=== PATIENT | female | born 1955 | race Caucasian/White ===

== ENCOUNTER → 2017-01-03 | Emergency (ER) | payer MEDICARE, MEDICAID ==
[~2017-01-03] VITALS: Ht 144.8 cm; Wt 52.2 kg
[~2017-01-03] MED LIST: ACET-868 PO; ALBU2.5V13 IH; BISA10SU8 RC; DEXT15DR EACHEYE; DEXT1CAP3 GT; DIATR MEGLU/DIATRIZOATE SODIUM 30 ML BOTTLE (GASTROGRAPHIN) ONE; DOCU50LI GT; ENOX30DI SQ; ESCI10TA GT; HYDR-3326 GT; LEVE500T9 GT; LEVO25TA7 GT; LORA1TAB GT; MAGN400O4 GT; NA P133E RC; NUTR250L48 GT; PANT40SU2 GT
[2017-01-03 18:25] VITALS: BP 102/70
== END | disposition home or self-care (01) ==
LOC: ER 18:24
DX: Z43.1 Encounter for attention to gastrostomy (principal); D64.9 Anemia, unspecified; E11.9 Type 2 diabetes mellitus without complications; I10 Essential (primary) hypertension
CPT/HCPCS: 43760; 74000; 99284; A4606; Q9963; Z7610

== ENCOUNTER 2017-10-13 13:24 | Inpatient (IN) | payer MEDICARE, OTHER ==
[~2017-10-13] VITALS: Ht 152.4 cm; Wt 47.7 kg
[~2017-10-13 13:24] MED LIST changes: -DIATR MEGLU/DIATRIZOATE SODIUM 30 ML BOTTLE (GASTROGRAPHIN) ONE; -HYDR-3326 GT; +HYDR-3974 GT; +MAGN400O21 GT; -MAGN400O4 GT
[2017-10-13] MEDS ORDERED: ACETAMINOPHEN 650 MG/SUPP.RECT RC ONE ×2 (13:30→13:40)
[2017-10-13] MEDS ORDERED: PANTOPRAZOLE 40 MG VIAL IV ONE (13:30)
[2017-10-13] MEDS ORDERED: PIPERACILLIN /TAZOBACTAM 3.375 G in IV D5W 50 ML IV ONE (13:30)
[2017-10-13] MEDS ORDERED: VANCOMYCIN 1 GM in IV D5W 250 ML IV ONE (13:30)
[2017-10-13] MEDS ORDERED: ONDANSETRON HCL/PF - ER 4 MG/2 ML VIAL IV ONE (13:30)
[2017-10-13] MEDS ORDERED: ONDANSETRON HCL/PF 4 MG/2 ML VIAL ONE (13:40)
[2017-10-13] MEDS ORDERED: PANTOPRAZOLE 40 MG VIAL ONE (13:40)
[2017-10-13] MEDS ORDERED: METRONIDAZOLE 500MG/ NS 100ML 100 ML IV ONE ×2 (13:42→21:22)
--- NOTE | 2017-10-13 13:45 | NUR ---
BIBRA C/O COFFEE GROUND EMESIS AND THEN PATIENT DESAT TO 80S. TACHYPNEIC AND FEBRILE WITH RECTAL TEMP OF 100.6. CONTINUE BAGGING AT BS. SKIN IS WARM AND DRY. PLACED ON THE MONITOR AND ASSISTED TO HOSPITAL GOWN. DR MAY AT BS FOR EVAL.
[2017-10-13] MEDS: METRONIDAZOLE 500MG/ NS 100ML 500 MG in PREMIX 1 EA IV SCH ×2 (13:55→21:26)
[2017-10-13 13:58] VITALS: BP 109/84
--- NOTE | 2017-10-13 13:58 | NUR ---
RT PT WAS BROUGHT INTO ER BY PARAMEDICS, PARAMEDICS STATED PT HAD POOR RESPIRATORY EFFORT AND POSSIBLE ASPIRATION. PT APPEARED TO HAVE SHALLOW BREATHING AND BREATHE SOUNDS RHONCHI BILATERAL. PT CAME IN WITH A CUFFLESS PORTEX 7 TRACH AND WAS CHANGED TO PORTEX 7 CUFFED. EQUAL BILATERAL BREATHE SOUNDS AND CHEST RISE NOTED. PT WAS THEN PLACED ON THE VENT NOTED SETTINGS. PT APPEARED TO BE MORE COMFORTABLE ON VENT. VENT ALARMS ARE SET AND AUDIBLE WITH BVM BY BEDSIDE. GOURMET COFFEE ATTENDANT CUFF PRESSURE NOTED. VENT WAS PLUGGED INTO RED OUTLET. NO RESPIRATORY DISTRESS NOTED AT THIS TIME, WILL CONTINUE TO MONITOR. Addendum: 10/13/17 at 1709 by LES MICHEL RT Amended: Links added.
[2017-10-13] MEDS ORDERED: LEVETIRACETAM (500MG) 1,000 MG in IV NS 0.9% 100 ML IV SCH (14:00)
[2017-10-13] MEDS ORDERED: IV NS 0.9% 1,000 ML BAG IV ONE ×2 (14:00)
[2017-10-13 14:02] LABS: BASOPHILS # (AUTO) 0.2 /CMM (0.0-0.2); BASOPHILS % (AUTO) 1.2 % (0.0-2.0); HEMATOCRIT 27 % (33-45); LYMPHOCYTES % (AUTO) 6.8 % (20.0-44.0); MEAN CORPUSCULAR HGB CONC 33 g/dl (31.0-36.0); MEAN CORPUSCULAR VOLUME 83 fL (82-100); MONOCYTES # (AUTO) 0.1 /CMM (0.1-1.30); MONOCYTES % (AUTO) 0.9 % (2.0-12.0); NEUTROPHILS # (AUTO) 12.8 /CMM (1.8-8.9); NEUTROPHILS % (AUTO) 91.1 % (43.0-81.0); PLATELET COUNT (AUTO) 654 /CMM (150-450); RDW COEFFICIENT OF VARIATION 15.5 (11.5-15.0); RED BLOOD CELL COUNT(AUTO) 3.26 MIL/uL (4.0-5.2); WHITE BLOOD COUNT (AUTO) 14.1 K/uL (4.3-11.0)
--- NOTE | 2017-10-13 14:02 | NUR ---
PATIENT IS ON VENT WITH THE FOLLOWING SETTINGS: PORTEX # 7, AC=14, NE=281, SPO2=40% PEEP=5.
[2017-10-13 14:04] LABS: APPEARANCE,URINE Slightly Cloudy (CLEAR); BILIRUBIN,URINE Negative (NEGATIVE); BLOOD, URINE Trace-intact Ery/uL (NEGATIVE); COLOR,URINE Dark (YELLOW); KETONES,URINE Negative (NEGATIVE); LEUKOCYTE ESTERASE ,URINE Small (NEGATIVE); NITRITE, URINE Negative (NEGATIVE); PH,URINE 8.5 (5.0-8.0); PROTEIN,URINE 30 mg/dl (NEGATIVE); UGLUCOSE Negative (NEGATIVE); UROBILINOGEN,URINE 0.2 EU/dL (0.2)
[2017-10-13] MEDS ORDERED: ACETAMINOPHEN 650 MG/20.3 ML UDC ONE (14:12)
[2017-10-13 14:13] LABS: CALCIUM, SERUM 9.5 mg/dL (8.5-10.1); CHLORIDE 88 mmol/L (98-107); CREATININE 0.8 mg/dL (0.6-1.3); GLUCOSE 127 mg/dL (74-106); POTASSIUM 3.7 mmol/L (3.5-5.1); SODIUM SERUM 129 mmol/L (136-145); UREA NITROGEN, BLOOD 13 mg/dL (7-18)
[2017-10-13 14:16] LABS: INR 0.98 (0.85-1.15)
[2017-10-13 14:17] LABS: CARBON DIOXIDE 40 mmol/L (21-32)
[2017-10-13 14:18] LABS: ALANINE AMINOTRANSFERASE 34 U/L (12-78); ALBUMIN 2.2 g/dL (3.4-5.0); ALKALINE PHOSPHATASE 113 U/L (46-116); ASPARTATE AMINOTRANSFERASE 26 U/L (15-37); BILIRUBIN,TOTAL 0.2 mg/dL (0.2-1.0); TOTAL PROTEIN, SERUM 7.3 g/dL (6.4-8.2)
[2017-10-13 14:20] LABS: TROPONIN I < 0.017 ng/mL (0.00-0.056)
[2017-10-13 14:29] LABS: BACTERIA,URINE Moderate /HPF (None Seen); SQUAMOUS EPITHELIAL CELL,UR Few /HPF (None Seen)
[2017-10-13 14:30] LABS: RBC,URINE 0-3 /HPF (0-2); URINE AMORPHOUS URATE Moderate /HPF (None Seen)
[2017-10-13] MEDS ORDERED: ACETAMINOPHEN 325 MG TABLET MC ONE (14:30)
[2017-10-13 14:41] LABS: THYROID STIMULATING HORMONE 5.803 uIU/mL (0.358-3.74)
[2017-10-13] MEDS ORDERED: POTA20LI4 GT (15:04)
[2017-10-13] MEDS ORDERED: OMEP20CA10 GT (15:04)
[2017-10-13] MEDS ORDERED: LEVO137T2 GT (15:04)
[2017-10-13] MEDS ORDERED: TRAM50TA GT (15:04)
[2017-10-13] MEDS ORDERED: FURO20TA4 GT (15:04)
[2017-10-13] MEDS ORDERED: LACT-96 GT (15:04)
[2017-10-13] MEDS ORDERED: METO-295 GT (15:04)
[2017-10-13] MEDS ORDERED: CHLO473M3 MM (15:04)
[2017-10-13] MEDS ORDERED: ALBU2.5V38 IH (15:04)
[2017-10-13] MEDS ORDERED: GLYC1TAB5 GT (15:04)
[2017-10-13] MEDS ORDERED: IPRA0.2S9 IH ×2 (15:04)
[2017-10-13] MEDS ORDERED: POLY17PO4 GT (15:04)
[2017-10-13] MEDS ORDERED: ACET160L33 GT (15:04)
[2017-10-13] MEDS ORDERED: DEXT15DR6 EACHEYE (15:04)
[2017-10-13] MEDS ORDERED: LEVE500S9 GT (15:04)
--- NOTE | 2017-10-13 15:59 | NUR ---
REPORT GIVEN TO ANA PEREZ FOR ANG TELE 114-2
[2017-10-13] MEDS ORDERED: MAG HYDROX/AL HYDROX/SIMETH 30 ML UDC PO PRN (16:00)
[2017-10-13] MEDS ORDERED: MAGNESIUM HYDROXIDE 30 ML UDC PO PRN (16:00)
[2017-10-13] MEDS ORDERED: ALBUTEROL FS 2.5 MG/0.5 ML VIAL.NEB IH PRN (16:00)
[2017-10-13] MEDS ORDERED: BISACODYL SUPP (10 MG) 10 MG/SUPP.RECT SUPP.RECT RC PRN (16:00)
[2017-10-13] MEDS ORDERED: ONDANSETRON HCL/PF 4 MG/2 ML VIAL IVP PRN (16:00)
[2017-10-13] MEDS ORDERED: ZOLPIDEM TARTRATE 5 MG TABLET PO PRN (16:00)
[2017-10-13] MEDS ORDERED: IPRATROPIUM NEB FS 0.5 MG/2.5 ML AMPUL.NEB IH PRN (16:00)
[2017-10-13] MEDS ORDERED: MAGNESIUM HYDROXIDE 30 ML UDC GT PRN (16:00)
[2017-10-13] MEDS ORDERED: VANCOMYCIN 0.75 GM in IV NS 0.9% 250 ML IV SCH (16:00)
[2017-10-13 16:30] VITALS: BP 104/63
--- NOTE | 2017-10-13 16:30 | NUR ---
RN ADMITTING NOTES: Rec'd report from [facility] TELESALES PROFESSIONAL. Pt admitted at rm 116/2, TELE status via [employer] accompanied by RN, RT and ROLLER STAKER. Routine assessment done. Pt is obtunded, opens eyes spontaneously, not in any distress. Has new trach changed at ER Portex 7, patent & intact, placed on MV c/o RT. Suctioned pink tinged secretions. Placed on telemonitor, SR. Has GT, clamped, flushing well. Has 2 IV line access: R wrist G22 and L hand G20, SL, both flushing well, no s/sx of infection/infiltration noted. Has FC draining to BSB, yellowish output. Skin is intact. No belongings noted. Provided comfort & safety measures. Bed kept low & in locked pos. Call light placed w/in reach. Will continue to monitor & attend pt needs. Addendum: 10/13/17 at 1856 by ANA STAFFORD RN Addendum: No acute changes noted w/in shift. Will endorse to PM RN for ANG.
[2017-10-13] MEDS ORDERED: FEE PK DOSING 1 MIN EA MC ONE (16:31)
[2017-10-13] MEDS: IV NS 0.9% 1,000 ML IV PRN (16:59)
[2017-10-13] MEDS: POLYVINYL ALCOHOL 15 ML BOTTLE EACHEYE SCH ×2 (17:00→18:10)
[2017-10-13] MEDS: GLYCOPYRROLATE 1 MG TABLET GT SCH ×2 (17:24→23:33)
[2017-10-13 17:30] LABS: ABG BASE EXCESS 4.5 mmol/L; ABG OXYGEN SATURATION 97.6 % (92.0-98.5); ABG PCO2 43.1 mmHg (35.0-45.0); ABG PH 7.446 (7.350-7.450); ABG PO2 118.7 mmHg (75.0-100.0); AaDO2 116.9 mmHg; COHb 1.6 % (0.5-1.5); MetHb 0.3 % (0.0-1.5); O2Hb 95.7 % (94.0-97.0); PEEP,BG 5 cm H2O; SITE, ABG Right Brachial; VT, ABG 450 mL
[2017-10-13] MEDS ORDERED: IPRATROPIUM NEB FS 0.5 MG/2.5 ML AMPUL.NEB IH SCH (18:00)
[2017-10-13] MEDS: PIPERACILLIN /TAZOBACTAM 3.375 G in IV D5W 50 ML IV SCH ×2 (18:10→23:33)
[2017-10-13] MEDS: ALBUTEROL FS 2.5 MG/3 ML VIAL.NEB IH SCH (19:30)
[2017-10-13] MEDS: IPRATROPIUM NEB FS 0.5 MG/2.5 ML AMPUL.NEB IH SCH (19:30)
--- NOTE | 2017-10-13 19:57 | NUR ---
HOSPITAL NURSING ASSISTANT NOTE RECEIVED PT IN BED OBTUNDED. ON VENT/TRACH, PORTEX 7 AC 14 TV 450, FIO2 30% PEEP 5. TOLERATING THE SETTINGS WELL. NO DISTRESS OR DISCOMFORT NOTED. NO S/S OF PAIN NOTED. ON TELE MONITOR SR HR 83. F/C INTACT AND PATENT DRAINING YELLOWISH COLOR URINE. GT INTACT AND PATENT CLAMPED. PT IS NPO. RT WRIST #22 S/L INTACT AND PATENT ALSO LT HAND #20 G WITH NS @ 75 ML/HR, NO S/S OF INFILTRATION NOTED. REPOSITION HER FOR COMFORT AND SKIN MANAGEMENT. KEPT HER DRY AND CLEAN. ALL NEEDS ATTENDED. SIDE RAILS UP X 3 AND CALL LIGHT WITHIN REACH. VSS. CONTINUE TO MONITOR HER.
[2017-10-13 20:00] VITALS: BP_SYST 162; BP_SYST 97; BP_DIAS 50; BP_DIAS 69
[2017-10-13] MEDS ORDERED: PIPERACILLIN /TAZOBACTAM 3.375 G in IV D5W 100 ML IV SCH (21:00)
[2017-10-13] MEDS: TRAMADOL HCL 50 MG TABLET GT SCH (21:21)
[2017-10-13] MEDS: LEVETIRACETAM SOL (5 ML) 100 MG/ML UDC GT SCH (21:21)
[2017-10-14] VITALS (15 sets, daily range): BP systolic 82–162; BP diastolic 40–74
[2017-10-14] MEDS: IPRATROPIUM NEB FS 0.5 MG/2.5 ML AMPUL.NEB IH SCH ×4 (01:30→19:27)
[2017-10-14] MEDS: ALBUTEROL FS 2.5 MG/3 ML VIAL.NEB IH SCH ×4 (01:30→19:27)
[2017-10-14] MEDS: VANCOMYCIN 1 GM in IV D5W 250 ML IV SCH ×2 (02:00→15:09)
[2017-10-14] MEDS ORDERED: METRONIDAZOLE 500MG/ NS 100ML 100 ML IV ONE (04:29)
[2017-10-14] MEDS: METRONIDAZOLE 500MG/ NS 100ML 500 MG in PREMIX 1 EA IV SCH (05:26)
[2017-10-14] MEDS: PIPERACILLIN /TAZOBACTAM 3.375 G in IV D5W 50 ML IV SCH ×4 (05:33→23:49)
[2017-10-14] MEDS: GLYCOPYRROLATE 1 MG TABLET GT SCH ×4 (05:33→23:49)
--- NOTE | 2017-10-14 06:44 | NUR ---
VENEER STACKER NOTE PT IN OBTUNDED, NO CHANGE IN CONDITION. NO DISTRESS OR DISCOMFORT NOTED. F/C INTACT AND PATENT DRAINING YELLOWISH COLOR URINE. .GT INTACT AND PATENT CLAMPED. REPOSITION HER Q2H, KEPT HER DRY AND CLEAN. SIDE RAILS UP X 3 AND CALL LIGHT WITHIN REACH. WILL ENDORSE TO DAY SHIFT NURSE FOR CONTINUE TO CARE.
[2017-10-14 07:10] LABS: CALCIUM, SERUM 7.3 mg/dL (8.5-10.1); CREATININE 0.6 mg/dL (0.6-1.3); MAGNESIUM 1.5 mg/dL (1.8-2.4); PHOSPHORUS 2.1 mg/dL (2.5-4.9); POTASSIUM 3.3 mmol/L (3.5-5.1)
[2017-10-14 07:46] LABS: BASOPHILS % (AUTO) 0.3 % (0.0-2.0); EOSINOPHILS % (AUTO) 1.4 % (0.0-6.0); LYMPHOCYTES # (AUTO) 1.2 /CMM (0.8-4.8); LYMPHOCYTES % (AUTO) 20.4 % (20.0-44.0); MEAN CORPUSCULAR HGB CONC 32 g/dl (31.0-36.0); MEAN CORPUSCULAR VOLUME 84 fL (82-100); MONOCYTES # (AUTO) 0.2 /CMM (0.1-1.30); NEUTROPHILS # (AUTO) 4.2 /CMM (1.8-8.9); NEUTROPHILS % (AUTO) 73.9 % (43.0-81.0); PLATELET COUNT (AUTO) 407 /CMM (150-450); RED BLOOD CELL COUNT(AUTO) 2.24 MIL/uL (4.0-5.2); WHITE BLOOD COUNT (AUTO) 5.7 K/uL (4.3-11.0)
[2017-10-14 07:50] LABS: HEMATOCRIT 19 % (33-45); HEMOGLOBIN 6.1 g/dL (11.5-14.8)
--- NOTE | 2017-10-14 08:05 | NUR ---
RN NOTE PT HGB 6.1, DR BUSTOS NOTIFIED.
[2017-10-14 08:18] LABS: BAND % (MANUAL) 2 % (0.0-5.0); EOSINOPHILS % (MANUAL) 3 % (0-4); LYMPHOCYTES % (MANUAL) 22 % (16-48); MONOCYTES % (MANUAL) 3 % (0-11.0); NEUTROPHILS % (MANUAL) 70 (42-76)
[2017-10-14] MEDS: PANTOPRAZOLE 40 MG/PACK PACK GT SCH (08:45)
[2017-10-14] MEDS: TRAMADOL HCL 50 MG TABLET GT SCH ×2 (08:46→20:57)
[2017-10-14] MEDS: LEVOTHYROXINE SODIUM 137 MCG TABLET GT SCH (08:47)
[2017-10-14] MEDS: DOCUSATE SODIUM LIQ 100 MG/10 ML UDC GT SCH (08:47)
[2017-10-14] MEDS: LEVETIRACETAM SOL (5 ML) 100 MG/ML UDC GT SCH ×2 (08:47→20:56)
[2017-10-14] MEDS: FUROSEMIDE 20 MG TABLET GT SCH (08:47)
[2017-10-14] MEDS: POLYVINYL ALCOHOL 15 ML BOTTLE EACHEYE SCH ×2 (08:48→18:13)
--- NOTE | 2017-10-14 11:00 | NUR ---
RN NOTE ATTEMPTED TO CALL FAMILY TO GET BLOOD TRANSFUSION CONSENT, BUT THE NOONE COULD BE REACHED. THERE IS A GARMENT ALTERATION EXAMINER JONATHAN CIFUENTES [phone], BUT SHE CANNOT GIVE CONSENTS FOR PROCEDURES SHE CAN REACH DOCTORS TO SIGN CONSENTS. BUT IN THIS CASE TWO MDS HAD TO SIGN CONSENT SINCE IT TOOK TOO LONG TO OBTAIN CONSENT FROM GARMENT ALTERATION EXAMINER JONATHAN CIFUENTES. WILL
--- NOTE | 2017-10-14 11:02 | NUR ---
RT NOTE RT UNAWARE OF SCHEDULED TX. NO RESP DISTRESS OR SOB NOTED. WILL CONTINUE WITH NEXT SCHEDULED TX.
[2017-10-14] MEDS: Magnesium 1GM/D5W 100ML PREMIX 100 ML IV SCH ×3 (13:19→16:40)
--- NOTE | 2017-10-14 14:43 | NUR ---
Patient is trach/vent dependent.Resides at [facility] sub-acute [phone]. Patient is bedfast,totally dependent with adl's. Plan is to dc back to [facility] once discharge. Addendum: 10/14/17 at 1444 by SHEBA US RN Amended: Links added.
[2017-10-14] MEDS ORDERED: FAMOTIDINE/PF INJ 20 MG/2 ML VIAL IV ONE (15:00)
[2017-10-14] MEDS ORDERED: methylPREDNISolone SOD SUCC 125 MG/2ML VIAL IV ONE (15:00)
[2017-10-14] MEDS ORDERED: diphenhydrAMINE HCL 50 MG/ML VIAL IV ONE (15:00)
--- NOTE | 2017-10-14 15:00 | NUR ---
RN NOTE PT HAD REACTION TO BLOOD TRANSFUSION WHILE TRANSFUSING 1 UNIT PRBCS EARLIER, BLOOD STOPPED AND REACTION WORKUP DONE, DR BUSTOS NOTIFIED AND GOT NEW ORDERS TO GIVE MEDS AND RETYPE AND SCREEN AND ORDERED NEW 1 UNIT OF PRBCS. VS REMAINED STABLE, NO SOB, ONLY REACTION WAS NOTED AT IV SITE R HAND SKIN REDNESS AROUND IV SITE. WILL FOLLOW UP WITH BLOOD BANK AND CARRY OUT NEW ORDERS. WILL MONITOR PT FOR FURTHER REACTION.
--- NOTE | 2017-10-14 16:06 | NUR ---
PT MARKUS'D ON MECHANICAL VENT. TX GIVEN AND NO ADVERSE REACTION NOTED. SX DONE T/O SHIFT. PT MARKUS PATENT AND SECURE. AMBUBAG AT BEDSIDE. VENT PLUGGED INTO RED OUTLET. ALARMS ARE ON AND AUDIBLE. Addendum: 10/14/17 at 1610 by CHICHI LI RT Amended: Links added.
[2017-10-14] MEDS: Potassium Phosphate meq 11 MEQ in IV D5W 100 ML IV SCH ×2 (16:34→19:36)
[2017-10-14] MEDS: IV NS 0.9% 1,000 ML IV PRN (16:35)
--- NOTE | 2017-10-14 17:15 | NUR ---
RN NOTE BLOOD BANK CALLED REGARDING THE NEW UNIT OF PRBCS, STATING THAT THEY ARE WAITING FOR PATHOLOGY REPORT FOR REACTION WORK UP EARLIER. WHEN THE REPORT IS READY THE BLOOD BANK WILL RELEASE 1 UNIT OF BLOOD FOR PT. WILL ENDORSE TO DIRECTOR OF MARKETING OPERATIONS.
--- NOTE | 2017-10-14 19:00 | NUR ---
RN NOTE PT REMAINED STABLE, NO NEW REACTION NOTED, PT HAD MIDLINE INSERTED, SAFETY MAINTAINED AT ALL TIMES, WILL ENDORSE TO TABLE HAND .
--- NOTE | 2017-10-14 20:00 | NUR ---
DIRECTOR OF GRANTS NOTE RECEIVED PT IN BED OBTUNDED. MOVING HER RT ARM TO HER FACE AT TIME. S/P MID LINE RT UPPER ARM # 20 G INFUSING NS @ 75 ML/HR, NO S/S OF INFILTRATION NOTED. ON VENT/TRACH TOLERATING THE SETTINGS WELL. SUCTIONED HER NEEDED, SMALL AMOUNT OF THICK YELLOWISH SECRETIONS NOTED. KEPT HOB ELEVATED. ON TELE SR WITH PVC AND S ARRYTHEMIA HR 71. F/C INTACT AND PATENT DRAINING YELLOWISH COLOR URINE. GT INTACT AND PATENT REMAIN CLAMPED. FLUSHED GT WITH NS ORDERED. ALSO CALLED BLOOD BANK BUT BLOOD IS NOT READY YET. WILL FOLLOW UP. REPOSITION HER FOR SKIN AND COMFORT MEASURE. SIDE RAILS UP X 3 AND CALL LIGHT WITHIN REACH. VSS. CONTINUE TO MONITOR HER.
--- NOTE | 2017-10-14 21:52 | NUR ---
LUSTER REPAIRER NOTE 1 UNIT OF PRBC STARTED AT 60 ML/HR, NO S/S OF A/R NOTED IN FIRST 15 MINUTES. VSS. CONTINUE TO MONITOR HER.
--- NOTE | 2017-10-14 22:43 | NUR ---
JR. JAVA DEVELOPER NOTE URINE SPECIMEN COLLECTED AND SENT IT TO LAB.
[2017-10-14 23:10] LABS: APPEARANCE,URINE CLEAR (CLEAR); BILIRUBIN,URINE NEGATIVE (NEGATIVE); BLOOD, URINE 1+ Ery/uL (NEGATIVE); COLOR,URINE YELLOW (YELLOW); KETONES,URINE NEGATIVE (NEGATIVE); LEUKOCYTE ESTERASE ,URINE TRACE (NEGATIVE); NITRITE, URINE NEGATIVE (NEGATIVE); PH,URINE 6.5 (5.0-8.0); PROTEIN,URINE NEGATIVE (NEGATIVE); UGLUCOSE NEGATIVE (NEGATIVE); UROBILINOGEN,URINE 0.2 EU/dL (0.2)
[2017-10-14 23:16] LABS: BACTERIA,URINE Few /HPF (None Seen)
[2017-10-14 23:17] LABS: SQUAMOUS EPITHELIAL CELL,UR Few /HPF (None Seen)
[2017-10-14 23:33] LABS: OSMOLALITY,URINE 102 mOS/kg (340-1090)
[2017-10-14 23:58] LABS: URINE SODIUM, RANDOM 11 mmol/l (40-220)
[2017-10-15] VITALS (7 sets, daily range): BP systolic 92–132; BP diastolic 52–100
--- NOTE | 2017-10-15 00:12 | NUR ---
EPIC CUPID SPECIALISTS NOTE PRBC 1 UNIT FINISHED. NO A/R NOTED. VSS. CONTINUE TO MONITOR HER.
[2017-10-15] MEDS: IPRATROPIUM NEB FS 0.5 MG/2.5 ML AMPUL.NEB IH SCH ×4 (01:00→19:31)
[2017-10-15] MEDS: ALBUTEROL FS 2.5 MG/3 ML VIAL.NEB IH SCH ×4 (01:00→19:31)
[2017-10-15] MEDS: VANCOMYCIN 1 GM in IV D5W 250 ML IV SCH ×2 (01:55→15:12)
[2017-10-15] MEDS: GLYCOPYRROLATE 1 MG TABLET GT SCH ×3 (05:56→17:40)
[2017-10-15] MEDS: PIPERACILLIN /TAZOBACTAM 3.375 G in IV D5W 50 ML IV SCH ×3 (05:56→18:50)
--- NOTE | 2017-10-15 06:25 | NUR ---
RESTAURANT OPERATIONS MANAGER NOTE PT IN BED OBTUNDED. NO CHANGE IN CONDITION. ON TELE SB WITH PVC HR IN 50s. SIDE RAILS UP X 3 AND CALL LIGHT WITHIN REACH. REPOSITION HER Q2H, KEPT HER DRY AND CLEAN. ALL NEEDS ATTENDED. WILL ENDORSE TO DAY SHIFT NURSE FOR CONTINUE TO CARE.
[2017-10-15 06:43] LABS: CALCIUM, SERUM 7.8 mg/dL (8.5-10.1); CREATININE 0.7 mg/dL (0.6-1.3); MAGNESIUM 2.4 mg/dL (1.8-2.4); POTASSIUM 2.9 mmol/L (3.5-5.1)
[2017-10-15 07:03] LABS: THYROID STIMULATING HORMONE 1.463 uIU/mL (0.358-3.74); URIC ACID 1.9 mg/dL (2.6-7.2)
--- NOTE | 2017-10-15 07:33 | NUR ---
RN NOTES RECEIVED PT FROM SENIOR SQL SERVER DEVELOPER, VENT/TRACH DEPENDENT, OBTUNDED. TOLERATING VENT SETTINGS NO SOB OR DISTRESS NOTED. SR ON THE TELE VLADIMIR HR 60. CASPER DRAINING TO GRAVITY, YELLOW IN COLOR. TRISHA MIDLINE, L HAND 20G IV SITE INTACT WITH IVF AT 75ML/HR. BED LOCKED AND IN LOWEST POSITION, CALL LIGHT WITHIN REACH, SIDE RAILS UPX3, WILL CONT TO VLADIMIR.
[2017-10-15 08:36] LABS: BASOPHILS % (AUTO) 0.4 % (0.0-2.0); HEMATOCRIT 27 % (33-45); LYMPHOCYTES # (AUTO) 0.6 /CMM (0.8-4.8); LYMPHOCYTES % (AUTO) 20.8 % (20.0-44.0); MEAN CORPUSCULAR HGB CONC 33 g/dl (31.0-36.0); MEAN CORPUSCULAR VOLUME 84 fL (82-100); MONOCYTES # (AUTO) 0.1 /CMM (0.1-1.30); MONOCYTES % (AUTO) 2.1 % (2.0-12.0); NEUTROPHILS # (AUTO) 2.3 /CMM (1.8-8.9); NEUTROPHILS % (AUTO) 76.7 % (43.0-81.0); PLATELET COUNT (AUTO) 482 /CMM (150-450); RDW COEFFICIENT OF VARIATION 15.2 (11.5-15.0); RED BLOOD CELL COUNT(AUTO) 3.19 MIL/uL (4.0-5.2)
[2017-10-15] MEDS: LEVETIRACETAM SOL (5 ML) 100 MG/ML UDC GT SCH ×2 (08:40→20:35)
[2017-10-15] MEDS: DOCUSATE SODIUM LIQ 100 MG/10 ML UDC GT SCH (08:40)
[2017-10-15] MEDS: PANTOPRAZOLE 40 MG/PACK PACK GT SCH (08:41)
[2017-10-15] MEDS: POLYVINYL ALCOHOL 15 ML BOTTLE EACHEYE SCH ×2 (08:41→17:41)
[2017-10-15] MEDS: TRAMADOL HCL 50 MG TABLET GT SCH (08:41)
[2017-10-15] MEDS: LEVOTHYROXINE SODIUM 137 MCG TABLET GT SCH (08:41)
[2017-10-15] MEDS: FUROSEMIDE 20 MG TABLET GT SCH (08:41)
[2017-10-15] MEDS: IV NS 0.9% 1,000 ML IV PRN (11:15)
[2017-10-15] MEDS: POTASSIUM CL. PREMIX PERIPHER. 50 ML IV SCH ×6 (12:12→17:41)
--- NOTE | 2017-10-15 14:53 | NUR ---
RN NOTES ATTEMPTED TO GET CONSENT FOR EEG. ONLY PHONE NUMBER ON PTS FACESHEET IS A NONWORKING NUMBER. PATI ERNANDEZ MADE AWARE.
--- NOTE | 2017-10-15 15:23 | NUR ---
PT RECEIVED ON MECHANICAL VENT. TX GIVEN AND NO ADVERSE REACTION NOTED. SX DONE T/O SHIFT. PT'S TRACH PATENT AND SECURE. AMBU BAG AT BEDSIDE. VENT IS PLUGGED INTO RED OUTLET. ALARMS ARE ON AND AUDIBLE. WILL CONT TO MONITOR PT.
[2017-10-15 17:07] LABS: ALBUMIN 1.9 g/dL (3.4-5.0); BILIRUBIN,DIRECT 0.1 mg/dL (0.0-0.2); BILIRUBIN,TOTAL 0.3 mg/dL (0.2-1.0); TOTAL PROTEIN, SERUM 6.3 g/dL (6.4-8.2)
[2017-10-15] MEDS: PANTOPRAZOLE 40 MG VIAL IV SCH (17:41)
[2017-10-15 18:08] LABS: OCCULT BLOOD STOOL NEGATIVE (NEGATIVE)
[2017-10-15] MEDS: LINEZOLID RTU BAG 600 MG in PREMIX 1 EA IV SCH (20:35)
[2017-10-16] VITALS (10 sets, daily range): BP systolic 94–172; BP diastolic 54–93
[2017-10-16] MEDS: GLYCOPYRROLATE 1 MG TABLET GT SCH ×4 (00:29→17:33)
[2017-10-16] MEDS: PIPERACILLIN /TAZOBACTAM 3.375 G in IV D5W 50 ML IV SCH ×4 (00:30→17:15)
[2017-10-16] MEDS: IPRATROPIUM NEB FS 0.5 MG/2.5 ML AMPUL.NEB IH SCH ×4 (02:24→19:23)
[2017-10-16] MEDS: ALBUTEROL FS 2.5 MG/3 ML VIAL.NEB IH SCH ×4 (02:24→19:24)
[2017-10-16 06:40] LABS: CALCIUM, SERUM 7.9 mg/dL (8.5-10.1); CREATININE 0.8 mg/dL (0.6-1.3); POTASSIUM 3.1 mmol/L (3.5-5.1)
--- NOTE | 2017-10-16 07:30 | NUR ---
RN OPENING NOTES RECEIVED PATIENT IN BED, OBTUNDED. PATIENT WITH TRACH AND VENT DEPENDENT. NO ACUTE DISTRESS, NO SOB NOTED. NO S/S OF PAIN OR DISCOMFORT AT THE MOMENT. IV SITE INTACT AND PATENT. CASPER IN PLACE. KEPT PATIENT SAFE AND COMFORTABLE. BED IN LOW/LOCKED POSITION, HOB ELEVATED, SIDERAILS UPX2, CALL LIGHT IN REACH, WILL CONTINUE TO MONITOR ACCORDINGLY
--- NOTE | 2017-10-16 09:00 | NUR ---
RN NOTES EDG DONE ON BEDSIDE. PATIENT IN STABLE CONDITION. CONSENT FORM SIGNED BY DR IRVIN AND DR BUSTOS. PER NIGHT RN, UNABLE TO CONTACT FAMILY FOR CONSENT
[2017-10-16] MEDS: DOCUSATE SODIUM LIQ 100 MG/10 ML UDC GT SCH (09:38)
[2017-10-16] MEDS: FUROSEMIDE 20 MG TABLET GT SCH (09:39)
[2017-10-16] MEDS: LEVETIRACETAM SOL (5 ML) 100 MG/ML UDC GT SCH ×2 (09:47→20:00)
[2017-10-16] MEDS: PANTOPRAZOLE 40 MG VIAL IV SCH ×2 (09:52→16:22)
[2017-10-16] MEDS: LEVOTHYROXINE SODIUM 137 MCG TABLET GT SCH (09:59)
[2017-10-16] MEDS: LINEZOLID RTU BAG 600 MG in PREMIX 1 EA IV SCH ×2 (10:00→20:00)
[2017-10-16] MEDS: POLYVINYL ALCOHOL 15 ML BOTTLE EACHEYE SCH ×2 (10:03→17:34)
--- NOTE | 2017-10-16 12:00 | NUR ---
RN NOTES RESUME FEEDING PER DR. FLORES. Addendum: 10/16/17 at 1630 by TODD BOYD PER DR. FLORES, IF FEEDING NOT TOLERATED, CONSULT SURGERY.
[2017-10-16 14:38] LABS: OSMOLALITY,URINE 302 mOS/kg (340-1090)
[2017-10-16] MEDS: POTASSIUM CL. PREMIX PERIPHER. 50 ML IV SCH ×4 (14:58→19:19)
--- NOTE | 2017-10-16 15:15 | NUR ---
RN NOTES PER DR BUSTOS, RESUME TUBE FEEDING, START SLOW AND ADVANCE DIET TOLERATED.
[2017-10-16] MEDS ORDERED: JEVITY 1.2 CAL 1,000 ML BOTTLE GT PRN (15:30)
[2017-10-16 15:36] LABS: URINE SODIUM, RANDOM 131 mmol/l (40-220)
--- NOTE | 2017-10-16 19:25 | NUR ---
RN CLOSING NOTES PATIENT IN BED RESTING. NO ACUTE DISTRESS, NO SOB NOTED. ALL NEEDS ATTENDED AND PROVIDED. KEPT PATIENT SAFE AND COMFORTABLE. TURNED AND REPOSITION PATIENT EVERY 2 HOURS NEEDED. KEPT PATIENT CLEAN. BED IN LOW/LOCKED POSITION, SIDERAILS UP, CALL LIGHT IN REACH. ENDORSED TO NIGHT RN FOR ANG.
[2017-10-16] MEDS: IV NS 0.9% 1,000 ML IV PRN (19:55)
[2017-10-16] MEDS: JEVITY 1.2 CAL 1,000 ML BOTTLE GT PRN (19:56)
[2017-10-17] VITALS: BP 137/86
[2017-10-17] MEDS: ALBUTEROL FS 2.5 MG/3 ML VIAL.NEB IH SCH ×4 (00:34→20:35)
[2017-10-17] MEDS: IPRATROPIUM NEB FS 0.5 MG/2.5 ML AMPUL.NEB IH SCH ×4 (00:34→20:35)
[2017-10-17] MEDS: PIPERACILLIN /TAZOBACTAM 3.375 G in IV D5W 50 ML IV SCH ×4 (00:36→17:05)
[2017-10-17] MEDS: GLYCOPYRROLATE 1 MG TABLET GT SCH ×4 (00:36→17:05)
--- NOTE | 2017-10-17 03:55 | NUR ---
PT MARKUS'D ON MECHANICAL VENT. TXS GIVEN AND NO ADVERSE REACTION NOTED. SX DONE T/O SHIFT. PT TRACH PATENT AND SECURE. AMBUBAG AT BEDSIDE. VENT PLUGGED INTO RED OUTLET. ALARMS ARE ON AND AUDIBLE. WILL CONTINUE TO MONITOR. Addendum: 10/17/17 at 0358 by CHICHI LI RT Amended: Links added.
[2017-10-17 04:00] VITALS: BP 141/80
--- NOTE | 2017-10-17 05:05 | NUR ---
RN NOTE PATIENT IS AWAKE, CONFUSED, NO DISTRESS NOTED, PATIENT IS KICKING, REMOVING TUBING, TRYING TO GET OUT FROM THE BED, ALL TUBINGS WERE HIDDEN, PT'S ROOM IS CLOSED TO STATION STILL REMOVING ALL THE TUBINGS, GETTING OUT OF THE BED, COMBATIVE, CALLED NEGRETTE OFFICE SERVICES COORDINATOR, NEW ORDER FOR BILATERAL RESTRAINTS GIVEN AND CARRIED OUT
[2017-10-17 07:09] LABS: BASOPHILS % (AUTO) 0.3 % (0.0-2.0); EOSINOPHILS % (AUTO) 1.6 % (0.0-6.0); HEMATOCRIT 25 % (33-45); HEMOGLOBIN 8.4 g/dL (11.5-14.8); LYMPHOCYTES # (AUTO) 1.1 /CMM (0.8-4.8); LYMPHOCYTES % (AUTO) 21.4 % (20.0-44.0); MEAN CORPUSCULAR HGB CONC 34 g/dl (31.0-36.0); MEAN CORPUSCULAR VOLUME 84 fL (82-100); MONOCYTES # (AUTO) 0.3 /CMM (0.1-1.30); MONOCYTES % (AUTO) 6.1 % (2.0-12.0); NEUTROPHILS # (AUTO) 3.7 /CMM (1.8-8.9); NEUTROPHILS % (AUTO) 70.6 % (43.0-81.0); PLATELET COUNT (AUTO) 451 /CMM (150-450); RDW COEFFICIENT OF VARIATION 15.4 (11.5-15.0); RED BLOOD CELL COUNT(AUTO) 2.97 MIL/uL (4.0-5.2); WHITE BLOOD COUNT (AUTO) 5.2 K/uL (4.3-11.0)
--- NOTE | 2017-10-17 07:30 | NUR ---
RN NOTE RECEIVED PATIENT IN BED WITH HOB ELEVATED, OBTUNDED, BUT IS OPEN EYES WITH TACTILE STIMULI. PATIENT WITH TRACH/VENT DEPENDENT AT APPROPRIATE SETTINGS. NO DISTRESS OR DISCOMFORT NOTED. LEFT FA IV SITE INTACT AND PATENT. GT SITE INTACT AND PATENT WITH ONGOING FEEDINGS. F/C INTACT AND PATENT WITH ADEQUATE FLOW OF URINE. BED LOCK AND LOW POSITION, PLACED CALL LIGHT WITHIN REACH. WILL CONTINUE TO MONITOR
[2017-10-17 07:35] LABS: CALCIUM, SERUM 7.2 mg/dL (8.5-10.1); CREATININE 0.6 mg/dL (0.6-1.3); MAGNESIUM 1.5 mg/dL (1.8-2.4); PHOSPHORUS 2.2 mg/dL (2.5-4.9)
[2017-10-17 07:54] LABS: POTASSIUM 2.8 mmol/L (3.5-5.1)
[2017-10-17 08:00] VITALS: BP 119/72
[2017-10-17] MEDS: DOCUSATE SODIUM LIQ 100 MG/10 ML UDC GT SCH (08:28)
[2017-10-17] MEDS: LEVOTHYROXINE SODIUM 137 MCG TABLET GT SCH (08:28)
[2017-10-17] MEDS: FUROSEMIDE 20 MG TABLET GT SCH (08:28)
[2017-10-17] MEDS: LEVETIRACETAM SOL (5 ML) 100 MG/ML UDC GT SCH ×2 (08:28→21:35)
[2017-10-17] MEDS: PANTOPRAZOLE 40 MG VIAL IV SCH ×2 (08:28→17:05)
[2017-10-17] MEDS: LINEZOLID RTU BAG 600 MG in PREMIX 1 EA IV SCH (08:30)
--- NOTE | 2017-10-17 08:50 | NUR ---
RN NOTE BEST SECOND JOBS PRAKASH CALLED REPORTING CRITICAL LAB OF POTASSIUM 2.8, CALLED EXCHANGE TO REPORT CRITICAL LAB TO DR NGUYEN AWAITING A CALL BACK FOR FURTHER ORDERS
[2017-10-17] MEDS: POLYVINYL ALCOHOL 15 ML BOTTLE EACHEYE SCH ×2 (09:00→16:29)
[2017-10-17] MEDS: Magnesium 1GM/D5W 100ML PREMIX 100 ML IV SCH ×4 (10:42→15:00)
--- NOTE | 2017-10-17 10:45 | NUR ---
RN NOTE POTASSIUM REPLACEMENT GIVEN 60MEQ VIA GT.
[2017-10-17] MEDS ORDERED: POTASSIUM CHLORIDE 20 MEQ POWDER PACKET GT SCH (11:00)
[2017-10-17] MEDS ORDERED: NEUTRA PHOS 1 POWD.PACKET GT ONE (11:00)
[2017-10-17 12:00] VITALS: BP 116/64
[2017-10-17] MEDS ORDERED: POTASSIUM PHOSPHATE MM 15 MMOL in IV NS 0.9% 250 ML IV SCH (13:30)
[2017-10-17] MEDS ORDERED: POTASSIUM CHLORIDE 20 MEQ POWDER PACKET GT ONE (14:00)
[2017-10-17] MEDS: POTASSIUM PHOSPHATE MM 7.5 MMOL in IV D5W 100 ML IV SCH ×2 (15:23→18:22)
[2017-10-17 16:00] VITALS: BP 118/73
--- NOTE | 2017-10-17 19:09 | NUR ---
RN NOTE PATIENT REMAINED STABLE THROUGHOUT SHIFT. NO DISTRESS OR DISCOMFORT NOTED. WILL ENDORSE TO NEXT SHIFT TO CONTINUE CONTINUITY OF CARE.
[2017-10-17 20:00] VITALS: BP 135/72
[2017-10-17] MEDS: LINEZOLID 600 MG TABLET GT SCH (21:35)
[2017-10-18] VITALS: BP 136/99
[2017-10-18] MEDS: GLYCOPYRROLATE 1 MG TABLET GT SCH ×4 (00:39→17:17)
[2017-10-18] MEDS: PIPERACILLIN /TAZOBACTAM 3.375 G in IV D5W 50 ML IV SCH ×4 (00:40→18:01)
[2017-10-18] MEDS: IPRATROPIUM NEB FS 0.5 MG/2.5 ML AMPUL.NEB IH SCH ×4 (01:05→19:08)
[2017-10-18] MEDS: ALBUTEROL FS 2.5 MG/3 ML VIAL.NEB IH SCH ×4 (01:05→19:08)
[2017-10-18 04:00] VITALS: BP 127/62
[2017-10-18] MEDS: JEVITY 1.2 CAL 1,000 ML BOTTLE GT PRN (06:22)
--- NOTE | 2017-10-18 06:34 | NUR ---
RN CLOSING NOTES PATIENT WITH NO ACUTE DISTRESS AND CHANGE IN CONDITION OBSERVED OVERNIGHT. PATIENT TOLERATING VENT SETTINGS WELL, AIRWAY SUCTIONED NEEDED. GTF TO GOAL, MINIMAL GASTRIC RESIDUAL NOTED, TOTAL OF 20CC RESIDUAL NOTED FOR THE SHIFT. HOB REMAINS ELEVATED. SR ON TELE WITH HR IN THE 60s. PATIENT TURNED AND REPOSITIONED. SAFETY AND COMFORT ENSURED. NEEDS ANTICIPATED AND MET. WILL ENDORSE ACCORDINGLY.
[2017-10-18 06:52] LABS: CALCIUM, SERUM 7.5 mg/dL (8.5-10.1); CREATININE 0.7 mg/dL (0.6-1.3); MAGNESIUM 2.2 mg/dL (1.8-2.4); PHOSPHORUS 2.9 mg/dL (2.5-4.9); POTASSIUM 4.5 mmol/L (3.5-5.1)
--- NOTE | 2017-10-18 07:12 | NUR ---
RN INITIAL NOTES: Rec'd pt on bed, awake, not in any distress. On MV via trach, sating at 98%. On telemonitor, SR. Has GT on cont TF of Jevity x 40 cc/hr infusing well, no residual upon checking. Has FC patent & intact draining to yellowish urine output. Has LFA G24, SL, patent & intact w/ no s/sx of infection/infiltration noted. Provided comfort & safety measures. Bed kept low & in locked pos. Call light placed w/in reach. Will continue to monitor & attend pt needs.
[2017-10-18 08:00] VITALS: BP 113/68
[2017-10-18] MEDS: PANTOPRAZOLE 40 MG VIAL IV SCH ×2 (08:53→16:31)
[2017-10-18] MEDS: LEVETIRACETAM SOL (5 ML) 100 MG/ML UDC GT SCH ×2 (08:53→20:20)
[2017-10-18] MEDS: DOCUSATE SODIUM LIQ 100 MG/10 ML UDC GT SCH (08:53)
[2017-10-18] MEDS: LINEZOLID 600 MG TABLET GT SCH ×2 (08:54→20:20)
[2017-10-18] MEDS: LEVOTHYROXINE SODIUM 137 MCG TABLET GT SCH (08:58)
[2017-10-18] MEDS: POLYVINYL ALCOHOL 15 ML BOTTLE EACHEYE SCH ×2 (08:59→16:32)
[2017-10-18] MEDS: Z GUARD REMEDY 2 OZ OINT TP PRN (09:01)
[2017-10-18 12:00] VITALS: BP 125/82
[2017-10-18] MEDS ORDERED: PANT40TA2 GT (13:54)
[2017-10-18] MEDS ORDERED: LINE600T GT (13:54)
[2017-10-18] MEDS ORDERED: LEVO750T21 PO (13:54)
--- NOTE | 2017-10-18 15:18 | NUR ---
FRONT END ARCHITECT KATELYNN NOTIFIED ABOUT DC ORDER AWAITS BED
[2017-10-18 16:00] VITALS: BP 137/87
[2017-10-18] MEDS: HYDROCODONE/APAP 5/325MG 1 EACH TABLET PO PRN (16:32)
--- NOTE | 2017-10-18 18:42 | NUR ---
RN CLOSING NOTES: No acute changes noted w/in shift. Pt tolerated MV via trach, no SOB. Secretions suctioned. On telemonitor, still SR. Pt tolerated GTF of Jevity x 40 cc/hr, no high residual w/in shift. FC kept patent & intact draining to adequate yellowish urine output. LFA G24, SL, kept patent & intact w/ no s/sx of infection/infiltration noted. Pt seen & examined by PATI Padron w/ DC orders, however, no bed available at this time per CM. Kept well rested. Needs attended. Bed kept low & in locked pos. Call light placed w/in reach. Will endorse to PM RN for ANG.
[2017-10-18 20:00] VITALS: BP 104/58
[2017-10-19] VITALS (8 sets, daily range): BP systolic 75–147; BP diastolic 34–72
[2017-10-19] MEDS: PIPERACILLIN /TAZOBACTAM 3.375 G in IV D5W 50 ML IV SCH ×5 (00:15→23:05)
[2017-10-19] MEDS: GLYCOPYRROLATE 1 MG TABLET GT SCH ×5 (00:15→23:04)
[2017-10-19] MEDS: IPRATROPIUM NEB FS 0.5 MG/2.5 ML AMPUL.NEB IH SCH ×4 (01:22→20:20)
[2017-10-19] MEDS: ALBUTEROL FS 2.5 MG/3 ML VIAL.NEB IH SCH ×4 (01:22→20:20)
[2017-10-19] MEDS: JEVITY 1.2 CAL 1,000 ML BOTTLE GT PRN (05:04)
[2017-10-19] MEDS ORDERED: PIPERACILLIN /TAZOBACTAM 3.375 G VIAL IV ONE (05:15)
--- NOTE | 2017-10-19 07:30 | NUR ---
ANESTHESIOLOGIST AND CRITICAL CARE NOTE: RECEIVED PATIENT IN BED, ASLEEP AND AROUSABLE W/ TOUCH. VENT-TRACH DEPENDENT SATURATING 100%. NO FACIAL GRIMACING NOTED. HOB ELEVATED. ON GT FEEDING OF JEVITY 1.2 @ 40CC/HR NO RESIDUAL WAS NOTED. ON PARALEGAL SPECIALIST, SR HR= 69. (L)FA IV LINE INTACT AND PATENT COVERED W/ KERLIX. BED ALARM AND LOCKED AT ALL TIMES. LOW BED POSITION. ON SEIZURE PRECAUTION. CALL LIGHT WITHIN REACH. AND NEEDS ANTICIPATED.
[2017-10-19] MEDS: LEVOTHYROXINE SODIUM 137 MCG TABLET GT SCH (09:30)
[2017-10-19] MEDS: LEVETIRACETAM SOL (5 ML) 100 MG/ML UDC GT SCH ×2 (09:30→20:37)
[2017-10-19] MEDS: DOCUSATE SODIUM LIQ 100 MG/10 ML UDC GT SCH (09:30)
[2017-10-19] MEDS: PANTOPRAZOLE 40 MG VIAL IV SCH ×2 (09:30→17:03)
[2017-10-19] MEDS: POLYVINYL ALCOHOL 15 ML BOTTLE EACHEYE SCH ×2 (09:31→17:04)
[2017-10-19] MEDS: Z GUARD REMEDY 2 OZ OINT TP PRN (09:31)
[2017-10-19] MEDS: LINEZOLID 600 MG TABLET GT SCH ×2 (09:47→20:37)
[2017-10-19] MEDS ORDERED: IV NS 0.9% 500 ML IV ONE (12:00)
--- NOTE | 2017-10-19 12:06 | NUR ---
WOUND CARE CONSULT: PT PRESENTS WITH PEELING SKIN TO FACE AND DISCOLORATION TO RT HAND AND WRIST. NO DRAINAGE NOTED FROM FACE OR RT HAND AND WRIST. DEFER TO MD FOR FACIAL SKIN PEELING AND RT UPPER EXTREMITY. ALL SKIN PROTECTION MEASURES IN PLACE AND DISCUSSED WITH NURSING STAFF. WILL SEE PRN. SLOAN IN AGREEMENT WITH PLAN OF CARE. Addendum: 10/19/17 at 1208 by RADHA CATHERINE WNDNU Amended: Links added.
--- NOTE | 2017-10-19 12:18 | NUR ---
SPECIAL EDUCATION PARA PROFESSIONAL NOTE: RECHECKED THE PATIENT'S BP AND IT WAS 97/64 HR 74. PATI WHEATLEY WAS MADE AWARE WITH ORDERS. SHE WAS ALSO INFORMED THAT THE PATIENT WAS SEEN BY RADHA WOUND CARE NURSE AND NOTED THAT THE PATIENT'S FACIAL REDNESS AND (R) HAND NEEDS TO BE DOUBLE CHECKED WITH THE MD. PATI WHEATLEY WAS MADE AWARE.
--- NOTE | 2017-10-19 12:45 | NUR ---
CASH VAN SALESPERSON NOTE: INFORMED PATI WHEATLEY ABOUT THE PATIENT'S FACIAL REDNESS AND THE (R) HAND REDNESS WHICH WAS SEEN ADN EVALUATED BY THE WOUND CARE NURSERADHA. NO NEW ORDER GIVEN AT THIS TIME. PATIENT IS POSSIBLE DISCHARGE TODAY. PER RADHA WOUND CARE NURSE, IF PATIENT WILL BE NOT GET DISCHARGE TODAY, CHANGE THE MATTRESS TO LOW AIR LOSS MATTRESS.
[2017-10-19 14:48] LABS: BASOPHILS % (AUTO) 0.9 % (0.0-2.0); EOSINOPHILS % (AUTO) 5.4 % (0.0-6.0); HEMATOCRIT 27 % (33-45); HEMOGLOBIN 8.7 g/dL (11.5-14.8); LYMPHOCYTES # (AUTO) 1.1 /CMM (0.8-4.8); LYMPHOCYTES % (AUTO) 34.7 % (20.0-44.0); MEAN CORPUSCULAR HGB CONC 33 g/dl (31.0-36.0); MEAN CORPUSCULAR VOLUME 85 fL (82-100); MONOCYTES # (AUTO) 0.2 /CMM (0.1-1.30); MONOCYTES % (AUTO) 6.2 % (2.0-12.0); NEUTROPHILS # (AUTO) 1.7 /CMM (1.8-8.9); NEUTROPHILS % (AUTO) 52.8 % (43.0-81.0); PLATELET COUNT (AUTO) 510 /CMM (150-450); RDW COEFFICIENT OF VARIATION 15.9 (11.5-15.0); RED BLOOD CELL COUNT(AUTO) 3.14 MIL/uL (4.0-5.2); WHITE BLOOD COUNT (AUTO) 3.3 K/uL (4.3-11.0)
--- NOTE | 2017-10-19 14:59 | NUR ---
BLENDER/BRAZE APPLICATOR NOTE: RECHECKED THE PATIENT'S VITAL SIGN AFTER THE NS 500ML IV BOLUS. BP= 121/70, T= 98.1F, HR= 75, RR= 17, SPO2= 100%. PATI WHEATLEY WAS MADE AWARE.
[2017-10-19 15:01] LABS: CREATININE 0.7 mg/dL (0.6-1.3); POTASSIUM 4.5 mmol/L (3.5-5.1)
--- NOTE | 2017-10-19 19:00 | NUR ---
STITCH WELDER NOTE: PATIENT IN BED, ASLEEP AND AROUSABLE W/ TOUCH. VENT-TRACH DEPENDENT SATURATING 100%. NO FACIAL GRIMACING NOTED. HOB ELEVATED. ON GT FEEDING OF JEVITY 1.2 @ 40CC/HR NO RESIDUAL WAS NOTED. ON MANAGER CONVENTION, SR HR= 65. (L)FA IV LINE INTACT AND PATENT COVERED W/ KERLIX. BED ALARM AND LOCKED AT ALL TIMES. LOW BED POSITION. ON SEIZURE PRECAUTION. NO SEIZURE EPISODE NOTED. CALL LIGHT WITHIN REACH. REPORT GIVEN TO PM SHIFT NURSE FOR CONTINUITY OF CARE.
[2017-10-20] VITALS (7 sets, daily range): BP systolic 116–128; BP diastolic 47–69
[2017-10-20] MEDS: IPRATROPIUM NEB FS 0.5 MG/2.5 ML AMPUL.NEB IH SCH ×4 (01:30→19:30)
[2017-10-20] MEDS: ALBUTEROL FS 2.5 MG/3 ML VIAL.NEB IH SCH ×4 (01:30→19:30)
[2017-10-20] MEDS: GLYCOPYRROLATE 1 MG TABLET GT SCH ×4 (05:36→23:43)
[2017-10-20] MEDS: PIPERACILLIN /TAZOBACTAM 3.375 G in IV D5W 50 ML IV SCH ×4 (05:36→23:43)
--- NOTE | 2017-10-20 07:30 | NUR ---
EVENT EXECUTIVE NOTE: RECEIVED PATIENT IN BED, ASLEEP AND AROUSABLE TO TOUCH. NON VERBAL, WITH PORTEX 7, VENT-TRACH DEPENDENT SATURATING 100%. SR HR 66 ON MONITOR. LFA g24 WTIH NS TKO, SITE CLEAR. NO FACIAL GRIMACING NOTED.ON GT FEEDING OF JEVITY 1.2 @ 40CC/HR 0 RESIDUAL. SEE NURSING FLOWSHEET FOR SKIN ISSUES. CASPER CATH IN PLACE WITH CLEAR YELLOW URINE OUTPUT, ADEQUATE AMOUNT. BED ALARM AND LOCKED AT ALL TIMES. LOW BED POSITION. ON SEIZURE AND ISOLATION PRECAUTION OBSERVED. CALL LIGHT WITHIN REACH. WILL CONTINUE TO MONITOR.
[2017-10-20] MEDS: HYDROCODONE/APAP 5/325MG 1 EACH TABLET PO PRN (08:37)
[2017-10-20] MEDS: DOCUSATE SODIUM LIQ 100 MG/10 ML UDC GT SCH (08:37)
[2017-10-20] MEDS: LEVETIRACETAM SOL (5 ML) 100 MG/ML UDC GT SCH ×2 (08:37→21:32)
[2017-10-20] MEDS: PANTOPRAZOLE 40 MG VIAL IV SCH ×2 (08:37→17:19)
[2017-10-20] MEDS: LEVOTHYROXINE SODIUM 137 MCG TABLET GT SCH (08:37)
[2017-10-20] MEDS: LINEZOLID 600 MG TABLET GT SCH ×2 (08:37→21:32)
[2017-10-20] MEDS: POLYVINYL ALCOHOL 15 ML BOTTLE EACHEYE SCH ×2 (08:42→17:23)
--- NOTE | 2017-10-20 09:30 | NUR ---
ODD JOBS DAY WORKER NOTES DUE MEDS GIVEN. PLACED ON MITTENS DUE TO PT PULLING MARKUS AND JR.
--- NOTE | 2017-10-20 10:15 | NUR ---
TEACHER RESOURCE NOTES PATIENT SEEN BY DR. AUSTIN. DISCHARGE ORDER CANCELLED FOR NOW.
--- NOTE | 2017-10-20 11:49 | NUR ---
ADAPTIVE PHYSICAL EDUCATOR NOTES ZOSYN IV STARTED.
--- NOTE | 2017-10-20 16:03 | NUR ---
PT MARKUS'D ON MECHANICAL VENT. TXS GIVEN AND NO ADVERSE REACTION NOTED. SX DONE T/O SHIFT. PT MARKUS PATENT AND SECURE. AMBU BAG AT BEDSIDE. VENT PLUGGED INTO RED OUTLET. ALARMS ARE ON AND AUDIBLE. Addendum: 10/20/17 at 1605 by CHICHI LI RT Amended: Links added.
--- NOTE | 2017-10-20 17:19 | NUR ---
EMERGENCY DETAIL DRIVER NOTES ZOSYN IV STARTED.
--- NOTE | 2017-10-20 18:45 | NUR ---
YOUTH CAREER SPECIALIST CLOSING NOTE: PATIENT IN BED COMFORTABLY. NON VERBAL, WITH PORTEX 7, VENT-TRACH DEPENDENT SATURATING 100%. SR HR 68 ON MONITOR. LFA g24 WTIH NS TKO, SITE CLEAR. NO FACIAL GRIMACING NOTED.ON GT FEEDING OF JEVITY 1.2 @ 40CC/HR [address] CASPER CATH IN PLACE WITH CLEAR YELLOW URINE OUTPUT, ADEQUATE AMOUNT, 400 ML OUTPUT. BED ALARM AND LOCKED AT ALL TIMES. LOW BED POSITION. ON SEIZURE AND ISOLATION PRECAUTION OBSERVED. CALL LIGHT WITHIN REACH. PM CARE DONE. TURNED AND REPOSITIONED Q 2HOURS. BILATERAL MITTENS IN PLACE, RELEASED AND CHECKED FOR CIRCULATION Q 2HOURS. ALL NEEDS MET. NO OTHER SIGNIFICANT CHANGE IN CONDITION. WILL ENDORSE TO NEXT SHIFT FOR ANG.
[2017-10-21] VITALS: BP 128/55
[2017-10-21] MEDS: IPRATROPIUM NEB FS 0.5 MG/2.5 ML AMPUL.NEB IH SCH ×4 (00:43→20:41)
[2017-10-21] MEDS: ALBUTEROL FS 2.5 MG/3 ML VIAL.NEB IH SCH ×4 (00:43→20:41)
[2017-10-21 04:00] VITALS: BP 116/51
[2017-10-21] MEDS: PIPERACILLIN /TAZOBACTAM 3.375 G in IV D5W 50 ML IV SCH ×2 (05:05→11:03)
[2017-10-21] MEDS: GLYCOPYRROLATE 1 MG TABLET GT SCH ×4 (05:05→23:07)
[2017-10-21 08:00] VITALS: BP 95/73
[2017-10-21] MEDS: LEVOTHYROXINE SODIUM 137 MCG TABLET GT SCH (08:15)
[2017-10-21] MEDS: LEVETIRACETAM SOL (5 ML) 100 MG/ML UDC GT SCH ×2 (08:15→20:04)
[2017-10-21] MEDS: DOCUSATE SODIUM LIQ 100 MG/10 ML UDC GT SCH (08:15)
[2017-10-21] MEDS: PANTOPRAZOLE 40 MG VIAL IV SCH ×2 (08:15→16:06)
[2017-10-21] MEDS: LINEZOLID 600 MG TABLET GT SCH ×2 (08:15→20:04)
[2017-10-21] MEDS: POLYVINYL ALCOHOL 15 ML BOTTLE EACHEYE SCH ×2 (08:16→16:08)
[2017-10-21 12:00] VITALS: BP_SYST 89; BP_SYST 95; BP_DIAS 52
[2017-10-21 16:00] VITALS: BP 118/71
[2017-10-21] MEDS: PIPERACILLIN /TAZOBACTAM 3.375 G in IV NS 0.9% 100 ML IV SCH ×2 (17:05→23:07)
--- NOTE | 2017-10-21 17:35 | NUR ---
RN NOTE PATIENT NOTED WITH FACIAL PEELING OF HER SKIN. PATIENT KEEPS SCRATCHING HER FACE WITH THE MITTENS. DR AUSTIN NOTIFIED AND PICTURE TAKEN AND DOCUMENTED IN THE CHART.
[2017-10-21] MEDS ORDERED: LORAZEPAM INJ 2 MG/ML VIAL IV PRN (18:00)
--- NOTE | 2017-10-21 18:01 | NUR ---
DR. AUSTIN NOTIFIED REGARDING PATIENT NEW RASHES ON FACE,C/O TWITCHING AND REVIEWED MEDS AND LABS WITH ORDERS FOR PRN ATIVAN AND BENADRYL.WILL CONTINUE TO MONITOR.
[2017-10-21] MEDS: diphenhydrAMINE HCL 50 MG/ML VIAL IV PRN (18:11)
[2017-10-21 20:00] VITALS: BP 110/74
--- NOTE | 2017-10-21 20:00 | NUR ---
RECEIVED PATIENT IN BED, PATIENT IS VENT/TRACH, UNABLE TO FOLLOW ANY COMMANDS, OBTUNDENT PATIENT HAS A FEVER 102F AT THIS TIME- COOLING MEASURES STARTED, ICE BATH, AND TYLENOL GIVEN. CONTINUE TO MONITOR
[2017-10-21] MEDS: ACETAMINOPHEN 325 MG TABLET PO PRN (20:04)
[2017-10-22] VITALS (7 sets, daily range): BP systolic 87–120; BP diastolic 52–99
[2017-10-22] MEDS: IPRATROPIUM NEB FS 0.5 MG/2.5 ML AMPUL.NEB IH SCH ×4 (02:08→20:03)
[2017-10-22] MEDS: ALBUTEROL FS 2.5 MG/3 ML VIAL.NEB IH SCH ×4 (02:08→20:03)
[2017-10-22] MEDS: PIPERACILLIN /TAZOBACTAM 3.375 G in IV NS 0.9% 100 ML IV SCH ×3 (05:14→17:38)
[2017-10-22] MEDS: GLYCOPYRROLATE 1 MG TABLET GT SCH ×3 (05:14→17:39)
[2017-10-22] MEDS: JEVITY 1.2 CAL 1,000 ML BOTTLE GT PRN (05:14)
[2017-10-22] MEDS: LINEZOLID 600 MG TABLET GT SCH ×2 (08:22→21:05)
[2017-10-22] MEDS: LEVETIRACETAM SOL (5 ML) 100 MG/ML UDC GT SCH ×2 (08:22→21:04)
[2017-10-22] MEDS: LEVOTHYROXINE SODIUM 137 MCG TABLET GT SCH (08:22)
[2017-10-22] MEDS: POLYVINYL ALCOHOL 15 ML BOTTLE EACHEYE SCH ×2 (08:22→16:50)
[2017-10-22] MEDS: PANTOPRAZOLE 40 MG VIAL IV SCH ×2 (08:22→16:47)
[2017-10-22] MEDS: DOCUSATE SODIUM LIQ 100 MG/10 ML UDC GT SCH (08:22)
[2017-10-22] MEDS: diphenhydrAMINE HCL 50 MG/ML VIAL IV PRN (08:23)
[2017-10-22] MEDS: ACETAMINOPHEN 325 MG TABLET PO PRN (12:08)
[2017-10-22] MEDS: HYDROCODONE/APAP 5/325MG 1 EACH TABLET PO PRN (21:05)
[2017-10-23] VITALS (7 sets, daily range): BP systolic 88–131; BP diastolic 41–95
[2017-10-23] MEDS: GLYCOPYRROLATE 1 MG TABLET GT SCH ×5 (00:14→23:45)
[2017-10-23] MEDS: PIPERACILLIN /TAZOBACTAM 3.375 G in IV NS 0.9% 100 ML IV SCH ×5 (00:23→23:45)
[2017-10-23] MEDS: IPRATROPIUM NEB FS 0.5 MG/2.5 ML AMPUL.NEB IH SCH ×4 (01:48→20:11)
[2017-10-23] MEDS: ALBUTEROL FS 2.5 MG/3 ML VIAL.NEB IH SCH ×4 (01:48→20:11)
[2017-10-23] MEDS ORDERED: PIPERACILLIN /TAZOBACTAM 3.375 G VIAL IV ONE (04:42)
[2017-10-23] MEDS: JEVITY 1.2 CAL 1,000 ML BOTTLE GT PRN (05:25)
[2017-10-23 07:09] LABS: BASOPHILS % (AUTO) 0.4 % (0.0-2.0); HEMATOCRIT 24 % (33-45); HEMOGLOBIN 8.1 g/dL (11.5-14.8); LYMPHOCYTES # (AUTO) 0.5 /CMM (0.8-4.8); LYMPHOCYTES % (AUTO) 11.2 % (20.0-44.0); MEAN CORPUSCULAR HGB CONC 34 g/dl (31.0-36.0); MEAN CORPUSCULAR VOLUME 84 fL (82-100); MONOCYTES # (AUTO) 0.1 /CMM (0.1-1.30); MONOCYTES % (AUTO) 1.9 % (2.0-12.0); NEUTROPHILS # (AUTO) 3.7 /CMM (1.8-8.9); NEUTROPHILS % (AUTO) 86.5 % (43.0-81.0); PLATELET COUNT (AUTO) 332 /CMM (150-450); RDW COEFFICIENT OF VARIATION 16.1 (11.5-15.0); RED BLOOD CELL COUNT(AUTO) 2.88 MIL/uL (4.0-5.2); WHITE BLOOD COUNT (AUTO) 4.2 K/uL (4.3-11.0)
[2017-10-23 07:24] LABS: ALBUMIN 1.8 g/dL (3.4-5.0); BILIRUBIN,TOTAL 0.1 mg/dL (0.2-1.0); CALCIUM, SERUM 8.1 mg/dL (8.5-10.1); CREATININE 0.9 mg/dL (0.6-1.3); MAGNESIUM 1.8 mg/dL (1.8-2.4); PHOSPHORUS 2.5 mg/dL (2.5-4.9); POTASSIUM 3.2 mmol/L (3.5-5.1); TOTAL PROTEIN, SERUM 6.2 g/dL (6.4-8.2)
--- NOTE | 2017-10-23 08:00 | NUR ---
DIRECT MAIL CLERK AM NOTE RECEIVED PATIENT IN BED WITH HOB ELEVATED, OBTUNDED, BUT IS OPEN EYES WITH TACTILE STIMULI. PATIENT WITH TRACH/VENT DEPENDENT AT APPROPRIATE SETTINGS. NO DISTRESS OR DISCOMFORT NOTED. LEFT FA IV SITE INTACT AND PATENT. GT SITE INTACT AND PATENT WITH ONGOING FEEDINGS. F/C INTACT AND PATENT WITH ADEQUATE FLOW OF URINE. ON SOFT WRIST RESTRAINTS TO PREVENT PATIENT SCRATCHING HER FACE. WILL REMOVE EVERY 2 HOURS AND ASSESS CIRCULATION. BED LOCK AND LOW POSITION, PLACED CALL LIGHT WITHIN REACH. WILL CONTINUE TO MONITOR
[2017-10-23] MEDS: LEVETIRACETAM SOL (5 ML) 100 MG/ML UDC GT SCH ×2 (08:17→20:40)
[2017-10-23] MEDS: PANTOPRAZOLE 40 MG VIAL IV SCH ×2 (08:17→16:49)
[2017-10-23] MEDS: LINEZOLID 600 MG TABLET GT SCH ×2 (08:17→20:40)
[2017-10-23] MEDS: DOCUSATE SODIUM LIQ 100 MG/10 ML UDC GT SCH (08:17)
[2017-10-23] MEDS: LEVOTHYROXINE SODIUM 137 MCG TABLET GT SCH (08:17)
[2017-10-23] MEDS: POLYVINYL ALCOHOL 15 ML BOTTLE EACHEYE SCH ×2 (08:18→16:49)
[2017-10-23] MEDS ORDERED: POTASSIUM CHLORIDE 20 MEQ POWDER PACKET GT ONE (11:00)
--- NOTE | 2017-10-23 18:11 | NUR ---
PT RESTING IN BED WITH BRIANA SOFT WRIST RESTRAINTS.WITH ONGOING GT FEEDING OF JEVITY AT 45 ML/HR TOLERATING WELL.WITH HOB ELEVATED.NO RESIDUALS NOTED.MADE MODERATE SOFT BROWN BM.GOOD PERICARE DONE.SUCTIONED SECRETIONS PRN.TRACH CARE DONE.CONTINUE TO BE ON VRE URINE CONTACT ISOLATION PRECAUTIONS.
[2017-10-23] MEDS: HYDROCODONE/APAP 5/325MG 1 EACH TABLET PO PRN (20:40)
--- NOTE | 2017-10-23 23:15 | NUR ---
RN NOTES RECEIVED REPORT FROM KIERSTEN. OBTUNDED PT RESTING IN BED. NO S/S OF PAIN, DISTRESS OR SOB AT THIS TIME. PT IS TELE MONITORED AT SINUS RHYTHM. PT VENT/ TRACH DEPENDENT. PT HAS BILATERAL SOFT WRIST RESTRAINTS. CASPER CATHETER, INTACT AND DRAINING WELL. PT HAS GT FEEDING RUNNING JEVITY @45ML/HR. PT HAS A LEFT FA IV #22 INTACT AND PATENT. SAFETY PRECAUTIONS IN PLACE BED IN LOWEST LOCKED POSITION, X3 SIDE RAILS UP. WILL CONTINUE TO MONITOR.
--- NOTE | 2017-10-23 23:16 | NUR ---
TELE-1/COORDINATOR OF LIBRARY SERVICES REPORT TO MORGAN PEREZ FOR CONT OF CARE.
[2017-10-24] VITALS: BP 85/47
[2017-10-24] MEDS: IPRATROPIUM NEB FS 0.5 MG/2.5 ML AMPUL.NEB IH SCH ×4 (02:17→19:56)
[2017-10-24] MEDS: ALBUTEROL FS 2.5 MG/3 ML VIAL.NEB IH SCH ×4 (02:17→19:56)
[2017-10-24 04:00] VITALS: BP 91/48
[2017-10-24] MEDS: JEVITY 1.2 CAL 1,000 ML BOTTLE GT PRN (04:00)
[2017-10-24] MEDS: PIPERACILLIN /TAZOBACTAM 3.375 G in IV NS 0.9% 100 ML IV SCH ×4 (05:04→23:50)
[2017-10-24] MEDS: GLYCOPYRROLATE 1 MG TABLET GT SCH ×3 (05:04→18:08)
[2017-10-24 06:33] LABS: BASOPHILS % (AUTO) 0.4 % (0.0-2.0); EOSINOPHILS % (AUTO) 2.5 % (0.0-6.0); HEMATOCRIT 25 % (33-45); HEMOGLOBIN 8.3 g/dL (11.5-14.8); LYMPHOCYTES # (AUTO) 0.7 /CMM (0.8-4.8); LYMPHOCYTES % (AUTO) 16.7 % (20.0-44.0); MEAN CORPUSCULAR HGB CONC 33 g/dl (31.0-36.0); MEAN CORPUSCULAR VOLUME 85 fL (82-100); MONOCYTES # (AUTO) 0.1 /CMM (0.1-1.30); MONOCYTES % (AUTO) 1.9 % (2.0-12.0); NEUTROPHILS # (AUTO) 3.1 /CMM (1.8-8.9); NEUTROPHILS % (AUTO) 78.5 % (43.0-81.0); PLATELET COUNT (AUTO) 304 /CMM (150-450); RDW COEFFICIENT OF VARIATION 16.6 (11.5-15.0); RED BLOOD CELL COUNT(AUTO) 2.92 MIL/uL (4.0-5.2)
--- NOTE | 2017-10-24 06:48 | NUR ---
RN CLOSING NOTES OBTUNDED PT RESTING IN BED. NO S/S OF PAIN, DISTRESS OR SOB OVERNIGHT. PT IS TELE MONITORED AT SINUS RHYTHM RATE OF 80. PT VENT/ TRACH DEPENDENT SATING WELL. PT HAS BILATERAL SOFT WRIST RESTRAINTS DUE TO PULL TUBES. CASPER CATHETER, INTACT AND DRAINING WELL OUTPUT OVERNIGHT 400ML. PT HAS GT FEEDING RUNNING JEVITY @45ML/HR. PT TOLERATING FEEDING WELL. PT HAS A LEFT FA IV #22 INTACT AND PATENT. SAFETY PRECAUTIONS IN PLACE BED IN LOWEST LOCKED POSITION, X3 SIDE RAILS UP. ALL PT NEEDS MET OVER NIGHT. WILL ENDORSE TO DAY SHIFT FOR CONTINUITY OF CARE.
--- NOTE | 2017-10-24 07:28 | NUR ---
SALES EXECUTIVE OPENING NOTE RECEIVED PATIENT IN BED WITH HOB ELEVATED, OBTUNDED,EYES ARE OPEN. TRACH VENT DEPENDENT TOLERATING SETTING ORDERED. LEFT FA IV #22, SITE INTACT AND PATENT. GT FEEDINGS JEVITY 45ML/HR. F/C DRAINING CLEAR YELLOW URINE. ON SOFT WRIST RESTRAINTS TO PREVENT PATIENT SCRATCHING HER FACE. AND REMOVING TUBES .WILL REMOVE EVERY 2 HOURS AND ASSESS CIRCULATION. BED LOCK AND LOW POSITION, SRX3.CALL LIGHT IN REACH .CONTINUE TO MONITOR
[2017-10-24 07:41] LABS: CALCIUM, SERUM 8.3 mg/dL (8.5-10.1); CREATININE 0.7 mg/dL (0.6-1.3); MAGNESIUM 1.8 mg/dL (1.8-2.4); PHOSPHORUS 2.5 mg/dL (2.5-4.9)
[2017-10-24 08:00] VITALS: BP_SYST 103; BP_DIAS 26; BP_DIAS 46
[2017-10-24] MEDS: PANTOPRAZOLE 40 MG VIAL IV SCH ×2 (08:06→18:08)
[2017-10-24] MEDS: DOCUSATE SODIUM LIQ 100 MG/10 ML UDC GT SCH (08:06)
[2017-10-24] MEDS: ACETAMINOPHEN 325 MG TABLET PO PRN (08:06)
[2017-10-24] MEDS: LEVETIRACETAM SOL (5 ML) 100 MG/ML UDC GT SCH ×2 (08:06→21:36)
[2017-10-24] MEDS: LINEZOLID 600 MG TABLET GT SCH ×2 (08:06→21:36)
[2017-10-24] MEDS: LEVOTHYROXINE SODIUM 137 MCG TABLET GT SCH (08:07)
[2017-10-24] MEDS: POLYVINYL ALCOHOL 15 ML BOTTLE EACHEYE SCH ×2 (08:10→18:08)
[2017-10-24 12:00] VITALS: BP 114/51
--- NOTE | 2017-10-24 13:00 | NUR ---
CANOE BUILDER NOTES GOT DISCHARGE ORDER,CASE MANAGEMENT AWARE.HOLDING DISCHARGE BECAUSE OF THE NON-AVAILABILITY OF ISOLATION ROOM AT THE REHAB.
[2017-10-24 16:00] VITALS: BP_SYST 121; BP_SYST 91; BP_DIAS 44; BP_DIAS 62
--- NOTE | 2017-10-24 19:00 | NUR ---
SHIPPING SPECIALIST OPENING NOTE PATIENT IN BED WITH HOB ELEVATED, OBTUNDED,EYES ARE OPEN. TRACH VENT DEPENDENT TOLERATING SETTING ORDERED.NO SOB NOTED DURING CARE. LEFT FA IV #22, SITE INTACT AND PATENT. GT FEEDINGS JEVITY 45ML/HR. NO RESIDUAL NOTED.F/C DRAINING CLEAR YELLOW URINE. ON SOFT WRIST RESTRAINTS TO PREVENT PATIENT SCRATCHING HER FACE. AND REMOVING TUBES .WILL REMOVE EVERY 2 HOURS AND ASSESS CIRCULATION. BED LOCK AND LOW POSITION, SRX3.CALL LIGHT IN REACH .WILL ENDORSE TO PM NURSE FOR ANG.
[2017-10-24 20:00] VITALS: BP 113/43
--- NOTE | 2017-10-24 20:00 | NUR ---
TELE DOORKEEPER INITIAL NOTES RECEIVED REPORT FROM AM NURSE AND CHECKING PT , SHE'S LYING IN BED ON MECHANICAL VENTILATOR SET UP BY RT ORDERED. AC 14, TV 450, FIO2 30%. NO SIGNS OF ANY ACUTE DISTRESS NOTED. SHE ALSO ON G-TUBE FEEDING JEITY AT 45 ML /HR NO RESIDUAL NOTED AT THIS TIME. TELE SR PER MONITOR. ON ISOLATION PRECAUTION VRE URINE. KEPT HER WARM AND COMFORTABLE AT ALL TIMES. WILL CONTINUE TO MONITOR.
[2017-10-25] VITALS: BP 100/63
[2017-10-25] MEDS: GLYCOPYRROLATE 1 MG TABLET GT SCH ×3 (00:13→14:56)
[2017-10-25] MEDS: ALBUTEROL FS 2.5 MG/3 ML VIAL.NEB IH SCH ×3 (01:37→14:00)
[2017-10-25] MEDS: IPRATROPIUM NEB FS 0.5 MG/2.5 ML AMPUL.NEB IH SCH ×3 (01:37→14:00)
[2017-10-25 04:24] VITALS: BP 120/56
[2017-10-25] MEDS: JEVITY 1.2 CAL 1,000 ML BOTTLE GT PRN (05:46)
[2017-10-25] MEDS: PIPERACILLIN /TAZOBACTAM 3.375 G in IV NS 0.9% 100 ML IV SCH ×2 (05:59→13:37)
--- NOTE | 2017-10-25 07:29 | NUR ---
TELE VETERINARIAN EPIDEMIOLOGIST CLOSING NOTES PT BACK TO REST AFTER BED BATH DONE. STABLE RUDY THE NIGHT AND ALL DUE MEDS GIVEN . VITAL SIGNS STABLE RUDY THE NIGHT. CASPER TO GRAVITY AND DRAINING WELL. G-TUBE FEEDING TOLERATED WELL TOO, NO ASPIRATION NOTED. TELE SR PER MONITOR. KEPT HER WARM AND COMFORTABLE AT ALL TIMES,. WILL ENDORSE TO AM NURSE FOR CONTINUITY OF CARE.
[2017-10-25 08:00] VITALS: BP 101/44
[2017-10-25] MEDS: LINEZOLID 600 MG TABLET GT SCH (09:00)
[2017-10-25] MEDS: DOCUSATE SODIUM LIQ 100 MG/10 ML UDC GT SCH (09:00)
[2017-10-25] MEDS: LEVETIRACETAM SOL (5 ML) 100 MG/ML UDC GT SCH (10:06)
[2017-10-25] MEDS: LEVOTHYROXINE SODIUM 137 MCG TABLET GT SCH (10:06)
[2017-10-25] MEDS: PANTOPRAZOLE 40 MG VIAL IV SCH (10:08)
[2017-10-25] MEDS: POLYVINYL ALCOHOL 15 ML BOTTLE EACHEYE SCH (10:50)
[2017-10-25 12:00] VITALS: BP 103/54
[2017-10-25 16:00] VITALS: BP 118/35
== END 2017-10-25 17:52 | DRG 870 ==
LOC: ER 13:27 → TELE1 15:52 → UNDODISIN 10-25 16:24
PROVIDERS: ADMIT Internal Medicine; ATTEND Internal Medicine
PROC: 5A1955Z Respiratory Ventilation, Greater than 96 Consecutive Hours (ICD-10-PCS; principal; 2017-10-13)
PROC: 30233N1 Transfusion of Nonautologous Red Blood Cells into Peripheral Vein, Percutaneous Approach (ICD-10-PCS; 2017-10-14)
PROC: 05H533Z Insertion of Infusion Device into Right Subclavian Vein, Percutaneous Approach (ICD-10-PCS; 2017-10-14)
PROC: B546ZZA Ultrasonography of Right Subclavian Vein, Guidance (ICD-10-PCS; 2017-10-14)
PROC: 0DB68ZX Excision of Stomach, Via Natural or Artificial Opening Endoscopic, Diagnostic (ICD-10-PCS; 2017-10-16)
DX: A41.9 Sepsis, unspecified organism (principal); J96.21 Acute and chronic respiratory failure with hypoxia; J69.0 Pneumonitis due to inhalation of food and vomit; G93.41 Metabolic encephalopathy; Z99.11 Dependence on respirator [ventilator] status; E43 Unspecified severe protein-calorie malnutrition; E22.2 Syndrome of inappropriate secretion of antidiuretic hormone; R53.2 Functional quadriplegia; J45.901 Unspecified asthma with (acute) exacerbation; K22.10 Ulcer of esophagus without bleeding; N39.0 Urinary tract infection, site not specified; Z93.0 Tracheostomy status; Z93.1 Gastrostomy status; E11.9 Type 2 diabetes mellitus without complications; I10 Essential (primary) hypertension; Z87.01 Personal history of pneumonia (recurrent); R13.10 Dysphagia, unspecified; E11.22 Type 2 diabetes mellitus with diabetic chronic kidney disease; D63.8 Anemia in other chronic diseases classified elsewhere; Z79.899 Other long term (current) drug therapy; F09 Unspecified mental disorder due to known physiological condition; F79 Unspecified intellectual disabilities; G40.909 Epilepsy, unspecified, not intractable, without status epilepticus; E03.9 Hypothyroidism, unspecified; K44.9 Diaphragmatic hernia without obstruction or gangrene; K29.70 Gastritis, unspecified, without bleeding; B95.2 Enterococcus as the cause of diseases classified elsewhere; E87.6 Hypokalemia; E66.01 Morbid (severe) obesity due to excess calories; Z68.20 Body mass index [BMI] 20.0-20.9, adult; K59.00 Constipation, unspecified; Z83.3 Family history of diabetes mellitus; Y95 Nosocomial condition
CPT/HCPCS: 31720; 36415; 36569; 36600; 71045-TC; 80048-TC; 80053-TC; 80061-TC; 80076-TC; 81000-TC; 82272-TC; 82542; 82803-TC; 83540-TC; 83605-TC; 83735-TC; 83935-TC; 84100-TC; 84300-TC; 84443-TC; 84484-TC; 84550-TC; 85025-TC; 85730-TC; 86850-TC; 86921-TC; 87040-TC; 87081-TC; 87086-TC; 87186-TC; 88305-TC; 88313-TC; 88342; 94002-TC; 94003-TC; 94760-TC; 94762-TC; A4216; A4606; C9113; J1200; J1953; J2020; J2060; J2405; J2543; J2704; J2930; J3370; J3475; J3480; J3490; J7030; J7040; J7050; J7060; P9016-BL; Z7610

== ENCOUNTER 2018-11-18 07:54 | Emergency (ER) | payer MEDICARE, MEDICAID ==
[~2018-11-18] VITALS: Ht 162.6 cm; Wt 65.8 kg
[~2018-11-18 07:54] MED LIST changes: -ACET-868 PO; +ACET160L33 GT; +ALBU2.5V38 IH; +CHLO473M3 MM; +DEXT15DR6 EACHEYE; -DEXT1CAP3 GT; -ENOX30DI SQ; -ESCI10TA GT; +FURO20TA4 GT; +GLYC1TAB5 GT; -HYDR-3974 GT; +IPRA0.2S9 IH; +LACT-96 GT; +LEVE500S9 GT; -LEVE500T9 GT; +LEVO137T2 GT; -LEVO25TA7 GT; +LEVO750T21 PO; +LINE600T GT; -LORA1TAB GT; +METO-295 GT; -NUTR250L48 GT; +OMEP20CA10 GT; -PANT40SU2 GT; +PANT40TA2 GT; +POLY17PO4 GT; +POTA20LI4 GT; +TRAM50TA GT
[2018-11-18 08:02] VITALS: BP 96/62
[2018-11-18] MEDS ORDERED: DIATR MEGLU/DIATRIZOATE SODIUM 30 ML BOTTLE (GASTROGRAPHIN) ONE (08:13)
== END 2018-11-18 08:40 ==
LOC: ER 07:56
DX: Z93.1 Gastrostomy status (principal); I10 Essential (primary) hypertension; E11.9 Type 2 diabetes mellitus without complications; Z93.0 Tracheostomy status; Z98.890 Other specified postprocedural states
CPT/HCPCS: 74150; 99285; Q9963

== ENCOUNTER 2022-08-05 16:12 | Inpatient (IN) | payer MEDICARE, OTHER ==
[~2022-08-05] VITALS: Ht 142.2 cm; Wt 61.8 kg
[~2022-08-05 16:12] MED LIST changes: -ACET160L33 GT; +ACET160L44 GT; -LINE600T GT; +LINE600T12 GT; -OMEP20CA10 GT; +OMEP20CA15 GT; -POTA20LI4 GT; +POTA20LI5 GT
[2022-08-05 17:15] LABS: BASOPHILS # (AUTO) 0.1 K/uL (0.0-0.2); BASOPHILS % (AUTO) 2.1 % (0.0-2.0); EOSINOPHILS % (AUTO) 3.5 % (0.0-6.0); HEMATOCRIT 31 % (33-45); HEMOGLOBIN 9.7 g/dL (11.5-14.8); LYMPHOCYTES # (AUTO) 2.1 K/uL (0.8-4.8); LYMPHOCYTES % (AUTO) 44.3 % (20.0-44.0); MEAN CORPUSCULAR HGB CONC 32 g/dl (31.0-36.0); MEAN CORPUSCULAR VOLUME 88 fL (82-100); MONOCYTES # (AUTO) 0.3 K/uL (0.1-1.30); MONOCYTES % (AUTO) 6.3 % (2.0-12.0); NEUTROPHILS # (AUTO) 2.1 K/uL (1.8-8.9); NEUTROPHILS % (AUTO) 43.8 % (43.0-81.0); PLATELET COUNT (AUTO) 363 K/uL (150-450); RED BLOOD CELL COUNT(AUTO) 3.48 MIL/uL (4.0-5.2); WHITE BLOOD COUNT (AUTO) 4.8 K/uL (4.3-11.0)
--- NOTE | 2022-08-05 17:15 | NUR ---
COVID SWAB OBTAINED
[2022-08-05] MEDS ORDERED: POLY15DR40 EACHEYE (17:16)
[2022-08-05] MEDS ORDERED: CRAN425C6 GT (17:16)
[2022-08-05] MEDS ORDERED: SODI1TAB66 GT (17:16)
[2022-08-05] MEDS ORDERED: ACET650S26 GT (17:16)
[2022-08-05] MEDS ORDERED: ALBU8.5H8 IH ×2 (17:16)
[2022-08-05] MEDS ORDERED: PANT40SU2 GT (17:16)
[2022-08-05] MEDS ORDERED: AMIN30LI2 GT (17:16)
[2022-08-05] MEDS ORDERED: NUTR150016 GT (17:16)
[2022-08-05 17:22] LABS: CALCIUM, SERUM 9.4 mg/dL (8.5-10.1); CREATININE 1.1 mg/dL (0.6-1.3); POTASSIUM 3.7 mmol/L (3.5-5.1)
--- NOTE | 2022-08-05 17:53 | NUR ---
BED ASSIGNED 323.1, ADMITTING AWARE
--- NOTE | 2022-08-05 18:07 | NUR ---
REPORT GIVEN TO ABDI PEREZ
--- NOTE | 2022-08-05 18:32 | NUR ---
PATIENT TRANSFERRED TO [facility], ALL CARE ENDORSED TO RN ABDI
--- NOTE | 2022-08-05 18:32 | NUR ---
MOVED TO INPATIENT ROOM SAFELY PER ACLS PROTOCOL
--- NOTE | 2022-08-05 19:30 | NUR ---
MS RN ADMITTING NOTE RECEIVED REPORT FROM MORNING NURSE ABDI. PT IS ADMITTED IN ROOM 323-1 FOR MALFUNCTIONING G-TUBE. PATIENT IS AWAKE, NON-VERBAL, A/OXO, PATIENT'S BREATHING EVEN AND UNLABORED, ON TRACH WITH O2 AEROSOL 8L/M AT 40%. NO S/S OF PAIN NOTED AT THIS TIME. PATIENT HAS IV ACCESS TO LEFT HAND G#20 SALINE LOCK, PATENT AND FLUSHING WELL. SKIN ASSESSMENT COMPLETED. PT HAS LEFT LE SCAB, G-TUBE STOMA REDNESS, AND ABDOMINAL AREA REDNESS, LEFT ELBOW SCAB, SACRAL REDNESS, AND SCABS, BLE CONTRACTED. PICTURES TAKEN, AND PLACED IN CHART. BELONGINGS CHECKED, AND BELONGING LIST COMPLETED. SAFETY MEASURES IN PLACE; BED LOCKED IN LOWEST POSITION, SIDE RAIL UP X2, CALL LIGHT AND SIDE TABLE WITHIN REACH. WILL CONTINUE TO MONITOR PT.
[2022-08-05 20:00] VITALS: BP 146/60
[2022-08-05] MEDS ORDERED: ACETAMINOPHEN 325 MG TABLET PO PRN (20:00)
[2022-08-05] MEDS ORDERED: MAG HYDROX/AL HYDROX/SIMETH 30 ML UDC PO PRN (20:00)
[2022-08-05] MEDS ORDERED: FUROSEMIDE 20 MG/2 ML VIAL IV SCH (20:00)
[2022-08-05] MEDS ORDERED: Z GUARD REMEDY 4 OZ OINT TP PRN (20:00)
[2022-08-05] MEDS ORDERED: MAGNESIUM HYDROXIDE 30 ML UDC PO PRN (20:00)
--- NOTE | 2022-08-05 22:30 | NUR ---
MS RN NOTE MD RED CALLED. PT IS SCHEDULED FOR OLD STOMA CLOSURE, AND NEW PEG TUBE PLACEMENT IN AM. ATTEMPTS TO CALL PT'S NEPHEW SRINATH SEVERAL TIMES TO GET CONSENT FOR SURGERY. BUT IT SAYS THAT THE PHONE NUMBER IS NOT A WORKING NUMBER. THE NEPHEW'S FIRST NUMBER IS A WRONG NUMBER. ALSO CALL THE PT'S SISTER RADHA, BUT THERE NO ANSWER. [facility]ISON WHERE PT CAME FROM, IS CONTACTED. THEY STATES THAT THEY DO NOT HAVE OTHER CONTACT INFORMATION FOR PT. THE ONLY FAMILY MEMBERS NUMBERS THEY HAVE ARE THE SAME ONE WE HAVE IN PT'S CHART. CHARGE NURSE MADE AWARE OF SITUATION.
[2022-08-06] MEDS ORDERED: ALBUTEROL FS 2.5 MG/3 ML VIAL.NEB NEB PRN (00:30)
[2022-08-06] MEDS ORDERED: BISACODYL SUPP (10 MG) 10 MG/SUPP.RECT SUPP.RECT RC PRN (00:30)
[2022-08-06] MEDS ORDERED: MAGNESIUM HYDROXIDE 30 ML UDC GT PRN (00:30)
[2022-08-06] MEDS ORDERED: ACETAMINOPHEN 650 MG/20.3 ML UDC GT PRN (00:30)
[2022-08-06] MEDS ORDERED: Medication Not On Formulary EA (Acetaminophen 20 ML) GT PRN (00:30)
[2022-08-06] MEDS ORDERED: DOSE PER PHARMACY (MD SPECIFY MEDICATION) 1 EA GT PRN (00:30)
[2022-08-06 06:00] LABS: BASOPHILS # (AUTO) 0.1 K/uL (0.0-0.2); BASOPHILS % (AUTO) 2.5 % (0.0-2.0); EOSINOPHILS % (AUTO) 3.3 % (0.0-6.0); HEMATOCRIT 31 % (33-45); HEMOGLOBIN 9.9 g/dL (11.5-14.8); LYMPHOCYTES # (AUTO) 1.6 K/uL (0.8-4.8); LYMPHOCYTES % (AUTO) 32.1 % (20.0-44.0); MEAN CORPUSCULAR HGB CONC 32 g/dl (31.0-36.0); MEAN CORPUSCULAR VOLUME 88 fL (82-100); MONOCYTES # (AUTO) 0.4 K/uL (0.1-1.30); MONOCYTES % (AUTO) 7.3 % (2.0-12.0); NEUTROPHILS # (AUTO) 2.7 K/uL (1.8-8.9); NEUTROPHILS % (AUTO) 54.8 % (43.0-81.0); PLATELET COUNT (AUTO) 348 K/uL (150-450); WHITE BLOOD COUNT (AUTO) 4.9 K/uL (4.3-11.0)
[2022-08-06 06:23] LABS: CALCIUM, SERUM 9.3 mg/dL (8.5-10.1); MAGNESIUM 2.2 mg/dL (1.8-2.4); PHOSPHORUS 3.5 mg/dL (2.5-4.9); POTASSIUM 3.8 mmol/L (3.5-5.1)
--- NOTE | 2022-08-06 06:30 | NUR ---
MS RN CLOSING NOTE LEFT PT SLEEPING IN BED. NO S/S OF PAIN OR DISCOMFORT OBSERVED. NO SOB, OR RESPIRATORY DISTRESS NOTED. AERONAUTICAL INSPECTOR MORENA CALLED, AND MESSAGE LEFT IN ORDER TO OBTAIN CONSENT FOR PEG TUBE PLACEMENT. DR RED CALLED, AND MADE AWARE THAT THERE IS NO CONSENT. PRE-OP LIST COMPLETED. [facility] CALLED, BUT UNABLE TO REACH STAFF. SAFETY MEASURES MAINTAINED. WILL ENDORSE PT TO MORNING SHIFT NURSE FOR ANG.
[2022-08-06 06:35] LABS: THYROID STIMULATING HORMONE 2.402 uIU/mL (0.358-3.74)
[2022-08-06] MEDS: LEVOTHYROXINE SODIUM 75 MCG TABLET GT SCH (07:00)
[2022-08-06] MEDS ORDERED: PANTOPRAZOLE 40 MG/PACK PACK GT SCH (07:00)
--- NOTE | 2022-08-06 07:16 | NUR ---
MS PUBLIC BATH ATTENDANT CLOSING NOTE PATIENT SLEEPING IN BED. NO S/S OF PAIN OR DISCOMFORT OBSERVED. NO SOB, OR RESPIRATORY DISTRESS NOTED. BED RAILS AND SAFETY MEASURE IN PLACE. PENDING CONSENT FORM TO BE SIGNED FOR SURGERY. AT THIS TIME UNABLE TO GET A HOLD OF FAMILY MULTIPLE CALLS MADE. MADE CONTACT WITH RARDEN OLIVER FILTER OPERATORANA WHITE AND THEY ARE TRYING TO GET A HOLD OF FAMILY WELL. RARDEN PROVIDED GOGGLES ASSEMBLERGIS SOFTWARE DEVELOPER INFO WHICH IS LISTED BELOW, TO SEE IF THEY COULD TRY AND GET A HOLD OF PATIENTS FAMILY WELL. WILL CONTINUE TO TRY AND MAKE CONTACT WITH FAMILY. RARDEN GOGGLES ASSEMBLER MORENA BENITEZ [phone] EMAIL: [email or web address] RADHA SPRAGUE, LY: [phone] Addendum: 08/06/22 at 1830 by PRETTY LOYD RN MS PUBLIC BATH ATTENDANT OPENING NOTE
[2022-08-06 08:00] VITALS: BP 101/66
[2022-08-06] MEDS ORDERED: Medication Not On Formulary EA (Cranberry Extract (Cranberry) 850 MG) GT SCH (09:00)
[2022-08-06] MEDS: POTASSIUM CHLORIDE 20 MEQ POWDER PACKET GT SCH (09:00)
[2022-08-06] MEDS: PROSOURCE / PROSTAT (PYXIS) 30 ML UDC GT SCH (09:00)
[2022-08-06] MEDS: POLYVINYL ALCOHOL 15 ML BOTTLE EACHEYE SCH ×2 (09:00→17:00)
[2022-08-06] MEDS ORDERED: FUROSEMIDE 20 MG/2 ML VIAL IV SCH (09:00)
[2022-08-06] MEDS: DOCUSATE SODIUM LIQ 100 MG/10 ML UDC GT SCH ×2 (09:00→17:00)
[2022-08-06] MEDS: PANTOPRAZOLE 40 MG VIAL IV SCH (09:00)
[2022-08-06] MEDS: CHLORHEXIDINE GLUCONATE 15 ML UDC MM SCH ×2 (09:00→20:37)
[2022-08-06] MEDS: METOCLOPRAMIDE HCL 10 MG TABLET GT SCH ×3 (09:00→17:00)
[2022-08-06] MEDS: SODIUM CHLORIDE 1000 MG TABLET GT SCH ×2 (09:00→17:00)
[2022-08-06] MEDS: LEVETIRACETAM SOL (5 ML) 100 MG/ML UDC GT SCH ×2 (09:00→20:38)
[2022-08-06] MEDS: GLYCOPYRROLATE 1 MG TABLET GT SCH ×2 (09:00→20:38)
[2022-08-06] MEDS: ENOXAPARIN SODIUM 40 MG/0.4 ML DISP.SYRIN SQ SCH (10:30)
--- NOTE | 2022-08-06 10:30 | NUR ---
AUTOMOBILE BRAKE BONDER MED NOTE 1030 Meds, Lovenox not administered medication still unverified.
[2022-08-06 16:00] VITALS: BP 134/80
[2022-08-06] MEDS: POLYETHYLENE GLYCOL 3350 17 GM POWD.PACK GT SCH (18:00)
--- NOTE | 2022-08-06 18:31 | NUR ---
MS BRAILLE AND TALKING BOOKS CLERK CLOSING NOTE PATIENT SLEEPING IN BED. NO S/S OF PAIN OR DISCOMFORT OBSERVED. NO SOB, OR RESPIRATORY DISTRESS NOTED. BED RAILS AND SAFETY MEASURE IN PLACE. PENDING CONSENT FORM TO BE SIGNED FOR SURGERY. STILL UNABLE TO GET A HOLD OF FAMILY AFTER MULTIPLE CALLS. PATIENT IS CURRENTLY NPO.
--- NOTE | 2022-08-06 19:30 | NUR ---
BINDERY LEADPERSON OPENING NOTE RECEIVED PATIENT IN BED, WITH HOB ELEVATED, EYES OPENED, NON VERBAL.AFEBRILE AND NOT IN ANY FORM OF ACUTE DISTRESS. ON TRACH WITH O2 AEROSOL AT 8LPM. ON TELE MONITORING. WITH IV ACCESS ON L HAND 20G-SL. NOTED WITH G-TUBE BUT REPORTED TO BE MALFUNCTIONED AND KEPT ON NPO ORDERED. SAFETY MEASURES IN PLACE. KEPT BED IN LOCKED AND IN LOW POSITION. SIDE RAILS UP X2. CALL LIGHT WITHIN EASY REACH.
[2022-08-06 20:00] VITALS: BP 135/62
--- NOTE | 2022-08-06 20:23 | NUR ---
PROCESS TREATER NOTE TRIED TO CALL [facility] IN THE NUMBERS PROVIDED IN THE CHART TO GIVE UPDATE AND FOR POSSIBLE PHONE CONSENT FOR PROPOSED PROCEDURE BUT NO ANSWER. LEFT VOICEMAIL TO CALL US BACK.
--- NOTE | 2022-08-06 20:39 | NUR ---
ORAL MEDICATIONS HELD SINCE PATIENT IS KEPT ON NPO AND G-TUBE IS NOT WORKING.
--- NOTE | 2022-08-06 22:43 | NUR ---
AUTOMOTIVE GLASS INSTALLER NOTE SPOKE WITH REGARDING POSSIBLE SURGERY FOR PATIENT. PER MD'S DOCUMENTATION FROM DR. IRVIN, DR. LOTT AND PATI JACKSON, MAY PROCEED TO PROPOSED PROCEDURE SINCE HER SITUATION IS EMERGENT IN NATURE AND PEG PLACEMENT NEEDS TO BE DONE. AT THE START OF THE SHIFT, THIS FITNESS COACH TRIED TO CALL INVESTIGATIVE REPORTER SRINATH WITH THE NUMBERS PROVIDED IN THE CHART BUT WAS UNABLE TO GET HOLD. LEFT A MESSAGE TO CALL THE HOSPITAL BACK. UPDATED DR. RED AND CONFIRMED THAT PATIENT IS SCHEDULED FOR SURGERY TOMORROW AT 0800. PATIENT MAINTAINED ON NPO.
[2022-08-07] VITALS (11 sets, daily range): BP systolic 101–172; BP diastolic 43–105
[2022-08-07 05:47] LABS: BASOPHILS # (AUTO) 0.1 K/uL (0.0-0.2); BASOPHILS % (AUTO) 1.3 % (0.0-2.0); EOSINOPHILS % (AUTO) 1.4 % (0.0-6.0); HEMATOCRIT 29 % (33-45); HEMOGLOBIN 9.1 g/dL (11.5-14.8); LYMPHOCYTES # (AUTO) 1.7 K/uL (0.8-4.8); LYMPHOCYTES % (AUTO) 28.4 % (20.0-44.0); MEAN CORPUSCULAR HGB CONC 32 g/dl (31.0-36.0); MEAN CORPUSCULAR VOLUME 89 fL (82-100); MONOCYTES # (AUTO) 0.4 K/uL (0.1-1.30); NEUTROPHILS # (AUTO) 3.9 K/uL (1.8-8.9); NEUTROPHILS % (AUTO) 62.9 % (43.0-81.0); PLATELET COUNT (AUTO) 334 K/uL (150-450); RED BLOOD CELL COUNT(AUTO) 3.19 MIL/uL (4.0-5.2); WHITE BLOOD COUNT (AUTO) 6.1 K/uL (4.3-11.0)
[2022-08-07 06:11] LABS: ALBUMIN 2.6 g/dL (3.4-5.0); BILIRUBIN,TOTAL 0.4 mg/dL (0.2-1.0); MAGNESIUM 2.2 mg/dL (1.8-2.4); POTASSIUM 3.8 mmol/L (3.5-5.1); TOTAL PROTEIN, SERUM 7.2 g/dL (6.4-8.2)
[2022-08-07] MEDS: LEVOTHYROXINE SODIUM 75 MCG TABLET GT SCH (06:18)
--- NOTE | 2022-08-07 06:25 | NUR ---
CODING EDUCATOR CLOSING NOTE PATIENT IN BED, WITH HOB ELEVATED, ASLEEP, NON VERBAL BUT RESPONDS TO TACTILE STIMULI. AFEBRILE AND NOT IN ANY FORM OF ACUTE DISTRESS. ON TRACH WITH O2 AEROSOL AT 10LPM. ON TELE MONITORING WITH CURRENT READING OF SR 81 WITH PAC. WITH IV ACCESS ON L HAND 20G-SL. NOTED WITH G-TUBE BUT REPORTED TO BE MALFUNCTIONED AND KEPT ON NPO ORDERED FOR SCHEDULED PROCEDURE THIS MORNING AT [address] RED. PATIENT WAS ALREADY CLEARED BY DR. IRVIN, DR. LOTT AND SECRETARY TO BOARD OF [employer] [facility] FOR PROPOSED SURGERY. SAFETY MEASURES IN PLACE. KEPT BED IN LOCKED AND IN LOW POSITION. SIDE RAILS UP X2. CALL LIGHT WITHIN EASY REACH. ALL NURSING NEEDS ATTENDED. ENDORSED TO INCOMING SHIFT FOR CONTINUITY OF CARE.
--- NOTE | 2022-08-07 07:15 | NUR ---
CONTROL SYSTEM MANAGER CLOSING NOTE RECEIVED PATIENT IN BED, WITH HOB ELEVATED, EYES CLOSED, NON VERBAL BUT RESPONDS TO TACTILE AND PAIN STIMULI. NOT IN ANY FORM OF ACUTE DISTRESS. ON TRACH WITH O2 AEROSOL AT 10LPM. TELE MONITORING IS SHOWING SR 81 WITH PACS. IV ACCESS ON L HAND 20G-SL. SAFETY MEASURES IN PLACE. KEPT BED IN LOCKED AND IN LOWEST POSITION. SIDE RAILS UP X2. CALL LIGHT AND TRAY TABLE WITHIN EASY REACH. FOR G-TUBE INSERTION TODAY UNDER DR RED. PATIENT HAS BEEN NPO SINCE LAST NIGHT WELL. WILL CONTINUE TO MONITOR. Addendum: 08/07/22 at 1010 by VANGIE CEJA RN -CONTROL SYSTEM MANAGER OPENING NOTES-
--- NOTE | 2022-08-07 07:20 | NUR ---
RN NOTES - ANA JENKINS ATTEMPTED TO CALL [facility] TO GET CONSENTS, LEFT A MESSAGE AGAIN BUT TO NO AVAIL. CHECKED DR IRVIN, DR LOTT AND PATI JACKSON'S NOTES CONFIRMING THAT IT IS OKAY TO DO EMERGENCY G-TUBE PROCEDURE LIFE EXTENDING MEASURE. WITNESSED AND SIGNED CONSENT WITH THE NIGHT NURSE. CHARGE NURSES ARE ALSO AWARE.
--- NOTE | 2022-08-07 07:22 | NUR ---
PRECISION STRUCTURAL METAL FITTER NOTE TRIED TO CALL [facility] AGAIN USING THE NUMBERS PROVIDED IN THE CHART BUT STILL UNABLE TO GET HOLD. LEFT VOICE MESSAGE TO CALL US BACK. ENDORSED TO INCOMING SHIFT.
--- NOTE | 2022-08-07 07:35 | NUR ---
RN NOTES - RECEIVED A CALL FROM OR NURSE ESPITIA CONFIRMING G-TUBE INSERTION PROCEDURE.
[2022-08-07] MEDS ORDERED: ANESTHESIA TRAY IN PYXIS 1 EA TRAY MC ONE (07:44)
[2022-08-07] MEDS ORDERED: LIDOCAINE 1% INJ 50 ML MDV IJ ONE (07:44)
[2022-08-07] MEDS ORDERED: BUPIVACAINE MPF 0.5% W/EPI INJ 30 ML VIAL ONE (07:44)
--- NOTE | 2022-08-07 07:45 | NUR ---
RN NOTES - 2 OR STAFF ARE HERE TO PICK PATIENT UP - CALLED RT FOR ASSISTANCE WITH THE TRACH WELL.
[2022-08-07] MEDS ORDERED: FENTANYL PF 100MCG/2ML AMPUL ONE (08:09)
[2022-08-07] MEDS ORDERED: POLYMYXIN B SULFATE 0 UNITS ONE (08:33)
[2022-08-07] MEDS: CHLORHEXIDINE GLUCONATE 15 ML UDC MM SCH ×2 (09:00→20:16)
[2022-08-07] MEDS: SODIUM CHLORIDE 1000 MG TABLET GT SCH ×2 (09:00→16:26)
[2022-08-07] MEDS: GLYCOPYRROLATE 1 MG TABLET GT SCH ×2 (09:00→20:16)
[2022-08-07] MEDS: METOCLOPRAMIDE HCL 10 MG TABLET GT SCH ×3 (09:00→17:00)
[2022-08-07] MEDS: PANTOPRAZOLE 40 MG VIAL IV SCH (09:00)
[2022-08-07] MEDS: ENOXAPARIN SODIUM 40 MG/0.4 ML DISP.SYRIN SQ SCH (09:00)
[2022-08-07] MEDS: DOCUSATE SODIUM LIQ 100 MG/10 ML UDC GT SCH ×2 (09:00→16:26)
[2022-08-07] MEDS: POLYVINYL ALCOHOL 15 ML BOTTLE EACHEYE SCH ×2 (09:00→16:56)
[2022-08-07] MEDS: POTASSIUM CHLORIDE 20 MEQ POWDER PACKET GT SCH (09:00)
[2022-08-07] MEDS: LEVETIRACETAM SOL (5 ML) 100 MG/ML UDC GT SCH (09:00)
[2022-08-07] MEDS: PROSOURCE / PROSTAT (PYXIS) 30 ML UDC GT SCH (09:00)
[2022-08-07] MEDS ORDERED: MIDAZOLAM HCL 2 MG/2ML VIAL ONE (10:14)
[2022-08-07] MEDS ORDERED: DIATR MEGLU/DIATRIZOATE SODIUM 30 ML BOTTLE (GASTROGRAPHIN) ONE ×2 (10:35→14:07)
--- NOTE | 2022-08-07 11:02 | NUR ---
RN NOTES - RECEIVED PATIENT S/P CLOSURE OF GASTRIC FISTULA AND PEG TUBE PLACEMENT VIA HER BED IN STABLE CONDITION. OPERATIVE SITE IS COVERED WITH GAUZE WITH NO BLEEDING NOTED. PATIENT IS ON TRACH WITH 10L AEROSOL SATURATING AT 96% WITHOUT ANY SHORTNESS OF BLEED. VS TAKEN AND RECORDED, STABLE. WILL MONITOR CLOSELY. OR NURSE SAID OKAY TO USE THE G-TUBE, WILL CHECK WITH MD FIRST. PATIENT IS RECEIVING NS @75 ML/HR VIA L HAND G#20 WITH ABOUT 300 ML REMAINING, PATENT AND FLUSHING WELL. PLACED THE SCD ON BOTH LEGS BACK. WILL MONITOR FOR SIGNS OF BLEEDING AND SEIZURE PRECAUTIONS.
--- NOTE | 2022-08-07 11:40 | NUR ---
RN NOTES - RECEIVED A CALL FROM RADIOLOGY THAT PATIENT NEEDS CT SCAN OF THE ABDOMEN TO CONFIRM PLACEMENT, MD IS AWARE. ORDERED CT ABDOMEN WITH CONTRAST. CARRIED OUT.
--- NOTE | 2022-08-07 15:30 | NUR ---
RN NOTES - PATIENT IS BACK FROM CT SCAN OF THE ABDOMEN WITH GASTROGRAFIN.
[2022-08-07] MEDS ORDERED: LEVETIRACETAM (500MG) 250 MG in IV NS 0.9% 100 ML IV SCH (17:00)
[2022-08-07] MEDS: POLYETHYLENE GLYCOL 3350 17 GM POWD.PACK GT SCH (17:05)
--- NOTE | 2022-08-07 19:15 | NUR ---
SPECIAL EDUCATION PROFESSIONAL OPENING NOTE RECEIVED PT IN BED, WITH HOB ELEVATED, NPO, S/P GASTRIC FISTULA CLOSURE/PEG TUBE INSERTION, DRESSING INTACT NO BLEEDING NOTED. ENDORSED BY DAY SHIFT NURSE NOT TO USE NEW G-TUBE UNTIL FURTHER NOTICE. OPENS EYES, NON VERBAL, TACTILE AND PAIN STIMULI. NOT IN ANY FORM OF ACUTE DISTRESS. ON TRACH WITH O2 AEROSOL AT 10LPM. TELE MONITORING IS SHOWING SR 70 BPM. IV ACCESS ON L HAND 20G-SL, FLUSHING WELL, PATENT AND INTACT. SAFETY MEASURES IN PLACE: BED LOCKED AND IN LOWEST POSITION, SIDE RAILS UP X2, CALL LIGHT AND TRAY TABLE WITHIN EASY REACH. WILL CONTINUE TO MONITOR AND ASSIST.
--- NOTE | 2022-08-07 19:25 | NUR ---
AUTOMATIC PATTERN EDGER CLOSING NOTE PATIENT IN BED, WITH HOB ELEVATED, S/P GASTRIC FISTULA CLOSUE/ PEG TUBE INSERTION, DRESSING INTACT NO BLEEDING NOTED. OPENS EYES, NON VERBAL, TACTILE AND PAIN STIMULI. NOT IN ANY FORM OF ACUTE DISTRESS. STILL ON TRACH WITH O2 AEROSOL AT 10LPM. TELE MONITORING IS SHOWING SR 70 BPM. IV ACCESS ON L HAND 20G-SL. ALL DUE MEDS GIVEN, ALL NEEDS MET. SAFETY MEASURES MAINTAINED. KEPT BED IN LOCKED AND IN LOWEST POSITION. SIDE RAILS UP X2. CALL LIGHT AND TRAY TABLE WITHIN EASY REACH. ENDORSED TO THE VETERINARY NURSE NURSE TO NOT USE THE G-TUBE UNTIL FURTHER NOTICE. AWAITING FOR THE LEVETIRACETAM IV, PHARMACY HAS BEEN CONTACTED.
[2022-08-07] MEDS: LEVETIRACETAM (500MG) 250 MG in IV NS 0.9% 100 ML IV SCH (19:49)
--- NOTE | 2022-08-07 20:18 | NUR ---
RN NOTE GLYCOPYROLAT SCHEDULED @ 2100 NON-ADMIN DUE TO NEW PEG TUBE REPORTED TO HAVE LEAKAGE AND UNABLE TO BE USED UNTIL FURTHER NOTICE.
--- NOTE | 2022-08-07 21:10 | NUR ---
RN NOTE RECEIVED PHONE CALL FROM DR ELAL ABOUT PROCEDURE TOMORROW AT 1000 TO REPOSITION MALFUNCTIONING G-TUBE. ORDERED TO KEEP PT ON NPO.
[2022-08-08] VITALS (7 sets, daily range): BP systolic 99–121; BP diastolic 39–85
[2022-08-08] MEDS: LEVETIRACETAM (500MG) 250 MG in IV NS 0.9% 100 ML IV SCH ×2 (05:08→19:50)
--- NOTE | 2022-08-08 06:23 | NUR ---
RN NOTE TRIED REACHING PT'S FAMILY MEMBERS (SRINATH SANTOYO [NEPHEW] / RADHA SPRAGUE [SISTER]; [phone] / [phone]) THROUGH PHONE SEVERAL TIMES TO OBTAIN PROCEDURE CONSENT FOR G-TUBE REPOSITIONING SCHEDULED FOR TODAY, NO RESPONSE OR CALL BACK. WILL ENDORSE TO INCOMING NURSE.
[2022-08-08] MEDS: LEVOTHYROXINE SODIUM 75 MCG TABLET GT SCH (06:36)
--- NOTE | 2022-08-08 06:50 | NUR ---
FRESCO ARTIST CLOSING NOTE PT IN BED, WITH HOB ELEVATED, NPO, S/P GASTRIC FISTULA CLOSURE/PEG TUBE INSERTION ON 08/07/22. DRESSING INTACT, NO BLEEDING NOTED. OPENS EYES, NON VERBAL, TACTILE AND PAIN STIMULI. NOT IN ANY FORM OF ACUTE DISTRESS. STABLE ON TRACH WITH O2 AEROSOL AT 10LPM. ON TELE MONITOR SHOWING SR WITH PAC, 74 BPM. IV ACCESS ON L HAND 20G-SL, FLUSHING WELL, PATENT AND INTACT. TURNED AND REPOSITIONED SEVERAL TIMES THROUGHOUT SHIFT. ALL CARE PROVIDED AND MEDS TOLERATED WELL. SAFETY MEASURES MAINTAINED: BED LOCKED AND IN LOWEST POSITION, SIDE RAILS UP X2, CALL LIGHT AND TRAY TABLE WITHIN EASY REACH. WILL ENDORSE ANG TO DAY SHIFT NURSE.
--- NOTE | 2022-08-08 07:15 | NUR ---
BARREL DRILLER OPENING NOTE RECEIVED PATIENT IN BED, WITH HOB ELEVATED, EYES CLOSED, NON VERBAL BUT RESPONDS TO TACTILE AND PAIN STIMULI. NOT IN ANY FORM OF ACUTE DISTRESS. ON TRACH WITH O2 AEROSOL AT 10LPM. TELE MONITORING IS SHOWING SR 71 HR. IV ACCESS ON L HAND 20G-SL. SAFETY MEASURES IN PLACE. KEPT BED IN LOCKED AND IN LOWEST POSITION. SIDE RAILS UP X2. CALL LIGHT AND TRAY TABLE WITHIN EASY REACH. FOR G-TUBE REPOSITIONING TODAY UNDER DR RED. PATIENT HAS BEEN NPO SINCE LAST NIGHT WELL. WILL CONTINUE TO MONITOR.
[2022-08-08 07:44] LABS: CALCIUM, SERUM 8.9 mg/dL (8.5-10.1); MAGNESIUM 2.2 mg/dL (1.8-2.4); PHOSPHORUS 2.5 mg/dL (2.5-4.9); POTASSIUM 3.3 mmol/L (3.5-5.1)
[2022-08-08 08:47] LABS: BASOPHILS # (AUTO) 0.1 K/uL (0.0-0.2); BASOPHILS % (AUTO) 1.1 % (0.0-2.0); EOSINOPHILS % (AUTO) 0.6 % (0.0-6.0); HEMATOCRIT 27 % (33-45); HEMOGLOBIN 8.7 g/dL (11.5-14.8); LYMPHOCYTES # (AUTO) 1.8 K/uL (0.8-4.8); LYMPHOCYTES % (AUTO) 29.7 % (20.0-44.0); MEAN CORPUSCULAR HGB CONC 32 g/dl (31.0-36.0); MEAN CORPUSCULAR VOLUME 88 fL (82-100); MONOCYTES # (AUTO) 0.4 K/uL (0.1-1.30); MONOCYTES % (AUTO) 7.3 % (2.0-12.0); NEUTROPHILS # (AUTO) 3.6 K/uL (1.8-8.9); NEUTROPHILS % (AUTO) 61.3 % (43.0-81.0); PLATELET COUNT (AUTO) 299 K/uL (150-450); RED BLOOD CELL COUNT(AUTO) 3.04 MIL/uL (4.0-5.2); WHITE BLOOD COUNT (AUTO) 5.9 K/uL (4.3-11.0)
[2022-08-08] MEDS: ENOXAPARIN SODIUM 40 MG/0.4 ML DISP.SYRIN SQ SCH (09:00)
[2022-08-08] MEDS: POTASSIUM CHLORIDE 20 MEQ POWDER PACKET GT SCH (09:00)
[2022-08-08] MEDS: DOCUSATE SODIUM LIQ 100 MG/10 ML UDC GT SCH ×2 (09:00→17:00)
[2022-08-08] MEDS: METOCLOPRAMIDE HCL 10 MG TABLET GT SCH ×3 (09:00→17:00)
[2022-08-08] MEDS: GLYCOPYRROLATE 1 MG TABLET GT SCH ×2 (09:00→20:09)
[2022-08-08] MEDS: PROSOURCE / PROSTAT (PYXIS) 30 ML UDC GT SCH (09:00)
[2022-08-08] MEDS: SODIUM CHLORIDE 1000 MG TABLET GT SCH ×2 (09:00→17:00)
[2022-08-08] MEDS: POLYVINYL ALCOHOL 15 ML BOTTLE EACHEYE SCH ×2 (09:13→17:24)
[2022-08-08] MEDS: CHLORHEXIDINE GLUCONATE 15 ML UDC MM SCH ×2 (09:14→20:08)
[2022-08-08] MEDS: PANTOPRAZOLE 40 MG VIAL IV SCH (09:14)
[2022-08-08] MEDS ORDERED: LIDOCAINE 1% INJ 50 ML MDV IJ ONE (09:37)
[2022-08-08] MEDS ORDERED: BUPIVACAINE MPF 0.5% W/EPI INJ 30 ML VIAL ONE (09:37)
[2022-08-08] MEDS ORDERED: ROCURONIUM BROMIDE 50 MG/5 ML ONE (10:40)
[2022-08-08] MEDS ORDERED: BACITRACIN ZINC OINT PACKET 1 EA PACKET TP ONE (10:57)
--- NOTE | 2022-08-08 12:25 | NUR ---
RN NOTES - RECEIVED PATIENT S/P GT REPOSITIONING VIA HER BED IN STABLE CONDITION. OPERATIVE SITE IS COVERED WITH GAUZE WITH NO BLEEDING NOTED. PATIENT IS ON TRACH WITH 10L AEROSOL SATURATING AT 97% WITHOUT ANY SHORTNESS OF BLEED. VS TAKEN AND RECORDED, STABLE. WILL MONITOR CLOSELY. MD ORDERED TO START FEEDING AT 20 ML PER HOUR THIS PM AND TO ADVANCE TOMORROW TOLERATED UNTIL GOAL OF 55 ML/HOUR X 20 HOURS IS REACHED. PATIENT IS RECEIVING NS @75 ML/HR VIA L HAND G#20 WITH ABOUT 500 ML REMAINING, PATENT AND FLUSHING WELL. PLACED THE SCD ON BOTH LEGS BACK. WILL MONITOR FOR SIGNS OF BLEEDING AND SEIZURE PRECAUTIONS.
[2022-08-08] MEDS: IV LR 1000 ML 1,000 ML IV PRN (14:31)
--- NOTE | 2022-08-08 15:00 | NUR ---
RN NOTES - CALLED DIETARY TO PROVIDE JEVITY 1.2
[2022-08-08] MEDS: JEVITY 1.2 CAL 1,000 ML BOTTLE NG PRN (17:24)
[2022-08-08] MEDS: POLYETHYLENE GLYCOL 3350 17 GM POWD.PACK GT SCH (17:24)
--- NOTE | 2022-08-08 18:56 | NUR ---
MS RN CLOSING NOTE PATIENT IN BED, WITH HOB ELEVATED, S/P PEG TUBE REPOSITIONG DRESSING INTACT NO BLEEDING NOTED. OPENS EYES, NON VERBAL, TACTILE AND PAIN STIMULI. NOT IN ANY FORM OF ACUTE DISTRESS. STILL ON TRACH WITH O2 AEROSOL AT 10LPM. IV ACCESS ON L HAND 20G WIT LR RUNNING AT 50 ML/HR. GTF IS RUNNING JEVITY 1.2 20 ML/HR, NO RESIDUE NOTED OF THE MOMENT. TITRATION TO REACH GOAL OF 55 ML/HR FOR 20 HOURS RELAYED TO NIGHT NURSE. ALL DUE IV MEDS GIVEN, ALL NEEDS MET. SAFETY MEASURES MAINTAINED. KEPT BED IN LOCKED AND IN LOWEST POSITION. SIDE RAILS UP X2. CALL LIGHT AND TRAY TABLE WITHIN EASY REACH. ENDORSED TO SAFETY RISK LEAD NURSE.
--- NOTE | 2022-08-08 19:30 | NUR ---
MS RN OPENING NOTE RECEIVED PATIENT IN BED WITH SEMI CLOSED EYES. NON VERBAL . RESPONDS TO TACTILE STIMULI. STIMULI. EVEN AND UNLABORED BREATHS. NO SOB NO DISTRESS NOTED. ON TRACH WITH O2 AEROSOL AT 10LPM. IV ACCESS ON L HAND 20G WITH INFUSING LR AT 50 ML/HR. ALL SAFETY MEASURES IN PLACE. KEPT BED IN LOCKED AND IN LOWEST POSITION. SIDE RAILS UP X2. CALL LIGHT AND TRAY TABLE WITHIN EASY REACH. S/P G-TUBE REPOSITIONING TODAY UNDER DR RED. DRESSING INTACT NO ACTIVE BLEEDING NOTED. ON GTUBE FEEDING OF JEVITY AT 20 ML/HR. TOLERATING WELL. HOB ELEVATED FOR ASPIRATION PRECAUTION. WILL CONTINUE TO MONITOR CLOSELY.
[2022-08-09] MEDS: LEVOTHYROXINE SODIUM 75 MCG TABLET GT SCH (06:01)
--- NOTE | 2022-08-09 06:45 | NUR ---
MS RN CLOSING NOTE PATIENT IN BED WITH SEMI CLOSED EYES. NON VERBAL . RESPONDS TO TACTILE STIMULI. EVEN AND UNLABORED BREATHS. NO SOB NO DISTRESS NOTED. ON TRACH WITH O2 AEROSOL AT 10LPM. IV ACCESS ON L HAND 20G WITH INFUSING LR AT 50 ML/HR. ALL SAFETY MEASURES IN PLACE. KEPT BED IN LOCKED AND IN LOWEST POSITION. SIDE RAILS UP X2. CALL LIGHT AND TRAY TABLE WITHIN EASY REACH. S/P G-TUBE REPOSITIONING UNDER DR RED. DRESSING INTACT NO ACTIVE BLEEDING NOTED. SEROSANGUINOUS DRAINAGE NOTED ON THE DRESSING. WITH THE SUPERVISION OF THE CHARGE NURSE CHANGED THE TOP PORTION OF THE DRESSING WHICH WAS SOILED , COVERED WITH STERILE AND DRY DRESSING. ON GTUBE FEEDING OF JEVITY AT 20 ML/HR. TOLERATING WELL. HOB ELEVATED FOR ASPIRATION PRECAUTION. WILL ENDORSE INCOMING SHIFT FOR ANG.
[2022-08-09 07:11] LABS: BASOPHILS % (AUTO) 0.6 % (0.0-2.0); EOSINOPHILS % (AUTO) 0.4 % (0.0-6.0); HEMATOCRIT 26 % (33-45); HEMOGLOBIN 8.1 g/dL (11.5-14.8); LYMPHOCYTES # (AUTO) 1.4 K/uL (0.8-4.8); MEAN CORPUSCULAR HGB CONC 32 g/dl (31.0-36.0); MEAN CORPUSCULAR VOLUME 90 fL (82-100); MONOCYTES # (AUTO) 0.6 K/uL (0.1-1.30); MONOCYTES % (AUTO) 8.4 % (2.0-12.0); NEUTROPHILS % (AUTO) 70.6 % (43.0-81.0); PLATELET COUNT (AUTO) 312 K/uL (150-450); RED BLOOD CELL COUNT(AUTO) 2.85 MIL/uL (4.0-5.2)
[2022-08-09 07:22] LABS: CALCIUM, SERUM 8.6 mg/dL (8.5-10.1); CREATININE 0.9 mg/dL (0.6-1.3); MAGNESIUM 1.9 mg/dL (1.8-2.4); PHOSPHORUS 1.7 mg/dL (2.5-4.9); POTASSIUM 3.3 mmol/L (3.5-5.1)
--- NOTE | 2022-08-09 07:29 | NUR ---
MS RN OPENING NOTE RECEIVED PT IN BED WITH EYES OPENED, NON VERBAL. RESPONDS TO TACTILE STIMULI. ON TRACH WITH O2 AEROSOL AT 10LPM. NO SIGN OF ACUTE RESPIRATORY DISTRESS NOTED. IV ACCESS ON L HAND 20G WITH ONGOING IVF LR AT 50 ML/HR. WITH G-TUBE IN PLACE WITH FEEDING OF JEVITY AT 20 ML/HR, TOLERATING WELL, DRESSING C/D/I, NO ACTIVE BLEEDING NOTED. SAFETY MEASURES IN PLACE: KEPT BED IN LOCKED AND IN LOWEST POSITION, SIDE RAILS UP X3, CALL LIGHT AND TRAY TABLE WITHIN EASY REACH, HOB ELEVATED FOR ASPIRATION PRECAUTION. WILL CONTINUE TO MONITOR.
[2022-08-09] MEDS: CHLORHEXIDINE GLUCONATE 15 ML UDC MM SCH ×2 (08:32→20:51)
[2022-08-09] MEDS: DOCUSATE SODIUM LIQ 100 MG/10 ML UDC GT SCH ×2 (08:32→16:27)
[2022-08-09] MEDS: PANTOPRAZOLE 40 MG VIAL IV SCH (08:32)
[2022-08-09] MEDS: POTASSIUM CHLORIDE 20 MEQ POWDER PACKET GT SCH (08:32)
[2022-08-09] MEDS: GLYCOPYRROLATE 1 MG TABLET GT SCH ×2 (08:32→20:51)
[2022-08-09] MEDS: METOCLOPRAMIDE HCL 10 MG TABLET GT SCH ×3 (08:33→16:26)
[2022-08-09] MEDS: SODIUM CHLORIDE 1000 MG TABLET GT SCH ×2 (08:33→16:26)
[2022-08-09] MEDS: ENOXAPARIN SODIUM 40 MG/0.4 ML DISP.SYRIN SQ SCH (08:35)
[2022-08-09] MEDS: LEVETIRACETAM (500MG) 250 MG in IV NS 0.9% 100 ML IV SCH (08:41)
[2022-08-09] MEDS: POLYVINYL ALCOHOL 15 ML BOTTLE EACHEYE SCH ×2 (08:41→16:28)
[2022-08-09] MEDS ORDERED: LEVETIRACETAM SOL (5 ML) 100 MG/ML UDC GT SCH (09:00)
[2022-08-09] MEDS: PROSOURCE / PROSTAT (PYXIS) 30 ML UDC GT SCH (09:00)
[2022-08-09] MEDS ORDERED: POTASSIUM CHLORIDE 20 MEQ POWDER PACKET GT SCH (11:00)
[2022-08-09 15:10] VITALS: BP 120/60
[2022-08-09 16:00] VITALS: BP 126/70
[2022-08-09] MEDS ORDERED: NEUTRA PHOS 1 POWD.PACKET GT ONE (16:00)
[2022-08-09] MEDS: IV LR 1000 ML 1,000 ML IV PRN (16:26)
[2022-08-09] MEDS: POLYETHYLENE GLYCOL 3350 17 GM POWD.PACK GT SCH (17:40)
--- NOTE | 2022-08-09 18:47 | NUR ---
MS RN CLOSING NOTE PT IN BED WITH EYES OPENED, NON VERBAL. RESPONDS TO TACTILE STIMULI. ON TRACH WITH O2 AEROSOL AT 10LPM. NO SIGN OF ACUTE RESPIRATORY DISTRESS NOTED. IV ACCESS ON RIGHT ARM #22G WITH ONGOING IVF LR AT 50 ML/HR. WITH G-TUBE IN PLACE WITH FEEDING OF JEVITY AT 20 ML/HR, TOLERATING WELL, DRESSING C/D/I, NO ACTIVE BLEEDING NOTED. TURNED AND REPOSITIONED. SUCTIONED NEEDED. SAFETY MEASURES IN PLACE: BED IN LOCKED AND IN LOWEST POSITION, SIDE RAILS UP X3, CALL LIGHT AND TRAY TABLE WITHIN EASY REACH, HOB ELEVATED FOR ASPIRATION PRECAUTION. WILL ENDORSE ANG TO DRAW FURNACE TENDER.
--- NOTE | 2022-08-09 19:30 | NUR ---
MS RN OPENING NOTE RECEIVED PATIENT IN BED WITH SEMI CLOSED EYES. NON VERBAL . RESPONDS TO TACTILE STIMULI. EVEN AND UNLABORED BREATHS. NO SOB NO DISTRESS NOTED. ON TRACH WITH O2 AEROSOL AT 10LPM. IV ACCESS ON RIGHT FOREARM G # 22 INTACT RUNNING LR AT 50 ML/HR. ALL SAFETY MEASURES IN PLACE. KEPT BED IN LOCKED AND IN LOWEST POSITION. SIDE RAILS UP X2. CALL LIGHT AND TRAY TABLE WITHIN EASY REACH. S/P G-TUBE REPOSITIONING UNDER DR RED. DRESSING INTACT NO ACTIVE BLEEDING NOTED. ON GTUBE FEEDING OF JEVITY 1.2 AT 20 ML/HR. TOLERATING WELL. HOB ELEVATED FOR ASPIRATION PRECAUTION. WILL CONTINUE TO MONITOR CLOSELY.
[2022-08-09] MEDS: LEVETIRACETAM SOL (5 ML) 100 MG/ML UDC GT SCH (20:51)
[2022-08-10] VITALS (7 sets, daily range): BP systolic 115–130; BP diastolic 63–93
[2022-08-10 06:23] LABS: CALCIUM, SERUM 8.2 mg/dL (8.5-10.1); CREATININE 0.9 mg/dL (0.6-1.3); MAGNESIUM 1.9 mg/dL (1.8-2.4); PHOSPHORUS 1.8 mg/dL (2.5-4.9)
--- NOTE | 2022-08-10 06:39 | NUR ---
MS RN CLOSING NOTE PATIENT IN BED WITH SEMI CLOSED EYES. NON VERBAL . RESPONDS TO TACTILE STIMULI. EVEN AND UNLABORED BREATHS. NO SOB NO DISTRESS NOTED. ON TRACH WITH O2 AEROSOL AT 10LPM. IV ACCESS ON RFA 22 G WITH INFUSING LR AT 50 ML/HR. ALL SAFETY MEASURES IN PLACE. KEPT BED IN LOCKED AND IN LOWEST POSITION. SIDE RAILS UP X2. CALL LIGHT AND TRAY TABLE WITHIN EASY REACH. S/P G-TUBE REPOSITIONING UNDER DR RED. DRESSING INTACT NO ACTIVE BLEEDING NOTED. SEROSANGUINOUS DRAINAGE NOTED ON THE DRESSING. CHANGED THE TOP PORTION OF THE DRESSING WHICH WAS SOILED , NOT THE PACKED DRESSING. COVERED WITH STERILE AND DRY DRESSING. ON GTUBE FEEDING OF JEVITY AT 55 ML/HR. TOLERATING WELL. HOB ELEVATED FOR ASPIRATION PRECAUTION. ALL DUE MEDS GIVEN ORDERED.WILL ENDORSE INCOMING SHIFT FOR ANG.
--- NOTE | 2022-08-10 07:28 | NUR ---
MS RN OPENING NOTE RECEIVED PT IN BED, NON VERBAL. RESPONDS TO TACTILE STIMULI. ON TRACH WITH O2 AEROSOL AT 10LPM. NO SIGN OF ACUTE RESPIRATORY DISTRESS NOTED. IV ACCESS ON RIGHT ARM #22G WITH ONGOING IVF LR AT 50 ML/HR. WITH G-TUBE IN PLACE WITH FEEDING OF JEVITY AT 55ML/HR, TOLERATING WELL, DRESSING C/D/I, NO ACTIVE BLEEDING NOTED. SAFETY MEASURES IN PLACE: KEPT BED IN LOCKED AND IN LOWEST POSITION, SIDE RAILS UP X3, CALL LIGHT AND TRAY TABLE WITHIN EASY REACH, HOB ELEVATED FOR ASPIRATION PRECAUTION. WILL CONTINUE TO MONITOR.
[2022-08-10] MEDS: LEVOTHYROXINE SODIUM 75 MCG TABLET GT SCH (07:33)
[2022-08-10] MEDS: CHLORHEXIDINE GLUCONATE 15 ML UDC MM SCH ×2 (08:35→21:22)
[2022-08-10] MEDS: LEVETIRACETAM SOL (5 ML) 100 MG/ML UDC GT SCH ×2 (08:35→21:22)
[2022-08-10] MEDS: METOCLOPRAMIDE HCL 10 MG TABLET GT SCH ×3 (08:36→16:33)
[2022-08-10] MEDS: DOCUSATE SODIUM LIQ 100 MG/10 ML UDC GT SCH ×2 (08:36→16:33)
[2022-08-10] MEDS: POTASSIUM CHLORIDE 20 MEQ POWDER PACKET GT SCH (08:36)
[2022-08-10] MEDS: PANTOPRAZOLE 40 MG/PACK PACK GT SCH (08:36)
[2022-08-10] MEDS: SODIUM CHLORIDE 1000 MG TABLET GT SCH ×2 (08:37→16:33)
[2022-08-10] MEDS: POLYVINYL ALCOHOL 15 ML BOTTLE EACHEYE SCH ×2 (08:37→16:34)
[2022-08-10] MEDS: GLYCOPYRROLATE 1 MG TABLET GT SCH ×2 (08:37→21:22)
[2022-08-10] MEDS: PROSOURCE / PROSTAT (PYXIS) 30 ML UDC GT SCH (08:42)
[2022-08-10] MEDS: ENOXAPARIN SODIUM 40 MG/0.4 ML DISP.SYRIN SQ SCH (09:00)
[2022-08-10 09:43] LABS: BASOPHILS # (AUTO) 0.1 K/uL (0.0-0.2); BASOPHILS % (AUTO) 0.6 % (0.0-2.0); EOSINOPHILS % (AUTO) 0.5 % (0.0-6.0); HEMATOCRIT 21 % (33-45); LYMPHOCYTES % (AUTO) 10.5 % (20.0-44.0); MEAN CORPUSCULAR HGB CONC 32 g/dl (31.0-36.0); MEAN CORPUSCULAR VOLUME 91 fL (82-100); MONOCYTES # (AUTO) 0.5 K/uL (0.1-1.30); MONOCYTES % (AUTO) 5.3 % (2.0-12.0); NEUTROPHILS # (AUTO) 7.5 K/uL (1.8-8.9); NEUTROPHILS % (AUTO) 83.1 % (43.0-81.0); PLATELET COUNT (AUTO) 177 K/uL (150-450); RED BLOOD CELL COUNT(AUTO) 2.35 MIL/uL (4.0-5.2)
[2022-08-10 09:50] LABS: HEMOGLOBIN 6.8 g/dL (11.5-14.8)
--- NOTE | 2022-08-10 09:50 | NUR ---
RN NOTES LOVENOX 40MG SQ DAILY DUE AT 0900 NOT GIVEN. PT'S HGB LEVEL 6.8. WILL CONTINUE TO MONITOR.
[2022-08-10] MEDS: LORAZEPAM INJ 2 MG/ML VIAL IV PRN (10:00)
--- NOTE | 2022-08-10 10:00 | NUR ---
RN NOTES DR. JACKSON IN THE UNIT, INFORMED HGB 6.8.
--- NOTE | 2022-08-10 10:02 | NUR ---
RN NOTES DR. JACKSON IN THE UNIT, ORDERED TO GIVE THE ATIVAN 2MG/ML IV PRN. CARRIED OUT. WILL CONTINUE TO MONITOR.
[2022-08-10 10:21] LABS: LYMPHOCYTES % (MANUAL) 10 % (16-48); MONOCYTES % (MANUAL) 4 % (0-11.0); NEUTROPHILS % (MANUAL) 86 (42-76)
[2022-08-10 11:34] LABS: HEMOGLOBIN 6.5 g/dL (11.5-14.8)
[2022-08-10] MEDS ORDERED: Sodium Phosphate 15 MMOL in IV NS 0.9% 245 ML IV SCH (15:30)
[2022-08-10] MEDS: POLYETHYLENE GLYCOL 3350 17 GM POWD.PACK GT SCH (17:01)
--- NOTE | 2022-08-10 18:01 | NUR ---
RN NOTES INITIATED BLOOD TRANSFUSION OF PRBC X 1 UNIT AT 1759 VIA IV ACCESS ON RIGHT ARM #20G. V/S CHECKED. STABLE AND RECORDED. WILL MONITOR FOR ANY ADVERSE/ALLERGIC REACTIONS.
--- NOTE | 2022-08-10 18:16 | NUR ---
RN NOTES NO ADVERSE/ALLERGIC REACTIONS SUCH FEVER, RASH, SOB, ETC AFTER 15 MINUTES OF STARTING BLOOD TRANSFUSION. V/S CHECKED AND RECORDED. WILL CONTINUE TO MONITOR.
--- NOTE | 2022-08-10 18:51 | NUR ---
MS RN CLOSING NOTE PT RESTING IN BED, NON VERBAL. RESPONDS TO TACTILE STIMULI. ON TRACH WITH O2 AEROSOL AT 10LPM. NO SIGN OF ACUTE RESPIRATORY DISTRESS NOTED. IV ACCESS ON RIGHT HAND #22G WITH ONGOING PRBC 1 UNIT AT 100ML/HR, INFUSING WELL. NO SIGNS OF ADVERSE/ALLERGIC REACTIONS NOTED. VITAL SIGNS MONITORED. WITH G-TUBE IN PLACE WITH FEEDING OF JEVITY AT 55ML/HR, TOLERATING WELL, DRESSING C/D/I, NO ACTIVE BLEEDING NOTED. NEEDS ATTENDED. SAFETY MEASURES IN PLACE: KEPT BED IN LOCKED AND IN LOWEST POSITION, SIDE RAILS UP X3, CALL LIGHT AND TRAY TABLE WITHIN EASY REACH, HOB ELEVATED FOR ASPIRATION PRECAUTION. WILL ENDORSE ANG TO NURSE CARE MANAGER.
--- NOTE | 2022-08-10 19:30 | NUR ---
MS RN OPENING NOTE RECEIVED PT IN BED AWAKE, NON VERBAL. RESPONDS TO TACTILE STIMULI. ON TRACH WITH O2 AEROSOL AT 10LPM. NO SIGN OF ACUTE RESPIRATORY DISTRESS NOTED. IV ACCESS ON RIGHT HAND #22G INTACT, RUNNING BLOOD TRANSFUSION AT THIS TIME. PATIENT TOLERATING WELL. VITAL SIGNS IN NORMAL RANGES. NO ADVERSE REACTION NOTED AT THIS TIME.WITH G-TUBE IN PLACE WITH FEEDING OF JEVITY AT 55ML/HR, TOLERATING WELL, DRESSING C/D/I, NO ACTIVE BLEEDING NOTED. ALL SAFETY MEASURES IN PLACE: KEPT BED IN LOCKED AND IN LOWEST POSITION, SIDE RAILS UP X3, CALL LIGHT AND TRAY TABLE WITHIN EASY REACH, HOB ELEVATED FOR ASPIRATION PRECAUTION. WILL CONTINUE TO MONITOR CLOSELY.
--- NOTE | 2022-08-10 21:03 | NUR ---
RN END OF TRANSFUSION NOTES THE BLOOD TRANSFUSION ENDED AT 3. VITAL SIGNS NOTED SC=716/82, P=76, RR=18, T=97.8, 37=903%. PATIENT TOLERATED THE BLOOD TRANSFUSION WELL. NO ADVERSE REACTION NOTED. DOCUMENTED THE END OF TRANSFUSION VITAL SIGNS ON THE TRANSFUSION SPREAD SHEET, BUT IT WAS NOT SHOWING ANY SPOT TO CLICK ON THE END OF TRANSFUSION. INFORMED CHARGE NURSE RICARDA , SHE CONTACTED LAB. CHARGE NURSE AWARE OF THAT.
[2022-08-11] VITALS (8 sets, daily range): BP systolic 72–119; BP diastolic 46–74
[2022-08-11] MEDS: JEVITY 1.2 CAL 1,000 ML BOTTLE NG PRN (02:05)
[2022-08-11] MEDS: IV LR 1000 ML 1,000 ML IV PRN (03:45)
[2022-08-11 05:59] LABS: BASOPHILS % (AUTO) 0.4 % (0.0-2.0); EOSINOPHILS % (AUTO) 2.1 % (0.0-6.0); HEMATOCRIT 27 % (33-45); HEMOGLOBIN 8.6 g/dL (11.5-14.8); LYMPHOCYTES # (AUTO) 1.2 K/uL (0.8-4.8); LYMPHOCYTES % (AUTO) 16.6 % (20.0-44.0); MEAN CORPUSCULAR HGB CONC 32 g/dl (31.0-36.0); MEAN CORPUSCULAR VOLUME 88 fL (82-100); MONOCYTES # (AUTO) 0.5 K/uL (0.1-1.30); MONOCYTES % (AUTO) 6.8 % (2.0-12.0); NEUTROPHILS # (AUTO) 5.4 K/uL (1.8-8.9); NEUTROPHILS % (AUTO) 74.1 % (43.0-81.0); PLATELET COUNT (AUTO) 282 K/uL (150-450); RED BLOOD CELL COUNT(AUTO) 3.04 MIL/uL (4.0-5.2); WHITE BLOOD COUNT (AUTO) 7.3 K/uL (4.3-11.0)
[2022-08-11] MEDS: LEVOTHYROXINE SODIUM 75 MCG TABLET GT SCH (06:10)
--- NOTE | 2022-08-11 06:44 | NUR ---
MS RN CLOSING NOTE PATIENT IN BED WITH SEMI CLOSED EYES. NON VERBAL . RESPONDS TO TACTILE STIMULI. EVEN AND UNLABORED BREATHS. NO SOB NO DISTRESS NOTED. ON TRACH WITH O2 AEROSOL AT 10LPM. IV ACCESS ON RIGHT HAND 22 G WITH INFUSING LR AT 50 ML/HR. ALL DUE MEDS GIVEN ORDERED.ALL SAFETY MEASURES IN PLACE. KEPT BED IN LOCKED AND IN LOWEST POSITION. SIDE RAILS UP X2. CALL LIGHT AND TRAY TABLE WITHIN EASY REACH. S/P OF 1 PACK RBS TRANSFUSION. NO ADVERSE REACTION NOTED. DRESSING OF THE OLD AND NEW G TUBE SITES INTACT, NO ACTIVE BLEEDING NOTED. SEROSANGUINOUS DRAINAGE NOTED ON THE DRESSING. CHANGED THE DRESSING WHICH WAS SOILED , NOT THE PACKED DRESSING. COVERED WITH STERILE AND DRY DRESSING. ON GTUBE FEEDING OF JEVITY AT 55 ML/HR. TOLERATING WELL. HOB ELEVATED FOR ASPIRATION PRECAUTION. SUCTION PRN NEEDED. REPOSITIONED FOR SKIN AND COMFORT MANAGEMENT.ALL DUE MEDS GIVEN ORDERED.WILL ENDORSE INCOMING SHIFT FOR ANG.
[2022-08-11 07:04] LABS: CALCIUM, SERUM 7.9 mg/dL (8.5-10.1); CREATININE 0.8 mg/dL (0.6-1.3); MAGNESIUM 1.7 mg/dL (1.8-2.4); PHOSPHORUS 2.3 mg/dL (2.5-4.9); POTASSIUM 4.1 mmol/L (3.5-5.1)
--- NOTE | 2022-08-11 08:00 | NUR ---
MS RN OPENING NOTE RECEIVED PT IN BED, NON VERBAL. RESPONDS TO TACTILE STIMULI. ON TRACH WITH O2 AEROSOL AT 8 LPM. NO SIGN OF ACUTE RESPIRATORY DISTRESS NOTED. IV ACCESS ON RIGHT WRIST #22G WITH ONGOING IVF LR AT 50 ML/HR. WITH G-TUBE IN PLACE WITH FEEDING OF JEVITY AT 55ML/HR, TOLERATING WELL, RESIDUAL 50 MLS, DRESSING C/D/I, NO ACTIVE BLEEDING NOTED. SAFETY MEASURES IN PLACE: KEPT BED IN LOCKED AND IN LOWEST POSITION, SIDE RAILS UP X3, CALL LIGHT AND TRAY TABLE WITHIN EASY REACH, HOB ELEVATED FOR ASPIRATION PRECAUTION. PT HAD COPIOUS AMOUNT OF WHITE, THICK SPUTUM/SECRETIONS FROM TRACHEOSTOMY REQUIRING SUCTIONING X 2 WITH TAMIA SUCTIONING OF HER MOUTH WELL. WILL CONTINUE TO MONITOR AND CARE FOR PATIENT PER HOSPITALIST POC.
--- NOTE | 2022-08-11 09:11 | NUR ---
WOUND CARE CONSULT: PT PRESENTS WITH SURGICAL WOUND TO ABDOMEN WHICH IS PACKED WITH IODOFORM PACKING. DEFER TO SURGEON FOR SURGICAL WOUND. PT ALSO NOTED TO HAVE SACRAL SCARRING WITH INTACT DEEP TISSUE INJURY, NOTED TO BE PRESENT IN ADMISSION PHOTO. RECOMMENDATIONS MADE FOR SKIN PROTECTION. DISCUSSED WITH NURSING STAFF. MD IN AGREEMENT WITH PLAN OF CARE.
[2022-08-11] MEDS: POLYVINYL ALCOHOL 15 ML BOTTLE EACHEYE SCH ×2 (10:08→18:52)
[2022-08-11] MEDS: GLYCOPYRROLATE 1 MG TABLET GT SCH ×2 (10:12→21:14)
[2022-08-11] MEDS: LEVETIRACETAM SOL (5 ML) 100 MG/ML UDC GT SCH ×2 (10:12→21:15)
[2022-08-11] MEDS: DOCUSATE SODIUM LIQ 100 MG/10 ML UDC GT SCH ×2 (10:12→18:52)
[2022-08-11] MEDS: SODIUM CHLORIDE 1000 MG TABLET GT SCH ×2 (10:13→18:53)
[2022-08-11] MEDS: PANTOPRAZOLE 40 MG/PACK PACK GT SCH (10:13)
[2022-08-11] MEDS: POTASSIUM CHLORIDE 20 MEQ POWDER PACKET GT SCH (10:13)
[2022-08-11] MEDS: PROSOURCE / PROSTAT (PYXIS) 30 ML UDC GT SCH (10:13)
[2022-08-11] MEDS: CHLORHEXIDINE GLUCONATE 15 ML UDC MM SCH ×2 (10:13→21:14)
[2022-08-11] MEDS: METOCLOPRAMIDE HCL 10 MG TABLET GT SCH ×3 (10:13→18:52)
[2022-08-11] MEDS: Magnesium 1GM/D5W 100ML PREMIX 100 ML IV SCH ×2 (10:14→11:13)
--- NOTE | 2022-08-11 11:02 | NUR ---
SPECIMEN COLLECTION Patient still not having any BM despite colace and miralax. Unable to collect stool specimen. Patient recently incontinent of urine large amount and unable to get straight cather urine specimen for urinalysis. Will attempt straight catheter later.
--- NOTE | 2022-08-11 12:30 | NUR ---
TURNED OFF TUBE FEED FOR SMALL BOWEL X-RAY TUBE FEED STOPPED FOR DIAGNOSTIC BEDSIDE PROCEDURE.
[2022-08-11] MEDS ORDERED: DIATR MEGLU/DIATRIZOATE SODIUM 120 ML BOTTLE (GASTROGRAPHIN) ONE (13:37)
[2022-08-11] MEDS: POLYETHYLENE GLYCOL 3350 17 GM POWD.PACK GT SCH (18:53)
--- NOTE | 2022-08-11 19:10 | NUR ---
MS RN CLOSING NOTE Patient required frequent suctioning of tracheostomy throughout shift roughly every 30 to 45 minutes, secretions/sputum becoming darker in color as time passed. Tube feed residual = 220 mLs even after being off for 6 hours. Patietn has become tachypnic with respiratory rate 26 to 30 bpm, even after suctioning. Notified DNP Post of patient's condition. Stat CXR ordered. Aspiration precautions maintained keeping HOB up 45 degrees. Safety precautions maintained with bed side rails up x 3, bed brakes locked, bed in lowest position, bed alarm on. Tube feeding turned off and hospitalist made aware. Will endorsed to production supervisor off shift RN for ANG.
--- NOTE | 2022-08-11 19:30 | NUR ---
MS RN NOTE CHANGE SHIFT REPORT WAS GIVEN BY ANA CAMARA. PT IS AWAKE, AO X 0. SHE IS ON 8 LPM OXYGEN, WITH AEROSOL MIST AND T PIECE AT HER TRACH. PT'S BREATH SOUND IS GARGLING, SUCTIONED THE PATIENT, AND RECEIVED MEDIUM AMOUNT OF BROWN COLOR, THICK LIQUID. PATIENT'S O2 SAT IS 90%. INCREASED THE O2 TO 10 LPM, AND O2 SAT IS 98%. IV ACCESS IS AT HER RIGHT HAND, #22g, SL. FLUSHED WELL. IV SITE IS PATENT AND INTACT. PATIENT HAS A DIC DRESSING AT HER OLD STOMACH G TUBE STOMA; THE NEW G-TUBE IS BELOW THE OLD ONE, PATENT AND INTACT; BUT THE SURROUNDING IS RED TO PINKISH COLOR AND SLIGHTLY SWOLLEN. CHECKED THE PLACEMENT OF THE G TUBE, PATENT AND INTACT; THE G TUBE IS IN PLACE. CHECKED THE RESIDUAL, RECEIVED 120 ML OF RESIDUAL IN LIGHT GREEN COLOR. FEEDING IS HOLD. ACCORDING TO THE CHANGE SHIFT NURSE, HOA, PATIENT HAS 220 ML OF STOMACH RESIDUAL AT 1600. HE TEXT DR[address] MARLINE GOLDSMITH THE RESIDUAL, NO REPLY YET. SAFETY MEASURES ARE IN PLACE: BED IN LOWEST AND LOCKED POSITION; SIDE RAILS UP X 3; ELEVATED THE HEAD OF BED AT 45 DEGREE. , WILL MONITOR THE PT CLOSELY AND PROVIDE THE CARE PATIENT NEEDS.
--- NOTE | 2022-08-11 20:00 | NUR ---
MS RN NOTE PATIENT'S VITAL SIGNS ARE THE FOLLOWING: BP IS 114/74; HR IS 113; RR IS 26, TEMPERATURE IS 99.8, O2 SAT IS 90% WITH 8 LPM OXYGEN. REMOVED THE BLANKET ON THE PATIENT.
[2022-08-11] MEDS ORDERED: K PHOS NEUTRAL 250 MG TABLET PO ONE (20:30)
--- NOTE | 2022-08-11 20:30 | NUR ---
MS RN NOTE PT IS UNDER RESPIRATORY DISTRESS WITH LABORED AND RAPID BREATHING, 26 PER MIN. SUCTIONED THE PATIENT THROUGH HER TRACH, MEDIUM AMOUNT BROWNISH COLOR, THICK, LIQUID CAME OUT. SHE IS ON O2 8 LPM VIA C-PIPE. HER O2 SAT IS 90%. NOTIFIED CHARGE NURSE, ALLYSSA. CALLED RT.
--- NOTE | 2022-08-11 21:05 | NUR ---
MS RN NOTE RT SUGGEST TO GET AN ORDER FOR STAT ABG FOR THE PATIENT. TEXTED SAVE ALL OPERATOR GABRIEL SOLANO. ORDER RECEIVED
--- NOTE | 2022-08-11 21:10 | NUR ---
RT NOTE LATE ENTRY RT CALLED TO BEDSIDE. PT rec'd on cool aerosol 40% fio2 10LPM. Pt fio2 increased to 98% due to pt desaturating to 87%. pt sx'd for small amt of pale yellow secretions. trach is patent and secured Stat ABG taken per DESIGN CHIEF orders and critical results reported to DESIGN CHIEF. Addendum: 08/11/22 at 2235 by CYRUS WINTER RT Amended: Links added.
[2022-08-11 21:11] LABS: ABG BASE EXCESS 3.1 mmol/L; ABG OXYGEN SATURATION 92.6 % (92.0-98.5); ABG PCO2 34.4 mmHg (35.0-45.0); ABG PH 7.496 (7.350-7.450); ABG PO2 60.9 mmHg (75.0-100.0); AaDO2 617.7 mmHg; COHb 1.3 % (0.5-1.5); O2Hb 91.4 % (94.0-97.0); SITE, ABG Right Radial
--- NOTE | 2022-08-11 21:40 | NUR ---
MS RN NOTE PT'S BP IS 82/48. HER TEMP IS 99.8, AXILLARY. NOTIFIED CHARGE NURSE, ALLYSSA. TEXT BACTERIOLOGIST SOIL GABRIEL SOLANO AND SUGGESTED TO TRANSFER THE PT TO [facility] OR ICU. WAITING FOR ORDER.
--- NOTE | 2022-08-11 21:45 | NUR ---
MS RN NOTE PT WAS PUT ON THE [facility] VENTILATOR BY RT.
--- NOTE | 2022-08-11 21:45 | NUR ---
RT NOTE Late Entry [facility] noted settings per MEDICAL DIRECTOR OF HOSPICE request. Pt sx'd for thick small amt of pale yellow secretions. trach is patent and secured. Alarms are set and audible. ambu bag and emergency spare trach at bedside. Vent plugged into red outlet. Addendum: 08/11/22 at 2240 by CYRUS WINTER RT Amended: Links added.
--- NOTE | 2022-08-11 21:46 | NUR ---
MS RN NOTE SPOKE WITH INSPECTION MANAGER GABRIEL SOLANO OVER 4E PHONE, RECEIVED THE ORDER FOR BOLUS NS 500 ML FOR ONCE.
[2022-08-11] MEDS ORDERED: IV NS 0.9% 500 ML IV ONE (22:00)
--- NOTE | 2022-08-11 22:00 | NUR ---
MS RN NOTE PT'S BP IS 81/45. LICENSED REAL ESTATE BROKER GABRIEL SOLANO AND CHARGE NURSE, ALLYSSA AT THE BEDSIDE.
[2022-08-11] MEDS: LORAZEPAM INJ 2 MG/ML VIAL IV PRN ×2 (22:19→23:49)
--- NOTE | 2022-08-11 22:50 | NUR ---
MS RN NOTE CHARGE NURSE WAS IN THE PT'S ROOM AND FOUND THE PATIENT IS NOT RESPONDING. RAPID RESPONSE IS CALLED.
[2022-08-11] MEDS ORDERED: NOREPINEPHRINE 4 MG/4 ML AMPUL IV ONE (23:21)
--- NOTE | 2022-08-11 23:30 | NUR ---
MS RN NOTE MANAGER PAYMENT GABRIEL SOLANO ASKED TO HOLD HER ORDER OF GIVING PRN MEDICATION ATIVAN DUE TO THE PATIENT'S BP IS LOW AT 61/31. MEDICATION WAS WASTED BECAUSE THE MEDICATION WAS DRAWN FROM THE BOTTLE ALREADY. CHARGE NURSE, ANA SPIVEY, AWARE.
[2022-08-11] MEDS: NOREPINEPHRINE 8 MG in IV NS 0.9% 242 ML IV PRN (23:35)
[2022-08-11] MEDS: ACETAMINOPHEN 650 MG/20.3 ML UDC GT PRN (23:49)
--- NOTE | 2022-08-11 23:58 | NUR ---
MS RN NOTE WASTED ATIVAN 2 MG IN THE MEDICATION ROOM. ANA FRIEND WITNESSED.
[2022-08-12] VITALS (96 sets, daily range): BP systolic 62–165; BP diastolic 25–99
[2022-08-12] MEDS ORDERED: MEROPENEM 500 MG in IV NS 0.9% 50 ML IV SCH ×2
[2022-08-12] MEDS ORDERED: LEVETIRACETAM (500MG) 1,000 MG in IV NS 0.9% 100 ML IV ONE ×2
--- NOTE | 2022-08-12 | NUR ---
BENCH PRECISION ASSEMBLER OPENING NOTE PT TRANSFERRED TO ICU FROM [facility]. PT OBTUNDED, NON-VERBAL, A/O X0. PT ON SHILEY SIZE #6, AC 16, TV 400, FIO2 100%, PEEP 5 WITH CURRENT O2SAT OF 100%; NO S/S OF RESP DISTRESS, NO SOB OR COUGH, NON-LABORED AND EQUAL BREATHING. PT ATTACHED TO BEDSIDE MONITOR, SR WITH HR 66. GT CLAMPED, FEEDING ON HOLD PER GABRIEL SOLANO. IV ACCESS ON RIGHT HAND 22G AND RIGHT SHOULDER 20G, INTACT AND PATENT WITH NS TKO AND LEVO STARTED AT THIS TIME. BED IN LOWEST POSITION, CALL LIGHT WITHIN REACH, SIDE RAILS UP X3. WILL CONTINUE TO MONITOR THROUGHOUT THE NIGHT.
--- NOTE | 2022-08-12 | NUR ---
MS RN NOTE PT IS BEING TRANSFERRED TO THE ICU WITH RT WITH AMBU BAG AND DEFIBRILLATOR CONNECTING WITH THE PT. REPORT GIVEN TO THE ICU NURSE AT THE BEDSIDE.
[2022-08-12] MEDS ORDERED: VANCOMYCIN 1 GM in IV D5W 250ml IV ONE (00:30)
[2022-08-12 00:36] LABS: ABG BASE EXCESS 1.9 mmol/L; ABG OXYGEN SATURATION 98.8 % (92.0-98.5); ABG PCO2 33.3 mmHg (35.0-45.0); ABG PH 7.492 (7.350-7.450); ABG PO2 156.9 mmHg (75.0-100.0); AaDO2 522.8 mmHg; COHb 0.3 % (0.5-1.5); MetHb 0.3 % (0.0-1.5); O2Hb 98.2 % (94.0-97.0); SITE, ABG Left Brachial; VENT MODE, BG AC 16 400 100% +5
[2022-08-12] MEDS ORDERED: VANCOMYCIN 1 GM VIAL ONE (00:53)
[2022-08-12] MEDS ORDERED: LEVETIRACETAM (500MG) 500 MG/5 ML VIAL IV ONE (00:59)
[2022-08-12] MEDS ORDERED: MEROPENEM 500 MG VIAL IV ONE (01:00)
[2022-08-12 04:48] LABS: CALCIUM, SERUM 8.2 mg/dL (8.5-10.1); CREATININE 1.7 mg/dL (0.6-1.3); MAGNESIUM 2.4 mg/dL (1.8-2.4); PHOSPHORUS 2.3 mg/dL (2.5-4.9); POTASSIUM 3.9 mmol/L (3.5-5.1)
[2022-08-12 05:15] LABS: BASOPHILS # (AUTO) 0.1 K/uL (0.0-0.2); BASOPHILS % (AUTO) 0.2 % (0.0-2.0); HEMATOCRIT 30 % (33-45); HEMOGLOBIN 9.4 g/dL (11.5-14.8); LYMPHOCYTES # (AUTO) 1.8 K/uL (0.8-4.8); LYMPHOCYTES % (AUTO) 5.4 % (20.0-44.0); MEAN CORPUSCULAR HGB CONC 32 g/dl (31.0-36.0); MEAN CORPUSCULAR VOLUME 88 fL (82-100); MONOCYTES # (AUTO) 0.8 K/uL (0.1-1.30); MONOCYTES % (AUTO) 2.5 % (2.0-12.0); NEUTROPHILS % (AUTO) 91.9 % (43.0-81.0); PLATELET COUNT (AUTO) 382 K/uL (150-450); RED BLOOD CELL COUNT(AUTO) 3.37 MIL/uL (4.0-5.2)
[2022-08-12 05:20] LABS: WHITE BLOOD COUNT (AUTO) 32.6 K/uL (4.3-11.0)
[2022-08-12 06:30] LABS: ABG BASE EXCESS 1.2 mmol/L; ABG OXYGEN SATURATION 98.6 % (92.0-98.5); ABG PH 7.505 (7.350-7.450); ABG PO2 136.1 mmHg (75.0-100.0); AaDO2 545.9 mmHg; COHb 0.3 % (0.5-1.5); MetHb 0.3 % (0.0-1.5); SITE, ABG Left Brachial; VENT MODE, BG AC 16 400 100% +5; VT, ABG 400 mL
[2022-08-12] MEDS: LEVOTHYROXINE SODIUM 75 MCG TABLET GT SCH (07:00)
--- NOTE | 2022-08-12 07:30 | NUR ---
WOUND CARE: PT SEEN WITH ICU NURSING STAFF FOR SOILED ABDOMINAL SURGICAL DRESSING. ABDOMINAL WOUND MEASURES 3CM X 6CM X 4CM AND IS BROWN/MORALES WITH SOME PINK, PURULENT DRAINAGE WITH MILD ODOR. WOUND WAS PACKED WITH SALINE MOISTENED GAUZE BY NURSING STAFF. AWAITING ORDERS FROM SURGEON. SURGICAL FOLLOW UP IS NEEDED. DISCUSSED WITH TRUCK CHAUFFEUR. ALL SKIN PROTECTION MEASURES IN PLACE. MD IN AGREEMENT WITH PLAN OF CARE.
--- NOTE | 2022-08-12 07:35 | NUR ---
PIPE FITTER SUPERVISOR CLOSING NOTE PT REMAINS IN BED, OBTUNDED, NON-VERBAL, OPENS EYES. CONTINUES TO BE ON SAME VENT SETTINGS, TOLERATING WELL WITH O2SAT RANGING FROM 99%-100%; NO S/S OF RESP DISTRESS, NO SOB OR COUGH, NON-LABORED AND EQUAL BREATHING. ATTACHED TO BEDSIDE MONITOR, SB-SR, WITH HR NOTED TO BE LOW 43. GT CLAMPED. ALL DUE MEDS ADMINISTERED DURING THE NIGHT. BED IN LOWEST POSITION, CALL LIGHT WITHIN REACH, SIDE RAILS UP X3. WILL ENDORSE TO DAYSHIFT NURSE TO CONTINUE CARE.
[2022-08-12] MEDS: GLYCOPYRROLATE 1 MG TABLET GT SCH ×2 (07:51→20:16)
[2022-08-12] MEDS: DOCUSATE SODIUM LIQ 100 MG/10 ML UDC GT SCH ×2 (07:51→16:41)
[2022-08-12] MEDS: PANTOPRAZOLE 40 MG/PACK PACK GT SCH (07:52)
[2022-08-12] MEDS: METOCLOPRAMIDE HCL 10 MG TABLET GT SCH ×3 (07:52→16:41)
[2022-08-12] MEDS: PROSOURCE / PROSTAT (PYXIS) 30 ML UDC GT SCH (07:52)
[2022-08-12] MEDS: SODIUM CHLORIDE 1000 MG TABLET GT SCH ×2 (07:52→16:41)
[2022-08-12] MEDS: POTASSIUM CHLORIDE 20 MEQ POWDER PACKET GT SCH (07:52)
--- NOTE | 2022-08-12 07:53 | NUR ---
Abdominal Wound Assessed Abdominal wound cavity oozing noted. Drainage appears to be tube feeding mixed with purulent Abdl drainage. Pt kept NPO as ordered. Awaiting for Surgeon to reassess wound and obatain abdl wound management orders
[2022-08-12] MEDS ORDERED: MEROPENEM IV SCH (08:00)
[2022-08-12] MEDS ORDERED: NS 0.9% IV SCH (08:00)
[2022-08-12] MEDS ORDERED: LEVETIRACETAM (500MG) 500 MG in IV NS 0.9% 100 ML IV SCH ×3 (09:00)
[2022-08-12] MEDS: POLYVINYL ALCOHOL 15 ML BOTTLE EACHEYE SCH ×2 (09:22→16:40)
[2022-08-12] MEDS: CHLORHEXIDINE GLUCONATE 15 ML UDC MM SCH ×2 (09:23→20:16)
[2022-08-12] MEDS: LEVETIRACETAM (500MG) 500 MG in IV NS 0.9% 100 ML IV SCH ×2 (09:23→20:06)
[2022-08-12] MEDS: MEROPENEM 500 MG in IV NS 0.9% 100 ML IV SCH ×2 (09:23→20:06)
[2022-08-12] MEDS ORDERED: DEXTROSE 50%-WATER 50 ML DISP.SYRIN IV PRN (11:00)
[2022-08-12] MEDS ORDERED: TPN/PPN PER PHARMACY IV PRN (11:00)
[2022-08-12] MEDS: NOREPINEPHRINE 8 MG in IV NS 0.9% 242 ML IV PRN (11:01)
[2022-08-12 11:50] LABS: BAND % (MANUAL) 23 % (0.0-5.0); LYMPHOCYTES % (MANUAL) 5 % (16-48); MONOCYTES % (MANUAL) 2 % (0-11.0); NEUTROPHILS % (MANUAL) 70 (42-76)
[2022-08-12] MEDS: BLOOD SUGAR DIAGNOSTIC 1 EACH STRIP IN SCH ×3 (13:49→23:54)
[2022-08-12] MEDS ORDERED: TPN BAG #1 IV SCH ×4 (14:00)
[2022-08-12] MEDS ORDERED: Sodium Phosphate 15 MMOL in IV NS 0.9% 245 ML IV SCH (16:00)
[2022-08-12] MEDS: POLYETHYLENE GLYCOL 3350 17 GM POWD.PACK GT SCH (16:42)
[2022-08-12 16:51] LABS: BILIRUBIN,URINE 1+ (NEGATIVE); COLOR,URINE YELLOW (YELLOW); CREATININE, URINE 166.6 MG/DL (30.0-125.0); LEUKOCYTE ESTERASE ,URINE 1+ (NEGATIVE); NITRITE, URINE NEGATIVE (NEGATIVE); PROTEIN,URINE TRACE mg/dl (NEGATIVE); UGLUCOSE TRACE mg/dL (NEGATIVE)
--- NOTE | 2022-08-12 17:20 | NUR ---
RN Closing note PT REMAINS ON LEVOPHED DRIP TO MAINTAIN SBP>90 CON'T BEDREST, EYES OPEN REMAINS OBTUNDED, NON-VERBAL, ABG CON'T MANAGEMENT OF TRACH TO VENT VENT SETTINGS ADJUSTED, FIO2 50. TOLERATING WELL WITH O2SAT RANGING FROM 99%-100%; NO S/S OF RESP DISTRESS NOTED. CONT TO MONITOR IN ICU. ATTACHED TO BEDSIDE MONITOR, SB-SR, WITH HR NOTED TO BE LOW 43. GT CLAMPED. ALL DUE MEDS ADMINISTERED DURING THE NIGHT. BED IN LOWEST POSITION, CALL LIGHT WITHIN REACH, SIDE RAILS UP X2. WILL ENDORSE TO DAYSHIFT NURSE TO CONTINUE CARE.
[2022-08-12 18:11] LABS: BACTERIA,URINE Moderate /HPF (None Seen); SQUAMOUS EPITHELIAL CELL,UR Moderate /HPF (None Seen)
--- NOTE | 2022-08-12 20:34 | NUR ---
RN NOTE RT ISSA TITRATED FIO2 FROM 50% TO 40%. WILL CONTINUE TO MONITOR.
--- NOTE | 2022-08-12 21:39 | NUR ---
WORKFORCE MANAGER OPENING NOTE PT RECEIVED IN BED, OBTUNDED.PT WITH SHILEY #6, AC 16, TV 400, FIO2 40%, PEEP 5 WITH CURRENT O2SAT OF 98%; NO S/S OF RESP DISTRESS, NO SOB OR COUGH, NON-LABORED AND EQUAL BREATHING. PT ATTACHED TO BEDSIDE MONITOR, SR WITH HR OF 87. GT IN PLACE, CLAMPED. IV ACCESS ON TRISHA MIDLINE 20G AND RIGHT SHOULDER 20G INTACT AND PATENT, FLUSHES EASILY WITH NO RESISTANCE; LEVO CURRENTLY AT 0.08 MCG/KG/MIN. CASPER INTACT AND PATENT, DRAINING CLOUDY AND YELLOW URINE. BED IN LOWEST POSITION, CALL LIGHT WITHIN REACH, SIDE RAILS UP X3. WILL CONTINUE TO MONITOR THROUGHOUT THE NIGHT.
[2022-08-12] MEDS ORDERED: VANCOMYCIN 0.75 GM in IV D5W 250 ML IV SCH (23:00)
[2022-08-12] MEDS: INSULIN REGULAR, HUMAN 100 UNIT/ML 3 ML VIAL SQ PRN (23:58)
[2022-08-13] VITALS (80 sets, daily range): BP systolic 78–143; BP diastolic 19–83
[2022-08-13 05:17] LABS: CREATININE 1.1 mg/dL (0.6-1.3); PHOSPHORUS 3.4 mg/dL (2.5-4.9); POTASSIUM 3.1 mmol/L (3.5-5.1)
[2022-08-13 05:34] LABS: BASOPHILS # (AUTO) 0.1 K/uL (0.0-0.2); BASOPHILS % (AUTO) 0.4 % (0.0-2.0); EOSINOPHILS % (AUTO) 0.1 % (0.0-6.0); HEMATOCRIT 26 % (33-45); HEMOGLOBIN 8.2 g/dL (11.5-14.8); LYMPHOCYTES # (AUTO) 1.6 K/uL (0.8-4.8); LYMPHOCYTES % (AUTO) 7.3 % (20.0-44.0); MEAN CORPUSCULAR HGB CONC 32 g/dl (31.0-36.0); MEAN CORPUSCULAR VOLUME 89 fL (82-100); MONOCYTES # (AUTO) 0.4 K/uL (0.1-1.30); NEUTROPHILS # (AUTO) 19.8 K/uL (1.8-8.9); NEUTROPHILS % (AUTO) 90.2 % (43.0-81.0); PLATELET COUNT (AUTO) 231 K/uL (150-450); WHITE BLOOD COUNT (AUTO) 21.9 K/uL (4.3-11.0)
[2022-08-13] MEDS: BLOOD SUGAR DIAGNOSTIC 1 EACH STRIP IN SCH ×3 (06:36→17:47)
[2022-08-13] MEDS: LEVOTHYROXINE SODIUM 75 MCG TABLET GT SCH (07:00)
[2022-08-13] MEDS: GLYCOPYRROLATE 1 MG TABLET GT SCH ×2 (08:07→21:00)
[2022-08-13] MEDS: POTASSIUM CHLORIDE 20 MEQ POWDER PACKET GT SCH (08:07)
[2022-08-13] MEDS: PROSOURCE / PROSTAT (PYXIS) 30 ML UDC GT SCH (08:07)
[2022-08-13] MEDS: DOCUSATE SODIUM LIQ 100 MG/10 ML UDC GT SCH ×2 (08:07→17:00)
[2022-08-13] MEDS: METOCLOPRAMIDE HCL 10 MG TABLET GT SCH ×3 (08:08→17:00)
[2022-08-13] MEDS: PANTOPRAZOLE 40 MG/PACK PACK GT SCH (08:08)
[2022-08-13] MEDS: SODIUM CHLORIDE 1000 MG TABLET GT SCH ×2 (08:08→17:00)
[2022-08-13] MEDS: POLYVINYL ALCOHOL 15 ML BOTTLE EACHEYE SCH ×2 (08:09→17:49)
[2022-08-13] MEDS: LEVETIRACETAM (500MG) 500 MG in IV NS 0.9% 100 ML IV SCH ×2 (08:11→21:01)
[2022-08-13] MEDS: MEROPENEM 500 MG in IV NS 0.9% 100 ML IV SCH ×2 (08:11→21:00)
[2022-08-13] MEDS: POTASSIUM CL. PREMIX PERIPHER. 50 ML IV SCH ×4 (08:58→12:01)
[2022-08-13] MEDS: CHLORHEXIDINE GLUCONATE 15 ML UDC MM SCH ×2 (09:09→21:01)
[2022-08-13] MEDS ORDERED: PPN BAG #1 IV SCH ×2 (14:00)
[2022-08-13] MEDS: POLYETHYLENE GLYCOL 3350 17 GM POWD.PACK GT SCH (17:47)
--- NOTE | 2022-08-13 19:30 | NUR ---
RN NOTE RECEIVED PT IN BED, OBTUNDED, RESPONSIVE TO PAIN STIMULI ONLY. PT ON VENT, CURRENT SETTINGS WELL TOLERATED, NO SOB, NO ACUTE RESP DISTRESS NOTED. ATTACHED TO KRAFT DIGESTER OPERATOR READING SR. PT CURRENTLY RECEIVING PPN INFUSING AT 60ML/HR ON TRISHA. LEVO DRIP OFF AT THIS TIME. GT IN PLACED, CLAMPED, NO S/SX OF INFX AT SITE. OLD GT STOMA COVERED WITH DD, CLEAN AND INTACT. FC IN PLACED, PATENT AND SECURED DRAINING DARK YELLOW URINE BY GRAVITY. HOB ELEVATED. WILL CONT POC.
--- NOTE | 2022-08-13 20:45 | NUR ---
RN NOTE LEVO DRIP RE-STARTED AT 0.01MCG/KG/MIN FOR LOW BP 84/50, WILL TITRATE PER PROTOCOL ORDERED NEEDED
[2022-08-13] MEDS ORDERED: VANCOMYCIN 1 GM in IV D5W 250 ML IV SCH (23:00)
[2022-08-14] VITALS (67 sets, daily range): BP systolic 86–155; BP diastolic 20–92
[2022-08-14] MEDS: BLOOD SUGAR DIAGNOSTIC 1 EACH STRIP IN SCH ×4 (00:25→17:58)
[2022-08-14] MEDS: INSULIN REGULAR, HUMAN 100 UNIT/ML 3 ML VIAL SQ PRN ×2 (00:26→06:23)
[2022-08-14 05:25] LABS: BASOPHILS % (AUTO) 0.3 % (0.0-2.0); EOSINOPHILS % (AUTO) 0.7 % (0.0-6.0); HEMATOCRIT 22 % (33-45); LYMPHOCYTES # (AUTO) 1.5 K/uL (0.8-4.8); LYMPHOCYTES % (AUTO) 10.1 % (20.0-44.0); MEAN CORPUSCULAR HGB CONC 32 g/dl (31.0-36.0); MEAN CORPUSCULAR VOLUME 88 fL (82-100); MONOCYTES # (AUTO) 0.4 K/uL (0.1-1.30); MONOCYTES % (AUTO) 2.9 % (2.0-12.0); NEUTROPHILS # (AUTO) 12.9 K/uL (1.8-8.9); PLATELET COUNT (AUTO) 277 K/uL (150-450); RED BLOOD CELL COUNT(AUTO) 2.45 MIL/uL (4.0-5.2)
[2022-08-14 05:43] LABS: CALCIUM, SERUM 7.4 mg/dL (8.5-10.1); CREATININE 0.8 mg/dL (0.6-1.3); MAGNESIUM 1.8 mg/dL (1.8-2.4); PHOSPHORUS 1.6 mg/dL (2.5-4.9); POTASSIUM 3.3 mmol/L (3.5-5.1)
[2022-08-14 05:53] LABS: HEMOGLOBIN 6.8 g/dL (11.5-14.8)
--- NOTE | 2022-08-14 06:00 | NUR ---
RN NOTE RECEIVED CRITICAL LAB VALUE FROM LAB HGB 6.8, NOTIFIED MD STEEL. AWAITING FOR RESPONSE. PT IN STABLE CONDITION, NO S/SX OF BLEEDING NOTED.
--- NOTE | 2022-08-14 06:30 | NUR ---
RN NOTE RECEIVED ORDER FROM MD STEEL TO TRANSFUSE 1UPRBC. NOTED AND CARRIED OUT.
--- NOTE | 2022-08-14 06:55 | NUR ---
RN NOTE PT IN BED, EYES CLOSED, EASILY AROUSABLE BY PAIN STIMULI. REMAINS ON CURRENT VENT SETTINGS, WELL TOLERATED. LEVO DRIP INFUSING AT 0.09MCG/KG/MIN, PPN AT 60ML/HR ON TRISHA. NOTED PT WITH 400ML URINE OUTPUT THROUGHOUT THE SHIFT, DARK YELLOW IN COLOR. X1BM, SOFT BROWN IN COLOR, NO N/V NOTED. KEPT PT CLEAN AND DRY AT ALL TIMES. WILL ENDORSE TO AM SHIFT
[2022-08-14] MEDS: LEVOTHYROXINE SODIUM 75 MCG TABLET GT SCH (07:00)
--- NOTE | 2022-08-14 07:05 | NUR ---
RN NOTE LEVO DRIP INCREASED TO 0.1MCG/KG/MIN
--- NOTE | 2022-08-14 08:00 | NUR ---
RN NOTES RECEIVED PATIENT DOWN SYNDROME TRACHEA /VENT SETTING TOLERATING SETTING WELL. LARGE AMOUNT OF MOUTH SECRETION, SUCTION, MOUTH CARE DONE, KEEP HOB ELEVATED. PATIENT FULL CODE, GT INTACT NPO EXCEPT MEDS. PATIENT HAS INFUSING TPN @60ML/HR ON TRISHA MIDLINE INTACT, LEVOPHED 8 0.1 MCG/KG/MIN BP WAS - 113/20, P-80. PATIENT HAS OPEN WOUND PERVIOUS GT AREA INTACT,PICTURE TAKEN, DRESSING CHANGED. PATIENT ABDOMEN DISTENDED, HYPOACTIVE BOWEL SOUNDS EVERY FOUR QUADRANT OF ABDOMEN. CASPER CATHETER DRAINING VIA GRAVITY, ASSIST TURN AND REPOSTION Q 2 HR. WILL FOLLOW UP.
[2022-08-14] MEDS: LEVETIRACETAM (500MG) 500 MG in IV NS 0.9% 100 ML IV SCH ×2 (08:17→20:36)
--- NOTE | 2022-08-14 08:30 | NUR ---
WOUND CARE CONSULT: PT SEEN FOR FOLLOW UP OF ABDOMINAL SURGICAL WOUND WHICH MEASURES 3CM X 6CM X 3CM AND HAS SILVER/MORALES OBJECT IN BASE OF WOUND. MSG LEFT FOR DR RED REGARDING WOUND ASSESSMENT AND WOUND CARE ORDERS REQUESTED FROM SURGEON. DISCUSSED WITH NURSING STAFF. ALL SKIN PROTECTION MEASURES IN PLACE. IN AGREEMENT WITH PLAN OF CARE. Addendum: 08/14/22 at 0855 by RADHA CATHERINE WNDNU ABOVE ASSESSMENT WAS DISCUSSED WITH DR RED. ORDERS RECEIVED FOR WOUND TREATMENT AND DISCUSSED WITH NURSING STAFF
--- NOTE | 2022-08-14 09:45 | NUR ---
SURGEON INFORMED OF WOUND CONDITION WITH SILVER/MORALES OBJECT IN BASE OF WOUND. PER DR RED, OBJECT IS A BALLOON AND THERE IS NO DANGER. DRESSING CHANGES ORDERED BY SURGEON. RECOMMEND SURGICAL FOLLOW UP. WILL CONTINUE TO MONITOR.
[2022-08-14] MEDS: CHLORHEXIDINE GLUCONATE 15 ML UDC MM SCH ×2 (09:55→21:03)
[2022-08-14] MEDS: POTASSIUM CHLORIDE 20 MEQ POWDER PACKET GT SCH (09:55)
[2022-08-14] MEDS: DOCUSATE SODIUM LIQ 100 MG/10 ML UDC GT SCH ×2 (09:55→17:00)
[2022-08-14] MEDS: POLYVINYL ALCOHOL 15 ML BOTTLE EACHEYE SCH ×2 (09:56→17:57)
[2022-08-14] MEDS: GLYCOPYRROLATE 1 MG TABLET GT SCH ×2 (09:56→21:00)
[2022-08-14] MEDS: METOCLOPRAMIDE HCL 10 MG TABLET GT SCH ×3 (09:56→17:00)
[2022-08-14] MEDS: SODIUM CHLORIDE 1000 MG TABLET GT SCH ×2 (09:56→17:00)
[2022-08-14] MEDS: PANTOPRAZOLE 40 MG/PACK PACK GT SCH (09:56)
[2022-08-14] MEDS: MEROPENEM 500 MG in IV NS 0.9% 100 ML IV SCH ×2 (09:57→21:01)
[2022-08-14] MEDS: PROSOURCE / PROSTAT (PYXIS) 30 ML UDC GT SCH (09:57)
[2022-08-14] MEDS: NOREPINEPHRINE 8 MG in IV NS 0.9% 242 ML IV PRN (10:20)
[2022-08-14] MEDS: POTASSIUM CL. PREMIX PERIPHER. 50 ML IV SCH ×2 (10:47→11:40)
[2022-08-14] MEDS ORDERED: Sodium Phosphate 15 MMOL in IV NS 0.9% 245 ML IV ONE (13:00)
[2022-08-14 13:22] LABS: BAND % (MANUAL) 19 % (0.0-5.0); BASOPHILS % (MANUAL) 0 % (0.0-2.0); EOSINOPHILS % (MANUAL) 0 % (0-4); LYMPHOCYTES % (MANUAL) 6 % (16-48); MONOCYTES % (MANUAL) 6 % (0-11.0); NEUTROPHILS % (MANUAL) 69 (42-76)
[2022-08-14] MEDS ORDERED: PPN BAG #2 IV SCH ×2 (14:00)
--- NOTE | 2022-08-14 14:52 | NUR ---
RN NOTES STARTED ONE UNITS OF RED BLOOD TRANSFUSION AT THIS TIME, T-98.9F. P-62, R-20, BP 98/67, O2-98%. PATIENT TRACHEA / VENT DEPENDENT. INFUSING FROM PERIPHERAL LINE ON TRISHA INTACT 60ML/HR WITHIN 15 MINS. PATIENT HAS NO ACUTE RESPIRATORY DISTRESS. WILL FOLLOW UP.
--- NOTE | 2022-08-14 15:10 | NUR ---
RN NOTES INCREASED BLOOD INFUSION 120ML/HR, PATIENT STABLE BP 111/68, P-65, T-99.1, NO ANY DISTRESS NOTES. WILL FOLLOW UP.
--- NOTE | 2022-08-14 15:40 | NUR ---
RN NOTES INFUSING 120 ML/HR, BP 108/ 60, P-62,T099.1F, PATIENT STABLE, NO ACUTE RESPIRATORY DISTRESS NOTES. WILL FOLLOW UP.
--- NOTE | 2022-08-14 17:54 | NUR ---
rn notes finish blood transfusion at this time, t-98.6, p-62, bp 111/43, o2-100%. no acute respiratory distress,. bs-123 mg/dl.
[2022-08-14] MEDS: POLYETHYLENE GLYCOL 3350 17 GM POWD.PACK GT SCH (17:58)
--- NOTE | 2022-08-14 18:30 | NUR ---
RN NOTES PM CARE DONE, SUCTION, [id number] HAS LARGE AMOUNT OF ORAL SECRETION, INFUSING LEVOPHED 0.04 MCG/KG/MIN, TPN @80ML/HR, AND TKO. PATIENT TOLERATING WELL, URINE OUTPUT WAS 400ML. ENDORSED ONCOMING NURSE ANG.
--- NOTE | 2022-08-14 19:30 | NUR ---
RN NOTE RECEIVED PT IN BED, OBTUNDED. CURRENT VENT SETTINGS WELL TOLERATED, NO ACUTE RESP DISTRESS NOTED. ATTACHED TO BEDSIDE TANK TENDER READING SB 55HR AT THIS TIME. PT CURRENTLY RECEIVING PPN AT 80ML/HR, LEVO DRIP AT 0.04MCG. GT IN PLACED, SUTURES VISIBLE, REMAINS CLAMPED. FC IN PLACED, SECURED, DRAINING CLEAR YELLOW URINE. WILL CONT POC.
[2022-08-14] MEDS ORDERED: Magnesium 1GM/D5W 100ML PREMIX 100 ML IV SCH (22:00)
[2022-08-15] VITALS (68 sets, daily range): BP systolic 69–153; BP diastolic 18–108
[2022-08-15] MEDS: BLOOD SUGAR DIAGNOSTIC 1 EACH STRIP IN SCH ×4 (00:43→17:26)
[2022-08-15] MEDS: INSULIN REGULAR, HUMAN 100 UNIT/ML 3 ML VIAL SQ PRN ×2 (00:46→06:23)
[2022-08-15 05:01] LABS: BASOPHILS % (AUTO) 0.5 % (0.0-2.0); EOSINOPHILS % (AUTO) 2.4 % (0.0-6.0); HEMATOCRIT 30 % (33-45); HEMOGLOBIN 9.8 g/dL (11.5-14.8); LYMPHOCYTES # (AUTO) 1.8 K/uL (0.8-4.8); LYMPHOCYTES % (AUTO) 21.3 % (20.0-44.0); MEAN CORPUSCULAR HGB CONC 33 g/dl (31.0-36.0); MEAN CORPUSCULAR VOLUME 87 fL (82-100); MONOCYTES # (AUTO) 0.7 K/uL (0.1-1.30); NEUTROPHILS # (AUTO) 5.7 K/uL (1.8-8.9); NEUTROPHILS % (AUTO) 67.8 % (43.0-81.0); PLATELET COUNT (AUTO) 267 K/uL (150-450); RED BLOOD CELL COUNT(AUTO) 3.44 MIL/uL (4.0-5.2); WHITE BLOOD COUNT (AUTO) 8.4 K/uL (4.3-11.0)
[2022-08-15 05:19] LABS: CALCIUM, SERUM 7.4 mg/dL (8.5-10.1); CREATININE 0.8 mg/dL (0.6-1.3); MAGNESIUM 1.9 mg/dL (1.8-2.4); PHOSPHORUS 2.1 mg/dL (2.5-4.9); POTASSIUM 3.7 mmol/L (3.5-5.1)
[2022-08-15] MEDS: LEVOTHYROXINE SODIUM 75 MCG TABLET GT SCH (06:24)
--- NOTE | 2022-08-15 07:18 | NUR ---
RN NOTE NO SIGNIFICANT CHANGES NOTED. PT IN STABLE CONDITION. REPORT GIVEN TO AM SHIFT NURSE.
--- NOTE | 2022-08-15 07:30 | NUR ---
OPENING NOTE: REPORT RECEIVED FROM JANIE PEREZ. ORDERS AND LABS REVIEWED DURING REPORT. PT IS CHRONIC TRACH VENT PATIENT. PER REPORT PT IS OBTUNDED. LEVOPHED GTT INFUSING AT 0.08 MCG/KG/MIN PER MD ORDERS, WILL CONTINUE TO MONITOR. PEG TUBE CLAMPED, STRICT NPO, NO MEDS PER PEG. PEG TUBE BALLOON APPEARS TO BE IN THE MIDDLE OF THE UPPER ABDOMINAL SURICAL WOUND. PT CHECKED ON HOURLY AND PRN BY NURSING STAFF.
[2022-08-15] MEDS: PROSOURCE / PROSTAT (PYXIS) 30 ML UDC GT SCH (09:00)
[2022-08-15] MEDS: DOCUSATE SODIUM LIQ 100 MG/10 ML UDC GT SCH ×2 (09:00→17:00)
[2022-08-15] MEDS: SODIUM CHLORIDE 1000 MG TABLET GT SCH ×2 (09:00→17:00)
[2022-08-15] MEDS: PANTOPRAZOLE 40 MG/PACK PACK GT SCH (09:00)
[2022-08-15] MEDS: POTASSIUM CHLORIDE 20 MEQ POWDER PACKET GT SCH (09:00)
[2022-08-15] MEDS: GLYCOPYRROLATE 1 MG TABLET GT SCH ×2 (09:00→20:07)
[2022-08-15] MEDS: METOCLOPRAMIDE HCL 10 MG TABLET GT SCH ×3 (09:00→17:00)
--- NOTE | 2022-08-15 10:22 | NUR ---
WOUND CARE: ABDOMINAL SURGICAL WOUND WITH BALLOON PRESENT IN BASE WAS DISCUSSED WITH HOSPITALIST. DEFER TO SURGEON CURRENTLY ON CASE. DRESSING CHANGES WERE PREVIOUSLY ORDERED BY SURGEON. IN AGREEMENT WITH PLAN OF CARE.
[2022-08-15] MEDS: CHLORHEXIDINE GLUCONATE 15 ML UDC MM SCH ×2 (10:26→20:06)
[2022-08-15] MEDS: LEVETIRACETAM (500MG) 500 MG in IV NS 0.9% 100 ML IV SCH ×2 (10:26→20:07)
[2022-08-15] MEDS: POLYVINYL ALCOHOL 15 ML BOTTLE EACHEYE SCH ×2 (10:26→17:26)
[2022-08-15] MEDS: MEROPENEM 500 MG in IV NS 0.9% 100 ML IV SCH ×2 (11:29→20:06)
[2022-08-15] MEDS: NOREPINEPHRINE 8 MG in IV NS 0.9% 242 ML IV PRN (11:44)
[2022-08-15] MEDS ORDERED: Sodium Phosphate 15 MMOL in IV NS 0.9% 245 ML IV ONE (13:00)
[2022-08-15] MEDS ORDERED: TPN BAG #3 IV SCH ×4 (14:00)
[2022-08-15] MEDS: IV NS 0.9% 250 ML IV PRN (14:39)
[2022-08-15] MEDS: JEVITY 1.2 CAL 1,000 ML BOTTLE NG PRN (17:11)
[2022-08-15] MEDS: POLYETHYLENE GLYCOL 3350 17 GM POWD.PACK GT SCH (17:12)
--- NOTE | 2022-08-15 19:24 | NUR ---
END OF SHIFT NOTE: NO CHANGES IN PEG TUBE POSITION, BALLOON APPEARS TO BE PROTRUDING INTO UPPER ABD WOUND BED, MD'S AWARE. LEVOPHED TITRATED UP AND DOWN THIS SHIFT, CURRENTLY INFUSING AT 0.06 MCG/KG/MIN. PT HAD 1 LIQUID BM THIS SHIFT. PT CHECKED ON HOURLY AND PRN BY NURSING STAFF.
[2022-08-16] VITALS (68 sets, daily range): BP systolic 70–140; BP diastolic 35–84
[2022-08-16] MEDS: BLOOD SUGAR DIAGNOSTIC 1 EACH STRIP IN SCH ×4 (00:15→17:48)
[2022-08-16 05:21] LABS: BASOPHILS # (AUTO) 0.1 K/uL (0.0-0.2); EOSINOPHILS % (AUTO) 2.7 % (0.0-6.0); HEMATOCRIT 27 % (33-45); HEMOGLOBIN 8.8 g/dL (11.5-14.8); LYMPHOCYTES # (AUTO) 1.2 K/uL (0.8-4.8); LYMPHOCYTES % (AUTO) 24.4 % (20.0-44.0); MEAN CORPUSCULAR HGB CONC 32 g/dl (31.0-36.0); MEAN CORPUSCULAR VOLUME 88 fL (82-100); MONOCYTES # (AUTO) 0.5 K/uL (0.1-1.30); MONOCYTES % (AUTO) 10.1 % (2.0-12.0); NEUTROPHILS # (AUTO) 3.2 K/uL (1.8-8.9); NEUTROPHILS % (AUTO) 61.8 % (43.0-81.0); PLATELET COUNT (AUTO) 297 K/uL (150-450); RED BLOOD CELL COUNT(AUTO) 3.11 MIL/uL (4.0-5.2); WHITE BLOOD COUNT (AUTO) 5.1 K/uL (4.3-11.0)
[2022-08-16 05:30] LABS: CALCIUM, SERUM 7.3 mg/dL (8.5-10.1); CREATININE 0.7 mg/dL (0.6-1.3); MAGNESIUM 1.7 mg/dL (1.8-2.4); PHOSPHORUS 2.3 mg/dL (2.5-4.9); POTASSIUM 3.3 mmol/L (3.5-5.1)
[2022-08-16] MEDS: LEVOTHYROXINE SODIUM 75 MCG TABLET GT SCH (07:00)
--- NOTE | 2022-08-16 07:30 | NUR ---
OPENING NOTE: REPORT RECEIVED FROM ALESSIO PEREZ. ORDERS AND LABS REVIEWED DURING REPORT. PER REPORT LEVOPHED STOPPED OVERNIGHT. PT'S BLOOD PRESSURE CUFF IS ON HER LEFT ARM, IF PATIENT IS TURNED TO THE RIGHT PT'S BLOOD PRESSURE SLIGHTLY LOWER D/T DEPENDENT BP, WILL CONTINUE TO MONITOR. ALL G-TUBE MEDS HELD D/T G-TUBE DISPLACEMENT, MD'S AWARE. UNABLE TO ASSESS PATIENTS PUPILS D/T PT'S EYES CONSISTENTLY ROLLED BACK IN HER HEAD, PT UNABLE TO MAKE EYE CONTACT. PT CHECKED ON HOURLY AND PRN BY NURSING STAFF.
[2022-08-16] MEDS: DOCUSATE SODIUM LIQ 100 MG/10 ML UDC GT SCH ×2 (07:43→16:17)
[2022-08-16] MEDS: PROSOURCE / PROSTAT (PYXIS) 30 ML UDC GT SCH (07:43)
[2022-08-16] MEDS: GLYCOPYRROLATE 1 MG TABLET GT SCH ×2 (07:43→20:44)
[2022-08-16] MEDS: POTASSIUM CHLORIDE 20 MEQ POWDER PACKET GT SCH (07:43)
[2022-08-16] MEDS: SODIUM CHLORIDE 1000 MG TABLET GT SCH ×2 (07:44→16:17)
[2022-08-16] MEDS: PANTOPRAZOLE 40 MG/PACK PACK GT SCH (07:44)
[2022-08-16] MEDS: METOCLOPRAMIDE HCL 10 MG TABLET GT SCH ×3 (07:44→16:17)
[2022-08-16] MEDS: LEVETIRACETAM (500MG) 500 MG in IV NS 0.9% 100 ML IV SCH ×2 (08:57→20:43)
[2022-08-16] MEDS: CHLORHEXIDINE GLUCONATE 15 ML UDC MM SCH ×2 (08:58→20:43)
[2022-08-16] MEDS: POLYVINYL ALCOHOL 15 ML BOTTLE EACHEYE SCH ×2 (08:58→16:17)
[2022-08-16] MEDS ORDERED: HYDROCORTISONE SOD SUCCINATE 100 MG/2 ML VIAL IV SCH (10:30)
[2022-08-16] MEDS: NOREPINEPHRINE 8 MG in IV NS 0.9% 242 ML IV PRN (11:15)
[2022-08-16] MEDS: Magnesium 1GM/D5W 100ML PREMIX 100 ML IV SCH ×2 (11:37→13:11)
--- NOTE | 2022-08-16 11:40 | NUR ---
1000 DOSE OF MERREM IVPB HAS NOT BEEN SENT FROM PHARMACY OF THIS TIME. PHARMACY NOTIFIED X2, STATED DOSE IS ON IT'S WAY UP. RN STARTED MAG IVPB DOSE AT THIS TIME D/T MULTIPLE IVPBS DUE ALL AT 1200. SUBSEQUENT 1200 IVPB DOSES WILL BE STAGGERED ONE AFTER ANOTHER UNTIL ALL DOSES HAVE BEEN GIVEN. PT DOES NOT HAVE CENTRAL LINE D/T HER ANATOMY, SHE HAS A MIDLINE SO ALL IV'S HAVE TO BE COMPATIBLE.
[2022-08-16] MEDS ORDERED: Sodium Phosphate 15 MMOL in IV NS 0.9% 245 ML IV SCH (12:00)
[2022-08-16] MEDS: MEROPENEM 1 G in IV NS 0.9% 100 ML IV SCH ×2 (12:40→20:43)
[2022-08-16] MEDS ORDERED: PPN BAG #4 IV SCH ×4 (14:00)
[2022-08-16] MEDS: POTASSIUM CL. PREMIX PERIPHER. 50 ML IV SCH ×2 (14:12→15:17)
[2022-08-16] MEDS: IV NS 0.9% 250 ML IV PRN (16:16)
[2022-08-16] MEDS: POLYETHYLENE GLYCOL 3350 17 GM POWD.PACK GT SCH (16:17)
[2022-08-16] MEDS: HYDROCORTISONE SOD SUCCINATE 100 MG/2 ML VIAL IV SCH (17:48)
--- NOTE | 2022-08-16 18:41 | NUR ---
END OF SHIFT NOTE: ALL SCHEDULED MEDS WERE GIVEN TODAY. PICTURE OF BALLOON IN UPPER ABD WOUND SENT TO DR RED AND TO ALEK KRUEGER. PT HAD 1 LIQUID BM THIS SHIFT. SPUTUM CULTURE AND MRSA SWAB SENT TO LAB TODAY PER MD ORDERS. LEVOPHED INFUSING AT 0.02 MCG/KG/MIN PER MD ORDERS TO KEEP MAP >65. PT CHECKED ON HOURLY AND PRN BY NURSING STAFF.
--- NOTE | 2022-08-16 22:48 | NUR ---
MACHINE MOLDER SQUEEZE OPENING NOTE PT RECEIVED IN BED, OBTUNDED. PT WITH TRACH SHILEY SIZE #6, AC 12, TV 375, FIO2 40%, NO PEEP WITH CURRENT O2SAT OF 97%; NO S/S OF RESP DISTRESS, NO SOB, NON-LABORED AND EQUAL BREATHING. PT ATTACHED TO BEDSIDE MONITOR, SR WITH HR OF 60. CASPER INTACT AND PATENT, DRAINING CLEAR AND YELLOW URINE. GT CLAMPED. IV ACCESS ON TRISHA MIDLINE, RIGHT WRIST 22G AND RIGHT SHOULDER 20G INTACT AND PATENT WITH LEVO TITRATED DOWN FROM 0.02 TO 0.01 MCG/KG/MIN, PPN AT 80 ML/HR AND NS TKO INFUSING. BED IN LOWEST POSITION, CALL LIGHT WITHIN REACH, SIDE RAILS UP X3. WILL CONTINUE TO MONITOR THROUGHOUT THE NIGHT.
[2022-08-17] VITALS (67 sets, daily range): BP systolic 82–179; BP diastolic 41–111
[2022-08-17] MEDS: BLOOD SUGAR DIAGNOSTIC 1 EACH STRIP IN SCH ×4 (00:17→18:11)
[2022-08-17] MEDS: INSULIN REGULAR, HUMAN 100 UNIT/ML 3 ML VIAL SQ PRN (00:20)
[2022-08-17] MEDS: HYDROCORTISONE SOD SUCCINATE 100 MG/2 ML VIAL IV SCH ×3 (01:03→18:13)
[2022-08-17 05:21] LABS: HEMATOCRIT 32 % (33-45); HEMOGLOBIN 10.2 g/dL (11.5-14.8); LYMPHOCYTES # (AUTO) 0.6 K/uL (0.8-4.8); LYMPHOCYTES % (AUTO) 21.6 % (20.0-44.0); MEAN CORPUSCULAR HGB CONC 32 g/dl (31.0-36.0); MEAN CORPUSCULAR VOLUME 86 fL (82-100); MONOCYTES # (AUTO) 0.1 K/uL (0.1-1.30); MONOCYTES % (AUTO) 2.6 % (2.0-12.0); NEUTROPHILS % (AUTO) 75.8 % (43.0-81.0); PLATELET COUNT (AUTO) 319 K/uL (150-450); RED BLOOD CELL COUNT(AUTO) 3.67 MIL/uL (4.0-5.2); WHITE BLOOD COUNT (AUTO) 2.7 K/uL (4.3-11.0)
[2022-08-17 05:33] LABS: CALCIUM, SERUM 7.6 mg/dL (8.5-10.1); CREATININE 0.8 mg/dL (0.6-1.3); MAGNESIUM 2.1 mg/dL (1.8-2.4); POTASSIUM 3.6 mmol/L (3.5-5.1)
[2022-08-17] MEDS: LEVOTHYROXINE SODIUM 75 MCG TABLET GT SCH (07:00)
--- NOTE | 2022-08-17 07:00 | NUR ---
CERTIFIED LEGAL SECRETARY SPECIALIST CLOSING NOTE PT REMAINS IN BED, OBTUNDED. CONTINUES ON SAME VENT SETTINGS; TOLERATING WELL WITH O2SAT RANGING FROM 94%-100%; NO S/S OF RESP DISTRESS, NO SOB OR COUGH, NON-LABORED AND EQUAL BREATHING. ATTACHED TO BEDSIDE MONITOR, SB-SR WITH HR RANGING FROM 50-74. WOUNDS CLEANSED AND NEW DRESSINGS APPLIED. GT REMAINS CLAMPED. TRISHA MIDLINE INTACT AND PATENT, FLUSHES EASILY WITH NO RESISTANCE; LEVO TURNED BACK ON AT 0523 FOR BP OF 86/45, HR 50; PPN AT 80 ML/HR, NS TKO INFUSING. ALL DUE MEDS ADMINISTERED DURING THE NIGHT. BED IN LOWEST POSITION, CALL LIGHT WITHIN REACH, SIDE RAILS UP X3. WILL ENDORSE TO DAYSHIFT NURSE TO CONTINUE CARE.
[2022-08-17] MEDS: POTASSIUM CHLORIDE 20 MEQ POWDER PACKET GT SCH (08:32)
[2022-08-17] MEDS: DOCUSATE SODIUM LIQ 100 MG/10 ML UDC GT SCH ×2 (08:32→17:00)
[2022-08-17] MEDS: PANTOPRAZOLE 40 MG/PACK PACK GT SCH (08:32)
[2022-08-17] MEDS: GLYCOPYRROLATE 1 MG TABLET GT SCH ×2 (08:32→20:16)
[2022-08-17] MEDS: PROSOURCE / PROSTAT (PYXIS) 30 ML UDC GT SCH (08:32)
[2022-08-17] MEDS: METOCLOPRAMIDE HCL 10 MG TABLET GT SCH ×3 (08:33→17:00)
[2022-08-17] MEDS: SODIUM CHLORIDE 1000 MG TABLET GT SCH ×2 (08:33→17:00)
[2022-08-17] MEDS: CHLORHEXIDINE GLUCONATE 15 ML UDC MM SCH ×2 (09:19→20:11)
[2022-08-17] MEDS: POLYVINYL ALCOHOL 15 ML BOTTLE EACHEYE SCH ×2 (09:20→17:06)
[2022-08-17] MEDS: MEROPENEM 1 G in IV NS 0.9% 100 ML IV SCH ×2 (09:21→21:05)
[2022-08-17] MEDS: LEVETIRACETAM (500MG) 500 MG in IV NS 0.9% 100 ML IV SCH ×2 (09:21→20:11)
[2022-08-17] MEDS ORDERED: Sodium Phosphate 15 MMOL in IV NS 0.9% 245 ML IV SCH (10:00)
[2022-08-17 11:04] LABS: HEMOGLOBIN 10.2 g/dL (11.5-14.8)
[2022-08-17 11:17] LABS: ABG BASE EXCESS -4.3 mmol/L; ABG PCO2 26.1 mmHg (35.0-45.0); ABG PO2 73.6 mmHg (75.0-100.0); COHb 0.2 % (0.5-1.5); MetHb 0.3 % (0.0-1.5); O2Hb 94.8 % (94.0-97.0); PEEP,BG 0 cm H2O; SITE, ABG Left Radial; VENT MODE, BG AC12 VT375 40% PEEP+0; VT, ABG 375 mL
[2022-08-17 11:19] LABS: ALBUMIN 1.5 g/dL (3.4-5.0)
[2022-08-17 11:22] LABS: PREALBUMIN 13.8 MG/DL (18.0-35.7)
[2022-08-17] MEDS ORDERED: PPN BAG #5 IV SCH ×4 (14:00)
[2022-08-17] MEDS: POLYETHYLENE GLYCOL 3350 17 GM POWD.PACK GT SCH (17:07)
--- NOTE | 2022-08-17 19:15 | NUR ---
RN NOTE RECEIVED PT IN BED, OBTUNDED. CURRENT VENT SETTINGS WELL TOLERATED, AC12 TV375 FIO2-40% PEEP-OFF. NO SOB/ NO ACUTE RESP DISTRESS. PT AFEBRILE. ATTACHED TO BEDSIDE WOOD FENCE INSTALLER READING SB 59. CURRENTLY INFUSING PPN RUNNING AT 80ML/HR ON KARAN ML, NO S/SX OF COMPLICATIONS, IV ACCESS CLEAN, DRY, AND INTACT. LEVO DRIP OFF AT THIS TIME, BP WNL, VSS. CASPER CATH IN PLACED AND SECURED, DRAINING CLEAR YELLOW URINE BY GRAVITY. HOB ELEVATED. WILL CONT POC.
[2022-08-18] VITALS (50 sets, daily range): BP systolic 70–186; BP diastolic 40–112
[2022-08-18] MEDS: BLOOD SUGAR DIAGNOSTIC 1 EACH STRIP IN SCH ×5 (00:12→23:36)
[2022-08-18] MEDS: INSULIN REGULAR, HUMAN 100 UNIT/ML 3 ML VIAL SQ PRN ×4 (00:12→23:39)
[2022-08-18] MEDS: HYDROCORTISONE SOD SUCCINATE 100 MG/2 ML VIAL IV SCH ×3 (01:28→17:04)
[2022-08-18] MEDS ORDERED: hydrALAZINE HCL IV 20 MG VIAL IV PRN (02:00)
[2022-08-18 05:40] LABS: CALCIUM, SERUM 7.5 mg/dL (8.5-10.1); CREATININE 0.7 mg/dL (0.6-1.3); MAGNESIUM 1.9 mg/dL (1.8-2.4); PHOSPHORUS 1.7 mg/dL (2.5-4.9)
[2022-08-18] MEDS: LEVOTHYROXINE SODIUM 75 MCG TABLET GT SCH (06:03)
--- NOTE | 2022-08-18 06:40 | NUR ---
RN NOTE PT REMAINS IN STABLE CONDITION. NO SIGNIFICANT CHANGES NOTED DURING THE SHIFT. REMAINS ON CURRENT VENT SETTINGS, WELL TOLERATED. PPN STILL INFUSING AT 80ML/HR ON KARAN ML, LEVO DRIP REMAINS OFF. PT ATTACHED TO BEDSIDE NET MAKING SUPERVISOR READING SB-SR THROUGHOUT THE SHIFT. ALL DUE MEDICATIONS GIVEN ORDERED. KEPT PT CLEAN, DRY AND COMFORTABLE AT ALL TIMES. WILL ENDORSE TO AM SHIFT.
--- NOTE | 2022-08-18 07:05 | NUR ---
RN OPENING NOTES RECEIVED REPORT FROM [facility] ANA LIMA. PATIENT OBTUNDED. ON MACHANICAL VENTILATOR TOLERATING SETTINGS WELL. SINUS RHYTHM ON BEDSIDE MONITOR AT THIS TIME. CASPER ATTACHED DRAINING OUTPUT. ABDOMINAL WOUND DRESSING INTACT. NEW PEG TUBE IN PLACE, STITCHES NOTED, NO SIGNS OF INFECTION AT SITE. GASTRIC TUBE CLAMPED AWAITING REPEAT SMALL BOWEL IMAGING TO CONFIRM FINAL PLACEMENT. IV ACCESS ON LEFT UPPER ARM MIDLINE RUNNING TPN ORDERED. SAFETY MEASURES IMPLEMENTED WILL CONTINUE PLAN OF CARE AND ANTICIPATE NEEDS.
--- NOTE | 2022-08-18 07:21 | NUR ---
RN NOTE NOTIFIED MD POP REGARDING POTASSIUM LEVEL TRENDING DOWN FFROM 3.6 TO 3, NEW ORDER TO GIVE IV KCL 40MEQ IV. NOTED AND COMMUNICATED
[2022-08-18] MEDS: POTASSIUM CL. PREMIX PERIPHER. 50 ML IV SCH ×4 (07:46→10:36)
[2022-08-18] MEDS: IV NS 0.9% 250 ML IV PRN (07:46)
[2022-08-18] MEDS: GLYCOPYRROLATE 1 MG TABLET GT SCH ×2 (08:17→20:31)
[2022-08-18] MEDS: POTASSIUM CHLORIDE 20 MEQ POWDER PACKET GT SCH (08:17)
[2022-08-18] MEDS: PROSOURCE / PROSTAT (PYXIS) 30 ML UDC GT SCH (08:17)
[2022-08-18] MEDS: DOCUSATE SODIUM LIQ 100 MG/10 ML UDC GT SCH ×2 (08:17→16:18)
[2022-08-18] MEDS: SODIUM CHLORIDE 1000 MG TABLET GT SCH ×2 (08:18→16:19)
[2022-08-18] MEDS: PANTOPRAZOLE 40 MG/PACK PACK GT SCH (08:18)
[2022-08-18] MEDS: CHLORHEXIDINE GLUCONATE 15 ML UDC MM SCH ×2 (08:54→20:31)
[2022-08-18] MEDS: MEROPENEM 1 G in IV NS 0.9% 100 ML IV SCH ×3 (08:54→20:31)
[2022-08-18] MEDS: METOCLOPRAMIDE HCL 10 MG TABLET GT SCH ×3 (08:54→16:19)
[2022-08-18] MEDS: POLYVINYL ALCOHOL 15 ML BOTTLE EACHEYE SCH ×2 (08:55→17:00)
[2022-08-18] MEDS: MUPIROCIN OINT 2% 22 GM TUBE NS SCH ×2 (09:10→20:33)
[2022-08-18] MEDS: LEVETIRACETAM (500MG) 500 MG in IV NS 0.9% 100 ML IV SCH ×2 (09:11→20:31)
[2022-08-18] MEDS ORDERED: TPN # 6 IV SCH ×4 (14:00)
[2022-08-18] MEDS: LORAZEPAM INJ 2 MG/ML VIAL IV PRN (14:59)
--- NOTE | 2022-08-18 15:07 | NUR ---
DURING ROUTINE ROUNDING PATIENT WAS NOTED TO BE TACHYCARDIC, FLUSHED IN THE FACE AND SHAKING HER RIGHT HAND. PRN ATIVAN ADMINISTERED FOR SEIZURE LIKE ACTIVITY. AIRWAY PROTECTED WITH TRACHEOSTOMY. NO INJURIES NOTED. WILL CONTINUE PLAN OF CARE AND ANTICIPATE NEEDS.
[2022-08-18] MEDS: NOREPINEPHRINE 8 MG in IV NS 0.9% 242 ML IV PRN (15:54)
[2022-08-18] MEDS ORDERED: Sodium Phosphate 15 MMOL in IV NS 0.9% 245 ML IV SCH (16:00)
--- NOTE | 2022-08-18 16:25 | NUR ---
RT PATIENT REMAINS TRACHED ON [facility] VENT WITH ORDERED SETTINGS. TRACH SECURE AND PATENT. CHRISU BAG AT HOB Addendum: 08/18/22 at 1626 by EVAN HERNANDEZ RT Amended: Links added.
--- NOTE | 2022-08-18 16:53 | NUR ---
PER PHARMACIST, SODIUM PHOSPHATE OKAY TO RUN ON SAME LINE TPN.
[2022-08-18] MEDS: POLYETHYLENE GLYCOL 3350 17 GM POWD.PACK GT SCH (17:00)
--- NOTE | 2022-08-18 18:15 | NUR ---
DOCTOR RED AT BEDSIDE TO STITCH ABDOMINAL WOUND. PER NEDA PACK SITE WITH GAUZE AND COVER WITH TAPE.
--- NOTE | 2022-08-18 19:13 | NUR ---
HAND OFF GIVEN TO PRINCESS PEREZ FOR CONTINUATION OF CARE
--- NOTE | 2022-08-18 22:07 | NUR ---
COMPUTER ARTIST OPENING NOTE PT RECEIVED IN BED, OBTUNDED. PT WITH TRACH SHILEY SIZE #6, AC 12, TV 375, 40% FIO2, NO PEEP WITH CURRENT O2SAT OF 100%; NO S/S OF RESP DISTRESS, NO SOB OR COUGH, NON-LABORED AND EQUAL BREATHING. PT ATTACHED TO BEDSIDE MONITOR, SB WITH HR OF 48. CASPER INTACT AND PATENT, DRAINING CLEAR AND YELLOW URINE. GT REMAINS CLAMPED. KARAN MIDLINE INTACT AND PATENT WITH LEVO AT 0.08 MCG/KG/MIN, NS TKO, AND PPN AT 80 ML/HR. BED IN LOWEST POSITION, CALL LIGHT WITHIN REACH, SIDE RAILS UP X3. WILL CONTINUE TO MONITOR PT THROUGHOUT THE NIGHT.
[2022-08-19] VITALS (95 sets, daily range): BP systolic 60–235; BP diastolic 21–164
[2022-08-19] MEDS: HYDROCORTISONE SOD SUCCINATE 100 MG/2 ML VIAL IV SCH ×3 (01:09→16:32)
[2022-08-19 04:07] LABS: HEMATOCRIT 25 % (33-45); HEMOGLOBIN 7.8 g/dL (11.5-14.8); LYMPHOCYTES # (AUTO) 0.7 K/uL (0.8-4.8); LYMPHOCYTES % (AUTO) 15.9 % (20.0-44.0); MEAN CORPUSCULAR HGB CONC 31 g/dl (31.0-36.0); MEAN CORPUSCULAR VOLUME 91 fL (82-100); MONOCYTES # (AUTO) 0.3 K/uL (0.1-1.30); MONOCYTES % (AUTO) 6.7 % (2.0-12.0); NEUTROPHILS # (AUTO) 3.3 K/uL (1.8-8.9); NEUTROPHILS % (AUTO) 77.4 % (43.0-81.0); PLATELET COUNT (AUTO) 477 K/uL (150-450); RED BLOOD CELL COUNT(AUTO) 2.76 MIL/uL (4.0-5.2); WHITE BLOOD COUNT (AUTO) 4.3 K/uL (4.3-11.0)
[2022-08-19 04:41] LABS: CALCIUM, SERUM 6.9 mg/dL (8.5-10.1); CREATININE 0.7 mg/dL (0.6-1.3); MAGNESIUM 1.6 mg/dL (1.8-2.4)
[2022-08-19 04:58] LABS: POTASSIUM 2.8 mmol/L (3.5-5.1)
[2022-08-19] MEDS: MEROPENEM 1 G in IV NS 0.9% 100 ML IV SCH ×3 (05:00→20:55)
[2022-08-19] MEDS: BLOOD SUGAR DIAGNOSTIC 1 EACH STRIP IN SCH ×4 (05:15→23:05)
--- NOTE | 2022-08-19 05:19 | NUR ---
RN NOTE RECEIVED CRITICAL FROM LAB. POTASSIUM 2.8, TRENDING DOWN FROM 3.0. [facility] NOTIFIED WITH ORDER FOR KCL 80 MEQ IV. ORDER CARRIED OUT.
[2022-08-19] MEDS: POTASSIUM CL. PREMIX PERIPHER. 50 ML IV SCH ×8 (05:44→14:31)
[2022-08-19] MEDS: LEVOTHYROXINE SODIUM 75 MCG TABLET GT SCH (06:33)
--- NOTE | 2022-08-19 06:41 | NUR ---
GIFT OFFICER CLOSING NOTE PT REMAINS IN BED, OBTUNDED. CONTINUES TO BE ON SAME VENT SETTINGS; TOLERATING VENT SETTINGS WELL WITH O2SAT RANGING FROM 90%-100%; NO S/S OF RESP DISTRESS, NO SOB OR COUGH, NON-LABORED AND EQUAL BREATHING. ATTACHED TO BEDSIDE MONITOR, SB-SR WITH HR RANGING FROM 40-73. CASPER INTACT AND PATENT, DRAINING CLEAR AND YELLOW URINE. GT REMAINS CLAMPED; WOUNDS CLEANSED AND NEW DRESSING APPLIED. KARAN MIDLINE INTACT AND PATENT, FLUSHES EASILY WITH NO RESISTANCE; PPN AT 80 ML/HR, LEVO AT 0.04 MCG/KG/MIN, KCL AT 50 ML/HR, AND NS TKO INFUSING. ALL DUE MEDS ADMINISTERED DURING THE NIGHT. BED IN LOWEST POSITION, CALL LIGHT WITHIN REACH, SIDE RAILS UP X3. WILL ENDORSE TO DAYSHIFT NURSE TO CONTINUE CARE.
--- NOTE | 2022-08-19 07:30 | NUR ---
OPENING NOTE: REPORT RECEIVED FROM PRINCESS PEREZ. LABS AND ORDERS REVIEWED DURING REPORT. PER REPORT POTASSIUM REPLACEMENT ORDER HAS BEEN STARTED FOR A TOTAL OF 80MEQ TO BE GIVEN THIS SHIFT PER MD ORDERS. PER REPORT NO SIGNIFICANT EVENTS OVERNIGHT, LEVOPHED INFUSING AT 0.04 MCG/KG/MIN PER MD ORDERS. PT CHECKED ON HOURLY AND PRN BY NURSING STAFF.
[2022-08-19] MEDS: IV NS 0.9% 250 ML IV PRN ×2 (07:48→10:48)
[2022-08-19] MEDS: DOCUSATE SODIUM LIQ 100 MG/10 ML UDC GT SCH ×2 (08:10→16:33)
[2022-08-19] MEDS: POTASSIUM CHLORIDE 20 MEQ POWDER PACKET GT SCH (08:11)
[2022-08-19] MEDS: SODIUM CHLORIDE 1000 MG TABLET GT SCH ×2 (08:11→16:33)
[2022-08-19] MEDS: GLYCOPYRROLATE 1 MG TABLET GT SCH ×2 (08:11→20:57)
[2022-08-19] MEDS: METOCLOPRAMIDE HCL 10 MG TABLET GT SCH ×3 (08:11→16:33)
[2022-08-19] MEDS: PROSOURCE / PROSTAT (PYXIS) 30 ML UDC GT SCH (08:11)
[2022-08-19] MEDS: PANTOPRAZOLE 40 MG/PACK PACK GT SCH (08:11)
[2022-08-19] MEDS: LEVETIRACETAM (500MG) 500 MG in IV NS 0.9% 100 ML IV SCH ×2 (08:40→20:55)
[2022-08-19] MEDS: CHLORHEXIDINE GLUCONATE 15 ML UDC MM SCH ×2 (08:40→20:55)
[2022-08-19] MEDS: MUPIROCIN OINT 2% 22 GM TUBE NS SCH ×2 (08:41→20:57)
[2022-08-19] MEDS: POLYVINYL ALCOHOL 15 ML BOTTLE EACHEYE SCH ×2 (08:42→16:32)
[2022-08-19] MEDS: LORAZEPAM INJ 2 MG/ML VIAL IV PRN ×3 (10:15→21:46)
[2022-08-19] MEDS: Magnesium 1GM/D5W 100ML PREMIX 100 ML IV SCH ×2 (10:48→12:02)
[2022-08-19] MEDS ORDERED: Sodium Phosphate 15 MMOL in IV NS 0.9% 245 ML IV SCH (14:00)
[2022-08-19 14:21] LABS: ABG BASE EXCESS -1.9 mmol/L; ABG PCO2 32.6 mmHg (35.0-45.0); ABG PO2 115.3 mmHg (75.0-100.0); AaDO2 132.4 mmHg; COHb 0.3 % (0.5-1.5); O2Hb 97.7 % (94.0-97.0); PEEP,BG 0 cm H2O; SITE, ABG Other; VT, ABG 375 mL
[2022-08-19] MEDS ORDERED: DIATR MEGLU/DIATRIZOATE SODIUM 30 ML BOTTLE (GASTROGRAPHIN) ONE (15:49)
--- NOTE | 2022-08-19 17:03 | NUR ---
KUB WITH GASTROGRAFIN COMPLETED PER MD ORDERS, PER REPORT PEG TUBE TERMINATES IN THE STONACH. YORDAN ELLIOTT NOTIFIED.
[2022-08-19] MEDS: POLYETHYLENE GLYCOL 3350 17 GM POWD.PACK GT SCH (18:00)
--- NOTE | 2022-08-19 19:18 | NUR ---
END OF SHIFT NOTE: PER PREVIOUS NOTE YORDAN ELLIOTT NOTIFIED OF PEG TUBE IN PROPER PLACEMENT IN STOMACH. PER YORDAN DNP CONTINUE TO NOT GIVE MEDS OR ANYTHING THROUGH PEG TUBE UNTIL HE ASSESSES TOMORROW. LEVOPHED WAS ON FOR APPROXIMATELY 2 HOURS TODAY THEN TITRATED OFF. 80MEQ OF POTASSIUM, 2GM MAG AND SODIUM PHOSPHATE GIVEN PER MD ORDERS. PT CHECKED ON HOURLY AND PRN BY NURSING STAFF.
--- NOTE | 2022-08-19 20:27 | NUR ---
SHEET METAL SUPERINTENDENT OPENING NOTE PT RECEIVED IN BED, OBTUNDED. PT WITH TRACH SHILEY SIZE #6, AC 12, TV 375, FIO2 40%, PEEP 0 WITH CURRENT O2SAT OF 100%; NO S/S OF RESP DISTRESS, NO SOB, NON-LABORED AND EQUAL BREATHING. PT ATTACHED TO BEDSIDE MONITOR SB WITH CURRENT HR OF 57. CASPER INTACT AND PATENT DRAINING CLEAR AND YELLOW URINE. FLEXISEAL ALSO IN PLACE; NO OUTPUT YET. GT REMAINS CLAMPED. KARAN MIDLINE INTACT AND PATENT, FLUSHES EASILY WITH NO RESISTANCE; NS TKO AND PPN AT 80 ML/HR. BED IN LOWEST POSITION, CALL LIGHT WITHIN REACH, SIDE RAILS UP X3. WILL CONTINUE TO MONITOR THROUGHOUT THE NIGHT.
--- NOTE | 2022-08-19 21:46 | NUR ---
RN NOTE PT NOTED TO BE SOB WITH RESPIRATIONS IN THE 20S, ALSO NOTED TO BE FLUSHED IN THE FACE. PT ADMINISTERED ATIVAN 2 MG IV. BP 152/97, HR 71. WILL CONTINUE TO MONITOR.
[2022-08-20] VITALS (54 sets, daily range): BP systolic 66–231; BP diastolic 17–108
[2022-08-20 05:44] LABS: CALCIUM, SERUM 7.3 mg/dL (8.5-10.1); CREATININE 0.6 mg/dL (0.6-1.3); MAGNESIUM 2.1 mg/dL (1.8-2.4); PHOSPHORUS 2.3 mg/dL (2.5-4.9); POTASSIUM 3.7 mmol/L (3.5-5.1)
[2022-08-20] MEDS: MEROPENEM 1 G in IV NS 0.9% 100 ML IV SCH ×3 (06:00→21:35)
[2022-08-20] MEDS: BLOOD SUGAR DIAGNOSTIC 1 EACH STRIP IN SCH ×4 (06:24→23:20)
[2022-08-20] MEDS: LEVOTHYROXINE SODIUM 75 MCG TABLET GT SCH (07:00)
--- NOTE | 2022-08-20 07:34 | NUR ---
ASSISTANT BRANCH MANAGER CLOSING NOTE PT REMAINS IN BED, OFF LEVO WITH BP SUSTAINED THROUGHOUT THE NIGHT. ALL DUE MEDS ADMINISTERED DURING THE NIGHT. PT ENDORSED TO DAYSHIFT ASSISTANT BRANCH MANAGER LONNIE.
--- NOTE | 2022-08-20 07:44 | NUR ---
RN NOTES WILL HOLD MORNING GT MEDS AT THIS TIME DUE TO GT MALFUNCTION.
[2022-08-20] MEDS: PANTOPRAZOLE 40 MG/PACK PACK GT SCH (08:00)
[2022-08-20] MEDS: PROSOURCE / PROSTAT (PYXIS) 30 ML UDC GT SCH (08:00)
[2022-08-20] MEDS: DOCUSATE SODIUM LIQ 100 MG/10 ML UDC GT SCH ×2 (08:00→17:00)
[2022-08-20] MEDS: GLYCOPYRROLATE 1 MG TABLET GT SCH ×2 (08:00→21:35)
[2022-08-20] MEDS: POTASSIUM CHLORIDE 20 MEQ POWDER PACKET GT SCH (08:00)
[2022-08-20] MEDS: SODIUM CHLORIDE 1000 MG TABLET GT SCH ×2 (08:01→17:16)
[2022-08-20] MEDS: METOCLOPRAMIDE HCL 10 MG TABLET GT SCH ×3 (08:01→17:16)
[2022-08-20] MEDS: HYDROCORTISONE SOD SUCCINATE 100 MG/2 ML VIAL IV SCH ×2 (08:26→17:15)
[2022-08-20] MEDS: CHLORHEXIDINE GLUCONATE 15 ML UDC MM SCH ×2 (08:26→21:35)
[2022-08-20] MEDS: MUPIROCIN OINT 2% 22 GM TUBE NS SCH ×2 (08:27→21:40)
[2022-08-20] MEDS: LEVETIRACETAM (500MG) 500 MG in IV NS 0.9% 100 ML IV SCH ×2 (08:27→21:35)
[2022-08-20] MEDS: POLYVINYL ALCOHOL 15 ML BOTTLE EACHEYE SCH ×2 (08:27→17:15)
[2022-08-20 09:51] LABS: BASOPHILS % (AUTO) 0.1 % (0.0-2.0); EOSINOPHILS % (AUTO) 0.2 % (0.0-6.0); HEMATOCRIT 32 % (33-45); HEMOGLOBIN 10.1 g/dL (11.5-14.8); LYMPHOCYTES # (AUTO) 1.1 K/uL (0.8-4.8); LYMPHOCYTES % (AUTO) 29.2 % (20.0-44.0); MEAN CORPUSCULAR HGB CONC 32 g/dl (31.0-36.0); MEAN CORPUSCULAR VOLUME 88 fL (82-100); MONOCYTES # (AUTO) 0.4 K/uL (0.1-1.30); MONOCYTES % (AUTO) 9.9 % (2.0-12.0); NEUTROPHILS # (AUTO) 2.2 K/uL (1.8-8.9); NEUTROPHILS % (AUTO) 60.6 % (43.0-81.0); PLATELET COUNT (AUTO) 463 K/uL (150-450); RED BLOOD CELL COUNT(AUTO) 3.56 MIL/uL (4.0-5.2); WHITE BLOOD COUNT (AUTO) 3.7 K/uL (4.3-11.0)
[2022-08-20] MEDS: IV NS 0.9% 250 ML IV PRN (10:37)
[2022-08-20] MEDS: JEVITY 1.2 CAL 1,000 ML BOTTLE NG PRN ×2 (11:31→11:59)
--- NOTE | 2022-08-20 11:31 | NUR ---
PEG TUBE FEEDING INITIATED PER DOREEN FARR. FEEDING STARTED AT RATE OF 10MLS. WILL PROGRESS INFUSION RATE TOLERATED AND ASSESS ABDOMINAL PEG SITE FOR SIGNS OF LEAKAGE.
[2022-08-20] MEDS: IPRATROPIUM NEB FS 0.5 MG/2.5 ML AMPUL.NEB NEB SCH ×2 (13:57→19:39)
[2022-08-20] MEDS: ALBUTEROL HALF STRENGTH 1.25 MG/3 ML VIAL.NEB NEB SCH ×2 (13:57→19:39)
[2022-08-20] MEDS ORDERED: Sodium Phosphate 15 MMOL in IV NS 0.9% 245 ML IV SCH (14:00)
[2022-08-20] MEDS ORDERED: TPN BAG #8 IV SCH ×2 (14:00)
[2022-08-20] MEDS: POLYETHYLENE GLYCOL 3350 17 GM POWD.PACK GT SCH (17:07)
--- NOTE | 2022-08-20 17:07 | NUR ---
NON ADMIN FOR COLACE AND MIRALAX. PATIENT HAS LOOSE STOOLS. RECTAL TUBE IN PLACE
--- NOTE | 2022-08-20 18:00 | NUR ---
NO GASTRIC RESIDUAL. INCREASED JEVITY INFUSION RATE TO 20 MLS/HR.
--- NOTE | 2022-08-20 18:51 | NUR ---
RN CLOSING NOTES PATIENT REMAINS IN STABLE CONDITION OFF PRESSORS. TOLERATING VENT SETTINGS WELL. SINUS RHYTHM ON THE MONITOR AT THIS TIME WITH HEART RATE IN THE 70S. GASTRIC TUBE INFUSING JEVITY ORDERED, NO LEAKAGE NOTED AT PEG SITE. IV ACCESS MAINTAINED ON LEFT UPPER ARM MIDLINE. SAFETY MEASURES IN PLACE. WILL ENDORSE TO NIGHTSHIFT ANA FOURNIER FOR CONTINUATION OF CARE.
--- NOTE | 2022-08-20 20:45 | NUR ---
SUPERVISOR MAINTENANCE OPENING NOTE PT RECEIVED IN BED, OBTUNDED. PT WITH TRACH SHILEY SIZE #6, AC 12, TV 375, 40% FIO2, PEEP 0 WITH CURRENT O2SAT OF 99%; PT NOTED TO HAVE SOB AT TIMES, POSSIBLY BRONCHOSPASM; NO OTHER S/S OF RESP DISTRESS, NOM-LABORED AND EQUAL BREATHING. PT ATTACHED TO BEDSIDE MONITOR, CURRENTLY SR WITH HR OF 70. CASPER AND FLEXISEAL INTACT AND PATENT, DRAINING WELL; LITTLE OUTPUT NOTED ON FLEXISEAL. GT INTACT AND PATENT WITH JEVITY RECEIVED AT 20 ML/HR; GT FLUSHED WITH NO LEAKING NOTED; WILL ADJUST GTF AND TPN RATES ACCORDINGLY. KARAN MIDLINE, INTACT AND PATENT; PPN AT 80 ML/HR AND NS TKO INFUSING. BED IN LOWEST POSITION, CALL LIGHT WITHIN REACH, SIDE RAILS UP X3. WILL CONTINUE TO MONITOR THROUGHOUT THE NIGHT.
[2022-08-20] MEDS: INSULIN REGULAR, HUMAN 100 UNIT/ML 3 ML VIAL SQ PRN (23:23)
[2022-08-21] VITALS (49 sets, daily range): BP systolic 64–204; BP diastolic 24–116
--- NOTE | 2022-08-21 00:17 | NUR ---
RN NOTE ATTEMPTED TO INCREASE GTF RATE. RESIDUAL WAS CHECKED; NO RESIDUALS NOTED, BUT WHEN FLUSHING GT, IT WAS COMING OUT FROM HOLE FROM PREVIOUS GT SITE THAT'S ONLY PARTIALLY CLOSED. DR. AUSTIN NOTIFIED OF THE LEAK AND THAT GTF WAS STOPPED.
--- NOTE | 2022-08-21 00:25 | NUR ---
RN NOTE PER FANNY AUSTIN TO HOLD GT MEDS.
[2022-08-21] MEDS: ALBUTEROL HALF STRENGTH 1.25 MG/3 ML VIAL.NEB NEB SCH ×4 (01:09→19:36)
[2022-08-21] MEDS: IPRATROPIUM NEB FS 0.5 MG/2.5 ML AMPUL.NEB NEB SCH ×4 (01:09→19:36)
[2022-08-21] MEDS: LORAZEPAM INJ 2 MG/ML VIAL IV PRN ×2 (01:11→14:13)
--- NOTE | 2022-08-21 01:12 | NUR ---
RN NOTE PT NOTED TO APPEAR SHORT OF BREATH WITH RESPIRATION IN THE 30S. BP ALSO NOTED TO BE ELEVATED AT 188/100, HR 77. ATIVAN 2 MG IV ADMINISTERED. WILL MONITOR FOR EFFECTIVENESS.
[2022-08-21 04:28] LABS: HEMATOCRIT 34 % (33-45); HEMOGLOBIN 11.2 g/dL (11.5-14.8); LYMPHOCYTES # (AUTO) 0.7 K/uL (0.8-4.8); MEAN CORPUSCULAR HGB CONC 33 g/dl (31.0-36.0); MEAN CORPUSCULAR VOLUME 87 fL (82-100); MONOCYTES # (AUTO) 0.2 K/uL (0.1-1.30); MONOCYTES % (AUTO) 3.5 % (2.0-12.0); NEUTROPHILS # (AUTO) 4.5 K/uL (1.8-8.9); NEUTROPHILS % (AUTO) 83.5 % (43.0-81.0); PLATELET COUNT (AUTO) 608 K/uL (150-450); RED BLOOD CELL COUNT(AUTO) 3.93 MIL/uL (4.0-5.2); WHITE BLOOD COUNT (AUTO) 5.4 K/uL (4.3-11.0)
[2022-08-21 04:49] LABS: CALCIUM, SERUM 7.3 mg/dL (8.5-10.1); CREATININE 0.7 mg/dL (0.6-1.3); MAGNESIUM 1.9 mg/dL (1.8-2.4); POTASSIUM 3.3 mmol/L (3.5-5.1)
[2022-08-21] MEDS: MEROPENEM 1 G in IV NS 0.9% 100 ML IV SCH ×3 (05:36→21:15)
[2022-08-21] MEDS: BLOOD SUGAR DIAGNOSTIC 1 EACH STRIP IN SCH ×4 (06:06→23:35)
--- NOTE | 2022-08-21 06:37 | NUR ---
HOLLOW HANDLE BENCH WORKER CLOSING NOTE PT REMAINS IN BED, OBTUNDED. CONTINUES ON SAME VENT SETTINGS; TOLERATING VENT SETTINGS WELL WITH O2SAT RANGING FROM 92%-99%; SOB SEEMED TO RESOLVE AFTER GIVING ATIVAN; OTHERWISE NO OTHER S/S OF RESP DISTRESS. ATTACHED TO BEDSIDE MONITOR, SB-SR WITH HR RANGING FROM 57-84; BP SUSTAINED THROUGHOUT THE NIGHT. CASPER INTACT AND PATENT, DRAINING CLEAR AND YELLOW URINE. FLEXISEAL ALSO INTACT AND PATENT, DRAINING LITTLE AMOUNT OF BROWN AND LIQUID STOOL. GTF STOPPED AT 0000 D/T LEAKING FROM OLD GT SITE THAT'S ONLY PARTIALLY SUTURED CLOSED. KARAN MIDLINE INTACT AND PATENT WITH PPN AT 80 ML/HR AND NS TKO INFUSING. ALL DUE MEDS ADMINISTERED DURING THE NIGHT. BED IN LOWEST POSITION, CALL LIGHT WITHIN REACH, SIDE RAILS UP X3. WILL ENDORSE TO DAYSHIFT NURSE TO CONTINUE CARE.
[2022-08-21] MEDS: LEVOTHYROXINE SODIUM 75 MCG TABLET GT SCH (07:00)
--- NOTE | 2022-08-21 07:10 | NUR ---
WOUND CARE: PT WAS SEEN FOR RT HAND SKIN TEAR. RECOMMENDATIONS MADE FOR SKIN PROTECTION AND WOUND CARE. DISCUSSED WITH NURSING STAFF. DEFER TO DR RED FOR ABDOMINAL SURGICAL SITE. IN AGREEMENT WITH PLAN OF CARE. Addendum: 08/21/22 at 0722 by RADHA CATHERINE WNDNU ADDITIONAL: ABDOMINAL SURGICAL SITE WAS LEAKING LAST NIGHT PER NURSING STAFF. PERIWOUND AREA OF PARTIALLY SUTURED WOUND NOTED TO BE RED AND IRRITATED. RECOMMENDATIONS MADE FOR LOTRISONE CREAM FOR PERIWOUND AREA. DISCUSSED WITH NURSING STAFF. IN AGREEMENT WITH PLAN OF CARE.
--- NOTE | 2022-08-21 07:30 | NUR ---
RN OPENING NOTES PT RECEIVED IN BED, OBTUNDED. WITH CURRENT O2SAT OF 99%; PT NOTED TO HAVE SOB AT TIMES, POSSIBLY BRONCHOSPASM; NO OTHER S/S OF RESP DISTRESS, NON-LABORED AND EQUAL BREATHING. CASPER AND FLEXISEAL INTACT AND PATENT, DRAINING WELL; LITTLE OUTPUT NOTED ON FLEXISEAL. GT INTACT, BUT LEAKING PER NIGHT RN. PER DR. AUSTIN'S ORDERS, WILL HOLD AM MEDS.KARAN MIDLINE, INTACT AND PATENT; PPN AT 80 ML/HR AND NS TKO INFUSING. BED IN LOWEST POSITION, CALL LIGHT WITHIN REACH, SIDE RAILS UP X3. WILL CONTINUE TO MONITOR THROUGHOUT THE DAY.
[2022-08-21] MEDS: DOCUSATE SODIUM LIQ 100 MG/10 ML UDC GT SCH ×2 (08:28→17:00)
[2022-08-21] MEDS: POTASSIUM CHLORIDE 20 MEQ POWDER PACKET GT SCH (08:28)
[2022-08-21] MEDS: GLYCOPYRROLATE 1 MG TABLET GT SCH ×2 (08:28→21:15)
[2022-08-21] MEDS: PROSOURCE / PROSTAT (PYXIS) 30 ML UDC GT SCH (08:28)
[2022-08-21] MEDS: PANTOPRAZOLE 40 MG/PACK PACK GT SCH (08:29)
[2022-08-21] MEDS: METOCLOPRAMIDE HCL 10 MG TABLET GT SCH ×3 (08:29→17:00)
[2022-08-21] MEDS: SODIUM CHLORIDE 1000 MG TABLET GT SCH ×2 (08:29→17:00)
[2022-08-21] MEDS: CHLORHEXIDINE GLUCONATE 15 ML UDC MM SCH ×2 (08:36→21:14)
[2022-08-21] MEDS: POLYVINYL ALCOHOL 15 ML BOTTLE EACHEYE SCH ×2 (08:36→17:13)
[2022-08-21] MEDS: MUPIROCIN OINT 2% 22 GM TUBE NS SCH ×2 (08:37→21:16)
[2022-08-21] MEDS: CLOTRIMAZOLE/BETAMETASONE DIPROPIONATE 15 GM TUBE TP SCH ×2 (08:40→17:13)
[2022-08-21] MEDS: LEVETIRACETAM (500MG) 500 MG in IV NS 0.9% 100 ML IV SCH ×3 (08:40→21:15)
[2022-08-21] MEDS: HYDROCORTISONE SOD SUCCINATE 100 MG/2 ML VIAL IV SCH ×2 (08:43→10:00)
--- NOTE | 2022-08-21 09:00 | NUR ---
RN NOTES ATTEMPTED TO REACH OUT TO FAMILY REGARDING CONSENT FOR PICC LINE INSERTION; NO ANSWER.
--- NOTE | 2022-08-21 10:19 | NUR ---
RN SOLUMEDROL DOSE AT 1000 HELD PREVIOUS ORDERED DOSE WAS ALREADY GIVEN THIS MORNING
[2022-08-21] MEDS: POTASSIUM PHOSPHATE MM 7.5 MMOL in IV NS 0.9% 100 ML IV SCH ×2 (12:46→15:57)
--- NOTE | 2022-08-21 12:47 | NUR ---
RN NOTES ADMINISTERED POTASSIUM PHOSPHATE LATE PT DID NOT HAVE MULTIPLE LINES THAT CAN BE USED TO RUN THE MEDICATION SAFELY.
[2022-08-21] MEDS ORDERED: TPN BAG #9 IV SCH ×4 (14:00)
[2022-08-21] MEDS: IV NS 0.9% 250 ML IV PRN (14:07)
[2022-08-21] MEDS ORDERED: Sodium Phosphate 15 MMOL in IV NS 0.9% 245 ML IV SCH (15:30)
[2022-08-21] MEDS: POLYETHYLENE GLYCOL 3350 17 GM POWD.PACK GT SCH (17:12)
--- NOTE | 2022-08-21 18:45 | NUR ---
RN NOTES NOTIFIED DR. FARR THAT PT'S BP WAS TRENDING DOWN AT SBP BELOW 80. PER THE DOCTOR, PLACE PT BACK ON LEVOPHED. PLACED PT BACK ON LEVOPHED AT 0.1 MCG/KG/HR. PT IS STABLE, VSS, NO VISUAL SIGNS OF PAIN AT THIS TIME.
[2022-08-21] MEDS: NOREPINEPHRINE 8 MG in IV NS 0.9% 242 ML IV PRN (18:53)
--- NOTE | 2022-08-21 19:10 | NUR ---
GENERAL INTERNIST NOTE RECEIVED PT FOR CONTINUITY OF CARE. PATIENT OBTUNDED IN NO S/SX OF ACUTE DISTRESS AT THIS TIME; CURRENTLY ON MECHANICAL VENT; SETTING PRESCRIBED, WITH 02 SAT >95% AT THIS TIME. WITH IV ACCESS PATENT, INTACT AND FLUSHING WELL. PT WITH RUNNING LEVO DRIP RECEIVED AT 0.2MCG/KG/MIN MONITORED AND ADJUSTED PER PROTOCOL. ALSO HAS A RUNNING TPON @80.44MLS/HR INFUSING WELL. PEG TUBE CLAMPED AT THIS TIME, STILL WITH NOTED SIGNS OF LEAKING FROM THE SITE. CASPER CATH IN PLACE, MODERATE URINE OUTPUT NOTED. WITH FLEXISEAL SECURED AND INTACT DRAINING AMOUNT SMALL AMOUNT OF OUTPUT. WILL ENSURE SAFETY MEASURES WITHIN THE SHIFT. PATIENT BED ALARM IS ON. HEAD OF BED ELEVATED. BED IS LOCKED, IN LOWEST POSITION AND SIDE RAILS UP. CALL LIGHT WITHIN REACH OF THE PATIENT. WILL CONTINUE TO MONITOR AND REASSESS FOR ANY CHANGES AND WILL CARRY OUT ANY ONGOING AND ACTIVE MD ORDER.
[2022-08-21] MEDS: INSULIN REGULAR, HUMAN 100 UNIT/ML 3 ML VIAL SQ PRN (23:35)
[2022-08-22] VITALS (85 sets, daily range): BP systolic 54–209; BP diastolic 24–154
[2022-08-22] MEDS: ALBUTEROL HALF STRENGTH 1.25 MG/3 ML VIAL.NEB NEB SCH ×3 (01:49→19:39)
[2022-08-22] MEDS: IPRATROPIUM NEB FS 0.5 MG/2.5 ML AMPUL.NEB NEB SCH ×4 (01:49→19:39)
--- NOTE | 2022-08-22 04:00 | NUR ---
SUPERINTENDENT SALES NOTE PATIENT REMAINED TO BE IN NO SIGNS OF ACUTE RESPIRATORY DISTRESS , VITAL SIGNS STABLE AT THIS TIME. REGULAR TURNING AND REPOSITIONING DONE, SUCTIONING DONE, WOUND CARE AND AM PATIENT CARE RENDERED WILL CONTINUE TO MONITOR AND REASSESS FOR ANY CHANGES THROUGHOUT THE SHIFT.
[2022-08-22 04:52] LABS: CALCIUM, SERUM 7.3 mg/dL (8.5-10.1); CREATININE 0.6 mg/dL (0.6-1.3); MAGNESIUM 1.7 mg/dL (1.8-2.4); POTASSIUM 3.2 mmol/L (3.5-5.1)
[2022-08-22] MEDS: BLOOD SUGAR DIAGNOSTIC 1 EACH STRIP IN SCH ×3 (05:42→17:05)
[2022-08-22] MEDS: INSULIN REGULAR, HUMAN 100 UNIT/ML 3 ML VIAL SQ PRN (05:43)
[2022-08-22] MEDS: LEVOTHYROXINE SODIUM 75 MCG TABLET GT SCH (06:05)
--- NOTE | 2022-08-22 06:44 | NUR ---
RECEIVABLES SPECIALIST NOTE PATIENT REMAINS IN ROOM IN NO SIGNS OF RESPIRATORY DISTRESS, PATIENT STILL ON MECH VENT; SETTINGS PRESCRIBED;TOLERATING WELL SATURATING @ >95% SP02. SAFETY MEASURES IMPLEMENTED, BED IN LOWEST POSITION, LOCKED, SIDE RAILS UP, CALL LIGHT WITHIN REACH. ALL NEEDS AND ORDERS ADDRESSED DURING THE SHIFT. IV ACCESS MAINTAINED INTACT, SECURED AND FLUSHING WELL. ALL DUE MEDS GIVEN ORDERED & SCHEDULED ; PATIENT TOLERATED WELL. STILL LEVO DRIP NOW AT 0.08MCG/KG/MIN RUNNING AND MONITORED PER PROTOCOL. ALSO HAS A RUNNING TPN @80.44MLS/HR INFUSING WELL. PEG TUBE CLAMPED AT THIS TIME, STILL WITH NOTED SIGNS OF LEAKING FROM THE SITE. PATIENT KEPT CLEAN AND COMFORTABLE WITHIN THE SHIFT. PATIENT ENDORSED TO INCOMING SHIFT RN WITH STABLE VITAL SIGN AND FOR CONTINUITY OF CARE.
--- NOTE | 2022-08-22 07:19 | NUR ---
ICU/RN PT RECEIVED IN BED, OBTUNDED. PT WITH TRACH ON MECHANICAL VENTILATOR FIO2 40% NO PEEP SAT 100% ON BEDSIDE MONITOR. SINUS JULIEN ON MONITOR HR 55. CASPER CATH IN PLACE, PATENT AND DRAINING CLEAR URINE. FLEXISEAL IN PLACE. GT IN PLACE, CLAMPED, PER DR. AUSTIN ORDER TO HOLD GTF AND GT MEDS AT THIS TIME DUE TO GT LEAKING, PENDING DR. RED CONSULT. LEFT UA PICC LINE IN PLACE. TPN AT 80MLS/HR AND LEVO AT 0.08 MCG/KG/MIN RUNNING, BP 115/58 AT THIS TIME. BED LOCKED AND IN LOWEST POSITION, CALL LIGHT WITHIN REACH, 3 SIDE RAILS UP.
[2022-08-22] MEDS: LEVETIRACETAM (500MG) 500 MG in IV NS 0.9% 100 ML IV SCH ×2 (08:01→21:26)
[2022-08-22] MEDS: HYDROCORTISONE SOD SUCCINATE 100 MG/2 ML VIAL IV SCH (08:01)
[2022-08-22] MEDS: CHLORHEXIDINE GLUCONATE 15 ML UDC MM SCH ×2 (08:01→21:28)
[2022-08-22] MEDS: CLOTRIMAZOLE/BETAMETASONE DIPROPIONATE 15 GM TUBE TP SCH ×2 (08:02→16:11)
[2022-08-22] MEDS: MUPIROCIN OINT 2% 22 GM TUBE NS SCH ×2 (08:03→21:26)
[2022-08-22] MEDS: POLYVINYL ALCOHOL 15 ML BOTTLE EACHEYE SCH ×2 (08:04→16:10)
[2022-08-22] MEDS: METOCLOPRAMIDE HCL 10 MG TABLET GT SCH ×3 (08:05→16:09)
[2022-08-22] MEDS: GLYCOPYRROLATE 1 MG TABLET GT SCH ×2 (08:05→20:55)
[2022-08-22] MEDS: POTASSIUM CHLORIDE 20 MEQ POWDER PACKET GT SCH (08:05)
[2022-08-22] MEDS: PROSOURCE / PROSTAT (PYXIS) 30 ML UDC GT SCH (08:05)
[2022-08-22] MEDS: SODIUM CHLORIDE 1000 MG TABLET GT SCH ×2 (08:05→16:10)
[2022-08-22] MEDS: DOCUSATE SODIUM LIQ 100 MG/10 ML UDC GT SCH ×2 (08:05→16:09)
[2022-08-22] MEDS: PANTOPRAZOLE 40 MG/PACK PACK GT SCH (08:05)
[2022-08-22] MEDS: Magnesium 1GM/D5W 100ML PREMIX 100 ML IV SCH ×2 (09:53→11:03)
[2022-08-22] MEDS ORDERED: Sodium Phosphate 15 MMOL in IV NS 0.9% 245 ML IV SCH (12:00)
[2022-08-22] MEDS: FAT EMULSION 20% 500 ML in PREMIX 1 EA IV SCH (13:31)
[2022-08-22] MEDS ORDERED: TPN BAG #10 IV SCH ×2 (14:00)
[2022-08-22] MEDS: LORAZEPAM INJ 2 MG/ML VIAL IV PRN (15:33)
--- NOTE | 2022-08-22 15:37 | NUR ---
ICU/RN PT SHOWING SIGNS OF AGITATION AND ANXIETY. PT'S FACE RED WITH ACCELERATED RESIRATORY RATE. ATIVAN PRN GIVEN.
--- NOTE | 2022-08-22 16:46 | NUR ---
ICU/RN BP 136/92. LEVOPHED HELD.
[2022-08-22] MEDS: POLYETHYLENE GLYCOL 3350 17 GM POWD.PACK GT SCH (17:00)
--- NOTE | 2022-08-22 18:45 | NUR ---
ICU/RN PT REMAINS IN BED, OBTUNDED. PT WITH TRACH ON MECHANICAL VENTILATOR FIO2 40% NO PEEP SAT 98% ON BEDSIDE MONITOR. SINUS RHYTHM ON MONITOR HR 77. CASPER CATH IN PLACE, PATENT AND DRAINING CLEAR URINE. FLEXISEAL IN PLACE. GT IN PLACE, CLAMPED, PER LEXI FARR, HOLD GTF AND GT MEDS AT THIS TIME DUE TO GT LEAKING, PENDING DR. RED CONSULT. LEFT UA PICC LINE IN PLACE. TPN AT 75MLS/HR AND LIPIDS AT 20 MLS/HR RUNNING, LEVO HELD SINCE 1644, BP STABLE AT 135/72 AT THIS TIME. BED LOCKED AND IN LOWEST POSITION, CALL LIGHT WITHIN REACH, 3 SIDE RAILS UP.
[2022-08-23] VITALS (52 sets, daily range): BP systolic 74–160; BP diastolic 13–108
[2022-08-23] MEDS: BLOOD SUGAR DIAGNOSTIC 1 EACH STRIP IN SCH ×4 (00:14→18:14)
[2022-08-23] MEDS: IPRATROPIUM NEB FS 0.5 MG/2.5 ML AMPUL.NEB NEB SCH ×2 (01:14→07:12)
[2022-08-23] MEDS: ALBUTEROL HALF STRENGTH 1.25 MG/3 ML VIAL.NEB NEB SCH ×2 (01:14→07:12)
[2022-08-23] MEDS ORDERED: TPN BAG #11 IV SCH ×4 (03:00)
[2022-08-23 05:21] LABS: CREATININE 0.6 mg/dL (0.6-1.3); MAGNESIUM 1.9 mg/dL (1.8-2.4); PHOSPHORUS 1.8 mg/dL (2.5-4.9)
[2022-08-23 05:23] LABS: POTASSIUM 2.2 mmol/L (3.5-5.1)
--- NOTE | 2022-08-23 05:30 | NUR ---
ICU/RN: [address] AUSTIN REGARDING CRITICAL POTASSIUM 2.2. NO RESPONSE. [address] AUSTIN REGARDING CRITICAL POTASSIUM 2.2. DR. AUSTIN ASKED FOR MORE INFORMATION. INFORMATION PROVIDED. [address] AUSTIN REGARDING CRITICAL POTASSIUM 2.2 AND IF HE WOULD LIKE ELECTROLYTE REPLACEMENT. NO RESPONSE. WILL ENDORSE TO AM SHIFT.
[2022-08-23] MEDS: LEVOTHYROXINE SODIUM 75 MCG TABLET GT SCH (07:00)
[2022-08-23] MEDS: NOREPINEPHRINE 8 MG in IV NS 0.9% 242 ML IV PRN (07:11)
--- NOTE | 2022-08-23 07:18 | NUR ---
ICU/RN BLOOD PRESSURE OF 81/46 AND 74/49. LEVOPHED DRIP STARTED AT 0.1 MCG/KG/MIN PER PROTOCOL.
--- NOTE | 2022-08-23 07:26 | NUR ---
ICU/RN CONTACTED LEXI FARR REGARDING POTASSIUM 2.2 THIS AM. ORDER RECEIVED FOR 80 MEQ IV AND 1G MAGNESIUM. ORDER PLACED. DR. AUSTIN PLACED AN ORDER FOR 40 ME[address] [facility] CONTACTED TO CLARIFY, ORDER RECEIVED FROM [facility] TO GIVE THE 40 MEQ AT THIS TIME AND HE WILL CLARIFY WITH LEXI FARR FOR FOLLOW UP ORDER NEEDED.
[2022-08-23] MEDS ORDERED: Magnesium 1GM/D5W 100ML PREMIX 100 ML IV SCH (07:30)
[2022-08-23] MEDS ORDERED: Magnesium 1 GM/2 ML VIAL IV ONE (07:30)
[2022-08-23] MEDS: POTASSIUM CL. PREMIX PERIPHER. 50 ML IV SCH ×8 (07:53→15:01)
[2022-08-23] MEDS: METOCLOPRAMIDE HCL 10 MG TABLET GT SCH ×3 (08:06→16:53)
[2022-08-23] MEDS: PANTOPRAZOLE 40 MG/PACK PACK GT SCH (08:06)
[2022-08-23] MEDS: DOCUSATE SODIUM LIQ 100 MG/10 ML UDC GT SCH ×2 (08:06→16:53)
[2022-08-23] MEDS: GLYCOPYRROLATE 1 MG TABLET GT SCH ×2 (08:06→21:00)
[2022-08-23] MEDS: SODIUM CHLORIDE 1000 MG TABLET GT SCH ×2 (08:06→16:53)
[2022-08-23] MEDS: PROSOURCE / PROSTAT (PYXIS) 30 ML UDC GT SCH (08:06)
[2022-08-23] MEDS: MUPIROCIN OINT 2% 22 GM TUBE NS SCH ×2 (08:07→21:24)
[2022-08-23] MEDS: CLOTRIMAZOLE/BETAMETASONE DIPROPIONATE 15 GM TUBE TP SCH ×2 (08:07→16:53)
[2022-08-23] MEDS: POLYVINYL ALCOHOL 15 ML BOTTLE EACHEYE SCH ×2 (08:07→16:53)
[2022-08-23] MEDS: HYDROCORTISONE SOD SUCCINATE 100 MG/2 ML VIAL IV SCH (08:10)
[2022-08-23] MEDS: CHLORHEXIDINE GLUCONATE 15 ML UDC MM SCH ×2 (08:10→21:17)
[2022-08-23] MEDS: LEVETIRACETAM (500MG) 500 MG in IV NS 0.9% 100 ML IV SCH ×2 (08:10→21:16)
[2022-08-23] MEDS: IV NS 0.9% 250 ML IV PRN (08:16)
[2022-08-23] MEDS ORDERED: POTASSIUM CHLORIDE 10 MEQ/50 ML PREMIXED IVPB FOR PERIPHERAL LINE IV ONE (08:30)
[2022-08-23] MEDS: INSULIN REGULAR, HUMAN 100 UNIT/ML 3 ML VIAL SQ PRN (12:06)
[2022-08-23] MEDS ORDERED: TPN BAG #12 IV SCH ×4 (14:47)
--- NOTE | 2022-08-23 16:30 | NUR ---
RN note REceived handover from ANA Lopez. quality assurance monitor chassis showed SR HR ~70's. MAP>65mmHg without vasopressors. SpO2 100% with FiO2 0.4. Left PICC is in-situ with TPN running, will start KPO4 when medication is available. Mohr is in place, draining clear yellowish fluid. Will keep monitoring.
[2022-08-23] MEDS: POTASSIUM PHOSPHATE MM 7.5 MMOL in IV NS 0.9% 100 ML IV SCH ×2 (16:52→19:00)
[2022-08-23] MEDS: POLYETHYLENE GLYCOL 3350 17 GM POWD.PACK GT SCH (18:00)
--- NOTE | 2022-08-23 18:30 | NUR ---
RN Note Noted worsening skin condition around patient's old PEG site. Removed towels and old dressing. Dressed with NS and decide to leave it uncovered as the surrounding skin looks very macerated and erythematous. For frequent change of gauze of the old outlet. Keep observation.
--- NOTE | 2022-08-23 19:30 | NUR ---
RN NOTE RECEIVED REPORT FROM MORNING RN. PATIENT IN BED OBTUNDED. ON TRACH CONNECETD TO MV WITH PRESCRIBED SETTINGS. WITH GT IN PLACE INTACT CLAMPED. WITH OLD GT SITE OPEN LEAKING BROWNISH WITH SMALL AMOUNT OF BLOOD PACKED WITH GAUZE. WITH IV ACCESS AT KARAN PICC LINE PATENT FLUSHES WELL NO INFILTRATION NOTED RUNNING TPN @ 85CC/HR. WITH FLEXISEAL IN PLACE INTACT. CASPER CATHETER CONNECTED TO URINE BAG DRAINING YELLOWISH URINE OUTPUT. ALL SAFETY MEASURES IN PLACE. HOB ELEVATED. WILL CLOSELY MONITOR THE PATIENT
[2022-08-24] VITALS (26 sets, daily range): BP systolic 94–140; BP diastolic 51–113
[2022-08-24] MEDS: BLOOD SUGAR DIAGNOSTIC 1 EACH STRIP IN SCH ×5 (00:10→23:15)
[2022-08-24] MEDS ORDERED: TPN BAG #13 IV SCH ×2 (02:33)
[2022-08-24 04:57] LABS: CALCIUM, SERUM 7.3 mg/dL (8.5-10.1); CREATININE 0.6 mg/dL (0.6-1.3); PHOSPHORUS 1.6 mg/dL (2.5-4.9); POTASSIUM 3.4 mmol/L (3.5-5.1)
--- NOTE | 2022-08-24 06:52 | NUR ---
RN NOTES FREQUENT CHANGING OF DRESSING AT OLD GT SITE DONE DUE TO LEAKING. WILL ENDORSED TO MORNING SHIFT FOPR ANG
[2022-08-24] MEDS: LEVOTHYROXINE SODIUM 75 MCG TABLET GT SCH (07:00)
[2022-08-24] MEDS: LORAZEPAM INJ 2 MG/ML VIAL IV PRN ×2 (07:09→19:31)
[2022-08-24] MEDS: LEVETIRACETAM (500MG) 500 MG in IV NS 0.9% 100 ML IV SCH ×2 (08:13→20:15)
[2022-08-24] MEDS: HYDROCORTISONE SOD SUCCINATE 100 MG/2 ML VIAL IV SCH (08:13)
[2022-08-24] MEDS: CHLORHEXIDINE GLUCONATE 15 ML UDC MM SCH ×2 (08:13→21:18)
[2022-08-24] MEDS: CLOTRIMAZOLE/BETAMETASONE DIPROPIONATE 15 GM TUBE TP SCH ×2 (08:14→16:42)
[2022-08-24] MEDS: POTASSIUM PHOSPHATE MM 7.5 MMOL in IV NS 0.9% 100 ML IV SCH ×4 (08:28→23:15)
[2022-08-24] MEDS: POLYVINYL ALCOHOL 15 ML BOTTLE EACHEYE SCH ×2 (08:29→16:42)
[2022-08-24] MEDS: GLYCOPYRROLATE 1 MG TABLET GT SCH ×2 (08:40→20:11)
[2022-08-24] MEDS: DOCUSATE SODIUM LIQ 100 MG/10 ML UDC GT SCH ×2 (08:40→16:37)
[2022-08-24] MEDS: PROSOURCE / PROSTAT (PYXIS) 30 ML UDC GT SCH (08:40)
[2022-08-24] MEDS: PANTOPRAZOLE 40 MG/PACK PACK GT SCH (08:41)
[2022-08-24] MEDS: METOCLOPRAMIDE HCL 10 MG TABLET GT SCH ×3 (08:41→16:37)
[2022-08-24] MEDS: SODIUM CHLORIDE 1000 MG TABLET GT SCH ×2 (08:41→16:37)
--- NOTE | 2022-08-24 10:25 | NUR ---
MOISES SEEN PATIENT NEW ORDER OF WOUND CARE CONSULT FOR WOUND VAC RECOMMENDATION.CHARGE NURSE-JOZEF YOUNGER.
[2022-08-24] MEDS: IV NS 0.9% 250 ML IV PRN (11:35)
--- NOTE | 2022-08-24 13:28 | NUR ---
BEDSIDE REPORT GIVEN TO DONALD PEREZ FOR CONTINUITY OF CARE. PATIENT REMAINS STABLE.
[2022-08-24] MEDS: FAT EMULSION 20% 500 ML in PREMIX 1 EA IV SCH (13:41)
[2022-08-24] MEDS ORDERED: Magnesium 1GM/D5W 100ML PREMIX 100 ML IV SCH (14:00)
[2022-08-24] MEDS ORDERED: TPN BAG #14 IV SCH ×4 (15:20)
--- NOTE | 2022-08-24 16:00 | NUR ---
ICU/RN TEMP 99.7. BLANKETS REMOVED.
[2022-08-24] MEDS: POLYETHYLENE GLYCOL 3350 17 GM POWD.PACK GT SCH (17:17)
[2022-08-24] MEDS: INSULIN REGULAR, HUMAN 100 UNIT/ML 3 ML VIAL SQ PRN (17:32)
--- NOTE | 2022-08-24 19:15 | NUR ---
BARREL BRANDER DURING BEDSIDE REPORT PT NOTED WITH LEFT HAND RESTRAINT IN PLACE NO ORDER NOTED IN COMPUTER. RESTRAINT REMOVED AT THIS TIME.
[2022-08-24] MEDS ORDERED: ACETAMINOPHEN 650 MG/SUPP.RECT RC PRN (19:30)
--- NOTE | 2022-08-24 19:45 | NUR ---
BUSINESS OFFICE ASSOCIATE RCD PT WITH TEMP 100; INITIATED COOLING MEASURES AND ADMINISTERED. ALSO NOTED PT WITH TACHYPNEA ADMINISTERED ATIVAN REMOVED LAYER OF THICK YELLOW CRUST FROM TONGUE.
[2022-08-25] VITALS (52 sets, daily range): BP systolic 74–148; BP diastolic 40–97
[2022-08-25 04:41] LABS: CREATININE 0.6 mg/dL (0.6-1.3); MAGNESIUM 2.1 mg/dL (1.8-2.4); POTASSIUM 3.3 mmol/L (3.5-5.1)
[2022-08-25 05:38] LABS: BASOPHILS % (AUTO) 0.2 % (0.0-2.0); HEMATOCRIT 24 % (33-45); HEMOGLOBIN 7.7 g/dL (11.5-14.8); LYMPHOCYTES # (AUTO) 1.8 K/uL (0.8-4.8); LYMPHOCYTES % (AUTO) 18.2 % (20.0-44.0); MEAN CORPUSCULAR HGB CONC 32 g/dl (31.0-36.0); MEAN CORPUSCULAR VOLUME 88 fL (82-100); MONOCYTES # (AUTO) 0.7 K/uL (0.1-1.30); MONOCYTES % (AUTO) 6.8 % (2.0-12.0); NEUTROPHILS # (AUTO) 7.3 K/uL (1.8-8.9); NEUTROPHILS % (AUTO) 72.8 % (43.0-81.0); PLATELET COUNT (AUTO) 463 K/uL (150-450)
[2022-08-25] MEDS: BLOOD SUGAR DIAGNOSTIC 1 EACH STRIP IN SCH ×4 (05:45→23:52)
[2022-08-25 06:14] LABS: ALBUMIN 1.6 g/dL (3.4-5.0); BILIRUBIN,TOTAL 0.1 mg/dL (0.2-1.0); CALCIUM, SERUM 6.9 mg/dL (8.5-10.1); CREATININE 0.7 mg/dL (0.6-1.3); POTASSIUM 3.2 mmol/L (3.5-5.1); TOTAL PROTEIN, SERUM 4.8 g/dL (6.4-8.2)
[2022-08-25] MEDS: LEVOTHYROXINE SODIUM 75 MCG TABLET GT SCH (06:47)
--- NOTE | 2022-08-25 07:00 | NUR ---
RN NOTES RECEIVED PT ON BED, VENT/TRACH DEPENDENT , TOLERATING VENT SETTING WELL, OBTUNDED, ON TELE SR , HR IN 60'S, CASPER AND FLEXISEAL DRAINING TO GRAVITY, MODERATED BROWNISH TO REDDISH, DRAINAGE NOTED ON GASTROCUTANEOUS FISTULA , NEW DRESSING APPLIED, PT ON TF AND LIPIDS , IV SITE CDI, SR UP x3, CALL LIGHT WITHIN EASY REACH, BED LOCKED AND IN LOWEST POSITION, CONTINUE TO MONITOR Addendum: 08/26/22 at 0718 by LARRY ALEJANDRA RN CORRECTION PT IS ON TPN , NOT TF
--- NOTE | 2022-08-25 07:31 | NUR ---
WOUND CARE CONSULT: PT SEEN FOR RE-EVALUATION OF ABDOMINAL SURGICAL SITE FOR POSSIBLE WOUND VAC PLACEMENT (CONSULT FROM PRIMARY HOSPITALIST). WOUND NOTED TO HAVE BLOOD WITH BROWN DRAINAGE. THERE IS REDNESS/RASH TO PERIWOUND AREA, ESPECIALLY ON LEFT SIDE. RECOMMENDATIONS MADE FOR SKIN PROTECTION OF PERIWOUND. WOULD NOT RECOMMEND WOUND VAC AT THIS TIME DUE TO BLEEDING AND BALLOON WHICH HAD BEEN NOTED IN BASE OF WOUND. DEFER TO SURGEON. FURTHER SURGICAL FOLLOW UP IS NEEDED. DISCUSSED WITH NURSING STAFF, DUTY MANAGER AND CNO.
[2022-08-25] MEDS: DOCUSATE SODIUM LIQ 100 MG/10 ML UDC GT SCH ×2 (08:22→16:18)
[2022-08-25] MEDS: GLYCOPYRROLATE 1 MG TABLET GT SCH ×2 (08:22→20:53)
[2022-08-25] MEDS: PANTOPRAZOLE 40 MG/PACK PACK GT SCH (08:22)
[2022-08-25] MEDS: METOCLOPRAMIDE HCL 10 MG TABLET GT SCH ×3 (08:22→16:18)
[2022-08-25] MEDS: PROSOURCE / PROSTAT (PYXIS) 30 ML UDC GT SCH (08:22)
[2022-08-25] MEDS: SODIUM CHLORIDE 1000 MG TABLET GT SCH ×2 (08:23→16:19)
[2022-08-25] MEDS: CHLORHEXIDINE GLUCONATE 15 ML UDC MM SCH ×2 (08:23→20:53)
[2022-08-25] MEDS: CLOTRIMAZOLE/BETAMETASONE DIPROPIONATE 15 GM TUBE TP SCH ×2 (08:23→16:20)
[2022-08-25] MEDS: HYDROCORTISONE SOD SUCCINATE 100 MG/2 ML VIAL IV SCH (08:24)
[2022-08-25] MEDS: POLYVINYL ALCOHOL 15 ML BOTTLE EACHEYE SCH ×2 (08:25→17:25)
[2022-08-25] MEDS: LEVETIRACETAM (500MG) 500 MG in IV NS 0.9% 100 ML IV SCH ×2 (08:28→20:53)
[2022-08-25] MEDS: POTASSIUM CL. PREMIX PERIPHER. 50 ML IV SCH ×4 (09:07→12:27)
[2022-08-25] MEDS: PANTOPRAZOLE 40 MG VIAL IV SCH ×2 (09:37→20:53)
[2022-08-25] MEDS: NOREPINEPHRINE 8 MG in IV NS 0.9% 242 ML IV PRN (11:15)
--- NOTE | 2022-08-25 14:00 | NUR ---
RN NOTES PT ON LEVO FOR BP SUPPORT , CONTINUE TO MONITOR .
[2022-08-25] MEDS ORDERED: TPN BAG #16 IV SCH ×4 (14:54)
[2022-08-25] MEDS: POLYETHYLENE GLYCOL 3350 17 GM POWD.PACK GT SCH (17:25)
--- NOTE | 2022-08-25 17:30 | NUR ---
RN NOTES ONE UNIT OF PRBC INFUSING , VSS STABLE ,NO REACTION NOTED, CONTINUE TO MONITOR
[2022-08-25] MEDS: INSULIN REGULAR, HUMAN 100 UNIT/ML 3 ML VIAL SQ PRN ×2 (17:32→23:54)
--- NOTE | 2022-08-25 18:17 | NUR ---
RN NOTES DOREEN PREVENTION RN AT THE BEDSIDE ,SPOKEN TO PT'S SISTER EXTENSIVELY REGARDING PROGNOSIS , PT SISTER REQUESTING DNR STATUS .
--- NOTE | 2022-08-25 18:20 | NUR ---
RN NOTES FAMILY AT THE BEDSIDE, PT ON LEVO AT .06 MCG/KG/MIN, ONE UNIT OF PRBC INFUSING , NO REACTION NOTED , TPN AT 85CC/HR RUNNING , TRACH CARE DONE NEEDED , WILL ENDORSE TO MAGNETIZER NURSE FOR CONTINUITY OF CARE.
--- NOTE | 2022-08-25 19:30 | NUR ---
RN/ICU RECEIVED PT IN BED, OBTUNDED. RESPONSIVE TO PAIN/TACTILE STIMULI, OPENS EYES, NONVERBAL. CURRENT VENT SETTINGS WELL SHEREE, NO ACUTE RESP DISTRESS NOTED. PT ATTACHED TO BEDSIDE ANESTHESIOLOGY FACULTY CURRENTLY READING SR. PT CURRENTLY RECEIVING 1U PRBC ON KARAN PICC LINE, WELL SHEREE, NO ASE NOTED. PT ALSO INFUSING TPN AT 85ML/HR, ON LEVO DRIP DOSE RATE AT 0.06MCG, BP WNL. FC IN PLACED, PATENT, DRAINING CLEAR YELLOW URINE BY GRAVITY, FLEXISEAL IN PLACED NOTED WITH DARK GREENISH STOOL 100ML. HOB ELEVATED. WILL CONT POC
--- NOTE | 2022-08-25 20:50 | NUR ---
RN/ICU 1U PRBC TRANSFUSED, WELL TOLERATED. PT IN STABLE CONDITION. NO ASE NOTED, AFEBRILE. VS WNL.
[2022-08-25 22:34] LABS: HEMOGLOBIN 9.1 g/dL (11.5-14.8)
[2022-08-26] VITALS (74 sets, daily range): BP systolic 78–182; BP diastolic 24–108
[2022-08-26] MEDS ORDERED: TPN BAG #17 IV SCH ×2 (02:46)
[2022-08-26 03:51] LABS: BASOPHILS % (AUTO) 0.2 % (0.0-2.0); EOSINOPHILS % (AUTO) 0.4 % (0.0-6.0); HEMATOCRIT 26 % (33-45); HEMOGLOBIN 8.6 g/dL (11.5-14.8); LYMPHOCYTES # (AUTO) 1.8 K/uL (0.8-4.8); LYMPHOCYTES % (AUTO) 23.9 % (20.0-44.0); MEAN CORPUSCULAR HGB CONC 33 g/dl (31.0-36.0); MEAN CORPUSCULAR VOLUME 90 fL (82-100); MONOCYTES # (AUTO) 0.5 K/uL (0.1-1.30); MONOCYTES % (AUTO) 6.6 % (2.0-12.0); NEUTROPHILS # (AUTO) 5.1 K/uL (1.8-8.9); NEUTROPHILS % (AUTO) 68.9 % (43.0-81.0); PLATELET COUNT (AUTO) 360 K/uL (150-450); RED BLOOD CELL COUNT(AUTO) 2.91 MIL/uL (4.0-5.2); WHITE BLOOD COUNT (AUTO) 7.4 K/uL (4.3-11.0)
[2022-08-26 04:07] LABS: CALCIUM, SERUM 7.2 mg/dL (8.5-10.1); CREATININE 0.6 mg/dL (0.6-1.3); MAGNESIUM 1.7 mg/dL (1.8-2.4); PHOSPHORUS 1.4 mg/dL (2.5-4.9); POTASSIUM 3.3 mmol/L (3.5-5.1)
[2022-08-26] MEDS: INSULIN REGULAR, HUMAN 100 UNIT/ML 3 ML VIAL SQ PRN ×3 (05:49→23:29)
[2022-08-26] MEDS: BLOOD SUGAR DIAGNOSTIC 1 EACH STRIP IN SCH ×4 (05:49→23:28)
[2022-08-26] MEDS: LEVOTHYROXINE SODIUM 75 MCG TABLET GT SCH (06:37)
--- NOTE | 2022-08-26 06:50 | NUR ---
RN/ICU PT REMAINS IN STABLE CONDITION. CURRENT VENT SETTINGS WELL TOLERATED, NO ACUTE RESP DISTRESS. AFEBRILE. CURRENTLY INFUSING TPN AT 85ML/HR, LEVO DRIP DOSE RATE AT 0.04MCG, BP WNL, MAP AT 72. GT CLAMPED, PT STILL ON STRICT NPO. ALL NEEDS ANTICIPATED. KEPT PT CLEAN AND DRY AT ALL TIMES. WILL ENDORSE TO AM SHIFT.
--- NOTE | 2022-08-26 07:00 | NUR ---
RN/ICU REPORT GIVEN TO CATA BARNES RN FOR ANG.
--- NOTE | 2022-08-26 07:05 | NUR ---
RN NOTES RECEIVED PT ON BED, VENT/TRACH DEPENDENT , TOLERATING VENT SETTING WELL, RESPONDS TO PAINFUL STIMULI ON TELE SR , HR IN 60'S, CASPER AND FLEXISEAL DRAINING TO GRAVITY, MODERATED BROWNISH TO REDDISH, DRAINAGE NOTED ON GASTROCUTANEOUS FISTULA , NEW DRESSING APPLIED, PT ON TPN AND LIPIDS AND LEVO FOR BP SUPPORT , IV SITE CDI, SR UP x3, CALL LIGHT WITHIN EASY REACH, BED LOCKED AND IN LOWEST POSITION, CONTINUE TO MONITOR
[2022-08-26] MEDS: DOCUSATE SODIUM LIQ 100 MG/10 ML UDC GT SCH ×2 (08:16→16:38)
[2022-08-26] MEDS: GLYCOPYRROLATE 1 MG TABLET GT SCH ×2 (08:16→21:00)
[2022-08-26] MEDS: LEVETIRACETAM (500MG) 500 MG in IV NS 0.9% 100 ML IV SCH ×2 (08:16→21:11)
[2022-08-26] MEDS: POLYVINYL ALCOHOL 15 ML BOTTLE EACHEYE SCH ×2 (08:16→16:39)
[2022-08-26] MEDS: PROSOURCE / PROSTAT (PYXIS) 30 ML UDC GT SCH (08:17)
[2022-08-26] MEDS: METOCLOPRAMIDE HCL 10 MG TABLET GT SCH ×3 (08:17→16:38)
[2022-08-26] MEDS: CLOTRIMAZOLE/BETAMETASONE DIPROPIONATE 15 GM TUBE TP SCH ×2 (08:17→16:38)
[2022-08-26] MEDS: SODIUM CHLORIDE 1000 MG TABLET GT SCH ×2 (08:17→16:38)
[2022-08-26] MEDS: PANTOPRAZOLE 40 MG VIAL IV SCH ×2 (08:21→21:05)
[2022-08-26] MEDS: CHLORHEXIDINE GLUCONATE 15 ML UDC MM SCH ×2 (08:22→21:05)
--- NOTE | 2022-08-26 08:45 | NUR ---
WOUND CARE: HAD RECEIVED CALL FROM DOREEN FARR DNP REGARDING USING AN OSTOMY POUCH ON ABDOMINAL WOUND TO PROTECT PERIWOUND AREA. DISCUSSED WITH NURSING STAFF AND ORDERS RECEIVED FOR STOMA POWDER AND PASTE TO BE USED WITH OSTOMY POUCH. POUCH WAS APPLIED USING SKIN PREP TO ODELL WOUND, STOMA POWDER (SMALL AMOUNT) AND STOMA PASTE (SMALL AMOUNT). WOUND IS PINK/RED WITH MINIMAL SEROSANGUINOUS DRAINAGE AT THIS TIME. NO ODOR NOTED. PERIWOUND AREA HAS LESS REDNESS. RECOMMEND SURGICAL FOLLOW UP. MD IN AGREEMENT WITH PLAN OF CARE.
[2022-08-26] MEDS ORDERED: HYDROCORTISONE SOD SUCCINATE 100 MG/2 ML VIAL IV SCH (09:00)
[2022-08-26] MEDS: Magnesium 1GM/D5W 100ML PREMIX 100 ML IV SCH ×2 (09:40→10:44)
[2022-08-26] MEDS ORDERED: POTASSIUM CL. PREMIX PERIPHER. 50 ML IV SCH (10:00)
[2022-08-26] MEDS: HYDROCORTISONE SOD SUCCINATE 100 MG/2 ML VIAL IV SCH ×2 (10:33→16:34)
[2022-08-26] MEDS: NOREPINEPHRINE 8 MG in IV NS 0.9% 242 ML IV PRN (11:24)
[2022-08-26] MEDS ORDERED: K PHOS NEUTRAL 250 MG TABLET PO SCH (12:00)
--- NOTE | 2022-08-26 12:00 | NUR ---
RN NOTES TRACH CARE DONE, CONTINUE TO MONITOR
[2022-08-26] MEDS: POTASSIUM PHOSPHATE MM 7.5 MMOL in IV NS 0.9% 100 ML IV SCH ×2 (12:03→15:17)
[2022-08-26] MEDS: FAT EMULSION 20% 500 ML in PREMIX 1 EA IV SCH (12:26)
[2022-08-26] MEDS ORDERED: TPN BAG #18 IV SCH ×4 (14:33)
[2022-08-26] MEDS: POLYETHYLENE GLYCOL 3350 17 GM POWD.PACK GT SCH (17:02)
--- NOTE | 2022-08-26 18:29 | NUR ---
RN NOTES PT OFF LEVO, BP STABLE, DRESSING TO ABD CHANGED PRN, ON TPN AT90CC/HR , LIPID AT 20CC/HR , TRACH CARE DONE NEEDED , CASPER DRAINING TO GRAVITY, NO LOOSE STOOL NOTED ON THIS SHIFT, IV SITE CDI, WILL ENDORSE TO STRUCTURAL TEST ENGINEER NURSE FOR CONTINUITY OF CARE .
--- NOTE | 2022-08-26 19:45 | NUR ---
ENVIRONMENTAL CHANGE ANALYST OPENING NOTES RECEIVED PT IN BED,OBTUNDED. ON TRACH TO VENT SETTING- S#6, AC-12, TV-375, FIO2-40%, PEEP-OFF. PT TOLERATED WELL. O2 SAT 99%. IV ACCESS ON KARAN PICC INTACT AND PATENT. LEVOPHED OFF AT THIS MOMENT. BP STABLE. ON TPN@90CC/HR AND LIPID AT 20CC/HR. PATIENT TOLERATED WELL. GTUBE CLAMPED. COVERED WITH DRY DRESSING. CASPER CATHETER IN PLACE. DRAINING BY GRAVITY. NOTED YELLOWISH/CLEAR URINE. FLEXISEAL DRAINING BY GRAVITY, DRAINAGE NOTED ON GASTROCUTANEOUS FISTULA ,COVERED WITH DRY DRESSING. ALL SAFETY MEASURES IN PLACE. BED IN LOWEST POSITION AND LOCKED. SR UP x3, PLACE CALL LIGHT WITHIN EASY REACH. WILL CONTINUE TO MONITOR
--- NOTE | 2022-08-26 23:38 | NUR ---
RN NOTES: PT'S BLOOD SUGAR 148. 2 UNITS OF REGULAR INSULIN GIVEN. NO S/S OF HYPER/HYPOGLYCEMIA. WILL CONTINUE TO MONITOR
[2022-08-27] VITALS (39 sets, daily range): BP systolic 83–158; BP diastolic 40–95
[2022-08-27] MEDS ORDERED: TPN IV SCH ×4 (01:34→23:34)
[2022-08-27] MEDS: IV NS 0.9% 250 ML IV PRN (04:36)
[2022-08-27 04:46] LABS: BASOPHILS % (AUTO) 0.3 % (0.0-2.0); EOSINOPHILS % (AUTO) 0.1 % (0.0-6.0); HEMATOCRIT 28 % (33-45); HEMOGLOBIN 9.4 g/dL (11.5-14.8); LYMPHOCYTES # (AUTO) 1.1 K/uL (0.8-4.8); LYMPHOCYTES % (AUTO) 20.4 % (20.0-44.0); MEAN CORPUSCULAR HGB CONC 34 g/dl (31.0-36.0); MEAN CORPUSCULAR VOLUME 90 fL (82-100); MONOCYTES # (AUTO) 0.4 K/uL (0.1-1.30); MONOCYTES % (AUTO) 7.6 % (2.0-12.0); NEUTROPHILS % (AUTO) 71.6 % (43.0-81.0); PLATELET COUNT (AUTO) 374 K/uL (150-450); RED BLOOD CELL COUNT(AUTO) 3.11 MIL/uL (4.0-5.2); WHITE BLOOD COUNT (AUTO) 5.6 K/uL (4.3-11.0)
[2022-08-27] MEDS: BLOOD SUGAR DIAGNOSTIC 1 EACH STRIP IN SCH ×3 (05:40→18:24)
[2022-08-27] MEDS: INSULIN REGULAR, HUMAN 100 UNIT/ML 3 ML VIAL SQ PRN (05:41)
--- NOTE | 2022-08-27 05:42 | NUR ---
RN NOTES: PT'S BLOOD SUGAR 103. NO COVERAGE NEEDED. NO S/S OF HYPER/HYPOGLYCEMIA. WILL CONTINUE TO MONITOR
[2022-08-27 05:49] LABS: POTASSIUM 2.9 mmol/L (3.5-5.1)
[2022-08-27 05:50] LABS: CALCIUM, SERUM 7.1 mg/dL (8.5-10.1); CREATININE 0.6 mg/dL (0.6-1.3); PHOSPHORUS 1.8 mg/dL (2.5-4.9)
[2022-08-27 05:51] LABS: MAGNESIUM 1.8 mg/dL (1.8-2.4)
--- NOTE | 2022-08-27 06:40 | NUR ---
FENCE INSTALLER FOREMAN CLOSING NOTES PT IN BED,OBTUNDED. ON TRACH TO VENT SETTING- S#6, AC-12, TV-375, FIO2-40%, PEEP-OFF. PT TOLERATED WELL. O2 SAT 100%. IV ACCESS ON KARAN PICC INTACT AND PATENT. LEVOPHED OFF . BP STABLE. ON TPN@90CC/HR AND LIPID AT 20CC/HR. PATIENT TOLERATED WELL. GTUBE CLAMPED. COVERED WITH DRY DRESSING. CASPER CATHETER IN PLACE. DRAINING BY GRAVITY. NOTED YELLOWISH/CLEAR URINE. FLEXISEAL DRAINING BY GRAVITY, ABDOMINAL WOUND COVERED WITH DRY DRESSING. ALL IV MEDS GIVEN ORDERED. ALL SAFETY MEASURES IN PLACE. BED IN LOWEST POSITION AND LOCKED. SR UP x3, PLACE CALL LIGHT WITHIN EASY REACH. WILL ENDORSE TO MORNING SHIFT NURSE.
[2022-08-27] MEDS: LEVOTHYROXINE SODIUM 75 MCG TABLET GT SCH (06:49)
--- NOTE | 2022-08-27 06:55 | NUR ---
RN NOTES: PT'S POTASSIUM LEVEL 2.9. NOTIFIED MANUEL QUIÑONEZ. ORDER- 60 MEQ KCL IV. NOTED AND CARRIED OUT.
--- NOTE | 2022-08-27 07:05 | NUR ---
RN Note Patient's GCS E4VTM4, bilateral pupils 3mm PEARRL. groundwater monitoring technician showed SB HR 51/min. BP WNL. On ventilator support via tracheostomy, SPO2 >95% with FiO2 40%. AC 12, TV 375mL. Left UA PICC is dry and intact, patent with TPN, LIPID and TKo running at 90mL/hr, 20mL/hr and 10mL/hr respectively. Old PEG wound is inspected, noted maceration around the wound, dressed with NS and padded dry, applied stomahesive powder. Will leave the wound open today. The skin further away from the old PEG wound is less erythematous, applied cream for protection.
--- NOTE | 2022-08-27 07:30 | NUR ---
RN Note Started KCl drip for hypokalemia. Will keep observation.
[2022-08-27] MEDS: POTASSIUM CL. PREMIX PERIPHER. 50 ML IV SCH ×6 (07:50→12:42)
[2022-08-27] MEDS: HYDROCORTISONE SOD SUCCINATE 100 MG/2 ML VIAL IV SCH ×2 (08:27→18:24)
[2022-08-27] MEDS: CHLORHEXIDINE GLUCONATE 15 ML UDC MM SCH ×2 (08:27→21:16)
[2022-08-27] MEDS: PANTOPRAZOLE 40 MG VIAL IV SCH ×2 (08:27→21:16)
[2022-08-27] MEDS: DOCUSATE SODIUM LIQ 100 MG/10 ML UDC GT SCH ×2 (08:28→17:00)
[2022-08-27] MEDS: SODIUM CHLORIDE 1000 MG TABLET GT SCH ×2 (08:28→17:00)
[2022-08-27] MEDS: METOCLOPRAMIDE HCL 10 MG TABLET GT SCH ×3 (08:28→17:00)
[2022-08-27] MEDS: POLYVINYL ALCOHOL 15 ML BOTTLE EACHEYE SCH ×2 (08:28→18:23)
[2022-08-27] MEDS: PROSOURCE / PROSTAT (PYXIS) 30 ML UDC GT SCH (08:28)
[2022-08-27] MEDS: GLYCOPYRROLATE 1 MG TABLET GT SCH ×2 (08:28→21:00)
[2022-08-27] MEDS: LEVETIRACETAM (500MG) 500 MG in IV NS 0.9% 100 ML IV SCH ×2 (08:28→21:16)
[2022-08-27] MEDS: CLOTRIMAZOLE/BETAMETASONE DIPROPIONATE 15 GM TUBE TP SCH ×2 (08:29→17:34)
[2022-08-27 09:13] LABS: OCCULT BLOOD STOOL NEGATIVE (NEGATIVE)
--- NOTE | 2022-08-27 10:00 | NUR ---
RN note Wound nurse Yanni and wound physician membership assistant Lolly came and assessed patient's abdominal wound respectively. Informed them about decreasing redness with leaving the wound open. For frequent change of roll gauze packed in the cavity and application of stomahesive powder to surrounding skin for protection.
[2022-08-27] MEDS ORDERED: TPN BAG #20 IV SCH ×4 (12:34)
[2022-08-27] MEDS: LORAZEPAM INJ 2 MG/ML VIAL IV PRN (13:37)
--- NOTE | 2022-08-27 17:16 | NUR ---
RN note Phosphate was low(1.8). For potassium phosphate infusion, await medication.
[2022-08-27] MEDS: POLYETHYLENE GLYCOL 3350 17 GM POWD.PACK GT SCH (17:34)
[2022-08-27] MEDS: POTASSIUM PHOSPHATE MM 7.5 MMOL in IV NS 0.9% 100 ML IV SCH ×2 (17:35→19:22)
[2022-08-28] VITALS (20 sets, daily range): BP systolic 92–154; BP diastolic 52–120
[2022-08-28] MEDS: BLOOD SUGAR DIAGNOSTIC 1 EACH STRIP IN SCH ×5 (00:32→23:30)
[2022-08-28 05:26] LABS: BASOPHILS % (AUTO) 0.3 % (0.0-2.0); HEMATOCRIT 23 % (33-45); HEMOGLOBIN 7.6 g/dL (11.5-14.8); LYMPHOCYTES % (AUTO) 28.6 % (20.0-44.0); MEAN CORPUSCULAR HGB CONC 33 g/dl (31.0-36.0); MEAN CORPUSCULAR VOLUME 90 fL (82-100); MONOCYTES # (AUTO) 0.3 K/uL (0.1-1.30); MONOCYTES % (AUTO) 7.7 % (2.0-12.0); NEUTROPHILS # (AUTO) 2.2 K/uL (1.8-8.9); NEUTROPHILS % (AUTO) 63.4 % (43.0-81.0); PLATELET COUNT (AUTO) 293 K/uL (150-450); RED BLOOD CELL COUNT(AUTO) 2.58 MIL/uL (4.0-5.2); WHITE BLOOD COUNT (AUTO) 3.4 K/uL (4.3-11.0)
[2022-08-28 05:37] LABS: CALCIUM, SERUM 7.2 mg/dL (8.5-10.1); CREATININE 0.7 mg/dL (0.6-1.3); MAGNESIUM 1.6 mg/dL (1.8-2.4); PHOSPHORUS 1.8 mg/dL (2.5-4.9); POTASSIUM 3.2 mmol/L (3.5-5.1)
[2022-08-28] MEDS: LEVOTHYROXINE SODIUM 75 MCG TABLET GT SCH (06:00)
--- NOTE | 2022-08-28 07:32 | NUR ---
RN Note Patient's GCS E3VTM4, bilateral pupils 3mm PEARRL. ekg monitor showed SB HR 63/min. BP 117/56mmHg. On ventilator support via tracheostomy, SPO2 >95% with FiO2 40%. AC 12, TV 375mL. Left UA PICC is dry and intact, patent with TPN and TKo running at 90mL/hr and 10mL/hr respectively. Old Peg wound was dressed with NS and padded dry, applied stomahesive powder to surrounding skin, still erythematous(but less red). Applied Z-guard to surrounding skin that is further away from the immediate old wound.
[2022-08-28] MEDS: Magnesium 1GM/D5W 100ML PREMIX 100 ML IV SCH ×2 (08:06→09:16)
[2022-08-28] MEDS: POTASSIUM PHOSPHATE MM 7.5 MMOL in IV NS 0.9% 100 ML IV SCH ×2 (08:07→11:14)
[2022-08-28] MEDS: IV NS 0.9% 250 ML IV PRN (08:08)
[2022-08-28] MEDS: HYDROCORTISONE SOD SUCCINATE 100 MG/2 ML VIAL IV SCH (08:55)
[2022-08-28] MEDS: CHLORHEXIDINE GLUCONATE 15 ML UDC MM SCH ×2 (08:55→20:09)
[2022-08-28] MEDS: GLYCOPYRROLATE 1 MG TABLET GT SCH ×2 (08:55→20:09)
[2022-08-28] MEDS: DOCUSATE SODIUM LIQ 100 MG/10 ML UDC GT SCH ×2 (08:55→16:56)
[2022-08-28] MEDS: SODIUM CHLORIDE 1000 MG TABLET GT SCH ×2 (08:55→16:56)
[2022-08-28] MEDS: METOCLOPRAMIDE HCL 10 MG TABLET GT SCH ×3 (08:55→16:56)
[2022-08-28] MEDS: POLYVINYL ALCOHOL 15 ML BOTTLE EACHEYE SCH ×2 (08:55→16:56)
[2022-08-28] MEDS: CLOTRIMAZOLE/BETAMETASONE DIPROPIONATE 15 GM TUBE TP SCH ×2 (08:56→16:56)
[2022-08-28] MEDS: PANTOPRAZOLE 40 MG VIAL IV SCH ×2 (09:17→20:09)
[2022-08-28] MEDS: LEVETIRACETAM (500MG) 500 MG in IV NS 0.9% 100 ML IV SCH ×2 (09:17→20:09)
--- NOTE | 2022-08-28 09:26 | NUR ---
RN NOte SIDING STAPLER Filippo assessed patient's old PEG wound and ordered restarted G-tube feeding at 5mL/hr.
--- NOTE | 2022-08-28 09:45 | NUR ---
RN note Administered medication at 5mL apart, noted mild oozing from the old Peg site. Restarted feeding.
[2022-08-28] MEDS ORDERED: FUROSEMIDE 40 MG/4 ML VIAL IV ONE (10:00)
[2022-08-28] MEDS ORDERED: TPN IV SCH ×2 (10:34)
[2022-08-28] MEDS: JEVITY 1.2 CAL 1,000 ML BOTTLE NG PRN (10:46)
--- NOTE | 2022-08-28 11:56 | NUR ---
RN note Restarted feeding at 5mL/hr. Noted increased oozing from the old PEG site, especially after passing medications despite administering a small volume. He said to keep tube feeding at at 5mL/hr. Would keep observation of wound.
[2022-08-28] MEDS: POTASSIUM CL. PREMIX PERIPHER. 50 ML IV SCH ×8 (14:09→23:20)
[2022-08-28] MEDS: PROSOURCE / PROSTAT (PYXIS) 30 ML UDC GT SCH (14:17)
[2022-08-28] MEDS: FAT EMULSION 20% 500 ML in PREMIX 1 EA IV SCH (14:17)
--- NOTE | 2022-08-28 16:13 | NUR ---
RN note Informed FREIGHT SORTER Filippo that urine output of patient was 2.3L from this morning and Potassium this morning was 3.2(with 20mEq KCl replaced). He said to recheck BMP now. Done as ordered.
--- NOTE | 2022-08-28 16:55 | NUR ---
RN note Received lab critical result of low potassium 2.8. Informed Filippo, who ordered 80mEq IV.
--- NOTE | 2022-08-28 17:00 | NUR ---
RN note As medication would be profusely oozed from the old G-tube site, hold miralax at 1800. Keep Jevity 1.2 feeding at 5mL/hr.
[2022-08-28 17:35] LABS: CALCIUM, SERUM 7.5 mg/dL (8.5-10.1); CREATININE 0.7 mg/dL (0.6-1.3)
[2022-08-28 17:41] LABS: POTASSIUM 2.8 mmol/L (3.5-5.1)
[2022-08-28] MEDS: POLYETHYLENE GLYCOL 3350 17 GM POWD.PACK GT SCH (18:00)
[2022-08-28] MEDS ORDERED: POTASSIUM CHLORIDE 10 MEQ/50 ML PREMIXED IVPB FOR PERIPHERAL LINE IV SCH (18:00)
--- NOTE | 2022-08-28 18:49 | NUR ---
RN NOTE PATIENT WAS TRANSFERRED FROM ICU VIA BED ACCOMPANIED BY LAURYN RN AND RISSA RN VIA ACLS PROTOCOL. VITALS TAKEN: BP:123/71. TEMP: 98.9F, HR 74; RR: 14, 02 SAT 100% ON MECHANICAL VENT SETTINGS TOLERATING WELL. KARAN PICC LINE RUNNING TPN AT 90MLS/HR, LIPIDS AT 20MLS/HR AND POTASSIUM RUNNING AT 50MLS/HR, BAG 1/8. JEVITY RUNNING AT 5MLS/HR. WILL ENDORSE CONTINUITY OF CARE TO NUCLEAR WEAPONS MECHANICAL SPECIALIST NURSE. Addendum: 08/28/22 at 1907 by BRIANNA VERGARA RN CASPER CATHETER DRAINING YELLOW URINE. FLEXISEAL INTACT DRAINING BROWN BOWELS.
--- NOTE | 2022-08-28 18:49 | NUR ---
RN note Handover was given to RN Natalie. Patient was transported to [facility] with RT Ilana's accompany. monitor tech showed SR 68/min all along with SpO2 100% via manual bag ventilation.
--- NOTE | 2022-08-28 20:00 | NUR ---
TD RN OPENING NOTE RECEIVED PTS IN BED OBTUNDED VENT TRACH ON AC SETTINGS WELL TOLERATED , NO SOB NO DISTRESS NOTED ,TELE MONITOR SR HR 75. V/S STABLE AFEBRILE , 02 SAT 100% ON. KARAN PICC LINE TRIPPLE LUMEN RUNNING TPN AT 90MLS/HR, LIPIDS AT 20MLS/HR AND POTASSIUM RUNNING AT 50MLS/HR, BAG 1/8. JEVITY RUNNING AT 5MLS/HR. ALL NEEDS ATTENDED TOO TURN AND REPOSITION Q2 HRS AND PRN .SUCTION SECRETION , ALL DUE MEDS GIVEN ORDERED NO ASE NOTED ,PTS ON F/C DRAINING WITH YELLOWISH URINE OUTPUT. FLEXSESEAL INTACT PATENT .WILL CONTINUE TO MONITOR PTS.
[2022-08-28] MEDS ORDERED: POTASSIUM CL. PREMIX PERIPHER. 50 ML IV SCH (21:00)
[2022-08-28] MEDS ORDERED: TPN BAG #23 IV SCH ×4 (21:34)
[2022-08-28] MEDS: INSULIN REGULAR, HUMAN 100 UNIT/ML 3 ML VIAL SQ PRN (23:29)
--- NOTE | 2022-08-28 23:31 | NUR ---
teresa rn notes Blood sugar for 12mn is 114mg/dl no insulin coverage given per sliding scale pts on gt feeding
[2022-08-29] VITALS: BP 142/71
[2022-08-29] MEDS: POTASSIUM CL. PREMIX PERIPHER. 50 ML IV SCH ×2 (00:34→01:35)
[2022-08-29 04:00] VITALS: BP 120/72
--- NOTE | 2022-08-29 06:23 | NUR ---
teresa rn notes Blood sugar for 6am is 88mg/dl no insulin coverage given per sliding scale pts on gt feeding
[2022-08-29] MEDS: INSULIN REGULAR, HUMAN 100 UNIT/ML 3 ML VIAL SQ PRN (06:25)
[2022-08-29] MEDS: BLOOD SUGAR DIAGNOSTIC 1 EACH STRIP IN SCH ×3 (06:25→17:21)
--- NOTE | 2022-08-29 06:59 | NUR ---
TD RN CLOSING NOTE PTS REMAIN IN BED OBTUNDED VENT TRACH ON AC SETTINGS WELL TOLERATED , NO SOB NO DISTRESS NOTED ,TELE MONITOR SR HR 65. V/S STABLE AFEBRILE , 02 SAT 97% ON. KARAN PICC LINE TRIPPLE LUMEN RUNNING TPN #23 AT 90MLS/HR, LIPIDS AT 20MLS/HR . JEVITY RUNNING AT 5MLS/HR. ALL NEEDS ATTENDED TOO TURN AND REPOSITION Q2 HRS AND PRN . ALL DUE MEDS GIVEN ORDERED NO ASE NOTED ,PTS ON F/C DRAINING WITH YELLOWISH URINE OUTPUT 600CC. FLEXSESEAL INTACT PATENT 50CC.WILL CONTINUE TO MONITOR PTS.
[2022-08-29] MEDS: LEVOTHYROXINE SODIUM 75 MCG TABLET GT SCH (07:24)
[2022-08-29 07:43] LABS: CALCIUM, SERUM 7.2 mg/dL (8.5-10.1); CREATININE 0.7 mg/dL (0.6-1.3); MAGNESIUM 1.7 mg/dL (1.8-2.4); PHOSPHORUS 1.4 mg/dL (2.5-4.9); POTASSIUM 3.8 mmol/L (3.5-5.1)
[2022-08-29 07:52] LABS: BASOPHILS # (AUTO) 0.1 K/uL (0.0-0.2); BASOPHILS % (AUTO) 0.9 % (0.0-2.0); EOSINOPHILS % (AUTO) 0.5 % (0.0-6.0); HEMATOCRIT 25 % (33-45); HEMOGLOBIN 8.2 g/dL (11.5-14.8); LYMPHOCYTES # (AUTO) 1.7 K/uL (0.8-4.8); LYMPHOCYTES % (AUTO) 29.5 % (20.0-44.0); MEAN CORPUSCULAR HGB CONC 33 g/dl (31.0-36.0); MEAN CORPUSCULAR VOLUME 91 fL (82-100); MONOCYTES # (AUTO) 0.6 K/uL (0.1-1.30); NEUTROPHILS # (AUTO) 3.3 K/uL (1.8-8.9); NEUTROPHILS % (AUTO) 58.1 % (43.0-81.0); PLATELET COUNT (AUTO) 309 K/uL (150-450); RED BLOOD CELL COUNT(AUTO) 2.71 MIL/uL (4.0-5.2); WHITE BLOOD COUNT (AUTO) 5.7 K/uL (4.3-11.0)
[2022-08-29 08:00] VITALS: BP 140/91
[2022-08-29] MEDS ORDERED: TPN BAG #24 IV SCH ×4 (08:34)
[2022-08-29] MEDS: PANTOPRAZOLE 40 MG VIAL IV SCH ×2 (08:36→20:05)
[2022-08-29] MEDS: CHLORHEXIDINE GLUCONATE 15 ML UDC MM SCH ×2 (08:36→20:05)
[2022-08-29] MEDS: DOCUSATE SODIUM LIQ 100 MG/10 ML UDC GT SCH ×2 (08:36→17:00)
[2022-08-29] MEDS: HYDROCORTISONE SOD SUCCINATE 100 MG/2 ML VIAL IV SCH (08:37)
[2022-08-29] MEDS: Magnesium 1GM/D5W 100ML PREMIX 100 ML IV SCH ×2 (08:37→09:51)
[2022-08-29] MEDS: METOCLOPRAMIDE HCL 10 MG TABLET GT SCH ×3 (08:37→17:00)
[2022-08-29] MEDS: GLYCOPYRROLATE 1 MG TABLET GT SCH ×2 (08:37→20:04)
[2022-08-29] MEDS: SODIUM CHLORIDE 1000 MG TABLET GT SCH ×2 (08:37→17:00)
[2022-08-29] MEDS ORDERED: Sodium Phosphate 15 MMOL in IV NS 0.9% 245 ML IV SCH (09:00)
[2022-08-29] MEDS: POLYVINYL ALCOHOL 15 ML BOTTLE EACHEYE SCH ×2 (09:41→17:21)
[2022-08-29] MEDS: PROSOURCE / PROSTAT (PYXIS) 30 ML UDC GT SCH (09:42)
[2022-08-29] MEDS: CLOTRIMAZOLE/BETAMETASONE DIPROPIONATE 15 GM TUBE TP SCH ×2 (09:43→17:25)
[2022-08-29] MEDS: LEVETIRACETAM (500MG) 500 MG in IV NS 0.9% 100 ML IV SCH ×2 (10:43→20:05)
[2022-08-29] MEDS ORDERED: DIATR MEGLU/DIATRIZOATE SODIUM 30 ML BOTTLE (GASTROGRAPHIN) ONE (11:15)
--- NOTE | 2022-08-29 11:24 | NUR ---
WOUND CARE FOLLOW UP: PT SEEN WITH SURGICAL P.A. FOR ABDOMINAL WOUND WHICH HAS SOME REDNESS TO PERIWOUND AREA. PT ALSO NOTED TO HAVE IBETH FROM PREVIOUS DRAIN SITE AND SUTURES TO PEG TUBE, ALL OF WHICH WERE REMOVED BY SURGICAL P.A. SOME OPEN AREAS NOTED AROUND PEG SITE. ORDERS RECEIVED FROM SURGICAL TEAM AND DISCUSSED WITH NURSING STAFF. IN AGREEMENT WITH PLAN OF CARE.
[2022-08-29 12:00] VITALS: BP_SYST 129; BP_SYST 95; BP_DIAS 54; BP_DIAS 67
[2022-08-29] MEDS: NEOMY SULF/BACITRAC ZN/POLY 15 GM TUBE TP SCH (12:27)
--- NOTE | 2022-08-29 14:45 | NUR ---
teletypesetter note per beckie rn transport tank technician ok to transfer to tel order carried out
[2022-08-29 16:00] VITALS: BP 136/60
--- NOTE | 2022-08-29 17:00 | NUR ---
DR. RED ORDERED ABDOMINAL PACK WET TO DRY Q 4 HRS.
--- NOTE | 2022-08-29 17:23 | NUR ---
DR. LOGAN ORDERED TO STOP THE G TUBE FEEDING AND ALSO THE MEDICATION MUST BE HELD.
[2022-08-29] MEDS: POLYETHYLENE GLYCOL 3350 17 GM POWD.PACK GT SCH (17:25)
--- NOTE | 2022-08-29 18:53 | NUR ---
RN CLOSING NOTE PTS REMAIN IN BED OBTUNDED VENT TRACH ON AC SETTINGS WELL TOLERATED , NO SOB NO DISTRESS NOTED ,TELE MONITOR SR HR 69. VITAL SIGNS STABLE AFEBRILE , 02 SAT 99% ON. KARAN PICC LINE TRIPPLE LUMEN RUNNING TPN #23 AT 90MLS/HR. JEVITY STOPPED BY DR. LOGAN AT 1700 AND ALSO MEDICATION HELD DUE TO MAL FUNCTIONING OG G TUBE, WAITING FOR DR. RED TO PLACE A NEW G TUBE PLACEMENT. ALL NEEDS ATTENDED TURN AND REPOSITION Q2 HRS AND PRN . ALL DUE MEDS GIVEN ORDERED CASPER CATHETER DRAINING WITH YELLOWISH URINE OUTPUT 1800CC. FLEXSESEAL INTACT PATENT 50CC. WILL ENDORSE THE PATIENT TO PM NURSE FOR ANG.
--- NOTE | 2022-08-29 19:28 | NUR ---
TD RN OPENING NOTE RECEIVED PTS IN BED OBTUNDED VENT TRACH ON AC SETTINGS WELL TOLERATED , NO SOB NO DISTRESS NOTED ,TELE MONITOR SB HR 58 V/S STABLE AFEBRILE , 02 SAT 100% ON. KRAAN PICC LINE TRIPPLE LUMEN .STARTED TPN #25 AT 90MLS/HR, PTS NOTED WITH GT OUT WITH NO BALLOON UNABLE TO INSERT BACK DUE TO RESISTANCE .DRESSING REINFORCED .KEPT PTS COMFORTABLE ,NOT ON ANY DISTRESS ,CHARGED NURSE MADE AWARE AND PIT CRANE OPERATOR DR JACKSON MADE AWARE TOO. ALL NEEDS ATTENDED TOO TURN AND REPOSITION Q2 HRS AND PRN .SUCTION SECRETION , ALL DUE MEDS GIVEN ORDERED NO ASE NOTED ,PTS ON F/C DRAINING WITH YELLOWISH URINE OUTPUT. FLEXSESEAL INTACT PATENT .WILL CONTINUE TO MONITOR PTS.
--- NOTE | 2022-08-29 19:30 | NUR ---
1929 Summoned to patient's room by primary nurse Brianna, found patient PEG tube out with balloon deflated. Unable to reinsert due to resistance. PEG tube removed and reinforced site with dressing. Patient currently NPO on TPN due to GT malfunction. RETOUCHING OPERATOR Post notified. Patient in no apparent distress. No signs of aspiration noted. Will cont. to monitor.
[2022-08-29] MEDS ORDERED: TPN BAG #25 IV SCH ×4 (19:34)
[2022-08-29 20:00] VITALS: BP 90/45
--- NOTE | 2022-08-29 21:05 | NUR ---
2105 HARP REGULATOR Post in the unit and made aware of patient's PEG out with no order made.
[2022-08-30] VITALS: BP 105/52
[2022-08-30] MEDS: BLOOD SUGAR DIAGNOSTIC 1 EACH STRIP IN SCH ×4 (00:24→17:44)
[2022-08-30] MEDS: INSULIN REGULAR, HUMAN 100 UNIT/ML 3 ML VIAL SQ PRN ×2 (00:26→05:25)
--- NOTE | 2022-08-30 00:30 | NUR ---
telesales agent notes, Blood sugar at 12mn is 110mg/dl no coverage given per sliding scale
[2022-08-30 04:00] VITALS: BP 125/59
[2022-08-30 04:27] LABS: EOSINOPHILS % (MANUAL) 1 % (0-4); LYMPHOCYTES % (MANUAL) 30 % (16-48); MONOCYTES % (MANUAL) 10 % (0-11.0); NEUTROPHILS % (MANUAL) 59 (42-76)
--- NOTE | 2022-08-30 05:26 | NUR ---
television repairer notes Blood sugar at 6am is 86mg/dl no coverage given per sliding scale
[2022-08-30] MEDS ORDERED: TPN BAG #26 IV SCH ×2 (06:34)
[2022-08-30 06:52] LABS: CALCIUM, SERUM 7.5 mg/dL (8.5-10.1); CARBON DIOXIDE 29 mmol/L (21-32); CHLORIDE 106 mmol/L (98-107); CREATININE 0.8 mg/dL (0.6-1.3); GLUCOSE 92 mg/dL (74-106); MAGNESIUM 1.8 mg/dL (1.8-2.4); PHOSPHORUS 2.4 mg/dL (2.5-4.9); POTASSIUM 3.7 mmol/L (3.5-5.1); SODIUM SERUM 138 mmol/L (136-145); UREA NITROGEN, BLOOD 34 mg/dL (7-18)
[2022-08-30] MEDS: LEVOTHYROXINE SODIUM 75 MCG TABLET GT SCH (07:00)
[2022-08-30 07:09] LABS: BASOPHILS % (AUTO) 0.5 % (0.0-2.0); EOSINOPHILS % (AUTO) 0.6 % (0.0-6.0); HEMATOCRIT 25 % (33-45); HEMOGLOBIN 8.3 g/dL (11.5-14.8); LYMPHOCYTES # (AUTO) 1.5 K/uL (0.8-4.8); LYMPHOCYTES % (AUTO) 30.9 % (20.0-44.0); MEAN CORPUSCULAR HGB CONC 33 g/dl (31.0-36.0); MEAN CORPUSCULAR VOLUME 91 fL (82-100); MONOCYTES # (AUTO) 0.5 K/uL (0.1-1.30); MONOCYTES % (AUTO) 10.6 % (2.0-12.0); NEUTROPHILS # (AUTO) 2.8 K/uL (1.8-8.9); NEUTROPHILS % (AUTO) 57.4 % (43.0-81.0); PLATELET COUNT (AUTO) 299 K/uL (150-450); RED BLOOD CELL COUNT(AUTO) 2.76 MIL/uL (4.0-5.2); WHITE BLOOD COUNT (AUTO) 4.8 K/uL (4.3-11.0)
--- NOTE | 2022-08-30 07:15 | NUR ---
PER SPINNING ROOM WORKER REPORT PATIENT'S G TUBE WAS OUT AND SHE PUT THE G TUBE IN A PLASTIC BAG AT PATIENT'S BED SIDE. THE SUTURES WERE REMOVED BY DR. TALBOT AND WOUND CARE NURSE RADHA YESTERDAY BEFORE NOON. DR. DOREEN FARR ORDERED TO STOP THE FEEDING 5ML/HR COMPLETELY AND ALSO HOLD THE MEDS DUE TO G TUBE MAL FUNCTIONING. DR. LOGAN STATED THAT DR. RED WILL HAVE ANOTHER G-TUBE PLACEMENT, BUT THE DATE AND TIME IT'S UNKNOWN YET.
--- NOTE | 2022-08-30 07:22 | NUR ---
MANAGER CONTACT NOTES LEVOTHYROXINE NOT GIVEN D/D PTS NPO STATUS ,WILL ENDORSE TO RN DAY SHIFT FOR CONTINUITY OF CARE.
[2022-08-30 08:00] VITALS: BP 129/62
--- NOTE | 2022-08-30 08:18 | NUR ---
RT Pt recvd on AC vent settings of 12 375 40% +5. trach is patent and secured. No SOB or respiratory distress noted. Spare trach and ambu bag at bedside. SPo2 >92%. Vent is plugged into red outlet with alarms on and audible.
[2022-08-30] MEDS: LEVETIRACETAM (500MG) 500 MG in IV NS 0.9% 100 ML IV SCH ×2 (08:19→20:20)
[2022-08-30] MEDS: POLYVINYL ALCOHOL 15 ML BOTTLE EACHEYE SCH ×2 (08:19→17:10)
[2022-08-30 08:20] LABS: CHOLESTEROL 170 mg/dL (<200); HDL CHOLESTEROL 38 mg/dL (40-60); LDL 125 mg/dL (0-99)
[2022-08-30] MEDS: CHLORHEXIDINE GLUCONATE 15 ML UDC MM SCH ×2 (08:20→20:19)
[2022-08-30 08:34] LABS: TRIGLYCERIDES > 150 mg/dL (30-150)
[2022-08-30] MEDS: SODIUM CHLORIDE 1000 MG TABLET GT SCH ×2 (09:00→17:00)
[2022-08-30] MEDS: PROSOURCE / PROSTAT (PYXIS) 30 ML UDC GT SCH (09:00)
[2022-08-30] MEDS: METOCLOPRAMIDE HCL 10 MG TABLET GT SCH ×3 (09:00→17:00)
[2022-08-30] MEDS: PANTOPRAZOLE 40 MG/PACK PACK GT SCH ×2 (09:00→20:20)
[2022-08-30] MEDS: HYDROCORTISONE SOD SUCCINATE 100 MG/2 ML VIAL IV SCH (09:00)
[2022-08-30] MEDS: DOCUSATE SODIUM LIQ 100 MG/10 ML UDC GT SCH ×2 (09:00→17:00)
[2022-08-30] MEDS: GLYCOPYRROLATE 1 MG TABLET GT SCH ×2 (09:00→20:20)
[2022-08-30] MEDS: CLOTRIMAZOLE/BETAMETASONE DIPROPIONATE 15 GM TUBE TP SCH ×2 (09:07→17:10)
[2022-08-30] MEDS: NEOMY SULF/BACITRAC ZN/POLY 15 GM TUBE TP SCH (09:07)
[2022-08-30 12:00] VITALS: BP 111/64
[2022-08-30] MEDS ORDERED: Sodium Phosphate 15 MMOL in IV NS 0.9% 245 ML IV SCH (12:00)
[2022-08-30] MEDS: FAT EMULSION 20% 500 ML in PREMIX 1 EA IV SCH (12:23)
[2022-08-30 16:00] VITALS: BP 112/58
[2022-08-30] MEDS: POLYETHYLENE GLYCOL 3350 17 GM POWD.PACK GT SCH (17:12)
[2022-08-30] MEDS ORDERED: TPN BAG #27 IV SCH ×4 (17:33)
--- NOTE | 2022-08-30 19:03 | NUR ---
RN CLOSING NOTE PATIENT ON JOEL OBTUNDED OPEN EYES ON VENT NO S/S OF SOB OR DISTRESS. CASPER CATH DRAINING YELLOW URINE. GTUBE IS STOPPED DUE TO MALFUNCTIONING WAITING FOR DR. RED TO PLACE A NEW ONE. ALL SAFETY MEASUREMENT IN PLACE ENDORSED THE PATIENT TO THE COMPUTER INSTALLATION ENGINEER NURSE FOR ANG.
--- NOTE | 2022-08-30 19:30 | NUR ---
MANAGER TRAFFIC OPENING NOTE RECEIVED PATIENT IN BED, OBTUNDED, OPEN EYES. ON VENT NO S/S OF SOB OR DISTRESS. PICC LINE INTACT, CURRENTLY RUNNING NS TKO, LIPID, TPN. CASPER CATH DRAINING YELLOW URINE WITH 750 ML OF OUTPUT NOTED IN BAG. GTUBE IS STOPPED DUE TO MALFUNCTION, WAITING FOR DR. RED TO PLACE A NEW ONE. GTUBE SITE DRESSING INTACT. ALL SAFETY PRECAUTIONS IN PLACE: BED LOCKED AND IN LOW POSITION, SIDE RAILS UP X3. WILL CONTINUE TO MONITOR AND ASSIST.
[2022-08-30 20:00] VITALS: BP 140/72
[2022-08-31] VITALS: BP 139/67
[2022-08-31] MEDS: BLOOD SUGAR DIAGNOSTIC 1 EACH STRIP IN SCH ×5 (00:18→23:20)
[2022-08-31] MEDS: INSULIN REGULAR, HUMAN 100 UNIT/ML 3 ML VIAL SQ PRN ×3 (00:19→11:16)
[2022-08-31 04:00] VITALS: BP 122/66
[2022-08-31] MEDS ORDERED: TPN BAG #28 IV SCH ×2 (04:30)
[2022-08-31] MEDS: LEVOTHYROXINE SODIUM 75 MCG TABLET GT SCH (06:34)
--- NOTE | 2022-08-31 06:35 | NUR ---
GIS PROGRAMMER CLOSING NOTE PATIENT IN BED, OBTUNDED, OPEN EYES. STABLE ON VENT NO S/S OF SOB OR DISTRESS. PICC LINE INTACT, CURRENTLY RUNNING NS TKO, LIPID, TPN. CASPER CATH DRAINING YELLOW URINE, TOTAL OF 1100 ML OF OUTPUT THROUGHOUT SHIFT. GTUBE IS STOPPED DUE TO MALFUNCTION, WAITING FOR DR. RED TO PLACE A NEW ONE. PO/GT MEDS NON-ADMIN DUE TO LACK OF GTUBE ACCESS. GTUBE SITE DRESSING CHANGED. ALL CARE PROVIDED AND MEDS TOLERATED WELL. SAFETY PRECAUTIONS MAINTAINED: BED LOCKED AND IN LOW POSITION, SIDE RAILS UP X3. WILL ENDORSE ANG TO DAY SHIFT NURSE.
[2022-08-31 06:53] LABS: CALCIUM, SERUM 7.3 mg/dL (8.5-10.1); CREATININE 0.7 mg/dL (0.6-1.3); MAGNESIUM 1.5 mg/dL (1.8-2.4); PHOSPHORUS 2.7 mg/dL (2.5-4.9); POTASSIUM 2.9 mmol/L (3.5-5.1)
--- NOTE | 2022-08-31 07:20 | NUR ---
BRICK AND BLOCK MASON NOTE PATIENT IN BED, OBTUNDED, OPEN EYES. WITH TRACH TO VENT SETTING NO S/S OF SOB OR DISTRESS. PICC LINE INTACT,AND FLUSHED WELL ,ON LIPID, TPN. CASPER CATH DRAINING YELLOW URINE, L . GTUBE FEEDING STOPPED DUE TO TUBE IS OUT . GTUBE SITE DRESSING CHANGED. ALL CARE PROVIDED AND MEDS TOLERATED WELL. SAFETY PRECAUTIONS MAINTAINED: BED LOCKED AND IN LOW POSITION, SIDE RAILS UP X3. ON TELE MONITOR SR HR HR 68, WITH FLEXISEAL RECTAL R TUBE IN PLACE WITH BROWN COLOR LIQUID STOOL, WILL CONT TO MONITOR
[2022-08-31] MEDS: Magnesium 1GM/D5W 100ML PREMIX 100 ML IV SCH ×2 (07:42→09:46)
[2022-08-31 07:44] LABS: BASOPHILS # (AUTO) 0.1 K/uL (0.0-0.2); BASOPHILS % (AUTO) 0.8 % (0.0-2.0); EOSINOPHILS % (AUTO) 4.4 % (0.0-6.0); HEMATOCRIT 27 % (33-45); HEMOGLOBIN 8.7 g/dL (11.5-14.8); LYMPHOCYTES # (AUTO) 0.9 K/uL (0.8-4.8); LYMPHOCYTES % (AUTO) 14.2 % (20.0-44.0); MEAN CORPUSCULAR HGB CONC 33 g/dl (31.0-36.0); MEAN CORPUSCULAR VOLUME 92 fL (82-100); MONOCYTES # (AUTO) 0.4 K/uL (0.1-1.30); MONOCYTES % (AUTO) 5.8 % (2.0-12.0); NEUTROPHILS # (AUTO) 4.7 K/uL (1.8-8.9); NEUTROPHILS % (AUTO) 74.8 % (43.0-81.0); PLATELET COUNT (AUTO) 328 K/uL (150-450); RED BLOOD CELL COUNT(AUTO) 2.89 MIL/uL (4.0-5.2); WHITE BLOOD COUNT (AUTO) 6.2 K/uL (4.3-11.0)
[2022-08-31 07:55] LABS: PREALBUMIN 21.4 MG/DL (18.0-35.7)
[2022-08-31 08:00] VITALS: BP 113/62
[2022-08-31] MEDS: PANTOPRAZOLE 40 MG/PACK PACK GT SCH ×2 (08:00→20:10)
[2022-08-31] MEDS: METOCLOPRAMIDE HCL 10 MG TABLET GT SCH ×3 (08:00→16:22)
[2022-08-31] MEDS: GLYCOPYRROLATE 1 MG TABLET GT SCH ×2 (08:00→20:10)
[2022-08-31] MEDS: POLYVINYL ALCOHOL 15 ML BOTTLE EACHEYE SCH ×2 (08:00→16:24)
[2022-08-31] MEDS: DOCUSATE SODIUM LIQ 100 MG/10 ML UDC GT SCH ×2 (08:00→16:22)
[2022-08-31] MEDS: PROSOURCE / PROSTAT (PYXIS) 30 ML UDC GT SCH (08:00)
[2022-08-31] MEDS: SODIUM CHLORIDE 1000 MG TABLET GT SCH ×2 (08:01→16:22)
--- NOTE | 2022-08-31 08:01 | NUR ---
DOG BATHER NOTE UNABLE TO GIVE MEDS VIA G TUBE G TUBE IS OUT ,WILL F\U WITH
[2022-08-31] MEDS: HYDROCORTISONE SOD SUCCINATE 100 MG/2 ML VIAL IV SCH (08:05)
[2022-08-31] MEDS: CHLORHEXIDINE GLUCONATE 15 ML UDC MM SCH ×2 (08:05→20:09)
[2022-08-31] MEDS: CLOTRIMAZOLE/BETAMETASONE DIPROPIONATE 15 GM TUBE TP SCH ×2 (08:06→16:23)
[2022-08-31] MEDS: NEOMY SULF/BACITRAC ZN/POLY 15 GM TUBE TP SCH (08:06)
[2022-08-31 08:10] LABS: ALBUMIN 1.7 g/dL (3.4-5.0)
[2022-08-31] MEDS ORDERED: FUROSEMIDE 20 MG/2 ML VIAL IV ONE (09:00)
[2022-08-31] MEDS: LEVETIRACETAM (500MG) 500 MG in IV NS 0.9% 100 ML IV SCH ×2 (09:04→20:09)
--- NOTE | 2022-08-31 09:50 | NUR ---
telephone cleaner note chest x ray done as ordered
[2022-08-31] MEDS ORDERED: TPN BAG #29 IV SCH ×4 (10:30)
[2022-08-31] MEDS: POTASSIUM CL. PREMIX PERIPHER. 50 ML IV SCH ×8 (10:41→18:17)
--- NOTE | 2022-08-31 11:51 | NUR ---
senior telecommunications engineer note seen by beckie rn head and neck surgeon ,notified that g tube is out ,unable to do medication via g tube also inform that hr sb 47-48 bm stated still ok, informed to that bp earlier was 113/62, wound tx done ,beckie rn head and neck surgeon examined wound stated that dr afua castro will see patient soon , will f\
[2022-08-31 12:00] VITALS: BP 107/44
--- NOTE | 2022-08-31 13:33 | NUR ---
SMALL MACHINE BINDERY OPERATOR NOTE ROUNDS MADE, TRACH SUCTION DONE, KEEP CLEAN DRY , ALL NEEDS ATTENDED .WILL CONT TO MONITOR
--- NOTE | 2022-08-31 15:00 | NUR ---
CODING SPECIALIST HOME HEALTH NOTE CALLED TO DR LOGAN DNP TO CLARIFIED ORDER FOR KCL STATED NEED ADDITION 3 BAGS , AWARE THAT BEFORE WAS GIVE 5 BAGS 50 MEQ OF KCL , STATED STILL NEEDED MORE 3 BAG TOTAL 80 MEQ OF KCL
[2022-08-31] MEDS ORDERED: TPN IV SCH ×4 (15:30)
[2022-08-31 16:00] VITALS: BP 99/53
--- NOTE | 2022-08-31 16:40 | NUR ---
PARIMUTUEL TICKET CASHIER NOTE CONT ON KCL INFUSION AND TPN INFUSION ORDERED, KEEP HOB ELEVATED TOLERATED , TRACH CARE DONE ,RT AT BEDSIDE TOLERATED VENT SETTING WELL ,WILL MONITOR
--- NOTE | 2022-08-31 17:00 | NUR ---
REGIONAL COMPANY TRUCK DRIVER NOTE NOTES BOTH ARMS WITH SEVERE TREMORS CALLED TO LEXI LOGAN ORDERED ATIVAN 1 MG IVP TIME ONE NOTIFIED THAT BP 95/53 STATED STILL OK TO GIVE , ALSO ORDERED BMP IN AM ORDER CARRIED OUT Addendum: 08/31/22 at 1727 by MAGDALENA LOPEZ RN 1715 RECHECKED BP 99/53, SATURATION 100% ,ATIVAN 1 MG IVP GIVEN ORDERED, WILL MONITOR
[2022-08-31] MEDS: POLYETHYLENE GLYCOL 3350 17 GM POWD.PACK GT SCH (17:02)
[2022-08-31] MEDS ORDERED: LORAZEPAM INJ 2 MG/ML VIAL IV PRN (17:10)
--- NOTE | 2022-08-31 18:25 | NUR ---
AUGER MILL OPERATOR NOTE PATIENT IN BED OBTUNDED WITH TRACH TO VENT SETTING ORDERED, ON TELE MONITOR SR H 70, WITH CASPER CATH TO GRAVITY WITH YELLOW COLOR URINE, ABDOMEN DRESSING INTACT AND IN PLACE, CONT ON TPN INFUSION , VIA LT UPPER ARM PICC LINE, LT UPPER ARM PICC LINE IN PLACED AND FLUSHED WE'LL, , BED IN LOWEST AND LOCKED POSITION , CALL LIGHT WITHIN REACH , SAFETY MEASURE IMPLEMENTED, KEEP HOB ELEVATED AT ALL TIME, WITH FLEXE SEAL RECTAL TUBE IN PLACE WITH BROWN COLOR LIQUID STOOL NOTED , MOUTH CARE DONE , ALL NEEDS ATTENDEDWILL CONT TO MONITOR CLOSELY
--- NOTE | 2022-08-31 19:30 | NUR ---
ANNUAL CAMPAIGN MANAGER OPENING NOTE RECEIVED PATIENT IN BED, WITH HOB ELEVATED, NON VERBAL. AFEBRILE AND NOT IN ANY FORM OF ACUTE DISTRESS. ON MECHANICAL VENTILATOR, TOLERATING CURRENT SETTINGS. WITH PICC LINE ON KARAN RUNNING WITH TPN AT 90ML/HR. WITH INTACT CASPER CATHETER, DRAINING WELL WITH YELLOE URINE OUTPUT, NO HEMATURIA OR BLEEDING NOTED. PATIENT STILL HAS NO FUNCTIONING G-TUBE, MD ORDERED TO HOLD ALL MEDICATIONS VIA G-TUBE UNTIL REPLACED BY A NEW ONE. SAFETY MEASURES IN PLACE. KEPT BED IN LOCKED AND IN LOW POSITION. SIDE RAILS UP X2. ADVISED TO USE THE CALL LIGHT WHEN IN NEED OF ASSISTANCE.
[2022-08-31 20:00] VITALS: BP 130/98
[2022-08-31] MEDS: IV NS 0.9% 250 ML IV PRN (21:47)
[2022-09-01] VITALS: BP 117/65
[2022-09-01] MEDS ORDERED: TPN BAG #30 IV SCH ×2 (02:30)
[2022-09-01 04:00] VITALS: BP 136/72
[2022-09-01] MEDS: BLOOD SUGAR DIAGNOSTIC 1 EACH STRIP IN SCH ×3 (05:31→17:50)
[2022-09-01] MEDS: LEVOTHYROXINE SODIUM 75 MCG TABLET GT SCH (06:23)
--- NOTE | 2022-09-01 06:31 | NUR ---
FREIGHT MANAGER CLOSING NOTE PATIENT IN BED, WITH HOB ELEVATED, NON VERBAL. AFEBRILE AND NOT IN ANY FORM OF ACUTE DISTRESS. ON MECHANICAL VENTILATOR, TOLERATING CURRENT SETTINGS. WITH PICC LINE ON KARAN AND ON TPN AT 90ML/HR. ON TELE MONITORING WITH CURRENT READING OF SR 69. WITH INTACT CASPER CATHETER, DRAINING WELL WITH YELLOW URINE OUTPUT, NO HEMATURIA OR BLEEDING NOTED APPROX. 1700ML URINE OUTPUT DURING THE SHIFT. ON FLEXISEAL WITH (+) BROWN BM. PATIENT STILL HAS NO FUNCTIONING G-TUBE, MD ORDERED TO HOLD ALL MEDICATIONS VIA G-TUBE UNTIL REPLACED BY A NEW ONE. MONITORED FOR ANY S/SX. OF HYPO/HYPERGLYCEMIA. DUE MEDS GIVEN. WOUND CARE DONE. SAFETY MEASURES IN PLACE. KEPT BED IN LOCKED AND IN LOW POSITION. SIDE RAILS UP X2. CALL LIGHT WITHIN EASY REACH. ALL NURSING NEEDS ATTENDED. ENDORSED TO INCOMING SHIFT FOR CONTINUITY OF CARE.
[2022-09-01 07:16] LABS: CALCIUM, SERUM 7.5 mg/dL (8.5-10.1); CREATININE 0.7 mg/dL (0.6-1.3); MAGNESIUM 1.8 mg/dL (1.8-2.4); PHOSPHORUS 1.9 mg/dL (2.5-4.9); POTASSIUM 3.6 mmol/L (3.5-5.1)
--- NOTE | 2022-09-01 07:45 | NUR ---
GAS FURNACE INSTALLER OPENING NOTE RECEIVED PATIENT IN BED, WITH HOB ELEVATED, NON VERBAL. AFEBRILE. ON MECHANICAL VENTILATOR, TOLERATING CURRENT SETTINGS. WITH PICC LINE ON KARAN RUNNING WITH TPN AT 90ML/HR. WITH INTACT CASPER CATHETER, DRAINING WELL WITH YELLOW URINE OUTPUT, NO HEMATURIA, NO SEDIMENTATION NOTED. GT SITE DRESSING INTACT AND DRY. PATIENT STILL HAS NO FUNCTIONING G-TUBE, MD ORDERED TO HOLD ALL MEDICATIONS VIA G-TUBE UNTIL REPLACED BY A NEW ONE. SAFETY MEASURES IN PLACE. KEPT BED IN LOCKED AND IN LOW POSITION. SIDE RAILS UP X2. TURNED AND REPOSITIONED FREQUENTLY TOLERATED FOR COMFORT AND CIRCULATION.
[2022-09-01 08:00] VITALS: BP 121/59
[2022-09-01] MEDS: LEVETIRACETAM (500MG) 500 MG in IV NS 0.9% 100 ML IV SCH ×2 (08:07→21:03)
[2022-09-01] MEDS: DOCUSATE SODIUM LIQ 100 MG/10 ML UDC GT SCH ×2 (08:45→17:00)
[2022-09-01] MEDS: PROSOURCE / PROSTAT (PYXIS) 30 ML UDC GT SCH (08:46)
[2022-09-01] MEDS: SODIUM CHLORIDE 1000 MG TABLET GT SCH ×2 (08:46→17:00)
[2022-09-01] MEDS: GLYCOPYRROLATE 1 MG TABLET GT SCH ×2 (08:46→21:00)
[2022-09-01] MEDS: CLOTRIMAZOLE/BETAMETASONE DIPROPIONATE 15 GM TUBE TP SCH ×2 (08:55→17:16)
[2022-09-01] MEDS: POLYVINYL ALCOHOL 15 ML BOTTLE EACHEYE SCH ×2 (08:55→16:18)
[2022-09-01] MEDS: PANTOPRAZOLE 40 MG VIAL IV SCH ×2 (08:59→21:03)
[2022-09-01] MEDS: METOCLOPRAMIDE HCL 10 MG/2 ML VIAL IV SCH ×3 (09:00→16:18)
[2022-09-01] MEDS: HYDROCORTISONE SOD SUCCINATE 100 MG/2 ML VIAL IV SCH (09:00)
[2022-09-01] MEDS ORDERED: Sodium Phosphate 15 MMOL in IV NS 0.9% 245 ML IV SCH (10:00)
[2022-09-01] MEDS: CHLORHEXIDINE GLUCONATE 15 ML UDC MM SCH ×2 (10:38→21:03)
[2022-09-01] MEDS: NEOMY SULF/BACITRAC ZN/POLY 15 GM TUBE TP SCH (10:45)
[2022-09-01 12:00] VITALS: BP 115/63
[2022-09-01] MEDS: FAT EMULSION 20% 500 ML in PREMIX 1 EA IV SCH (12:03)
[2022-09-01] MEDS ORDERED: TPN #31 IV SCH ×4 (13:30)
[2022-09-01] MEDS ORDERED: FAT EMULSION 20% 500 ML in PREMIX 1 EA IV SCH (14:00)
[2022-09-01 16:00] VITALS: BP 123/63
[2022-09-01] MEDS: INSULIN REGULAR, HUMAN 100 UNIT/ML 3 ML VIAL SQ PRN (17:14)
[2022-09-01] MEDS: POLYETHYLENE GLYCOL 3350 17 GM POWD.PACK GT SCH (17:50)
--- NOTE | 2022-09-01 18:53 | NUR ---
BAR ROLLER CLOSING NOTE PATIENT IN BED, WITH HOB ELEVATED, NON VERBAL. AFEBRILE AND NOT IN ANY FORM OF ACUTE DISTRESS. ON MECHANICAL VENTILATOR, TOLERATING CURRENT SETTINGS. WITH PICC LINE ON KARAN AND ON TPN AT 90ML/HR AND LIPIDS AT 20CC/HR. TOLERATED WELL. ON TELE MONITORING WITH CURRENT READING OF SR 53. CASPER CATHETER, INTACT, DRAINING WELL WITH YELLOW URINE OUTPUT, NO HEMATURIA OR BLEEDING NOTED APPROX. 1000ML URINE OUTPUT DURING THE SHIFT. ON FLEXISEAL WITH (+) BROWN BM 30 CC. PATIENT STILL HAS NO FUNCTIONING G-TUBE, MD ORDERED TO HOLD ALL MEDICATIONS VIA G-TUBE UNTIL REPLACED BY A NEW ONE. MONITORED FOR ANY S/SX. OF HYPO/HYPERGLYCEMIA. DUE MEDS GIVEN. WOUND CARE DONE. TURNED AND REPOSITIONED FREQUENTLY TOLERATED FOR COMFORT AND CIRCULATION, SAFETY MEASURES IN PLACE. KEPT BED IN LOCKED AND IN LOW POSITION. SIDE RAILS UP X2. CALL LIGHT WITHIN EASY REACH. ALL NURSING NEEDS ATTENDED. ENDORSED TO INCOMING SHIFT FOR CONTINUITY OF CARE.
--- NOTE | 2022-09-01 19:30 | NUR ---
NUMERICAL CONTROL NESTING OPERATOR OPENING NOTE RECEIVED PATIENT IN BED, WITH HOB ELEVATED, NON VERBAL. AFEBRILE AND NOT IN ANY FORM OF ACUTE DISTRESS. ON MECHANICAL VENTILATOR, TOLERATING CURRENT SETTINGS. WITH PICC LINE ON KARAN RUNNING WITH TPN AT 90ML/HR AND LIPIDS AT 20 ML/HR. WITH INTACT CASPER CATHETER, DRAINING WELL WITH YELLOW URINE OUTPUT, NO HEMATURIA OR BLEEDING NOTED. PATIENT STILL HAS NO FUNCTIONING G-TUBE, MD AWARE AND OK TO HOLD ALL MEDICATIONS VIA G-TUBE. FLEXISEAL IN PLACED, ALL SAFETY MEASURES IN IMPLEMENTED. KEPT BED IN LOCKED AND IN LOW POSITION. SIDE RAILS UP X2. WILL CONTINUE TO MONITOR THROUGHOUT THE SHIFT.
[2022-09-01 20:00] VITALS: BP 93/50
[2022-09-02] VITALS: BP 105/61
[2022-09-02] MEDS: BLOOD SUGAR DIAGNOSTIC 1 EACH STRIP IN SCH ×5 (00:26→23:43)
[2022-09-02] MEDS ORDERED: TPN IV SCH (00:30)
[2022-09-02 04:00] VITALS: BP 102/53
[2022-09-02] MEDS: LEVOTHYROXINE SODIUM 75 MCG TABLET GT SCH (06:11)
[2022-09-02 06:46] LABS: CALCIUM, SERUM 7.4 mg/dL (8.5-10.1); CREATININE 0.7 mg/dL (0.6-1.3); MAGNESIUM 1.5 mg/dL (1.8-2.4); PHOSPHORUS 2.3 mg/dL (2.5-4.9)
--- NOTE | 2022-09-02 06:57 | NUR ---
HEAD TRIMMER CLOSING NOTE PATIENT REMAINS IN BED, WITH HOB ELEVATED, NON VERBAL. AFEBRILE AND NOT IN ANY FORM OF ACUTE DISTRESS. ON MECHANICAL VENTILATOR, TOLERATING CURRENT SETTINGS. WITH PICC LINE ON KARAN RUNNING WITH TPN AT 90ML/HR AND LIPIDS AT 20 ML/HR. WITH INTACT CASPER CATHETER, DRAINING WELL WITH YELLOW URINE OUTPUT, NO HEMATURIA OR BLEEDING NOTED. PATIENT STILL HAS NO FUNCTIONING G-TUBE, MD AWARE AND OK TO HOLD ALL MEDICATIONS VIA G-TUBE. FLEXISEAL IN PLACED, ALL DUE MEDS GIVEN EXCEPT GT MEDS, KEPT DRY AND CLEAN, WOUND CARE DONE ORDERED, ALL SAFETY MEASURES IN IMPLEMENTED. KEPT BED IN LOCKED AND IN LOW POSITION. SIDE RAILS UP X2. WILL ENDORSE TO AM SHIFT NURSE FOR CONTINUITY OF CARE.
--- NOTE | 2022-09-02 07:29 | NUR ---
BRIAN RN OPENING NOTE PATIENT ON BED, WITH HOB ELEVATED, NON VERBAL. AFEBRILE. RESPIRATION EVEN AND UNLABORED.. ON MECHANICAL VENTILATOR, TOLERATING CURRENT SETTINGS. WITH KARAN PICC LINE, INTACT, NO S/S OS COMPLICATIONS. RUNNING WITH TPN AT 90ML/HR AND LIPIDS AT 20 ML/HR. WITH INTACT CASPER CATHETER, DRAINING WELL WITH YELLOW URINE OUTPUT, NO HEMATURIA AND NO SEDIMENTATIONS NOTED. STILL HAS NO FUNCTIONING G-TUBE, MD AWARE AND OK TO HOLD ALL MEDICATIONS VIA G-TUBE. FLEXISEAL IN PLACED, ALL SAFETY MEASURES IN IMPLEMENTED. KEPT BED IN LOCKED AND IN LOW POSITION. SIDE RAILS UP X2. WILL CONTINUE TO MONITOR THROUGHOUT THE SHIFT.
[2022-09-02 07:48] LABS: POTASSIUM 2.5 mmol/L (3.5-5.1)
[2022-09-02 08:00] VITALS: BP 93/63
[2022-09-02] MEDS: CHLORHEXIDINE GLUCONATE 15 ML UDC MM SCH ×2 (08:11→21:03)
[2022-09-02] MEDS: METOCLOPRAMIDE HCL 10 MG/2 ML VIAL IV SCH ×3 (08:11→16:59)
[2022-09-02] MEDS: NEOMY SULF/BACITRAC ZN/POLY 15 GM TUBE TP SCH (08:11)
[2022-09-02] MEDS: PANTOPRAZOLE 40 MG VIAL IV SCH ×2 (08:11→21:02)
[2022-09-02] MEDS: CLOTRIMAZOLE/BETAMETASONE DIPROPIONATE 15 GM TUBE TP SCH ×2 (08:11→16:54)
[2022-09-02] MEDS: LEVETIRACETAM (500MG) 500 MG in IV NS 0.9% 100 ML IV SCH ×2 (08:15→21:02)
[2022-09-02] MEDS ORDERED: POTASSIUM PHOSPHATE MM 7.5 MMOL in IV NS 0.9% 100 ML IV SCH ×2 (08:30→21:00)
[2022-09-02] MEDS: Magnesium 1GM/D5W 100ML PREMIX 100 ML IV SCH ×2 (08:56→11:42)
[2022-09-02] MEDS: DOCUSATE SODIUM LIQ 100 MG/10 ML UDC GT SCH ×2 (09:00→16:26)
[2022-09-02] MEDS: SODIUM CHLORIDE 1000 MG TABLET GT SCH ×2 (09:00→16:26)
[2022-09-02] MEDS: GLYCOPYRROLATE 1 MG TABLET GT SCH ×2 (09:00→20:50)
[2022-09-02] MEDS: PROSOURCE / PROSTAT (PYXIS) 30 ML UDC GT SCH (09:00)
[2022-09-02] MEDS: POLYVINYL ALCOHOL 15 ML BOTTLE EACHEYE SCH ×2 (09:37→16:54)
[2022-09-02] MEDS ORDERED: TPN BAG #33 IV SCH ×3 (11:30)
[2022-09-02 12:00] VITALS: BP 97/77
[2022-09-02] MEDS: POTASSIUM CL. PREMIX PERIPHER. 50 ML IV SCH ×6 (12:46→18:21)
[2022-09-02 16:00] VITALS: BP 101/56
--- NOTE | 2022-09-02 16:19 | NUR ---
SPOKE WITH DOREEN FARR AND SAID THAT HE OBTAINED CONSENT FOR THE LAPAROSCOPIC PEG TUBE PLACEMENT TOMORROW FROM THE PATIENT'S NEPHEW SRINATH. ALSO SPOKE WITH NEPHAMBREEN YO @ AND VERIFIED THAT HE IS AGREEING TO THE PROCEDURE AND SPOKE WITH ANOTHER RN LYN ON THE OTHER LINE FOR CONFIRMATION.
[2022-09-02] MEDS: POLYETHYLENE GLYCOL 3350 17 GM POWD.PACK GT SCH (17:46)
--- NOTE | 2022-09-02 18:40 | NUR ---
COUNSELOR EDUCATION PROFESSOR CLOSING NOTE PATIENT REMAINS ON BED, WITH HOB ELEVATED, NON VERBAL. AFEBRILE AND NOT IN ANY FORM OF ACUTE DISTRESS. ON MECHANICAL VENTILATOR, TOLERATING CURRENT SETTINGS. WITH PICC LINE ON KARAN RUNNING WITH TPN AT 90ML/HR, WITH INTACT CASPER CATHETER, DRAINING WELL WITH YELLOW URINE OUTPUT OF 1400 CC. NO HEMATURIA OR BLEEDING NOTED. PATIENT STILL HAS NO FUNCTIONING G-TUBE, MD AWARE AND OK TO HOLD ALL MEDICATIONS VIA G-TUBE. FLEXISEAL IN PLACED, ALL DUE MEDS GIVEN EXCEPT GT MEDS, KEPT DRY AND CLEAN, WOUND CARE DONE ORDERED, ALL SAFETY MEASURES IN IMPLEMENTED. KEPT BED IN LOCKED AND IN LOW POSITION. SIDE RAILS UP X2. WILL ENDORSE TO INCOMING SHIFT NURSE FOR CONTINUITY OF CARE.
--- NOTE | 2022-09-02 19:10 | NUR ---
MACHINE VENEER REPAIRER OPENING NOTE PATIENT IS SLEEPING IN BED, ARSOUSED BY TOUCHING. WITH HOB ELEVATED ABOVE 45 DEGREE. PT IS NON VERBAL. SHE IS AWAKE, A/O X 0. PT HAS A TRACH AND BEING CONNECTED WITH A BATTERY INSPECTOR VENTALATOR. BREATHING UNLABORED AND EVENLY. PT HAS A TRIPLE LUMEN PICC LINE BEING INSERTED AT HER L UA, ONE OF THE LUMEN IS RUNNING TPN @ 90 ML/HR. IV FLUSHED WELL; AND IV SITE IS PATENT AND INTACT. PT IS ON EXTERNAL CARD MOUNTER, ON THE MONITOR, HER HEART RHYTHM IS SR WITH HR AT 50S- 60S. PT HAS A FLEX SEAL, DRAINING SOFT, DARK GREEN COLOR STOOLS BY GRAVITY. PT ALSO HAS A CASPER CATHETER, DRAINING CLEAR YELLOW COLOR URINE FREELY. SAFETY MEASURES ARE IN PLACED: BED IN LOWEST AND LOCKED POSITION; SIDE RAILS UP X 2, CALL LIGHT AND TABLE ARE WITHIN REACH; BED ALARM IS ON. WILL CONTINUE MONITOR THE PT AND PROVIDE THE CARE PT NEEDS.
[2022-09-02 20:00] VITALS: BP 128/62
--- NOTE | 2022-09-02 20:50 | NUR ---
GROUP DIRECTOR NOTE PT'S SCHEDULED MEDICATION, GLYCOPYRROLATE, VIA G-TUBE, NOT GIVEN DUE TO PT DOES NOT HAVE A G-TUBE IN WORKING CONDITION. PT IS GOING TO HAVE THE PROCEDURE TO HAVE A NEW G-TUBE TOMORROW.
[2022-09-02] MEDS ORDERED: TPN BAG #34 IV SCH ×2 (22:30)
[2022-09-03] VITALS: BP 116/56
[2022-09-03 04:00] VITALS: BP 130/61
[2022-09-03] MEDS: BLOOD SUGAR DIAGNOSTIC 1 EACH STRIP IN SCH ×3 (05:06→17:06)
[2022-09-03 06:09] LABS: BASOPHILS # (AUTO) 0.1 K/uL (0.0-0.2); BASOPHILS % (AUTO) 1.4 % (0.0-2.0); EOSINOPHILS % (AUTO) 4.2 % (0.0-6.0); HEMATOCRIT 25 % (33-45); HEMOGLOBIN 7.9 g/dL (11.5-14.8); LYMPHOCYTES # (AUTO) 1.1 K/uL (0.8-4.8); LYMPHOCYTES % (AUTO) 19.6 % (20.0-44.0); MEAN CORPUSCULAR HGB CONC 32 g/dl (31.0-36.0); MEAN CORPUSCULAR VOLUME 96 fL (82-100); MONOCYTES # (AUTO) 0.3 K/uL (0.1-1.30); MONOCYTES % (AUTO) 4.9 % (2.0-12.0); NEUTROPHILS % (AUTO) 69.9 % (43.0-81.0); PLATELET COUNT (AUTO) 356 K/uL (150-450); RED BLOOD CELL COUNT(AUTO) 2.62 MIL/uL (4.0-5.2); WHITE BLOOD COUNT (AUTO) 5.8 K/uL (4.3-11.0)
[2022-09-03] MEDS: LEVOTHYROXINE SODIUM 75 MCG TABLET GT SCH (06:22)
--- NOTE | 2022-09-03 06:23 | NUR ---
DIESEL DINKEY ENGINEER NOTE PT'S SCHEDULED MEDICATION,SYNTHROID, VIA G-TUBE, NOT GIVEN DUE TO PT DOES NOT HAVE A G-TUBE IN WORKING CONDITION. PT IS SCHEDULED FOR HAVING THE PROCEDURE TO INSERT A NEW G-TUBE THIS MORNING.
[2022-09-03 06:41] LABS: CALCIUM, SERUM 7.4 mg/dL (8.5-10.1); CREATININE 0.7 mg/dL (0.6-1.3); MAGNESIUM 1.8 mg/dL (1.8-2.4); PHOSPHORUS 2.8 mg/dL (2.5-4.9); POTASSIUM 4.4 mmol/L (3.5-5.1)
--- NOTE | 2022-09-03 06:41 | NUR ---
ANTISUBMARINE WEAPONS OFFICER CLOSING NOTE PATIENT IS SLEEPING IN BED, AROUSED BY TOUCHING. WITH HOB ELEVATED ABOVE 45 DEGREE. PT IS NON VERBAL. SHE IS AWAKE, A/O X 0. PT HAS A TRACH AND BEING CONNECTED WITH A CANTEEN ATTENDANT VENTILATOR. BREATHING UNLABORED AND EVENLY. PT HAS A TRIPLE LUMEN PICC LINE BEING INSERTED AT HER L UA, ONE OF THE LUMEN IS RUNNING TPN @ 90 ML/HR. IV FLUSHED WELL; AND IV SITE IS PATENT AND INTACT. PT IS ON EXTERNAL COMPUTER LANGUAGE CODER, ON THE MONITOR, HER HEART RHYTHM IS SR WITH HR AT 50S- 60S. PT HAS A FLEX SEAL, DRAINING SOFT, DARK GREEN COLOR STOOLS BY GRAVITY. PT ALSO HAS A CASPER CATHETER, DRAINING CLEAR YELLOW COLOR URINE FREELY. PT IS NPO, AND HER G-TUBE IS MALFUNCTION. MEDICATIONS NEEDS TO BE GIVEN BY G-TUBE HAVE BEEN HELD DURING THE SHIFT. PT IS GOING TO HAVE SURGERY FOR G-TUBE INSERTION THIS MORNING. SAFETY MEASURES ARE IN PLACED: BED IN LOWEST AND LOCKED POSITION; SIDE RAILS UP X 2, CALL LIGHT AND TABLE ARE WITHIN REACH; BED ALARM IS ON. WILL ENDORSE NEXT SHIFT NURSE FOR CONTINUING PT CARE.
--- NOTE | 2022-09-03 07:42 | NUR ---
UTILITY BILL COLLECTOR OPENING NOTE PATIENT RESTING IN BED WITH HOB ELEVATED ABOVE 45 DEGREE. PT IS NON VERBAL. A/O X 0. PT HAS TRACH AND ON COFFEE WEIGHER VENTILATOR. BREATHING UNLABORED AND EVEN WITH NO SOB OR SIGNS OF RESPIRATORY DISTRESS. PT HAS A TRIPLE LUMEN PICC LINE KARAN, WITH TPN @ 90 ML/HR. ON EXTERNAL SENIOR IT SPECIALIST. PT HAS A FLEX SEAL, DRAINING SOFT, DARK GREEN COLOR STOOLS BY GRAVITY. PT ALSO HAS A CASPER CATHETER, DRAINING CLEAR YELLOW COLOR URINE FREELY. PT NPO DUE TO G-TUBE MALFUNCTION. SAFETY MEASURES ARE IN PLACED: BED IN LOWEST AND LOCKED POSITION; SIDE RAILS UP X 2, CALL LIGHT AND TABLE ARE WITHIN REACH; BED ALARM IS ON. WILL CONTINUE TO MONITOR.
[2022-09-03 08:00] VITALS: BP 128/73
[2022-09-03] MEDS: LEVETIRACETAM (500MG) 500 MG in IV NS 0.9% 100 ML IV SCH ×2 (08:13→21:19)
[2022-09-03] MEDS: METOCLOPRAMIDE HCL 10 MG/2 ML VIAL IV SCH ×3 (08:13→17:04)
[2022-09-03] MEDS: PANTOPRAZOLE 40 MG VIAL IV SCH ×2 (08:13→20:20)
[2022-09-03] MEDS: CHLORHEXIDINE GLUCONATE 15 ML UDC MM SCH ×2 (08:13→20:20)
[2022-09-03] MEDS: DOCUSATE SODIUM LIQ 100 MG/10 ML UDC GT SCH ×2 (08:37→17:00)
[2022-09-03] MEDS: GLYCOPYRROLATE 1 MG TABLET GT SCH ×2 (08:37→20:11)
[2022-09-03] MEDS: SODIUM CHLORIDE 1000 MG TABLET GT SCH ×2 (08:38→17:00)
[2022-09-03] MEDS: PROSOURCE / PROSTAT (PYXIS) 30 ML UDC GT SCH (08:38)
--- NOTE | 2022-09-03 08:38 | NUR ---
RN NURSING NOTE HELD G-TUBE MEDICATION DUE TO G-TUBE MALFUNCTION. PATIENT WILL HAVE PROCEDURE TO CORRECT ISSUE THIS MORNING AT 1000.
[2022-09-03] MEDS: POLYVINYL ALCOHOL 15 ML BOTTLE EACHEYE SCH ×2 (09:14→17:07)
[2022-09-03] MEDS: NEOMY SULF/BACITRAC ZN/POLY 15 GM TUBE TP SCH (09:15)
[2022-09-03] MEDS: CLOTRIMAZOLE/BETAMETASONE DIPROPIONATE 15 GM TUBE TP SCH ×2 (09:15→17:00)
[2022-09-03] MEDS ORDERED: TPN BAG #35 IV SCH ×4 (09:30)
[2022-09-03] MEDS ORDERED: FENTANYL PF 250MCG/5ML AMPUL ONE (09:47)
[2022-09-03] MEDS ORDERED: ROCURONIUM BROMIDE 50 MG/5 ML ONE (09:48)
[2022-09-03] MEDS ORDERED: FAMOTIDINE/PF INJ 20 MG/2 ML VIAL IV ONE (09:48)
[2022-09-03] MEDS ORDERED: GLYCOPYRROLATE 0.2 MG/ML VIAL ONE (09:48)
[2022-09-03] MEDS ORDERED: DEXAMETHASONE SOD PHOSPHATE 10 MG/ML VIAL ONE (09:49)
--- NOTE | 2022-09-03 11:02 | NUR ---
RN NOTE CODE STATUS CHANGED TO FULL CODE FOR 24 HR DUE TO PROCEDURE.
[2022-09-03] MEDS ORDERED: PHYTONADIONE INJ 10 MG/1 ML AMPUL ONE (12:25)
--- NOTE | 2022-09-03 13:39 | NUR ---
RN NOTE PATIENT UNAVAILABLE DUE TO PROCEDURE
--- NOTE | 2022-09-03 13:39 | NUR ---
RN NOTE PATIENT UNAVAILABLE DUE TO PROCEDURE
--- NOTE | 2022-09-03 13:41 | NUR ---
RN NOTE PATIENT UNAVAILABLE DUE TO PROCEDURE Addendum: 09/03/22 at 1343 by KATELYNN NARVAEZ RN Amended: Links added.
[2022-09-03] MEDS: FAT EMULSION 20% 500 ML in PREMIX 1 EA IV SCH (15:12)
[2022-09-03 16:00] VITALS: BP 110/65
[2022-09-03] MEDS: INSULIN REGULAR, HUMAN 100 UNIT/ML 3 ML VIAL SQ PRN ×2 (16:08→18:03)
[2022-09-03] MEDS: POLYETHYLENE GLYCOL 3350 17 GM POWD.PACK GT SCH (17:08)
--- NOTE | 2022-09-03 17:44 | NUR ---
CLOTRIMAZOLE/BETAMETASONE NOT ADMINISTERED DUE TO BANDAGES ON ABDOMEN FROM PROCEDURE.
--- NOTE | 2022-09-03 19:02 | NUR ---
OPERATING ROOM SPECIALIST CLOSING NOTE PATIENT RESTING IN BED WITH HOB ELEVATED ABOVE 45 DEGREE. A/O X 0. OBTUNDED AND NON VERBAL. HAS TRACH/STRINGS TEACHER VENTILATOR WITH SETTINGS PRESCRIBED. BREATHING UNLABORED AND EVEN WITH NO SOB OR SIGNS OF RESPIRATORY DISTRESS. PT HAS A TRIPLE LUMEN PICC LINE KARAN, WITH TPN @ 91 ML/HR. ON EXTERNAL ACCOUNT SUPPORT SPECIALIST WITH SB 52. PT HAS A FLEX SEAL, DRAINING SOFT, DARK GREEN COLOR STOOLS BY GRAVITY; CASPER CATHETER, DRAINING CLEAR YELLOW COLOR URINE FREELY; AND MIKE DRAIN DRAINING SEROSANGUINEOUS FLUID. PT REMAINS NPO. SAFETY MEASURES ARE IN PLACED WITH BED IN LOWEST AND LOCKED POSITION, SIDE RAILS UP X 2, AND CALL LIGHT AND TABLE ARE WITHIN REACH; BED ALARM IS ON. WILL ENDORSE TO ONCOMING SHIFT FOR ANG.
--- NOTE | 2022-09-03 19:30 | NUR ---
CROP INSURANCE CLAIMS ADJUSTER OPENING NOTES - RECEIVED PATIENT IN BED, OBTUNDED. BREATHING EVEN AND NON-LABORED, ON MECHANICAL VENT TOLERATING CURRENT SETTINGS WELL. NOT IN APPARENT DISTRESS. NO S/S OF PAIN OR DISCOMFORT AT THIS TIME. ON TELE MONITOR READING SINUS BRADYCARDIA AT 56 BPM. HAS LEFT UPPER ARM TRIPLE LUMEN PICC LINE WITH TPN RUNNING AT 91 ML/HR, LIPIDS AT 20 ML/HR AND NS AT 10 ML/HR. NO S/S OF INFILTRATION NOTED. HAS INDWELLING CASPER CATHETER DRAINING CLEAR YELLOW URINE TO BAG BY GRAVITY. HAS FLEXI-SEAL DRAINING SOFT, LIQUID, DARK BROWN STOOL TO BAG. HAS RIGHT QUADRANT MIKE BULB WITH SEROSANGUINEOUS DRAINAGE. ABDOMINAL SURGICAL DRESSING INTACT. SAFETY MEASURES IN PLACE: BED LOCKED AND IN LOW POSITION, SIDE RAILS UP X3, CALL LIGHT WITHIN REACH. WILL CONTINUE PLAN OF CARE.
[2022-09-03 20:00] VITALS: BP 97/55
[2022-09-03] MEDS ORDERED: Magnesium 1GM/D5W 100ML PREMIX 100 ML IV SCH (20:00)
[2022-09-03] MEDS ORDERED: TPN BAG #36 IV SCH ×4 (20:30)
[2022-09-03] MEDS ORDERED: POTASSIUM CL. PREMIX PERIPHER. 50 ML IV SCH (21:00)
[2022-09-04] VITALS (9 sets, daily range): BP systolic 84–135; BP diastolic 40–77
[2022-09-04] MEDS: BLOOD SUGAR DIAGNOSTIC 1 EACH STRIP IN SCH ×5 (00:15→23:56)
[2022-09-04] MEDS: INSULIN REGULAR, HUMAN 100 UNIT/ML 3 ML VIAL SQ PRN ×3 (00:19→12:20)
--- NOTE | 2022-09-04 03:51 | NUR ---
THERE WERE 2 LORAZEPAM ORDER IN [facility]. TOOK LORAZEPAM 2MG FROM [facility] AND WASTED 1MG. HOWEVER, THIS ORDER OF 0.5MG IS ONCE ONLY. I D/C THE ORDER AND INFORMED OLIVER CLARK THAT I CAN'T RETURN THE DISPENSED LORAZEPAM SINCE 0.5MG HAS BEEN WASTED. I WAS INSTRUCTED TO WASTE THE REMAINING MEDICINE AND GET A NEW VIAL. WASTE WITNESSED BY OLIVER CLARK.
[2022-09-04] MEDS: LORAZEPAM INJ 2 MG/ML VIAL IV PRN (04:03)
--- NOTE | 2022-09-04 04:03 | NUR ---
RIGHT UPPER/LOWER EXTREMITY TREMORS AND RESTLESSNESS NOTED. ADMINISTERED PRN LORAZEPAM 2MG ORDERED.
[2022-09-04] MEDS: LEVOTHYROXINE SODIUM 75 MCG TABLET GT SCH (06:56)
--- NOTE | 2022-09-04 07:00 | NUR ---
BLOCK PILER CLOSING NOTES - PATIENT RESTING IN BED, KEPT HOB IN SEMI-BAZZI'S. NO ACUTE DISTRESS THROUGHOUT THE NIGHT. MAINTAINED ON MECHANICAL VENT WITH SETTINGS ORDERED. SUCTIONED NEEDED. ASPIRATION PRECAUTIONS OBSERVED. AFEBRILE. ON TELE MONITOR READING SINUS BRADYCARDIA AT 58 BPM. LEFT UPPER ARM PICC LINE INTACT, PATENT AND FLUSHING. CLEAR YELLOW URINE OUTPUT NOTED. LIQUID DARK BROWN STOOL NOTED. MIKE DRAIN TO BULB WITH SEROSANGUINEOUS DRAINAGE NOTED. WOUND CARE RENDERED. ALL DUE MEDS GIVEN AND NEEDS ATTENDED. REPOSITIONED AND OFFLOADED BUTTOCKS. SAFETY MEASURES MAINTAINED. WILL ENDORSE TO NEXT SHIFT FOR ANG.
[2022-09-04] MEDS ORDERED: TPN BAG #37 IV SCH ×2 (07:30)
[2022-09-04 07:37] LABS: CALCIUM, SERUM 6.5 mg/dL (8.5-10.1); CREATININE 0.8 mg/dL (0.6-1.3); MAGNESIUM 1.8 mg/dL (1.8-2.4); PHOSPHORUS 1.9 mg/dL (2.5-4.9); POTASSIUM 3.4 mmol/L (3.5-5.1)
[2022-09-04] MEDS: DOCUSATE SODIUM LIQ 100 MG/10 ML UDC GT SCH ×3 (08:19→16:36)
[2022-09-04] MEDS: PROSOURCE / PROSTAT (PYXIS) 30 ML UDC GT SCH (08:19)
[2022-09-04] MEDS: GLYCOPYRROLATE 1 MG TABLET GT SCH ×2 (08:19→21:00)
[2022-09-04] MEDS: SODIUM CHLORIDE 1000 MG TABLET GT SCH ×3 (08:39→16:36)
--- NOTE | 2022-09-04 08:40 | NUR ---
rn note per substation engineer beckie garcia, no gtube medications, only IV meds
[2022-09-04] MEDS: METOCLOPRAMIDE HCL 10 MG/2 ML VIAL IV SCH ×3 (08:43→16:33)
[2022-09-04] MEDS: PANTOPRAZOLE 40 MG VIAL IV SCH ×2 (08:43→21:10)
--- NOTE | 2022-09-04 09:20 | NUR ---
rn note gave report to aubree leavitt rn for contuity of care
[2022-09-04] MEDS: POLYVINYL ALCOHOL 15 ML BOTTLE EACHEYE SCH ×2 (09:35→16:44)
[2022-09-04] MEDS: LEVETIRACETAM (500MG) 500 MG in IV NS 0.9% 100 ML IV SCH ×2 (09:36→21:12)
[2022-09-04] MEDS: CHLORHEXIDINE GLUCONATE 15 ML UDC MM SCH ×2 (09:36→21:10)
[2022-09-04] MEDS: CLOTRIMAZOLE/BETAMETASONE DIPROPIONATE 15 GM TUBE TP SCH ×2 (09:39→16:44)
[2022-09-04] MEDS: NEOMY SULF/BACITRAC ZN/POLY 15 GM TUBE TP SCH (09:39)
[2022-09-04] MEDS: POTASSIUM PHOSPHATE MM 7.5 MMOL in IV NS 0.9% 100 ML IV SCH ×2 (10:51→13:04)
--- NOTE | 2022-09-04 12:04 | NUR ---
CABLE PLACER NOTE (Error VS) Ignore 12:00 noon VS, error, documented on wrong patient. Correct VS at 12:01PM.
[2022-09-04 15:22] LABS: ALBUMIN 1.9 g/dL (3.4-5.0); BILIRUBIN,TOTAL 0.2 mg/dL (0.2-1.0); CALCIUM, SERUM 7.7 mg/dL (8.5-10.1); CREATININE 0.9 mg/dL (0.6-1.3); TOTAL PROTEIN, SERUM 5.5 g/dL (6.4-8.2)
[2022-09-04] MEDS: POLYETHYLENE GLYCOL 3350 17 GM POWD.PACK GT SCH (18:00)
[2022-09-04] MEDS ORDERED: TPN BAG #38 IV SCH ×4 (18:30)
--- NOTE | 2022-09-04 19:38 | NUR ---
noc rn opening note received patient in bed with eyes closed, easy to arouse. no s/s of apparent distress vent dependent. Isolation in place for sputum. not exhibiting pain via flacc. reading sr with 64 bpm on the tele monitor. TPN running @ 90mls/hr on Left upper arm PICC. abdominal dressing clean, dry intact, with MIKE drain draining serosanguineous output. batista catheter draining via gravity. flexiseal noted in place draining. safety in place-- bed in locked position, isolation in place, side rails up X4. will continue with patient's plan of care.
[2022-09-04] MEDS ORDERED: Magnesium 1GM/D5W 100ML PREMIX 100 ML IV SCH (21:00)
--- NOTE | 2022-09-04 21:09 | NUR ---
noc rn note Report given to ANA Pruitt for continuity of patient care.
--- NOTE | 2022-09-04 21:15 | NUR ---
SOUND EFFECTS SUPERVISOR OPENING NOTE RECEIVED PATIENT FROM NATASHA RN, PATIENT IN BED, ON [facility] VENTILATOR, TOLERATING WELL WITH CURRENT SETTINGS; NO S/S OF DISTRESS NOTED; ISOLATION IN PLACE FOR SPUTUM; HOOKED ON TELE MONITORING READING SINUS RHYTHM 60-70 BPMS; ON TPN RUNNING AT 90 ML/HR VIA KARAN PICC LINE; ABDOMINAL DRESSING C/D/I, WITH MIKE DRAIN DRAINING TO SEROSANGUINEOUS FLUID; WITH CASPER CATHETER IN PLACE DRAINING TO YELLOW COLORED URINE; FLEXISEAL IN PLACE DRAINING WELL; SAFETY MEASURES IMPLEMENTED, BED IN LOCKED POSITION, SIDE RAILS UP X 3; WILL CONTINUE TO MONITOR THROUGHOUT SHIFT
[2022-09-05] VITALS: BP 145/70
[2022-09-05 04:00] VITALS: BP 114/73
[2022-09-05] MEDS ORDERED: TPN BAG #39 IV SCH ×2 (05:30)
--- NOTE | 2022-09-05 05:40 | NUR ---
CLIENT TECHNICAL SUPPORT ASSOCIATE NOTE CHANGED TRACHEOSTOMY TIES OF PATIENT WITH RT ON DUTY; NOTED RASHES AND BLEEDING IN THE NECK AREA, PHOTOGRAPHED AND INSERTED INTO CHART. CHARGE NURSE MADE AWARE.
[2022-09-05] MEDS: BLOOD SUGAR DIAGNOSTIC 1 EACH STRIP IN SCH ×4 (06:00→23:43)
--- NOTE | 2022-09-05 06:48 | NUR ---
RESEARCH PROFESSIONAL CLOSING NOTE PATIENT IN BED, ON [facility] VENTILATOR, TOLERATING WELL WITH CURRENT SETTINGS; NO S/S OF DISTRESS NOTED; ISOLATION IN PLACE FOR SPUTUM; HOOKED ON TELE MONITORING READING SINUS RHYTHM 60-70 BPMS; ON TPN RUNNING AT 90 ML/HR VIA KARAN PICC LINE; ABDOMINAL DRESSING C/D/I, WITH MIKE DRAIN DRAINING TO SEROSANGUINEOUS FLUID APPROXIMATELY 70ML; WITH CASPER CATHETER IN PLACE DRAINING TO YELLOW COLORED URINE AMOUNTING TO 1500ML; FLEXISEAL IN PLACE DRAINING WELL; ADMINISTERED MEDICATIONS PRESCRIBED; PATIENT'S NEEDS ATTENDED; SUCTIONED PATIENT'S SECRETIONS NECESSARY; MONITORED PATIENT ACCORDINGLY; SAFETY MEASURES IMPLEMENTED, BED IN LOCKED POSITION, SIDE RAILS UP X 3; WILL ENDORSE TO AM NURSE FOR ANG.
[2022-09-05] MEDS: LEVOTHYROXINE SODIUM 75 MCG TABLET GT SCH (07:00)
[2022-09-05 07:01] LABS: BASOPHILS # (AUTO) 0.1 K/uL (0.0-0.2); EOSINOPHILS % (AUTO) 0.8 % (0.0-6.0); HEMATOCRIT 28 % (33-45); HEMOGLOBIN 8.7 g/dL (11.5-14.8); LYMPHOCYTES # (AUTO) 2.1 K/uL (0.8-4.8); LYMPHOCYTES % (AUTO) 35.9 % (20.0-44.0); MEAN CORPUSCULAR HGB CONC 32 g/dl (31.0-36.0); MEAN CORPUSCULAR VOLUME 95 fL (82-100); MONOCYTES # (AUTO) 0.3 K/uL (0.1-1.30); MONOCYTES % (AUTO) 5.2 % (2.0-12.0); NEUTROPHILS # (AUTO) 3.3 K/uL (1.8-8.9); NEUTROPHILS % (AUTO) 57.1 % (43.0-81.0); PLATELET COUNT (AUTO) 337 K/uL (150-450); WHITE BLOOD COUNT (AUTO) 5.8 K/uL (4.3-11.0)
--- NOTE | 2022-09-05 07:17 | NUR ---
REFINISHER CLOSING NOTE PATIENT IN BED, ON [facility] VENTILATOR, TOLERATING WELL WITH CURRENT SETTINGS; NO S/S OF DISTRESS NOTED; HOOKED ON TELE MONITORING READING SINUS RHYTHM 78 BPMS; ON TPN RUNNING AT 90 ML/HR VIA KARAN PICC LINE; ABDOMINAL DRESSING C/D/I, WITH MIKE DRAIN DRAINING TO SEROSANGUINEOUS FLUID s/p gtibe removal ; WITH CASPER CATHETER IN PLACE DRAINING TO YELLOW COLORED URINE A; FLEXISEAL IN PLACE DRAINING WELL; SAFETY MEASURES in place , BED IN LOCKED POSITION, SIDE RAILS UP X 3; WILL CONTINUE TO MONITOR Addendum: 09/05/22 at 1833 by SANGITA PALACIOS RN ANA GRIFFIN
[2022-09-05 07:18] LABS: CALCIUM, SERUM 7.7 mg/dL (8.5-10.1); CREATININE 0.7 mg/dL (0.6-1.3); PHOSPHORUS 2.4 mg/dL (2.5-4.9); POTASSIUM 4.4 mmol/L (3.5-5.1)
[2022-09-05 08:00] VITALS: BP 119/59
[2022-09-05] MEDS: POLYVINYL ALCOHOL 15 ML BOTTLE EACHEYE SCH ×2 (08:05→16:49)
[2022-09-05] MEDS: GLYCOPYRROLATE 1 MG TABLET GT SCH ×2 (08:06→21:26)
[2022-09-05] MEDS: DOCUSATE SODIUM LIQ 100 MG/10 ML UDC GT SCH ×2 (08:06→16:09)
[2022-09-05] MEDS: PROSOURCE / PROSTAT (PYXIS) 30 ML UDC GT SCH (08:07)
[2022-09-05] MEDS: SODIUM CHLORIDE 1000 MG TABLET GT SCH ×2 (08:08→16:09)
[2022-09-05] MEDS: LEVETIRACETAM (500MG) 500 MG in IV NS 0.9% 100 ML IV SCH ×2 (08:08→21:26)
[2022-09-05] MEDS: METOCLOPRAMIDE HCL 10 MG/2 ML VIAL IV SCH ×3 (08:10→16:09)
[2022-09-05] MEDS: CHLORHEXIDINE GLUCONATE 15 ML UDC MM SCH ×2 (08:10→21:26)
[2022-09-05] MEDS: CLOTRIMAZOLE/BETAMETASONE DIPROPIONATE 15 GM TUBE TP SCH ×2 (08:10→16:10)
[2022-09-05] MEDS: NEOMY SULF/BACITRAC ZN/POLY 15 GM TUBE TP SCH (08:10)
[2022-09-05] MEDS: PANTOPRAZOLE 40 MG VIAL IV SCH ×2 (08:10→21:26)
[2022-09-05 12:00] VITALS: BP 115/63
[2022-09-05] MEDS ORDERED: NEUTRA PHOS 1 POWD.PACKET NG ONE (12:00)
[2022-09-05] MEDS: FAT EMULSION 20% 500 ML in PREMIX 1 EA IV SCH (12:01)
[2022-09-05] MEDS ORDERED: Sodium Phosphate 15 MMOL in IV NS 0.9% 245 ML IV SCH (13:00)
[2022-09-05] MEDS ORDERED: NEPRO 1,000 ML BOTTLE GT PRN (13:30)
[2022-09-05] MEDS ORDERED: JEVITY 1.2 CAL 1,000 ML BOTTLE NG PRN ×2 (13:43→16:10)
[2022-09-05] MEDS ORDERED: TPN IV SCH ×4 (16:30)
--- NOTE | 2022-09-05 16:30 | NUR ---
RN NOTE DR CARRERA AT THE BED SIDE INSERTED G TUBE , ORDERED JEVITY 20 ML HR FOR 20 HR , THEN 4 HR OF IF NO RESIDUE INCREASE BY 10 CC TO 30 ML/HR , TPN DECREASE TO 6-0 CC/HR .ORDER PLACE , PHARMACY NOTIFIED
[2022-09-05] MEDS: POLYETHYLENE GLYCOL 3350 17 GM POWD.PACK GT SCH (17:15)
[2022-09-05 17:20] VITALS: BP 132/72
--- NOTE | 2022-09-05 18:37 | NUR ---
INTERVENTIONAL PHYSICIAN CLOSING NOTE PATIENT IN BED, ON [facility] VENTILATOR, TOLERATING WELL WITH CURRENT SETTINGS; NO S/S OF DISTRESS NOTED; ISOLATION IN PLACE FOR SPUTUM; HOOKED ON TELE MONITORING READING SINUS RHYTHM 66-72 BPMS; ON TPN RUNNING AT 60 ML/HR VIA KARAN PICC LINE; ABDOMINAL DRESSING C/D/I,ORDER RECEIVED TO PACH WITH STERIL STRIPS , COVER WITH DSD EVERY 4 HR . GTUBE FEEDING JEVITY RUNNING AT 20 ML/HR, NO RESIDUE, WITH MIKE DRAIN DRAINING TO SEROSANGUINEOUS FLUID APPROXIMATELY 50 ML; WITH CASPER CATHETER IN PLACE DRAINING TO YELLOW COLORED URINE AMOUNTING TO 2100ML; FLEXISEAL IN PLACE DRAINING WELL; ADMINISTERED MEDICATIONS PRESCRIBED; PATIENT'S NEEDS ATTENDED; SUCTIONED PATIENT'S SECRETIONS NECESSARY; MONITORED PATIENT ACCORDINGLY; SAFETY MEASURES IMPLEMENTED, BED IN LOCKED POSITION, SIDE RAILS UP X 3; WILL ENDORSE TO PM NURSE FOR ANG.
--- NOTE | 2022-09-05 19:00 | NUR ---
RN NOTE RECEIVED PT IN BED, OBTUNDED. PT OPENS EYES TO PAIN AND TACTILE STIMULI ONLY, NON-VERBAL. CURRENT VENT SETTINGS WELL SHEREE. NO ACUTE RESP DISTRESS NOTED. PT ATTACHED TO EXTERNAL LEATHER SORTER. TPN INFUSING AT 60ML/HR, LIPIDS AT 20ML/HR ON KARAN PICC. PT NOTED WITH ABD DRESSING, INTACT. GT IN PLACED, CURRENTLY RUNNING JEVITY 1.2 AT 20ML/HR. FC IN PLACED, PATENT DRAINING CLEAR YELLOW URINE. RECTAL TUBE IN PLACED, PATENT NOTED WITH DARK GREEN LIQUID STOOLS. MIKE DRAIN NOTED ON RUQ DRAINING SEROSANGUINEOUS FLUID. SAFETY PRECAUTIONS IMPLEMENTED. HOB ELEVATED. WILL CONT POC.
[2022-09-05 20:00] VITALS: BP 146/75
[2022-09-05] MEDS: INSULIN REGULAR, HUMAN 100 UNIT/ML 3 ML VIAL SQ PRN (23:43)
[2022-09-06] VITALS: BP 117/64
[2022-09-06 04:00] VITALS: BP_SYST 121; BP_SYST 126; BP_DIAS 52; BP_DIAS 61
--- NOTE | 2022-09-06 05:50 | NUR ---
PATIENT RECEIVED ON TRACH TO VENT WITH SETTINGS OF AC 12, 375 Vt, 40%, +5. SUCTIONED FOR MINIMAL, THICK, WHITE, SECRETIONS. AMBU BAG AT BEDSIDE. VENT AND PULSE OXIMETER ALARMS AUDIBLE AND VISIBLE. JR AND MIGUELINA CHANGED. VENT PLUGGED INTO RED OUTLET. Addendum: 09/06/22 at 0552 by GLEN COYNE RT Amended: Links added.
[2022-09-06 06:09] LABS: CALCIUM, SERUM 7.6 mg/dL (8.5-10.1); CREATININE 0.7 mg/dL (0.6-1.3); MAGNESIUM 1.6 mg/dL (1.8-2.4); PHOSPHORUS 2.7 mg/dL (2.5-4.9); POTASSIUM 3.1 mmol/L (3.5-5.1)
[2022-09-06] MEDS: LEVOTHYROXINE SODIUM 75 MCG TABLET GT SCH (06:24)
[2022-09-06] MEDS: BLOOD SUGAR DIAGNOSTIC 1 EACH STRIP IN SCH ×3 (06:24→17:26)
[2022-09-06] MEDS: INSULIN REGULAR, HUMAN 100 UNIT/ML 3 ML VIAL SQ PRN (06:25)
--- NOTE | 2022-09-06 06:51 | NUR ---
RN NOTE PT REMAINS IN STABLE CONDITION, NO SIGNIFICANT CHANGES NOTED. REMAINS ON CURRENT VENT SETTINGS, WELL TOLERATED, O2 SAT 98-100%. ATTACHED TO EXTERNAL COUNTERSINKER BALANCE SCREW HOLE READINGS SB-SR. STILL INFUSING TPN AT 60ML/HR AND LIPID AT 20ML/HR ON KARAN PICC. GTF SLOWLY INCREASED BY 5ML-10ML Q4H/ SHEREE TO REACH 20ML/HR, CURRENTLY RUNNING JEVITY 1.2 AT 20ML/HR ORDERED, WELL SHEREE, NO RESIDUAL, NO N/V NOTED. ABD SOFT, NO DISTENTION NOTED. ABD WOUND DRESSING C/D/I, WOUND TX PROVIDED ORDERED. FC IN PLACED, DRAINING CLEAR YELLOW URINE, RECTAL TUBE IN PLACED, NOTED WITH GREEN LIQUIDY STOOL. MIKE ON RUQ IJ PLACED, DRAINING CLEAR YELLOWISH FLUID WITH MINIMAL BLOOD TINGE, NO FOUL ODOR NOTED. KEPT PT CLEAN, DRY AND COMFORTABLE AT ALL TIMES. SAFETY PRECAUTION IMPLEMENTED, HOB ELEVATED, CONTACT ISOLATION IMPLEMENTED AT ALL TIMES. WILL ENDORSE TO AM SHIFT NURSE FOR ANG.
--- NOTE | 2022-09-06 07:15 | NUR ---
RN OPENING NOTE PATIENT IN BED, ON [facility] VENTILATOR, TOLERATING WELL, NO S/S OF DISTRESS NOTED; SR ON EXTERNAL TIMBER SPRINKLER. TPN RUNNING AT 60 ML/HR VIA KARAN PICC LINE; ABDOMINAL DRESSING C/D/I, S/P PRIOR G TUBE REMOVAL, WITH MIKE DRAIN IN PLACE. CASPER CATHETER DRAINING YELLOW COLORED URINE, FLEXISEAL IN PLACE DRAINING WELL; SAFETY MEASURES IMPLEMENTED, BED IN LOCKED POSITION, SIDE RAILS UP X 3; WILL CONTINUE TO MONITOR
[2022-09-06 08:00] VITALS: BP 113/73
[2022-09-06] MEDS: CHLORHEXIDINE GLUCONATE 15 ML UDC MM SCH ×2 (08:29→21:05)
[2022-09-06] MEDS: SODIUM CHLORIDE 1000 MG TABLET GT SCH ×2 (08:29→16:24)
[2022-09-06] MEDS: DOCUSATE SODIUM LIQ 100 MG/10 ML UDC GT SCH ×2 (08:29→16:24)
[2022-09-06] MEDS: POLYVINYL ALCOHOL 15 ML BOTTLE EACHEYE SCH ×2 (08:29→16:08)
[2022-09-06] MEDS: GLYCOPYRROLATE 1 MG TABLET GT SCH ×2 (08:29→21:05)
[2022-09-06] MEDS: METOCLOPRAMIDE HCL 10 MG/2 ML VIAL IV SCH ×3 (08:30→16:24)
[2022-09-06] MEDS: PANTOPRAZOLE 40 MG VIAL IV SCH ×2 (08:30→21:05)
[2022-09-06] MEDS: LEVETIRACETAM (500MG) 500 MG in IV NS 0.9% 100 ML IV SCH ×2 (08:31→21:05)
[2022-09-06] MEDS: NEOMY SULF/BACITRAC ZN/POLY 15 GM TUBE TP SCH (08:32)
[2022-09-06] MEDS: CLOTRIMAZOLE/BETAMETASONE DIPROPIONATE 15 GM TUBE TP SCH ×2 (08:32→16:11)
[2022-09-06] MEDS: PROSOURCE / PROSTAT (PYXIS) 30 ML UDC GT SCH (08:39)
[2022-09-06] MEDS ORDERED: TPN BAG #41 IV SCH ×2 (09:21)
[2022-09-06 12:00] VITALS: BP 124/56
--- NOTE | 2022-09-06 14:05 | NUR ---
MIKE DRAIN DISCONNECTED BY DR RED, ABDOMINAL DRESSING CHANGED.
[2022-09-06] MEDS: POLYETHYLENE GLYCOL 3350 17 GM POWD.PACK GT SCH (17:16)
[2022-09-06 17:44] VITALS: BP 121/47
--- NOTE | 2022-09-06 18:54 | NUR ---
RN CLOSING NOTE PATIENT IN BED, ON [facility] VENTILATOR, TOLERATING WELL, NO S/S OF DISTRESS NOTED; SR ON EXTERNAL DESIGN ANALYST. IV ACCESS LEFT UA PICC LINE, TPN D/C, PATIENT ON JEVITY VIA G-TUBE AT 40ML/HR, TOLERATING WELL, NO RESIDUAL. ABDOMINAL DRESSING CHANGED, C/D/I, S/P PRIOR G TUBE REMOVAL, MIKE DRAIN REMOVED TODAY BY DR RED. CASPER CATHETER DRAINING YELLOW COLORED URINE, FLEXISEAL IN PLACE DRAINING WELL; SAFETY MEASURES IMPLEMENTED, BED IN LOCKED POSITION, SIDE RAILS UP X 3; WILL ENDORSE TO THE HEAD OF MARKETING ANALYTICS NURSE FOR ANG.
--- NOTE | 2022-09-06 19:00 | NUR ---
ORACLE HRMS DEVELOPER OPENING NOTE PT IS OBTUNDED, BED BOUND. TRACHEOSTOMY (S#6) IS IN PLACE, AC: 12, TV: 375 FiO2:40, PEEP: 5, O2 SAT: 100%. PT IV ACCESS IN ON LEFT UPPER ARM PICC LINE, INTACT, PATENT AND FLUSHES WELL W/ NO S & SX OF INFILTRATION @ SITE NOTED. PT IS ON TELE MONITOR WITH CURRENT READING OF SR. PT'S FLEXI SEAL IS IN PLACE, DRAINING FECAL WASTE AND CASPER CATHETER IS IN PLACE, DRAINING YELLOW URINE. SAFETY MEASURES IS IN PLACE. BED AT ITS LOWEST AND LOCKED POSITION. SIDE RAILS UP X 2 . BEDSIDE TABLE AND CALL LIGHT IS EASY REACH. BED ALARM IS ON. WILL CONTINUE TO MONITOR PT ACCORDINGLY.
[2022-09-06 20:00] VITALS: BP 99/55
[2022-09-07] VITALS: BP 121/99
[2022-09-07] MEDS: BLOOD SUGAR DIAGNOSTIC 1 EACH STRIP IN SCH ×4 (00:53→17:54)
[2022-09-07] MEDS: INSULIN REGULAR, HUMAN 100 UNIT/ML 3 ML VIAL SQ PRN ×3 (00:54→11:48)
--- NOTE | 2022-09-07 00:55 | NUR ---
INSULIN REGULAR NOT ADMINISTERED D/T POC GLUCOSE LEVEL OF 89.
[2022-09-07 04:00] VITALS: BP 108/56
--- NOTE | 2022-09-07 05:29 | NUR ---
NON-ADMINISTERED INSULIN REGULAR D/T GLUCOSE OF 101.
[2022-09-07] MEDS: LEVOTHYROXINE SODIUM 75 MCG TABLET GT SCH (06:07)
--- NOTE | 2022-09-07 06:21 | NUR ---
RESIDUAL OF >50ML. DECREASED FEEDING RATE @30MLS/HR. WILL CONTINUE TO MONITOR.
[2022-09-07 06:26] LABS: MAGNESIUM 1.7 mg/dL (1.8-2.4)
--- NOTE | 2022-09-07 06:51 | NUR ---
RN CLOSING NOTES PT IS OBTUNDED, BED BOUND. TRACHEOSTOMY (S#6) IS IN PLACE, AC: 12, TV: 375 FiO2:40, PEEP: 5, O2 SAT: 98%, WITH NO RESPIRATORY DISTRESS NOTED. PT IV ACCESS IN ON LEFT UPPER ARM PICC LINE, INTACT, PATENT AND FLUSHES WELL W/ NO S & SX OF INFILTRATION @ SITE NOTED. PT IS ON TELE MONITOR WITH CURRENT READING OF SINUS RHYTHM. PT GTUBE IN PLACE RUNNING JEVITY 1200 LATASHA @30MLS/HR, WITH >50ML RESIDUAL @THIS TIME. PT'S FLEXI SEAL IS IN PLACE, DRAINING FECAL WASTE AND CASPER CATHETER IS IN PLACE, DRAINING YELLOW URINE, URINE OUTPUT 400ML. ADMINISTERED MEDICATION ACCORDINGLY PER MD'S ORDER. SAFETY MEASURES IS IN PLACE. BED AT ITS LOWEST AND LOCKED POSITION. SIDE RAILS UP X 3 . BEDSIDE TABLE AND CALL LIGHT IS EASY REACH. BED ALARM IS ON. WILL ENDORSE TO THE NEXT SHIFT FOR CONTINUITY OF CARE.
--- NOTE | 2022-09-07 07:15 | NUR ---
RN OPENING NOTE PATIENT IN BED,OBTUNDED ON [facility] VENTILATOR PRESCRIBED TOLERATING WELL, NO S/S OF DISTRESS NOTED; SR ON EXTERNAL INSTRUCTOR MILITARY SCIENCE. KARAN PICC LINE; ABDOMINAL DRESSING C/D/I, S/P PRIOR G TUBE FEEDING RUNNING JEVITY AT 30 ML/HR. CASPER CATHETER DRAINING YELLOW COLORED URINE, FLEXISEAL IN PLACE DRAINING WELL; SAFETY MEASURES IMPLEMENTED, BED IN LOCKED POSITION, SIDE RAILS UP X 3; WILL CONTINUE TO MONITOR
[2022-09-07 08:00] VITALS: BP 115/59
[2022-09-07] MEDS ORDERED: MAGNESIUM OXIDE 400 MG TABLET GT ONE (08:00)
[2022-09-07] MEDS: SODIUM CHLORIDE 1000 MG TABLET GT SCH ×2 (08:51→16:27)
[2022-09-07] MEDS: GLYCOPYRROLATE 1 MG TABLET GT SCH ×2 (08:51→20:11)
[2022-09-07] MEDS: DOCUSATE SODIUM LIQ 100 MG/10 ML UDC GT SCH ×2 (08:51→16:28)
[2022-09-07] MEDS: PANTOPRAZOLE 40 MG VIAL IV SCH ×2 (08:51→20:11)
[2022-09-07] MEDS: METOCLOPRAMIDE HCL 10 MG/2 ML VIAL IV SCH ×3 (08:51→16:28)
[2022-09-07] MEDS: CHLORHEXIDINE GLUCONATE 15 ML UDC MM SCH ×2 (08:51→20:12)
--- NOTE | 2022-09-07 08:51 | NUR ---
RN NOTES: CHECKED RESIDUAL 120 ML, HELD FEEDING, ADMINISTERED AM MEDS WILL MONITOR
[2022-09-07] MEDS: LEVETIRACETAM (500MG) 500 MG in IV NS 0.9% 100 ML IV SCH ×2 (09:03→20:11)
[2022-09-07] MEDS: PROSOURCE / PROSTAT (PYXIS) 30 ML UDC GT SCH (09:03)
[2022-09-07] MEDS: CLOTRIMAZOLE/BETAMETASONE DIPROPIONATE 15 GM TUBE TP SCH ×2 (09:04→16:29)
[2022-09-07] MEDS: POLYVINYL ALCOHOL 15 ML BOTTLE EACHEYE SCH ×2 (09:04→16:28)
[2022-09-07] MEDS: NEOMY SULF/BACITRAC ZN/POLY 15 GM TUBE TP SCH (09:05)
--- NOTE | 2022-09-07 09:55 | NUR ---
rn notes: rechecked residual 150 ml.continue to hold gtf, notified insurance verification rep beckie garcia with order to recheck in 1 hour and resume feeding at 15 ml/hr will monitor
--- NOTE | 2022-09-07 11:48 | NUR ---
RN NOTES: BLOOD SUGAR 167, INSULIN PER SLIDING SCALE NOT GIVEN DUE TO FEEDING ON HOLD.CHECKED RESIDUAL IS 150 ML CONTINUE TO HOLD GTF, NOTIFIED DOREEN FARR NP NO NEW ORDERS AT THIS TIME
[2022-09-07 12:00] VITALS: BP 110/50
--- NOTE | 2022-09-07 13:40 | NUR ---
RN NOTES: SEEN BY DOREEN FARR THERAPY SITE COORDINATOR CHECKED RESIDUAL STILL ABOVE 100 ML WITH ORDER TO HOLD FEEDING X 4 MORE HOURS THEN START FEEDING AT 20 ML/HR X 20 HOUR PER DAY AND HE IS GOING TO ORDER CREON
[2022-09-07] MEDS: ONDANSETRON HCL/PF 4 MG/2 ML VIAL IVP PRN (15:46)
--- NOTE | 2022-09-07 15:46 | NUR ---
RN NOTES: NOTED PT IS VOMITING MODERATE AMOUNT OF YELLOW SECRETION, FEEDING CONTINUE ON HOLD ZOFRAN GIVEN IV PRESCRIBED NOTIFIED DOREEN DAUGHERTY WITH ORDER TO GIVE ZOFRAN NEEDED EVERY 6 HOURS, SOFTBALL PLAYER AWARE THAT PT RECEIVED REGLAN IV TWICE TODAY ORDERED TID , WILL CONTINUE TO MONITOR
[2022-09-07 16:00] VITALS: BP 112/69
[2022-09-07] MEDS: ACETAMINOPHEN 650 MG/20.3 ML UDC GT PRN (16:32)
[2022-09-07] MEDS: POLYETHYLENE GLYCOL 3350 17 GM POWD.PACK GT SCH (17:00)
--- NOTE | 2022-09-07 17:07 | NUR ---
RN NOTES: SEEN BY DOREEN FARR REAL ESTATE MANAGER WITH ORDER TO CANCEL GASTROGRAFIN NOT NEEDED, AND ORDERED STAT KUB, ORDER NOTED AND CARRIED OUT
[2022-09-07] MEDS: LIPASE/PROTEASE/AMYLASE 1 EACH CAPSULE.DR GT SCH (17:54)
--- NOTE | 2022-09-07 18:00 | NUR ---
ANA NOTES: STARTED FEEDING AT 10 CC ORDERED BU DOREEN FARR NP, WILL CONTINUE TO MONITOR
--- NOTE | 2022-09-07 19:10 | NUR ---
RN OPENING NOTES RECEIVED PATIENT IN BED, OBTUNDED, TRACH SHILEY #6, ON MV WITH SETTINGS FOLLOWS: AC 12, TV 375, FiO2 40, PEEP 5, O2 SAT 98%, NO SOB/DISTRESS NOTED. ON TELE MONITOR WITH CURRENT READING OF SINUS RHYTHM, HR 93. IV ACCESS ON KARAN PICC LINE, INTACT AND PATENT, NO S/SX OF INFILTRATION NOTED. GTF RUNNING JEVITY 1.2 LATASHA RUNNING AT 10 ML/HR, WITH 40 ML RESIDUAL AT THIS TIME. CASPER CATHETER IN PLACE, DRAINING VIV COLORED URINE. FLEXISEAL IN PLACE, INTACT AND PATENT. LARGE ABDOMINAL WOUND NOTED, DRESSING C/D/I. SAFETY MEASURES IS IN PLACE: BED LOCKED AND IN LOWEST POSITION, SIDE RAILS UP X3.
[2022-09-07] MEDS ORDERED: GLUCERNA 1.2 1,000 ML BOTTLE NG PRN (19:30)
--- NOTE | 2022-09-07 19:38 | NUR ---
FARM EQUIPMENT MECHANIC APPRENTICE CLOSING NOTES PT IS OBTUNDED, BED BOUND. TRACHEOSTOMY (S#6) IS IN PLACE, AC: 12, TV: 375 FiO2:40, PEEP: 5, O2 SAT: 98%, WITH NO RESPIRATORY DISTRESS NOTED. PT IV ACCESS IN ON LEFT UPPER ARM PICC LINE, INTACT, PATENT AND FLUSHES WELL W/ NO S & SX OF INFILTRATION @ SITE NOTED. PT IS ON TELE MONITOR WITH CURRENT READING OF SINUS RHYTHM. PT GTUBE IN PLACE RUNNING JEVITY1.2 LATASHA RUNNING AT @10MLS/HR, WITH 100ML RESIDUAL @THIS TIME. PT'S FLEXI SEAL IS IN PLACE, DRAINING FECAL WASTE AND CASPER CATHETER IS IN PLACE, DRAINING YELLOW URINE, URINE OUTPUT 250ML. ADMINISTERED MEDICATION ACCORDINGLY PER MD'S ORDER. SAFETY MEASURES IS IN PLACE. BED AT ITS LOWEST AND LOCKED POSITION. SIDE RAILS UP X 3 . BEDSIDE TABLE AND CALL LIGHT IS EASY REACH. BED ALARM IS ON. ENDORSED TO THE NEXT SHIFT FOR CONTINUITY OF CARE.
[2022-09-07 20:00] VITALS: BP 126/55
[2022-09-08] VITALS (8 sets, daily range): BP systolic 75–154; BP diastolic 20–106
[2022-09-08] MEDS: BLOOD SUGAR DIAGNOSTIC 1 EACH STRIP IN SCH ×2 (00:09→06:00)
[2022-09-08] MEDS: INSULIN REGULAR, HUMAN 100 UNIT/ML 3 ML VIAL SQ PRN (00:24)
--- NOTE | 2022-09-08 00:33 | NUR ---
RN NOTE PATIENT ON JEVITY 1.2 AT 10 ML/HR AND BLOOD SUGAR IS 152. PER DR. NICHOLAS, OK TO GIVE 2 UNITS OF INSULIN.
--- NOTE | 2022-09-08 02:18 | NUR ---
RN NOTE PATIENT IS TACHYPNEIC RR 46, HR 125, BP 90/48. MD MADE AWARE.
[2022-09-08] MEDS: ACETAMINOPHEN 650 MG/20.3 ML UDC GT PRN (02:32)
--- NOTE | 2022-09-08 02:35 | NUR ---
RN NOTE PATIENT'S TEMPERATURE IS 101.4, TYLENOL 650 ADMINISTERED.
--- NOTE | 2022-09-08 02:40 | NUR ---
RN NOTE PATIENT HAS CONTINUOUS YELLOW EMESIS. HELD GTF. Addendum: 09/08/22 at 0307 by ROMAINE HANDY RN ALSO CHECKED FOR RESIDUAL, NO RESIDUAL NOTED.
--- NOTE | 2022-09-08 02:45 | NUR ---
0245 Obtained 25cc of brownish residual when checked and noted GT site oozing with small amount of light brown drainage.
--- NOTE | 2022-09-08 03:50 | NUR ---
0350 Dr. Allen replied and updated him on patient's condition with orders given. Patient on cooling measures for fever remains tachypneic and tachycardic. Tube feedoing stopped per MD order. HOB elevated for maximum oxygenation and aspiration precaution. Patient is being closely monitored.
[2022-09-08] MEDS ORDERED: IV NS 0.9% 500 ML IV ONE (04:00)
[2022-09-08] MEDS: LORAZEPAM INJ 2 MG/ML VIAL IV PRN (04:08)
[2022-09-08] MEDS ORDERED: CEFEPIME 1 GM in IV D5W 50 ML IV ONE (04:30)
[2022-09-08] MEDS ORDERED: CEFEPIME 1 GM VIAL ONE (04:38)
[2022-09-08] MEDS ORDERED: VANCOMYCIN 1 GM VIAL ONE (04:38)
[2022-09-08] MEDS ORDERED: VANCOMYCIN 1 GM in IV D5W 250ml IV ONE (05:00)
[2022-09-08 05:35] LABS: BILIRUBIN,URINE 1+ (NEGATIVE); COLOR,URINE YELLOW (YELLOW); LEUKOCYTE ESTERASE ,URINE 2+ (NEGATIVE); NITRITE, URINE NEGATIVE (NEGATIVE); PROTEIN,URINE 1+ mg/dl (NEGATIVE); UGLUCOSE NEGATIVE (NEGATIVE)
--- NOTE | 2022-09-08 06:10 | NUR ---
RN NOTE PATIENT'S BLOOD SUGAR IS 61. ADMINISTERED D10 PER PROTOCOL
[2022-09-08] MEDS: LEVOTHYROXINE SODIUM 75 MCG TABLET GT SCH (07:00)
[2022-09-08] MEDS: ONDANSETRON HCL/PF 4 MG/2 ML VIAL IVP PRN (07:05)
[2022-09-08 07:16] LABS: CALCIUM, SERUM 8.5 mg/dL (8.5-10.1); CREATININE 2.2 mg/dL (0.6-1.3); POTASSIUM 4.9 mmol/L (3.5-5.1)
--- NOTE | 2022-09-08 07:22 | NUR ---
RN CLOSING NOTES PATIENT IN BED, OBTUNDED, TACHYPNEIC WITH BROWN CONTINUOUS EMESIS. TRACH DWAYNE #6, ON MV WITH SETTINGS FOLLOWS: AC 12, TV 375, FiO2 40, PEEP 5, O2 SAT 95%, ON TELE MONITOR WITH CURRENT READING OF SINUS TACHYCARDIA, HR IN THE 120S. IV ACCESS ON KARAN PICC LINE, INTACT AND PATENT, NO S/SX OF INFILTRATION NOTED. GTF ON HOLD. CASPER CATHETER IN PLACE, DRAINING VIV COLORED URINE. FLEXISEAL IN PLACE, INTACT AND PATENT. LARGE ABDOMINAL WOUND NOTED, DRESSING C/D/I. ALL DUE MEDS WERE GIVEN AND NEEDS ATTENDED. SAFETY MEASURES IS IN PLACE: BED LOCKED AND IN LOWEST POSITION, SIDE RAILS UP X3. ENDORSED TO AM NURSE FOR ANG
[2022-09-08] MEDS ORDERED: IV D5/ 0.9% NACL 1,000 ML IV ONE (07:30)
[2022-09-08] MEDS ORDERED: IV D5/0.45 NACL 1,000 ML IV ONE (08:00)
[2022-09-08] MEDS: LIPASE/PROTEASE/AMYLASE 1 EACH CAPSULE.DR GT SCH (08:00)
[2022-09-08 08:06] LABS: BACTERIA,URINE Few /HPF (None Seen); SQUAMOUS EPITHELIAL CELL,UR Few /HPF (None Seen); WBC,URINE 21-50 /HPF (0-3); YEAST,URINE Moderate /HPF (None Seen)
[2022-09-08 08:10] LABS: CALCIUM OXALATE CRYSTALS,UR Rare /HPF (None Seen)
--- NOTE | 2022-09-08 08:10 | NUR ---
RN NOTES: PT TRANSFERRED TO ICU, CONTINUE TO STAY WITH PT FOR ANG WILL MONITOR
[2022-09-08 08:37] LABS: BASOPHILS # (AUTO) 0.2 K/uL (0.0-0.2); BASOPHILS % (AUTO) 0.9 % (0.0-2.0); HEMATOCRIT 36 % (33-45); HEMOGLOBIN 10.7 g/dL (11.5-14.8); LYMPHOCYTES # (AUTO) 1.6 K/uL (0.8-4.8); LYMPHOCYTES % (AUTO) 8.5 % (20.0-44.0); MEAN CORPUSCULAR HGB CONC 30 g/dl (31.0-36.0); MEAN CORPUSCULAR VOLUME 96 fL (82-100); MONOCYTES # (AUTO) 0.3 K/uL (0.1-1.30); MONOCYTES % (AUTO) 1.6 % (2.0-12.0); NEUTROPHILS # (AUTO) 17.2 K/uL (1.8-8.9); PLATELET COUNT (AUTO) 394 K/uL (150-450); WHITE BLOOD COUNT (AUTO) 19.3 K/uL (4.3-11.0)
[2022-09-08] MEDS ORDERED: TPN/PPN PER PHARMACY XX PRN (09:00)
[2022-09-08] MEDS: PROSOURCE / PROSTAT (PYXIS) 30 ML UDC GT SCH (09:00)
[2022-09-08] MEDS: GLYCOPYRROLATE 1 MG TABLET GT SCH (09:00)
[2022-09-08] MEDS: SODIUM CHLORIDE 1000 MG TABLET GT SCH (09:00)
[2022-09-08] MEDS: DOCUSATE SODIUM LIQ 100 MG/10 ML UDC GT SCH (09:00)
--- NOTE | 2022-09-08 09:00 | NUR ---
RN NOTES: SEEN BY DOREEN FARR MUSEUM GUIDE MADE AWARE UNABLE TO GIVE MEDICINE VIA GT PT IS NPO AND GT CONNECTED TO INTERMITTENT SUCTION
[2022-09-08] MEDS: CHLORHEXIDINE GLUCONATE 15 ML UDC MM SCH (09:14)
[2022-09-08] MEDS: PANTOPRAZOLE 40 MG VIAL IV SCH (09:14)
[2022-09-08] MEDS: LEVETIRACETAM (500MG) 500 MG in IV NS 0.9% 100 ML IV SCH (09:14)
[2022-09-08] MEDS: METOCLOPRAMIDE HCL 10 MG/2 ML VIAL IV SCH (09:14)
[2022-09-08] MEDS: POLYVINYL ALCOHOL 15 ML BOTTLE EACHEYE SCH (09:16)
[2022-09-08] MEDS: NEOMY SULF/BACITRAC ZN/POLY 15 GM TUBE TP SCH (09:17)
[2022-09-08] MEDS: CLOTRIMAZOLE/BETAMETASONE DIPROPIONATE 15 GM TUBE TP SCH (09:17)
[2022-09-08 09:47] LABS: BAND % (MANUAL) 16 % (0.0-5.0); LYMPHOCYTES % (MANUAL) 4 % (16-48); METAMYELOCYTES % 1 % (0-0); MONOCYTES % (MANUAL) 6 % (0-11.0); MYELOCYTES % 1 % (0-0); NEUTROPHILS % (MANUAL) 72 (42-76)
--- NOTE | 2022-09-08 09:50 | NUR ---
RN NOTES: UNABLE TO OBTAIN VITAL SIGNS, CHECKED PULSE BY DOPPLER NO PULSE, PT IS MOTTLED, SEEN BY DOREEN FARR NP PT .PT IS DNR/DNI
--- NOTE | 2022-09-08 10:20 | NUR ---
RN NOTES: CALLED [facility] AND GAVE REPORT . REFERRAL ID IS: [id number]
--- NOTE | 2022-09-08 10:27 | NUR ---
RN NOTES: POST MORTUM CARE PROVIDED
--- NOTE | 2022-09-08 11:48 | NUR ---
RN NOTES: RECEIVED A CALL FROM [place] FROM [facility] PT IS NOT CANDIDATE FOR TISSUE OR ORGAN DONATION OK TO RELEASE THE BODY
[2022-09-08] MEDS ORDERED: CEFEPIME 2 GM in IV D5W 100 ML IV SCH (13:00)
[2022-09-09] MEDS ORDERED: VANCOMYCIN 1 GM in IV D5W 250 ML IV SCH (05:00)
== END 2022-09-08 12:59 | DRG 335 ==
LOC: ER 16:14 → TELE 18:07 → MED 20:46 → TELE 08-06 13:29 → MED 08-08 09:51 → ICU 08-11 22:59 → TELE1 08-28 18:11 → TELE-TD 08-28 18:45 → TELE1 08-29 14:45 → ICU 09-08 07:53
PROVIDERS: ADMIT Registered Nurse; ATTEND Nurse Practitioner Acute Care
PROC: 0JQ80ZZ Repair Abdomen Subcutaneous Tissue and Fascia, Open Approach (ICD-10-PCS; principal; 2022-08-07)
PROC: 0JB83ZZ Excision of Abdomen Subcutaneous Tissue and Fascia, Percutaneous Approach (ICD-10-PCS; 2022-08-07)
PROC: 0DJ08ZZ Inspection of Upper Intestinal Tract, Via Natural or Artificial Opening Endoscopic (ICD-10-PCS; 2022-08-07)
PROC: 0DH63UZ Insertion of Feeding Device into Stomach, Percutaneous Approach (ICD-10-PCS; 2022-08-07)
PROC: 0DH63UZ Insertion of Feeding Device into Stomach, Percutaneous Approach (ICD-10-PCS; 2022-08-08)
PROC: 30233N1 Transfusion of Nonautologous Red Blood Cells into Peripheral Vein, Percutaneous Approach (ICD-10-PCS; 2022-08-10)
PROC: 5A1955Z Respiratory Ventilation, Greater than 96 Consecutive Hours (ICD-10-PCS; 2022-08-12)
PROC: 0BH18EZ Insertion of Endotracheal Airway into Trachea, Via Natural or Artificial Opening Endoscopic (ICD-10-PCS; 2022-08-12)
PROC: 05HB33Z Insertion of Infusion Device into Right Basilic Vein, Percutaneous Approach (ICD-10-PCS; 2022-08-12)
PROC: 05HA33Z Insertion of Infusion Device into Left Brachial Vein, Percutaneous Approach (ICD-10-PCS; 2022-08-17)
PROC: 02HV33Z Insertion of Infusion Device into Superior Vena Cava, Percutaneous Approach (ICD-10-PCS; 2022-08-21)
PROC: B548ZZA Ultrasonography of Superior Vena Cava, Guidance (ICD-10-PCS; 2022-08-21)
PROC: 0DNU0ZZ Release Omentum, Open Approach (ICD-10-PCS; 2022-09-03)
PROC: 0WQF4ZZ Repair Abdominal Wall, Percutaneous Endoscopic Approach (ICD-10-PCS; 2022-09-03)
PROC: 0D1 Gastrointestinal System, Bypass (ICD-10-PCS; 2022-09-03)
DX: K94.22 Gastrostomy infection (principal); A41.9 Sepsis, unspecified organism; R53.2 Functional quadriplegia; R65.21 Severe sepsis with septic shock; I50.33 Acute on chronic diastolic (congestive) heart failure; J96.21 Acute and chronic respiratory failure with hypoxia; N17.0 Acute kidney failure with tubular necrosis; J69.0 Pneumonitis due to inhalation of food and vomit; G93.41 Metabolic encephalopathy; K65.9 Peritonitis, unspecified; L03.311 Cellulitis of abdominal wall; K31.6 Fistula of stomach and duodenum; K56.51 Intestinal adhesions [bands], with partial obstruction; Z99.11 Dependence on respirator [ventilator] status; I13.0 Hypertensive heart and chronic kidney disease with heart failure and stage 1 through stage 4 chronic kidney disease, or unspecified chronic kidney disease; K56.7 Ileus, unspecified; K56.600 Partial intestinal obstruction, unspecified as to cause; J95.851 Ventilator associated pneumonia; G93.1 Anoxic brain damage, not elsewhere classified; E87.1 Hypo-osmolality and hyponatremia; E44.0 Moderate protein-calorie malnutrition; D68.59 Other primary thrombophilia; E27.40 Unspecified adrenocortical insufficiency; J98.11 Atelectasis; N39.0 Urinary tract infection, site not specified; G40.909 Epilepsy, unspecified, not intractable, without status epilepticus; Y73.8 Miscellaneous gastroenterology and urology devices associated with adverse incidents, not elsewhere classified; Y92.89 Other specified places as the place of occurrence of the external cause; Y83.3 Surgical operation with formation of external stoma as the cause of abnormal reaction of the patient, or of later complication, without mention of misadventure at the time of the procedure; Y92.129 Unspecified place in nursing home as the place of occurrence of the external cause; Z20.822 Contact with and (suspected) exposure to COVID-19; K22.2 Esophageal obstruction; Z66 Do not resuscitate; Z78.9 Other specified health status; Z86.19 Personal history of other infectious and parasitic diseases; F09 Unspecified mental disorder due to known physiological condition; K44.9 Diaphragmatic hernia without obstruction or gangrene; R13.10 Dysphagia, unspecified; R32 Unspecified urinary incontinence; Y95 Nosocomial condition; S61.411A Laceration without foreign body of right hand, initial encounter; X58.XXXA Exposure to other specified factors, initial encounter; Y92.9 Unspecified place or not applicable; Z79.51 Long term (current) use of inhaled steroids; Z79.899 Other long term (current) drug therapy; D63.8 Anemia in other chronic diseases classified elsewhere; D50.9 Iron deficiency anemia, unspecified; E11.22 Type 2 diabetes mellitus with diabetic chronic kidney disease; Z87.19 Personal history of other diseases of the digestive system; Q90.9 Down syndrome, unspecified; L25.3 Unspecified contact dermatitis due to other chemical products; Z87.440 Personal history of urinary (tract) infections; F79 Unspecified intellectual disabilities; Z83.3 Family history of diabetes mellitus; N18.9 Chronic kidney disease, unspecified; E88.09 Other disorders of plasma-protein metabolism, not elsewhere classified; Z74.09 Other reduced mobility; E83.39 Other disorders of phosphorus metabolism; E83.42 Hypomagnesemia; E86.1 Hypovolemia; E87.6 Hypokalemia
CPT/HCPCS: 31720; 36410; 36415; 36569; 36600; 71045-TC; 74018; 74150-TC; 74250-TC; 80048-TC; 80053-TC; 80061-TC; 80177; 81001; 82040-TC; 82272-TC; 82533; 82570-TC; 82728-TC; 82803-TC; 82962-TC; 83540-TC; 83735-TC; 83880; 84100-TC; 84134-TC; 84300-TC; 84443-TC; 84478-TC; 85025-TC; 85027-TC; 85610-TC; 85730-TC; 86850-TC; 87040-TC; 87081-TC; 87086-TC; 87806; 88305-TC; 88342; 93307-TC; 94002-TC; 94003-TC; 94640-TC; 94760-TC; 94762-TC; 94799-TC; 99082-TC; A4216; A4217; A4223; A4623; A6209; A6253; A6403; A6407; A7526; A9563; C9113; C9803; G0378; J0330; J0360; J0461; J0690; J0692; J1100; J1650; J1720; J1815; J1940; J1953; J2060; J2185; J2250; J2405; J2704; J2765; J3010; J3370; J3430; J3475; J3480; J3490; J7030; J7040; J7042; J7050; J7060; J7120; J8597; P9016; Q9963